=== PATIENT | male | born 1965 | race Caucasian/White ===

== ENCOUNTER 2017-06-27 16:00 | Inpatient (IN) | payer MEDICAID ==
[~2017-06-27] VITALS: Ht 165.1 cm; Wt 81.3 kg
[~2017-06-27 16:00] MED LIST: ETOMIDATE 20 MG/10 ML ONE; PROPOFOL 10 MG/ML, 100ML IV ONE; SUCCINYLCHOLINE 20 MG/ML, 10ML ONE
[2017-06-27] MEDS ORDERED: LORazepam 2 MG/ML, 1ML IVPush ONE (16:30)
[2017-06-27] MEDS ORDERED: SODIUM CHLORIDE FLUSH 10ML SYR IVF ONE (16:30)
[2017-06-27] MEDS ORDERED: VANCOMYCIN PER PHARMACY MC ONE (16:30)
[2017-06-27] MEDS ORDERED: SODIUM CHLORIDE 0.9% 1,000ML IVBOLUS ONE ×2 (16:30→19:00)
[2017-06-27] MEDS ORDERED: PLEASE ENTER HEIGHT AND WEIGHT MC SCH (16:30)
[2017-06-27] MEDS ORDERED: SUCCINYLCHOLINE 20 MG/ML, 10ML IVPush ONE (17:00)
[2017-06-27] MEDS ORDERED: VANCOMYCIN 1,400 MG in SODIUM CHLORIDE 0.9% 250 ML IV ONE (17:00)
[2017-06-27] MEDS ORDERED: ETOMIDATE 20 MG/10 ML IVPush ONE (17:00)
[2017-06-27] MEDS ORDERED: PIPERACILLIN/TAZO/PMX 3.375GM 50 ML IVPB ONE (17:00)
[2017-06-27] MEDS ORDERED: FENTANYL PF 100 MCG/2ML ONE (17:11)
[2017-06-27] MEDS ORDERED: FENTANYL PF 100 MCG/2ML IVPush ONE (17:30)
[2017-06-27] MEDS ORDERED: VECURONIUM 10 MG IVPush ONE (17:30)
[2017-06-27] MEDS ORDERED: PROPOFOL 10 MG/ML, 20ML IVPush ONE (17:30)
[2017-06-27] MEDS ORDERED: ACETAMINOPHEN 650 MG SUPP PR ONE (18:00)
[2017-06-27] MEDS: PROPOFOL 100 ML IV SCH ×2 (18:02→20:08)
[2017-06-27] MEDS ORDERED: ACETAMINOPHEN 650 MG SUPP ONE (18:06)
[2017-06-27] MEDS ORDERED: PIPERACILLIN/TAZO/PMX 3.375GM 50 ML ONE (18:06)
[2017-06-27 18:22] LABS: INTERNATIONAL NORMALIZED RATIO 1.83 (0.93-1.1); PROTHROMBIN TIME 18.6 Seconds (9.6-11.5)
[2017-06-27 18:26] LABS: MICROSCOPIC INDICATED
[2017-06-27 18:27] LABS: ALANINE AMINOTRANSFERASE 53 U/L (12-78); ANION GAP 11 mmol/L (5-15); CALCIUM 7.4 mg/dL (8.5-10.1); CHLORIDE 106 mmol/L (98-107)
[2017-06-27 18:34] LABS: MD YES; MEAN CORPUSCULAR HEMOGLOBIN 28.5 pg (27.5-34.5); MEAN CORPUSCULAR HGB CONC 33.9 g/dL (33.2-36.2); MEAN CORPUSCULAR VOLUME 83.9 fL (81-97); MEAN PLATELET VOLUME 8.3 fL (7.4-10.4); PLATELET COUNT 85 x10^3/uL (130-400); RED BLOOD COUNT 3.95 x10^6/uL (4.38-5.82); RED CELL DISTRIBUTION WIDTH 18.6 % (9.4-14.8)
[2017-06-27 18:36] LABS: CULTURE INDICATED? NO
[2017-06-27 18:37] LABS: BAND#(MANUAL) 0.68 x10^3/uL; BANDS%(MANUAL) 11 % (0-7); LYMPH#(MANUAL) 0.25 x10^3/uL (1-3.4); LYMPHS% (MANUAL) 4 % (22-44); METAMYELOCYTES# (MANUAL) 0.12 x10^3/uL (0-0); METAMYELOCYTES% (MANUAL) 2 % (0-1); MONOS#(MANUAL) 0.19 x10^3/uL (0.3-2.7); MONOS% (MANUAL) 3 % (2-9); SEG#(MANUAL) 4.96 x10^3/uL (1.8-6.8); SEGS% (MANUAL) 80 % (42-75)
[2017-06-27 18:38] LABS: ANISOCYTOSIS 2+; HYPOCHROMIA 1+; MICROCYTOSIS 1+; OVALOCYTES 1+; POLYCHROMASIA 1+
[2017-06-27 18:39] LABS: <PLATELET ESTIMATE> DECREASED; <PLT MORPHOLOGY> NORMAL PLT MORPH; PMNS WITH VACUOLES 1+; TEAR DROPS 1+
[2017-06-27 18:41] LABS: ALKALINE PHOSPHATASE 73 U/L (45-117); BILIRUBIN,TOTAL 2.4 mg/dL (0.2-1.0); CREATINE KINASE, TOTAL 1374 U/L (39-308); TOTAL PROTEIN 5.9 g/dL (6.4-8.2)
[2017-06-27 18:58] LABS: ACETONE, SERUM Negative (Negative)
[2017-06-27] MEDS ORDERED: SENNA/DOCUSATE TABLET NG PRN (19:00)
[2017-06-27] MEDS ORDERED: FAMOTIDINE 20 MG/2 ML IV SCH (19:00)
[2017-06-27] MEDS ORDERED: ENOXAPARIN 40 MG/0.4 ML SQ SCH (19:00)
[2017-06-27] MEDS ORDERED: PHARMACY MAY ADJ FOR RENAL FX MC SCH (19:00)
[2017-06-27] MEDS ORDERED: ONDANSETRON 2MG/ML, 2ML IVPush PRN (19:00)
[2017-06-27] MEDS ORDERED: LACTULOSE 20 GM/30 ML UDC NG PRN (19:00)
[2017-06-27] MEDS ORDERED: SENNOSIDES 8.8 MG/5 ML ORAL SOL NG PRN (19:00)
[2017-06-27] MEDS ORDERED: SODIUM CHLORIDE 0.9% 1,000 ML IV SCH (19:00)
[2017-06-27] MEDS ORDERED: LIDOCAINE-MPF 1%, 2ML ENDO PRN (19:00)
[2017-06-27] MEDS ORDERED: BISACODYL 10 MG SUPP PR PRN (19:00)
[2017-06-27] MEDS ORDERED: PIPERACILLIN/TAZO/PMX 3.375GM 50 ML IV SCH (19:00)
[2017-06-27] MEDS ORDERED: PROPOFOL 100 ML IV ONE (19:13)
[2017-06-27 19:50] LABS: AMPHETAMINE SCREEN, URINE Positive (Negative); BARBITURATE SCREEN, URINE Negative (Negative); BENZODIAZEPINE SCREEN, URINE Negative (Negative); CANNABINOID SCREEN, URINE Negative (Negative); COCAINE SCREEN, URINE Negative (Negative); METHADONE SCREEN, URINE Negative (Negative); OPIATE SCREEN, URINE Negative (Negative)
[2017-06-27] MEDS: AMPICILLIN/SULBACTAM 3 GM in SODIUM CHLORIDE 0.9% 100 ML IV SCH (20:03)
[2017-06-27] MEDS: SODIUM CHLORIDE 0.9% 1,000 ML IV SCH (20:12)
[2017-06-27] MEDS ORDERED: HEPARIN 5,000 UNITS/ML, 1ML ONE (20:25)
[2017-06-27] MEDS ORDERED: VANCOMYCIN PMX 1GM/200ML 200 ML IV ONE (20:30)
[2017-06-27] MEDS: HEPARIN 5,000 UNITS/ML, 1ML SQ SCH (20:39)
[2017-06-27] MEDS: RANITIDINE 50 MG in SODIUM CHLORIDE 0.9% 100 ML IV SCH (20:40)
[2017-06-27 22:04] VITALS: BP 98/54
[2017-06-28] MEDS: PROPOFOL 100 ML IV SCH (01:21)
[2017-06-28] MEDS: AMPICILLIN/SULBACTAM 3 GM in SODIUM CHLORIDE 0.9% 100 ML IV SCH ×2 (01:21→06:47)
[2017-06-28] MEDS: SODIUM CHLORIDE 0.9% 1,000 ML IV SCH (02:39)
[2017-06-28] MEDS: HEPARIN 5,000 UNITS/ML, 1ML SQ SCH ×3 (02:54→20:16)
[2017-06-28] MEDS: RANITIDINE 50 MG in SODIUM CHLORIDE 0.9% 100 ML IV SCH ×3 (04:03→20:15)
[2017-06-28 04:20] LABS: MEAN CORPUSCULAR HEMOGLOBIN 28.6 pg (27.5-34.5); MEAN CORPUSCULAR HGB CONC 34.4 g/dL (33.2-36.2); MEAN CORPUSCULAR VOLUME 83.1 fL (81-97); RED BLOOD COUNT 3.24 x10^6/uL (4.38-5.82); RED CELL DISTRIBUTION WIDTH 18.8 % (9.4-14.8)
[2017-06-28 04:29] VITALS: BP 96/53
[2017-06-28 04:31] LABS: ALBUMIN 1.5 g/dL (3.4-5.0); ANION GAP 9 mmol/L (5-15); CALCIUM 6.6 mg/dL (8.5-10.1); CHLORIDE 113 mmol/L (98-107)
[2017-06-28 04:34] LABS: ALANINE AMINOTRANSFERASE 39 U/L (12-78); ALKALINE PHOSPHATASE 54 U/L (45-117); BILIRUBIN,TOTAL 1.5 mg/dL (0.2-1.0); CHOL/HDL RATIO 4.7; CHOLESTEROL, TOTAL 56 mg/dL (140-239); CREATINE KINASE, TOTAL 732 U/L (39-308); CREATININE 0.71 mg/dL (0.7-1.3); HDL CHOL % 21 % (26-37); HDL CHOLESTEROL (DIRECT) 12 mg/dL (40-60); LDL CHOLESTEROL,CALCULATED 28 mg/dL (54-169); LDL/HDL RATIO 2.3 (0.5-3.0); TOTAL PROTEIN 4.7 g/dL (6.4-8.2); TRIGLYCERIDES 81 mg/dL (50-200); VLDL CHOLESTEROL 16 mg/dL (0-25)
[2017-06-28 04:36] LABS: ANION GAP 9 mmol/L (5-15); CALCIUM 6.6 mg/dL (8.5-10.1); CHLORIDE 112 mmol/L (98-107)
[2017-06-28 05:53] LABS: MEAN PLATELET VOLUME 8.2 fL (7.4-10.4); PLATELET COUNT 58 x10^3/uL (130-400)
[2017-06-28 05:54] LABS: MD YES
[2017-06-28 05:59] LABS: ANISOCYTOSIS 1+; BAND#(MANUAL) 0.27 x10^3/uL; BANDS%(MANUAL) 9 % (0-7); BASOS#(MANUAL) 0.03 x10^3/uL (0-0.1); BASOS% (MANUAL) 1 % (0-1); EOS#(MANUAL) 0.03 x10^3/uL (0.0-0.4); EOS% (MANUAL) 1 % (1-7); LYMPH#(MANUAL) 0.33 x10^3/uL (1-3.4); LYMPHS% (MANUAL) 11 % (22-44); METAMYELOCYTES# (MANUAL) 0.06 x10^3/uL (0-0); METAMYELOCYTES% (MANUAL) 2 % (0-1); MONOS#(MANUAL) 0.18 x10^3/uL (0.3-2.7); MONOS% (MANUAL) 6 % (2-9); POLYCHROMASIA 1+; SEGS% (MANUAL) 70 % (42-75)
[2017-06-28 06:00] LABS: OVALOCYTES 1+
[2017-06-28 06:02] LABS: TEAR DROPS 1+
[2017-06-28 06:03] LABS: <PLATELET ESTIMATE> DECREASED; <PLT MORPHOLOGY> NORMAL PLT MORPH; ECHINOCYTES 1+
[2017-06-28] MEDS ORDERED: SODIUM PHOSPHATE 20 MMOL in SODIUM CHLORIDE 0.9% 500 ML IV ONE (07:00)
[2017-06-28] MEDS ORDERED: VANCOMYCIN PER PHARMACY MC PRN (07:00)
[2017-06-28] MEDS: SODIUM CHLORIDE 0.45% 1,000 ML IV SCH (07:34)
[2017-06-28] MEDS: PROPOFOL 100 ML IV PRN (07:39)
[2017-06-28] MEDS: PIPERACILLIN/TAZO/PMX 3.375GM 50 ML IV SCH ×3 (07:42→20:15)
[2017-06-28] MEDS: LACTULOSE 20 GM/30 ML UDC PO SCH ×2 (07:49→20:15)
[2017-06-28] MEDS ORDERED: PHARMACOKINETIC CONSULTATION MC ONE (08:00)
[2017-06-28] MEDS ORDERED: PHARMACOKINETIC MONITORING MC PRN (08:00)
[2017-06-28 08:09] LABS: TROPONIN I 0.977 ng/mL (0.000-0.045)
[2017-06-28] MEDS: VANCOMYCIN 1,300 MG in SODIUM CHLORIDE 0.9% 250 ML IV SCH ×2 (08:56→21:03)
[2017-06-28] MEDS: MIDAZOLAM HCL 25 MG in SODIUM CHLORIDE 0.9% 245 ML IV PRN ×3 (10:02→22:13)
[2017-06-28 14:59] LABS: TROPONIN I 0.533 ng/mL (0.000-0.045)
[2017-06-28] MEDS: ATORVASTATIN 40 MG TABLET PO SCH (20:15)
[2017-06-28] MEDS: MVI ADULT 10 ML, THIAMINE 200 MG, FOLIC ACID 1 MG in SODIUM CHLORIDE 0.45% 1,000 ML IV SCH (21:03)
[2017-06-29] MEDS: PIPERACILLIN/TAZO/PMX 3.375GM 50 ML IV SCH ×2 (02:15→07:21)
[2017-06-29] MEDS: SODIUM CHLORIDE 0.45% 1,000 ML IV SCH (02:16)
[2017-06-29 04:00] VITALS: BP 97/54
[2017-06-29] MEDS: HEPARIN 5,000 UNITS/ML, 1ML SQ SCH ×3 (04:13→19:29)
[2017-06-29] MEDS: RANITIDINE 50 MG in SODIUM CHLORIDE 0.9% 100 ML IV SCH ×3 (04:13→19:29)
[2017-06-29 04:33] LABS: MEAN CORPUSCULAR HGB CONC 33.8 g/dL (33.2-36.2); MEAN CORPUSCULAR VOLUME 82.9 fL (81-97); MEAN PLATELET VOLUME 8.3 fL (7.4-10.4); PLATELET COUNT 58 x10^3/uL (130-400); RED CELL DISTRIBUTION WIDTH 18.9 % (9.4-14.8)
[2017-06-29 04:39] LABS: ANION GAP 8 mmol/L (5-15); CALCIUM 6.7 mg/dL (8.5-10.1); CHLORIDE 114 mmol/L (98-107); CREATININE 0.57 mg/dL (0.7-1.3)
[2017-06-29] MEDS: MIDAZOLAM HCL 25 MG in SODIUM CHLORIDE 0.9% 245 ML IV PRN (04:40)
[2017-06-29 04:55] LABS: MD YES
[2017-06-29 04:58] LABS: ANISOCYTOSIS 1+; BAND#(MANUAL) 0.06 x10^3/uL; BANDS%(MANUAL) 3 % (0-7); ECHINOCYTES 1+; EOS#(MANUAL) 0.04 x10^3/uL (0.0-0.4); EOS% (MANUAL) 2 % (1-7); LYMPH#(MANUAL) 0.66 x10^3/uL (1-3.4); LYMPHS% (MANUAL) 33 % (22-44); MONOS#(MANUAL) 0.16 x10^3/uL (0.3-2.7); MONOS% (MANUAL) 8 % (2-9); OVALOCYTES 1+; POLYCHROMASIA 1+; SEG#(MANUAL) 1.08 x10^3/uL (1.8-6.8); SEGS% (MANUAL) 54 % (42-75)
[2017-06-29 04:59] LABS: SCHISTOCYTES 1+; TARGET CELLS 1+
[2017-06-29 05:00] LABS: <PLATELET ESTIMATE> DECREASED; <PLT MORPHOLOGY> NORMAL PLT MORPH
[2017-06-29] MEDS: LACTULOSE 20 GM/30 ML UDC PO SCH ×2 (07:21→19:29)
[2017-06-29] MEDS: MIDAZOLAM HCL 50 MG in SODIUM CHLORIDE 0.9% 240 ML IV PRN ×2 (07:23→15:58)
[2017-06-29] MEDS: QUETIAPINE 25MG TABLET PO SCH ×3 (08:59→19:29)
[2017-06-29] MEDS: POTASSIUM CHLORIDE 10% 40 MEQ/30 ML UDC PO SCH ×2 (08:59→19:29)
[2017-06-29] MEDS ORDERED: SODIUM PHOSPHATE 20 MMOL in SODIUM CHLORIDE 0.9% 500 ML IV ONE (09:00)
[2017-06-29] MEDS ORDERED: CALCIUM CHLORIDE 13.6 MEQ in SODIUM CHLORIDE 0.9% 100 ML IV ONE (09:00)
[2017-06-29] MEDS: VANCOMYCIN 1,300 MG in SODIUM CHLORIDE 0.9% 250 ML IV SCH (09:01)
[2017-06-29] MEDS: ASPIRIN 325 MG TABLET PO SCH (12:06)
[2017-06-29] MEDS: AMPICILLIN/SULBACTAM 3 GM in SODIUM CHLORIDE 0.9% 100 ML IV SCH ×2 (13:27→18:26)
[2017-06-29] MEDS: ATORVASTATIN 40 MG TABLET PO SCH (19:29)
[2017-06-29] MEDS: MVI ADULT 10 ML, THIAMINE 200 MG, FOLIC ACID 1 MG in SODIUM CHLORIDE 0.45% 1,000 ML IV SCH (20:42)
[2017-06-30] MEDS: MIDAZOLAM HCL 50 MG in SODIUM CHLORIDE 0.9% 240 ML IV PRN ×3 (00:13→16:29)
[2017-06-30] MEDS: AMPICILLIN/SULBACTAM 3 GM in SODIUM CHLORIDE 0.9% 100 ML IV SCH ×4 (00:13→19:38)
[2017-06-30] MEDS: RANITIDINE 50 MG in SODIUM CHLORIDE 0.9% 100 ML IV SCH ×3 (03:47→20:20)
[2017-06-30] MEDS: HEPARIN 5,000 UNITS/ML, 1ML SQ SCH (03:47)
[2017-06-30 04:01] VITALS: BP 114/64
[2017-06-30 04:31] LABS: MEAN CORPUSCULAR HEMOGLOBIN 27.4 pg (27.5-34.5); MEAN CORPUSCULAR HGB CONC 33.2 g/dL (33.2-36.2); MEAN CORPUSCULAR VOLUME 82.4 fL (81-97); MEAN PLATELET VOLUME 8.2 fL (7.4-10.4); RED BLOOD COUNT 3.23 x10^6/uL (4.38-5.82); RED CELL DISTRIBUTION WIDTH 18.9 % (9.4-14.8)
[2017-06-30 04:36] LABS: PLATELET COUNT 46 x10^3/uL (130-400)
[2017-06-30 04:37] LABS: ANION GAP 7 mmol/L (5-15); CALCIUM 6.8 mg/dL (8.5-10.1); CHLORIDE 116 mmol/L (98-107); CREATININE 0.42 mg/dL (0.7-1.3); TRIGLYCERIDES 55 mg/dL (50-200)
[2017-06-30 05:38] LABS: MD YES
[2017-06-30] MEDS: ASPIRIN 325 MG TABLET PO SCH (05:38)
[2017-06-30 05:43] LABS: ANISOCYTOSIS 1+; BAND#(MANUAL) 0.02 x10^3/uL; BANDS%(MANUAL) 1 % (0-7); EOS#(MANUAL) 0.17 x10^3/uL (0.0-0.4); EOS% (MANUAL) 9 % (1-7); LYMPH#(MANUAL) 0.48 x10^3/uL (1-3.4); LYMPHS% (MANUAL) 25 % (22-44); MONOS#(MANUAL) 0.15 x10^3/uL (0.3-2.7); MONOS% (MANUAL) 8 % (2-9); OVALOCYTES 1+; SEG#(MANUAL) 1.08 x10^3/uL (1.8-6.8); SEGS% (MANUAL) 57 % (42-75)
[2017-06-30 05:44] LABS: POLYCHROMASIA 1+; TARGET CELLS 1+
[2017-06-30 05:46] LABS: <PLATELET ESTIMATE> DECREASED; <PLT MORPHOLOGY> NORMAL PLT MORPH
[2017-06-30] MEDS: QUETIAPINE 25MG TABLET PO SCH ×3 (09:01→20:21)
[2017-06-30] MEDS: LACTULOSE 20 GM/30 ML UDC PO SCH ×2 (09:01→20:20)
[2017-06-30] MEDS: SODIUM CHLORIDE 0.45% 1,000 ML IV SCH ×2 (09:01→20:21)
[2017-06-30] MEDS: MIDAZOLAM HCL 100 MG in SODIUM CHLORIDE 0.9% 80 ML IV PRN (19:38)
[2017-06-30] MEDS: ATORVASTATIN 40 MG TABLET PO SCH (20:20)
[2017-06-30] MEDS: MVI ADULT 10 ML, THIAMINE 200 MG, FOLIC ACID 1 MG in SODIUM CHLORIDE 0.45% 1,000 ML IV SCH (20:20)
[2017-07-01] MEDS: AMPICILLIN/SULBACTAM 3 GM in SODIUM CHLORIDE 0.9% 100 ML IV SCH ×4 (02:12→20:32)
[2017-07-01] MEDS: RANITIDINE 50 MG in SODIUM CHLORIDE 0.9% 100 ML IV SCH ×3 (03:34→20:08)
[2017-07-01 04:17] LABS: MEAN CORPUSCULAR HEMOGLOBIN 27.6 pg (27.5-34.5); MEAN CORPUSCULAR HGB CONC 33.3 g/dL (33.2-36.2); MEAN CORPUSCULAR VOLUME 82.9 fL (81-97); MEAN PLATELET VOLUME 9.1 fL (7.4-10.4); RED BLOOD COUNT 3.05 x10^6/uL (4.38-5.82); RED CELL DISTRIBUTION WIDTH 18.9 % (9.4-14.8)
[2017-07-01 04:20] LABS: PLATELET COUNT 47 x10^3/uL (130-400)
[2017-07-01 04:22] VITALS: BP 112/70
[2017-07-01 04:26] LABS: ANION GAP 5 mmol/L (5-15); CALCIUM 6.8 mg/dL (8.5-10.1); CHLORIDE 115 mmol/L (98-107); CREATININE 0.43 mg/dL (0.7-1.3)
[2017-07-01 04:30] LABS: MD YES
[2017-07-01 04:41] LABS: <PLATELET ESTIMATE> DECREASED; <PLT MORPHOLOGY> NORMAL PLT MORPH; ANISOCYTOSIS 1+; BAND#(MANUAL) 0.09 x10^3/uL; BANDS%(MANUAL) 4 % (0-7); EOS#(MANUAL) 0.16 x10^3/uL (0.0-0.4); EOS% (MANUAL) 7 % (1-7); LYMPH#(MANUAL) 0.51 x10^3/uL (1-3.4); LYMPHS% (MANUAL) 22 % (22-44); MONOS#(MANUAL) 0.23 x10^3/uL (0.3-2.7); MONOS% (MANUAL) 10 % (2-9); OVALOCYTES 1+; POLYCHROMASIA 1+; SEG#(MANUAL) 1.31 x10^3/uL (1.8-6.8); SEGS% (MANUAL) 57 % (42-75); TARGET CELLS 1+
[2017-07-01] MEDS: MIDAZOLAM HCL 100 MG in SODIUM CHLORIDE 0.9% 80 ML IV PRN (06:01)
[2017-07-01] MEDS ORDERED: FUROSEMIDE 20 MG/2 ML IV ONE (08:30)
[2017-07-01] MEDS: QUETIAPINE 25MG TABLET PO SCH ×3 (08:48→20:32)
[2017-07-01] MEDS: LACTULOSE 20 GM/30 ML UDC PO SCH ×2 (08:48→20:32)
[2017-07-01] MEDS ORDERED: POTASSIUM CHLORIDE 10% 40 MEQ/30 ML UDC PO ONE (09:00)
[2017-07-01] MEDS ORDERED: ERGOCALCIFEROL 50,000 UNIT CAPSULE PO SCH (09:30)
[2017-07-01] MEDS ORDERED: SODIUM PHOSPHATE 20 MMOL in SODIUM CHLORIDE 0.9% 500 ML IV ONE (09:30)
[2017-07-01] MEDS: PROPOFOL 100 ML IV PRN ×2 (13:42→22:53)
[2017-07-01] MEDS: MVI ADULT 10 ML, THIAMINE 200 MG, FOLIC ACID 1 MG in SODIUM CHLORIDE 0.45% 1,000 ML IV SCH (19:13)
[2017-07-01] MEDS: ATORVASTATIN 40 MG TABLET PO SCH (20:32)
[2017-07-02] MEDS: AMPICILLIN/SULBACTAM 3 GM in SODIUM CHLORIDE 0.9% 100 ML IV SCH ×4 (02:48→20:34)
[2017-07-02] MEDS: PROPOFOL 100 ML IV PRN (03:57)
[2017-07-02 04:00] VITALS: BP 99/55
[2017-07-02] MEDS ORDERED: RANITIDINE 50 MG in DEXTROSE 5% 100 ML IV SCH (04:00)
[2017-07-02 04:38] LABS: ANION GAP 5 mmol/L (5-15); CALCIUM 7.1 mg/dL (8.5-10.1); CHLORIDE 113 mmol/L (98-107); CREATININE 0.37 mg/dL (0.7-1.3)
[2017-07-02 04:44] LABS: MEAN CORPUSCULAR HEMOGLOBIN 27.3 pg (27.5-34.5); MEAN CORPUSCULAR HGB CONC 32.9 g/dL (33.2-36.2); MEAN PLATELET VOLUME 9.1 fL (7.4-10.4); PLATELET COUNT 70 x10^3/uL (130-400); RED BLOOD COUNT 3.12 x10^6/uL (4.38-5.82); RED CELL DISTRIBUTION WIDTH 19.1 % (9.4-14.8)
[2017-07-02 05:43] LABS: MD YES
[2017-07-02 05:46] LABS: ANISOCYTOSIS 1+; BAND#(MANUAL) 0.06 x10^3/uL; BANDS%(MANUAL) 2 % (0-7); EOS#(MANUAL) 0.12 x10^3/uL (0.0-0.4); EOS% (MANUAL) 4 % (1-7); LYMPH#(MANUAL) 0.81 x10^3/uL (1-3.4); LYMPHS% (MANUAL) 28 % (22-44); MONOS#(MANUAL) 0.17 x10^3/uL (0.3-2.7); MONOS% (MANUAL) 6 % (2-9); OVALOCYTES 1+; POLYCHROMASIA 1+; SEG#(MANUAL) 1.74 x10^3/uL (1.8-6.8); SEGS% (MANUAL) 60 % (42-75)
[2017-07-02 05:48] LABS: <PLATELET ESTIMATE> DECREASED; <PLT MORPHOLOGY> NORMAL PLT MORPH
[2017-07-02] MEDS: LACTULOSE 20 GM/30 ML UDC PO SCH ×2 (08:18→20:34)
[2017-07-02] MEDS: QUETIAPINE 25MG TABLET PO SCH ×3 (08:18→20:34)
[2017-07-02] MEDS ORDERED: FUROSEMIDE 20 MG/2 ML IV ONE (08:30)
[2017-07-02] MEDS ORDERED: POTASSIUM CHLORIDE 10% 40 MEQ/30 ML UDC NG ONE (08:30)
[2017-07-02] MEDS: RANITIDINE 50 MG in SODIUM CHLORIDE 0.9% 100 ML IV SCH ×2 (13:45→19:56)
[2017-07-02] MEDS: MVI ADULT 10 ML, THIAMINE 200 MG, FOLIC ACID 1 MG in SODIUM CHLORIDE 0.45% 1,000 ML IV SCH (19:56)
[2017-07-02] MEDS: ATORVASTATIN 40 MG TABLET PO SCH (20:34)
[2017-07-03] MEDS: AMPICILLIN/SULBACTAM 3 GM in SODIUM CHLORIDE 0.9% 100 ML IV SCH ×4 (02:29→18:26)
[2017-07-03] MEDS: RANITIDINE 50 MG in SODIUM CHLORIDE 0.9% 100 ML IV SCH ×2 (03:56→12:11)
[2017-07-03 04:25] VITALS: BP 114/62
[2017-07-03 04:30] LABS: O2 FLOW ROOM AIR L/min
[2017-07-03 04:38] LABS: MEAN CORPUSCULAR HEMOGLOBIN 27.3 pg (27.5-34.5); MEAN CORPUSCULAR HGB CONC 32.8 g/dL (33.2-36.2); MEAN CORPUSCULAR VOLUME 83.2 fL (81-97); PLATELET COUNT 83 x10^3/uL (130-400); RED CELL DISTRIBUTION WIDTH 18.5 % (9.4-14.8)
[2017-07-03 04:44] LABS: ANION GAP 5 mmol/L (5-15); CALCIUM 7.2 mg/dL (8.5-10.1); CHLORIDE 111 mmol/L (98-107)
[2017-07-03 04:46] LABS: CREATININE 0.47 mg/dL (0.7-1.3); TRIGLYCERIDES 25 mg/dL (50-200)
[2017-07-03 05:40] LABS: BASOPHILS # (AUTO) 0.01 x10^3/uL (0-0.1); BASOPHILS % (AUTO) 0 % (0-1); EOSINOPHILS # (AUTO) 0.12 x10^3/uL (0-0.4); EOSINOPHILS % (AUTO) 4 % (1-7); LYMPHOCYTES % (AUTO) 28 % (22-44); MD SCAN; MONOCYTES # (AUTO) 0.33 x10^3/uL (0.2-0.8); MONOCYTES % (AUTO) 11 % (2-9); NEUTROPHILS # (AUTO) 1.65 x10^3/uL (1.8-6.8); NEUTROPHILS % (AUTO) 57 % (42-75)
[2017-07-03] MEDS: FUROSEMIDE 20 MG/2 ML IV SCH (07:38)
[2017-07-03] MEDS: LACTULOSE 20 GM/30 ML UDC PO SCH ×2 (07:38→20:22)
[2017-07-03] MEDS ORDERED: POTASSIUM CHLORIDE 10% 40 MEQ/30 ML UDC ONE (07:39)
[2017-07-03] MEDS: POTASSIUM CHLORIDE 10% 40 MEQ/30 ML UDC PO SCH (09:57)
[2017-07-03] MEDS: FOLIC ACID 1 MG TABLET PO SCH (10:00)
[2017-07-03] MEDS: THIAMINE 100MG TABLET PO SCH (10:00)
[2017-07-03 20:04] VITALS: BP 121/73
[2017-07-03 20:05] VITALS: BP 121/73
[2017-07-03] MEDS: FAMOTIDINE 20 MG TABLET PO SCH (20:22)
[2017-07-03] MEDS: ATORVASTATIN 40 MG TABLET PO SCH (20:23)
[2017-07-04] MEDS: AMPICILLIN/SULBACTAM 3 GM in SODIUM CHLORIDE 0.9% 100 ML IV SCH ×4 (00:28→20:08)
[2017-07-04 00:36] VITALS: BP 136/86
[2017-07-04 00:37] VITALS: BP 136/86
[2017-07-04 05:30] LABS: INTERNATIONAL NORMALIZED RATIO 1.3 (0.93-1.1); PROTHROMBIN TIME 13.3 Seconds (9.6-11.5)
[2017-07-04 05:35] LABS: ALBUMIN 2.1 g/dL (3.4-5.0); ANION GAP 8 mmol/L (5-15); BASOPHILS # (AUTO) 0.06 x10^3/uL (0-0.1); BASOPHILS % (AUTO) 1 % (0-1); CALCIUM 7.4 mg/dL (8.5-10.1); CHLORIDE 111 mmol/L (98-107); EOSINOPHILS # (AUTO) 0.21 x10^3/uL (0-0.4); EOSINOPHILS % (AUTO) 4 % (1-7); LYMPHOCYTES # (AUTO) 1.27 x10^3/uL (1-3.4); LYMPHOCYTES % (AUTO) 25 % (22-44); MD NO; MEAN CORPUSCULAR HEMOGLOBIN 28.1 pg (27.5-34.5); MEAN CORPUSCULAR HGB CONC 33.6 g/dL (33.2-36.2); MEAN CORPUSCULAR VOLUME 83.6 fL (81-97); MEAN PLATELET VOLUME 8.1 fL (7.4-10.4); MONOCYTES # (AUTO) 0.54 x10^3/uL (0.2-0.8); MONOCYTES % (AUTO) 11 % (2-9); NEUTROPHILS # (AUTO) 2.97 x10^3/uL (1.8-6.8); NEUTROPHILS % (AUTO) 59 % (42-75); PLATELET COUNT 150 x10^3/uL (130-400); RED BLOOD COUNT 3.54 x10^6/uL (4.38-5.82); RED CELL DISTRIBUTION WIDTH 18.3 % (9.4-14.8)
[2017-07-04 05:39] LABS: ALANINE AMINOTRANSFERASE 58 U/L (12-78); ALKALINE PHOSPHATASE 166 U/L (45-117); BILIRUBIN,TOTAL 1.2 mg/dL (0.2-1.0); CREATININE 0.53 mg/dL (0.7-1.3); TOTAL PROTEIN 6.3 g/dL (6.4-8.2)
[2017-07-04 07:16] VITALS: BP 134/79
[2017-07-04] MEDS: POTASSIUM CHLORIDE 10% 40 MEQ/30 ML UDC PO SCH (08:51)
[2017-07-04] MEDS: LACTULOSE 20 GM/30 ML UDC PO SCH ×2 (08:51→20:08)
[2017-07-04] MEDS: THIAMINE 100MG TABLET PO SCH (08:52)
[2017-07-04] MEDS: FAMOTIDINE 20 MG TABLET PO SCH ×2 (08:52→20:08)
[2017-07-04] MEDS: FUROSEMIDE 20 MG/2 ML IV SCH (08:52)
[2017-07-04] MEDS: FOLIC ACID 1 MG TABLET PO SCH (08:53)
[2017-07-04 12:25] VITALS: BP 151/77
[2017-07-04 20:00] VITALS: BP 146/80
[2017-07-04] MEDS: ATORVASTATIN 40 MG TABLET PO SCH (20:08)
[2017-07-04] MEDS: IBUPROFEN 200 MG TABLET PO PRN (22:47)
[2017-07-05 02:00] VITALS: BP 147/80
[2017-07-05] MEDS: AMPICILLIN/SULBACTAM 3 GM in SODIUM CHLORIDE 0.9% 100 ML IV SCH ×4 (02:32→19:58)
[2017-07-05 05:22] LABS: BASOPHILS # (AUTO) 0.02 x10^3/uL (0-0.1); BASOPHILS % (AUTO) 1 % (0-1); EOSINOPHILS # (AUTO) 0.11 x10^3/uL (0-0.4); EOSINOPHILS % (AUTO) 4 % (1-7); LYMPHOCYTES # (AUTO) 0.97 x10^3/uL (1-3.4); LYMPHOCYTES % (AUTO) 30 % (22-44); MD NO; MEAN CORPUSCULAR HGB CONC 33.7 g/dL (33.2-36.2); MEAN CORPUSCULAR VOLUME 83.1 fL (81-97); MEAN PLATELET VOLUME 8.2 fL (7.4-10.4); MONOCYTES % (AUTO) 13 % (2-9); NEUTROPHILS # (AUTO) 1.68 x10^3/uL (1.8-6.8); NEUTROPHILS % (AUTO) 53 % (42-75); PLATELET COUNT 116 x10^3/uL (130-400); RED BLOOD COUNT 3.01 x10^6/uL (4.38-5.82); RED CELL DISTRIBUTION WIDTH 18.7 % (9.4-14.8)
[2017-07-05 05:23] LABS: ANION GAP 6 mmol/L (5-15); CHLORIDE 113 mmol/L (98-107)
[2017-07-05 05:24] LABS: CREATININE 0.51 mg/dL (0.7-1.3)
[2017-07-05 07:31] VITALS: BP 126/72
[2017-07-05] MEDS: FUROSEMIDE 20 MG/2 ML IV SCH (08:39)
[2017-07-05] MEDS: FAMOTIDINE 20 MG TABLET PO SCH ×2 (08:39→19:58)
[2017-07-05] MEDS: THIAMINE 100MG TABLET PO SCH (08:39)
[2017-07-05] MEDS: LACTULOSE 20 GM/30 ML UDC PO SCH ×2 (08:39→19:58)
[2017-07-05] MEDS: POTASSIUM CHLORIDE 10% 40 MEQ/30 ML UDC PO SCH (08:39)
[2017-07-05] MEDS: FOLIC ACID 1 MG TABLET PO SCH (08:39)
[2017-07-05 13:10] VITALS: BP 130/71
[2017-07-05] MEDS: IBUPROFEN 200 MG TABLET PO PRN ×2 (15:05→23:48)
[2017-07-05] MEDS: ATORVASTATIN 40 MG TABLET PO SCH (19:58)
[2017-07-05 20:00] VITALS: BP 144/82
[2017-07-06 02:00] VITALS: BP 119/76
[2017-07-06] MEDS: AMPICILLIN/SULBACTAM 3 GM in SODIUM CHLORIDE 0.9% 100 ML IV SCH ×3 (02:17→16:25)
[2017-07-06 05:56] LABS: BASOPHILS # (AUTO) 0.03 x10^3/uL (0-0.1); BASOPHILS % (AUTO) 1 % (0-1); EOSINOPHILS # (AUTO) 0.08 x10^3/uL (0-0.4); EOSINOPHILS % (AUTO) 3 % (1-7); LYMPHOCYTES # (AUTO) 0.95 x10^3/uL (1-3.4); LYMPHOCYTES % (AUTO) 29 % (22-44); MD NO; MEAN CORPUSCULAR HEMOGLOBIN 27.9 pg (27.5-34.5); MEAN CORPUSCULAR HGB CONC 33.1 g/dL (33.2-36.2); MEAN CORPUSCULAR VOLUME 84.3 fL (81-97); MONOCYTES # (AUTO) 0.42 x10^3/uL (0.2-0.8); MONOCYTES % (AUTO) 13 % (2-9); NEUTROPHILS # (AUTO) 1.76 x10^3/uL (1.8-6.8); NEUTROPHILS % (AUTO) 54 % (42-75); PLATELET COUNT 130 x10^3/uL (130-400); RED BLOOD COUNT 3.08 x10^6/uL (4.38-5.82)
[2017-07-06 06:08] LABS: ANION GAP 5 mmol/L (5-15); CALCIUM 7.5 mg/dL (8.5-10.1); CHLORIDE 109 mmol/L (98-107)
[2017-07-06 06:10] LABS: CREATININE 0.52 mg/dL (0.7-1.3)
[2017-07-06 06:45] VITALS: BP 125/83
[2017-07-06 07:09] VITALS: BP 129/73
[2017-07-06] MEDS ORDERED: REGADENOSON 0.4 MG/5 ML SYRINGE ONE (08:07)
[2017-07-06] MEDS: LACTULOSE 20 GM/30 ML UDC PO SCH (09:00)
[2017-07-06] MEDS ORDERED: FURO-93 PO (11:04)
[2017-07-06] MEDS ORDERED: FAMO20TA7 PO (11:04)
[2017-07-06] MEDS ORDERED: LACT20SO13 PO (11:04)
[2017-07-06] MEDS ORDERED: IBUP-1484 PO (11:04)
[2017-07-06] MEDS ORDERED: POTA20LI PO (11:04)
[2017-07-06] MEDS ORDERED: ATOR40TA78 PO (11:04)
[2017-07-06] MEDS ORDERED: FOLI-17 PO (11:04)
[2017-07-06] MEDS ORDERED: AMPI3VIA IV (11:04)
[2017-07-06] MEDS: POTASSIUM CHLORIDE 10% 40 MEQ/30 ML UDC PO SCH (11:26)
[2017-07-06] MEDS: FUROSEMIDE 20 MG/2 ML IV SCH (11:27)
[2017-07-06] MEDS: THIAMINE 100MG TABLET PO SCH (11:27)
[2017-07-06] MEDS: FOLIC ACID 1 MG TABLET PO SCH (11:27)
[2017-07-06] MEDS: FAMOTIDINE 20 MG TABLET PO SCH (11:27)
[2017-07-06] MEDS: IBUPROFEN 200 MG TABLET PO PRN ×2 (11:27→17:14)
[2017-07-06 12:23] VITALS: BP 121/64
== END 2017-07-06 17:25 | DRG 870 ==
LOC: ED 18:06 → EDIP 18:26 → SUATTDRO 18:44 → CCU 19:27 → 4WST 07-03 15:25
PROVIDERS: ADMIT Hospitalist; ATTEND Family Medicine
PROC: 5A1955Z Respiratory Ventilation, Greater than 96 Consecutive Hours (ICD-10-PCS; 2017-06-27)
PROC: 0T9B70Z Drainage of Bladder with Drainage Device, Via Natural or Artificial Opening (ICD-10-PCS; 2017-06-27)
PROC: 0BH17EZ Insertion of Endotracheal Airway into Trachea, Via Natural or Artificial Opening (ICD-10-PCS; 2017-06-27)
PROC: 02HV33Z Insertion of Infusion Device into Superior Vena Cava, Percutaneous Approach (ICD-10-PCS; principal; 2017-07-06)
PROC: B548ZZA Ultrasonography of Superior Vena Cava, Guidance (ICD-10-PCS; 2017-07-06)
DX: A41.01 Sepsis due to Methicillin susceptible Staphylococcus aureus (principal); I63.9 Cerebral infarction, unspecified; J96.01 Acute respiratory failure with hypoxia; E43 Unspecified severe protein-calorie malnutrition; J15.211 Pneumonia due to Methicillin susceptible Staphylococcus aureus; D61.818 Other pancytopenia; D68.69 Other thrombophilia; Q21.1 Atrial septal defect; Z99.11 Dependence on respirator [ventilator] status; G92 Toxic encephalopathy; D68.4 Acquired coagulation factor deficiency; L03.115 Cellulitis of right lower limb; L03.116 Cellulitis of left lower limb; M62.82 Rhabdomyolysis; E55.9 Vitamin D deficiency, unspecified; F15.10 Other stimulant abuse, uncomplicated; G40.909 Epilepsy, unspecified, not intractable, without status epilepticus; I51.7 Cardiomegaly; I87.8 Other specified disorders of veins; J32.9 Chronic sinusitis, unspecified; K43.9 Ventral hernia without obstruction or gangrene; K70.10 Alcoholic hepatitis without ascites; K72.90 Hepatic failure, unspecified without coma; K70.30 Alcoholic cirrhosis of liver without ascites; R65.20 Severe sepsis without septic shock; Z79.82 Long term (current) use of aspirin; F10.10 Alcohol abuse, uncomplicated; R31.9 Hematuria, unspecified; Z78.1 Physical restraint status; Z68.29 Body mass index [BMI] 29.0-29.9, adult; Z51.5 Encounter for palliative care
CPT/HCPCS: 31500; 36415; 36569; 36600; 70450; 71045; 74018; 76937; 77001; 78452; 80047; 80048; 80053; 80061; 80307; 81001; 82010; 82140; 82306; 82330; 82550; 82803; 83605; 83735; 83970; 84100; 84478; 84484; 85025; 85610; 87040; 87070; 87077; 87081; 87147; 87181; 87186; 87205; 93005; 93017; 93306; 93880; 93922; 94002; 94003; 94150; 96361; 96365; 96375; J0295; J1644; J2250; J2543; J2704; J2780; J2785; J3010; J3370; J3411; A9502; C1751; C9898; J0330; J1940; J7030; J7040; J7050

== ENCOUNTER 2017-08-16 20:58 | Inpatient (IN) | payer MEDICAID ==
[~2017-08-16] VITALS: Ht 172.7 cm; Wt 72.0 kg
[~2017-08-16 20:58] MED LIST changes: +AMPI3VIA IV; +ATOR40TA78 PO; -ETOMIDATE 20 MG/10 ML ONE; +FAMO20TA7 PO; +FOLI-17 PO; +FURO-93 PO; +IBUP-1484 PO; +LACT20SO13 PO; +POTA20LI PO; -PROPOFOL 10 MG/ML, 100ML IV ONE; -SUCCINYLCHOLINE 20 MG/ML, 10ML ONE
[2017-08-16] MEDS ORDERED: VANCOMYCIN PER PHARMACY MC PRN ×2 (22:30→23:30)
[2017-08-16] MEDS ORDERED: PHARMACOKINETIC CONSULTATION MC ONE (22:30)
[2017-08-16] MEDS ORDERED: AMPICILLIN/SULBACTAM 1,500 MG in SODIUM CHLORIDE 0.9% 50 ML IV ONE (22:30)
[2017-08-16] MEDS ORDERED: VANCOMYCIN 1,600 MG in SODIUM CHLORIDE 0.9% 250 ML IV ONE (22:30)
[2017-08-16] MEDS ORDERED: SODIUM CHLORIDE FLUSH 10ML SYR IVF ONE (22:30)
[2017-08-16 22:39] LABS: MEAN CORPUSCULAR HEMOGLOBIN 27.5 pg (27.5-34.5); MEAN CORPUSCULAR HGB CONC 33.8 g/dL (33.2-36.2); MEAN CORPUSCULAR VOLUME 81.2 fL (81-97); RED BLOOD COUNT 3.08 x10^6/uL (4.38-5.82); RED CELL DISTRIBUTION WIDTH 16.7 % (9.4-14.8)
[2017-08-16 22:44] LABS: ALBUMIN 2.5 g/dL (3.4-5.0); ANION GAP 7 mmol/L (5-15); CALCIUM 7.6 mg/dL (8.5-10.1); CHLORIDE 109 mmol/L (98-107); CREATININE 0.73 mg/dL (0.7-1.3)
[2017-08-16] MEDS: FAMOTIDINE 20 MG TABLET PO SCH (23:00)
[2017-08-16] MEDS: ATORVASTATIN 40 MG TABLET PO SCH (23:00)
[2017-08-16] MEDS: AMPICILLIN/SULBACTAM 3 GM in SODIUM CHLORIDE 0.9% 100 ML IV SCH (23:06)
[2017-08-16 23:07] LABS: MD SCAN; MEAN PLATELET VOLUME 8.3 fL (7.4-10.4); PLATELET COUNT 62 x10^3/uL (130-400)
[2017-08-16 23:10] LABS: BASOPHILS # (AUTO) 0.01 x10^3/uL (0-0.1); BASOPHILS % (AUTO) 1 % (0-1); EOSINOPHILS # (AUTO) 0.16 x10^3/uL (0-0.4); EOSINOPHILS % (AUTO) 7 % (1-7); LYMPHOCYTES # (AUTO) 0.42 x10^3/uL (1-3.4); LYMPHOCYTES % (AUTO) 19 % (22-44); MONOCYTES # (AUTO) 0.25 x10^3/uL (0.2-0.8); MONOCYTES % (AUTO) 11 % (2-9); NEUTROPHILS # (AUTO) 1.38 x10^3/uL (1.8-6.8); NEUTROPHILS % (AUTO) 62 % (42-75)
[2017-08-16] MEDS: NICOTINE 7 MG/24 HR PATCH.TD24 TD SCH (23:30)
[2017-08-16] MEDS ORDERED: ONDANSETRON 2MG/ML, 2ML IVPush PRN (23:30)
[2017-08-17 00:25] VITALS: BP 98/53
[2017-08-17] MEDS ORDERED: PHARMACOKINETIC MONITORING MC PRN (00:30)
[2017-08-17] MEDS: LACTULOSE 20 GM/30 ML UDC PO SCH ×3 (00:55→23:53)
[2017-08-17] MEDS: SODIUM CHLORIDE FLUSH 10ML SYR IVF SCH ×3 (00:55→23:54)
[2017-08-17] MEDS: HEPARIN 5,000 UNITS/ML, 1ML SQ SCH ×2 (00:55→07:52)
[2017-08-17 02:23] VITALS: BP 98/53
[2017-08-17 02:25] LABS: ALANINE AMINOTRANSFERASE 37 U/L (12-78); ALBUMIN 2.2 g/dL (3.4-5.0); ANION GAP 7 mmol/L (5-15); CALCIUM 7.5 mg/dL (8.5-10.1); CHLORIDE 111 mmol/L (98-107); CREATININE 0.59 mg/dL (0.7-1.3)
[2017-08-17 02:27] LABS: ALKALINE PHOSPHATASE 111 U/L (45-117); BILIRUBIN,TOTAL 1.4 mg/dL (0.2-1.0); TOTAL PROTEIN 5.5 g/dL (6.4-8.2)
[2017-08-17 02:35] LABS: MEAN CORPUSCULAR HEMOGLOBIN 27.5 pg (27.5-34.5); MEAN CORPUSCULAR HGB CONC 33.9 g/dL (33.2-36.2); MEAN CORPUSCULAR VOLUME 81.3 fL (81-97); RED BLOOD COUNT 2.99 x10^6/uL (4.38-5.82); RED CELL DISTRIBUTION WIDTH 16.8 % (9.4-14.8)
[2017-08-17 02:54] LABS: BASOPHILS # (AUTO) 0.01 x10^3/uL (0-0.1); BASOPHILS % (AUTO) 1 % (0-1); EOSINOPHILS # (AUTO) 0.14 x10^3/uL (0-0.4); EOSINOPHILS % (AUTO) 6 % (1-7); LYMPHOCYTES # (AUTO) 0.56 x10^3/uL (1-3.4); LYMPHOCYTES % (AUTO) 27 % (22-44); MD SCAN; MEAN PLATELET VOLUME 7.9 fL (7.4-10.4); MONOCYTES # (AUTO) 0.28 x10^3/uL (0.2-0.8); MONOCYTES % (AUTO) 13 % (2-9); NEUTROPHILS # (AUTO) 1.12 x10^3/uL (1.8-6.8); NEUTROPHILS % (AUTO) 53 % (42-75); PLATELET COUNT 60 x10^3/uL (130-400)
[2017-08-17 04:32] VITALS: BP 125/62
[2017-08-17] MEDS: AMPICILLIN/SULBACTAM 3 GM in SODIUM CHLORIDE 0.9% 100 ML IV SCH ×4 (05:41→23:54)
[2017-08-17] MEDS: FUROSEMIDE 20 MG TABLET PO SCH (07:50)
[2017-08-17] MEDS: POTASSIUM CHLORIDE 20 MEQ TAB.ER.PRT PO SCH (07:51)
[2017-08-17] MEDS: FAMOTIDINE 20 MG TABLET PO SCH (07:52)
[2017-08-17] MEDS: FOLIC ACID 1 MG TABLET PO SCH (07:52)
[2017-08-17 09:15] VITALS: BP 100/56
[2017-08-17 13:14] LABS: HCT (SEDRATE) 27.4 % (39.2-51.8)
[2017-08-17 13:28] VITALS: BP 112/57
[2017-08-17] MEDS: PANTOPRAZOLE 20MG TABLET PO SCH ×2 (13:35→23:53)
[2017-08-17] MEDS: VANCOMYCIN 1,500 MG in SODIUM CHLORIDE 0.9% 250 ML IV SCH (13:35)
[2017-08-17] MEDS: morphine SULFATE 10 MG/ML, 1ML IVPush PRN (13:35)
[2017-08-17 19:30] VITALS: BP 121/70
[2017-08-17] MEDS: NICOTINE 7 MG/24 HR PATCH.TD24 TD SCH (23:30)
[2017-08-17] MEDS: ATORVASTATIN 40 MG TABLET PO SCH (23:53)
[2017-08-18] MEDS: VANCOMYCIN 1,500 MG in SODIUM CHLORIDE 0.9% 250 ML IV SCH ×2 (01:27→12:52)
[2017-08-18 01:40] VITALS: BP 116/58
[2017-08-18 05:18] LABS: ANION GAP 4 mmol/L (5-15); CALCIUM 7.3 mg/dL (8.5-10.1); CHLORIDE 113 mmol/L (98-107); CREATININE 0.56 mg/dL (0.7-1.3)
[2017-08-18 05:32] LABS: MEAN CORPUSCULAR HEMOGLOBIN 27.2 pg (27.5-34.5); MEAN CORPUSCULAR HGB CONC 33.7 g/dL (33.2-36.2); MEAN CORPUSCULAR VOLUME 80.7 fL (81-97); MEAN PLATELET VOLUME 8.4 fL (7.4-10.4); PLATELET COUNT 60 x10^3/uL (130-400); RED BLOOD COUNT 3.11 x10^6/uL (4.38-5.82); RED CELL DISTRIBUTION WIDTH 16.5 % (9.4-14.8)
[2017-08-18 05:46] LABS: MD YES
[2017-08-18 05:53] LABS: ANISOCYTOSIS 1+; OVALOCYTES 1+
[2017-08-18 05:54] LABS: <PLATELET ESTIMATE> DECREASED; <PLT MORPHOLOGY> NORMAL PLT MORPH
[2017-08-18 05:55] LABS: SEG#(MANUAL) 0.93 x10^3/uL (1.8-6.8); SEGS% (MANUAL) 58 % (42-75)
[2017-08-18 05:56] LABS: EOS#(MANUAL) 0.13 x10^3/uL (0.0-0.4); EOS% (MANUAL) 8 % (1-7); LYMPH#(MANUAL) 0.38 x10^3/uL (1-3.4); LYMPHS% (MANUAL) 24 % (22-44); MONOS#(MANUAL) 0.16 x10^3/uL (0.3-2.7); MONOS% (MANUAL) 10 % (2-9)
[2017-08-18] MEDS: AMPICILLIN/SULBACTAM 3 GM in SODIUM CHLORIDE 0.9% 100 ML IV SCH ×3 (06:18→17:46)
[2017-08-18 07:39] VITALS: BP 123/66
[2017-08-18] MEDS: LACTULOSE 20 GM/30 ML UDC PO SCH ×2 (09:04→22:00)
[2017-08-18] MEDS: FOLIC ACID 1 MG TABLET PO SCH (09:04)
[2017-08-18] MEDS: POTASSIUM CHLORIDE 20 MEQ TAB.ER.PRT PO SCH (09:04)
[2017-08-18] MEDS: SODIUM CHLORIDE FLUSH 10ML SYR IVF SCH (09:04)
[2017-08-18] MEDS: FUROSEMIDE 20 MG TABLET PO SCH (09:04)
[2017-08-18] MEDS: PANTOPRAZOLE 20MG TABLET PO SCH (12:53)
[2017-08-18 14:00] VITALS: BP 126/73
[2017-08-18 21:00] VITALS: BP 106/58
[2017-08-18] MEDS: VANCOMYCIN 1,600 MG in SODIUM CHLORIDE 0.9% 250 ML IV SCH (22:00)
[2017-08-18] MEDS: ATORVASTATIN 40 MG TABLET PO SCH (22:01)
[2017-08-18] MEDS: NICOTINE 7 MG/24 HR PATCH.TD24 TD SCH (23:30)
[2017-08-19] MEDS: SODIUM CHLORIDE FLUSH 10ML SYR IVF SCH ×3 (00:24→22:04)
[2017-08-19] MEDS: AMPICILLIN/SULBACTAM 3 GM in SODIUM CHLORIDE 0.9% 100 ML IV SCH ×4 (00:24→20:03)
[2017-08-19 02:06] VITALS: BP 111/65
[2017-08-19 02:10] VITALS: BP 111/65
[2017-08-19 04:59] LABS: MEAN CORPUSCULAR HGB CONC 33.3 g/dL (33.2-36.2); MEAN CORPUSCULAR VOLUME 80.9 fL (81-97); MEAN PLATELET VOLUME 8.5 fL (7.4-10.4); PLATELET COUNT 78 x10^3/uL (130-400); RED BLOOD COUNT 3.45 x10^6/uL (4.38-5.82)
[2017-08-19 05:06] LABS: ANION GAP 6 mmol/L (5-15); CALCIUM 7.6 mg/dL (8.5-10.1); CHLORIDE 112 mmol/L (98-107)
[2017-08-19 05:08] LABS: CREATININE 0.59 mg/dL (0.7-1.3)
[2017-08-19 05:49] LABS: BASOPHILS # (AUTO) 0.01 x10^3/uL (0-0.1); BASOPHILS % (AUTO) 1 % (0-1); EOSINOPHILS # (AUTO) 0.08 x10^3/uL (0-0.4); EOSINOPHILS % (AUTO) 3 % (1-7); LYMPHOCYTES # (AUTO) 0.44 x10^3/uL (1-3.4); LYMPHOCYTES % (AUTO) 17 % (22-44); MD SCAN; MONOCYTES # (AUTO) 0.24 x10^3/uL (0.2-0.8); MONOCYTES % (AUTO) 9 % (2-9); NEUTROPHILS # (AUTO) 1.88 x10^3/uL (1.8-6.8); NEUTROPHILS % (AUTO) 71 % (42-75)
[2017-08-19] MEDS: PANTOPRAZOLE 20MG TABLET PO SCH ×3 (06:45→17:57)
[2017-08-19 07:22] VITALS: BP 163/81
[2017-08-19] MEDS: FUROSEMIDE 20 MG TABLET PO SCH (09:09)
[2017-08-19] MEDS: LACTULOSE 20 GM/30 ML UDC PO SCH ×2 (09:09→22:04)
[2017-08-19] MEDS: FOLIC ACID 1 MG TABLET PO SCH (09:09)
[2017-08-19] MEDS: POTASSIUM CHLORIDE 20 MEQ TAB.ER.PRT PO SCH (09:11)
[2017-08-19] MEDS: VANCOMYCIN 1,600 MG in SODIUM CHLORIDE 0.9% 250 ML IV SCH ×2 (09:57→22:04)
[2017-08-19] MEDS: HEPARIN 5,000 UNITS/ML, 1ML SQ SCH ×2 (13:47→22:05)
[2017-08-19 15:20] VITALS: BP 135/64
[2017-08-19 19:25] VITALS: BP 125/68
[2017-08-19] MEDS: ATORVASTATIN 40 MG TABLET PO SCH (22:04)
[2017-08-19] MEDS: morphine SULFATE 10 MG/ML, 1ML IVPush PRN (22:04)
[2017-08-19] MEDS: NICOTINE 7 MG/24 HR PATCH.TD24 TD SCH (22:05)
[2017-08-20 02:58] VITALS: BP 143/88
[2017-08-20] MEDS: morphine SULFATE 10 MG/ML, 1ML IVPush PRN ×4 (03:06→21:05)
[2017-08-20] MEDS: AMPICILLIN/SULBACTAM 3 GM in SODIUM CHLORIDE 0.9% 100 ML IV SCH ×2 (03:07→08:12)
[2017-08-20] MEDS: HEPARIN 5,000 UNITS/ML, 1ML SQ SCH ×3 (05:06→20:46)
[2017-08-20 05:30] LABS: MEAN CORPUSCULAR HEMOGLOBIN 26.9 pg (27.5-34.5); MEAN CORPUSCULAR HGB CONC 33.4 g/dL (33.2-36.2); MEAN CORPUSCULAR VOLUME 80.5 fL (81-97); RED CELL DISTRIBUTION WIDTH 16.6 % (9.4-14.8)
[2017-08-20 05:56] LABS: MEAN PLATELET VOLUME 8.3 fL (7.4-10.4); PLATELET COUNT 61 x10^3/uL (130-400)
[2017-08-20 05:58] LABS: BASOPHILS # (AUTO) 0.01 x10^3/uL (0-0.1); BASOPHILS % (AUTO) 1 % (0-1); EOSINOPHILS # (AUTO) 0.15 x10^3/uL (0-0.4); EOSINOPHILS % (AUTO) 8 % (1-7); LYMPHOCYTES # (AUTO) 0.61 x10^3/uL (1-3.4); LYMPHOCYTES % (AUTO) 31 % (22-44); MD SCAN; MONOCYTES # (AUTO) 0.21 x10^3/uL (0.2-0.8); MONOCYTES % (AUTO) 11 % (2-9); NEUTROPHILS # (AUTO) 0.99 x10^3/uL (1.8-6.8); NEUTROPHILS % (AUTO) 50 % (42-75)
[2017-08-20] MEDS: SODIUM CHLORIDE FLUSH 10ML SYR IVF SCH ×2 (09:00→20:47)
[2017-08-20 09:04] VITALS: BP 116/69
[2017-08-20] MEDS: VANCOMYCIN 1,600 MG in SODIUM CHLORIDE 0.9% 250 ML IV SCH (09:48)
[2017-08-20] MEDS: LACTULOSE 20 GM/30 ML UDC PO SCH ×2 (09:48→20:46)
[2017-08-20] MEDS: POTASSIUM CHLORIDE 20 MEQ TAB.ER.PRT PO SCH (09:49)
[2017-08-20] MEDS: FUROSEMIDE 20 MG TABLET PO SCH (09:49)
[2017-08-20] MEDS: FOLIC ACID 1 MG TABLET PO SCH (09:49)
[2017-08-20 14:07] VITALS: BP 130/79
[2017-08-20] MEDS: CEFTAROLINE 600 MG in SODIUM CHLORIDE 0.9% 100 ML IV SCH (14:54)
[2017-08-20] MEDS: PANTOPRAZOLE 20MG TABLET PO SCH (18:28)
[2017-08-20 19:36] VITALS: BP 128/78
[2017-08-20] MEDS: NICOTINE 7 MG/24 HR PATCH.TD24 TD SCH (20:47)
[2017-08-20] MEDS: ATORVASTATIN 40 MG TABLET PO SCH (20:47)
[2017-08-21] MEDS: CEFTAROLINE 600 MG in SODIUM CHLORIDE 0.9% 100 ML IV SCH ×2 (01:00→12:23)
[2017-08-21 02:48] VITALS: BP 112/65
[2017-08-21 04:59] LABS: MEAN CORPUSCULAR HEMOGLOBIN 26.9 pg (27.5-34.5); MEAN CORPUSCULAR HGB CONC 33.4 g/dL (33.2-36.2); MEAN CORPUSCULAR VOLUME 80.4 fL (81-97); MEAN PLATELET VOLUME 8.6 fL (7.4-10.4); PLATELET COUNT 67 x10^3/uL (130-400); RED BLOOD COUNT 3.29 x10^6/uL (4.38-5.82); RED CELL DISTRIBUTION WIDTH 16.3 % (9.4-14.8)
[2017-08-21 05:26] LABS: BASOPHILS # (AUTO) 0.03 x10^3/uL (0-0.1); BASOPHILS % (AUTO) 1 % (0-1); EOSINOPHILS # (AUTO) 0.14 x10^3/uL (0-0.4); EOSINOPHILS % (AUTO) 7 % (1-7); LYMPHOCYTES # (AUTO) 0.62 x10^3/uL (1-3.4); LYMPHOCYTES % (AUTO) 28 % (22-44); MD SCAN; MONOCYTES # (AUTO) 0.25 x10^3/uL (0.2-0.8); MONOCYTES % (AUTO) 12 % (2-9); NEUTROPHILS # (AUTO) 1.15 x10^3/uL (1.8-6.8); NEUTROPHILS % (AUTO) 52 % (42-75)
[2017-08-21] MEDS: PANTOPRAZOLE 20MG TABLET PO SCH ×2 (06:17→17:28)
[2017-08-21] MEDS: HEPARIN 5,000 UNITS/ML, 1ML SQ SCH (06:17)
[2017-08-21 07:40] VITALS: BP 124/73
[2017-08-21] MEDS: LACTULOSE 20 GM/30 ML UDC PO SCH ×2 (08:28→19:56)
[2017-08-21] MEDS: POTASSIUM CHLORIDE 20 MEQ TAB.ER.PRT PO SCH (08:29)
[2017-08-21] MEDS: FUROSEMIDE 20 MG TABLET PO SCH (08:29)
[2017-08-21] MEDS: FOLIC ACID 1 MG TABLET PO SCH (08:29)
[2017-08-21] MEDS: SODIUM CHLORIDE FLUSH 10ML SYR IVF SCH ×2 (08:31→19:56)
[2017-08-21 13:04] LABS: FOLATE LEVEL > 20.0 ng/mL (3.1-17.5)
[2017-08-21 15:05] VITALS: BP 124/70
[2017-08-21 19:39] VITALS: BP 126/73
[2017-08-21] MEDS: ATORVASTATIN 40 MG TABLET PO SCH (19:56)
[2017-08-21] MEDS: NICOTINE 7 MG/24 HR PATCH.TD24 TD SCH (19:56)
[2017-08-22] MEDS: CEFTAROLINE 600 MG in SODIUM CHLORIDE 0.9% 100 ML IV SCH ×2 (00:50→12:39)
[2017-08-22 02:21] VITALS: BP 97/61
[2017-08-22 05:23] LABS: MEAN CORPUSCULAR HEMOGLOBIN 26.7 pg (27.5-34.5); MEAN CORPUSCULAR HGB CONC 33.5 g/dL (33.2-36.2); MEAN CORPUSCULAR VOLUME 79.8 fL (81-97); MEAN PLATELET VOLUME 8.8 fL (7.4-10.4); PLATELET COUNT 69 x10^3/uL (130-400); RED BLOOD COUNT 3.22 x10^6/uL (4.38-5.82); RED CELL DISTRIBUTION WIDTH 16.4 % (9.4-14.8)
[2017-08-22 05:54] LABS: BASOPHILS # (AUTO) 0.02 x10^3/uL (0-0.1); BASOPHILS % (AUTO) 1 % (0-1); EOSINOPHILS # (AUTO) 0.12 x10^3/uL (0-0.4); EOSINOPHILS % (AUTO) 5 % (1-7); LYMPHOCYTES % (AUTO) 27 % (22-44); MD SCAN; MONOCYTES # (AUTO) 0.26 x10^3/uL (0.2-0.8); MONOCYTES % (AUTO) 12 % (2-9); NEUTROPHILS # (AUTO) 1.23 x10^3/uL (1.8-6.8); NEUTROPHILS % (AUTO) 55 % (42-75)
[2017-08-22] MEDS: PANTOPRAZOLE 20MG TABLET PO SCH ×2 (06:13→17:13)
[2017-08-22 07:54] VITALS: BP 118/70
[2017-08-22] MEDS: FOLIC ACID 1 MG TABLET PO SCH (08:28)
[2017-08-22] MEDS: SODIUM CHLORIDE FLUSH 10ML SYR IVF SCH ×2 (08:28→20:34)
[2017-08-22] MEDS: POTASSIUM CHLORIDE 20 MEQ TAB.ER.PRT PO SCH (08:28)
[2017-08-22] MEDS: LACTULOSE 20 GM/30 ML UDC PO SCH ×2 (08:28→20:34)
[2017-08-22] MEDS: FUROSEMIDE 20 MG TABLET PO SCH (08:29)
[2017-08-22] MEDS: ENOXAPARIN 40 MG/0.4 ML SQ SCH (14:43)
[2017-08-22 14:44] LABS: ANION GAP 4 mmol/L (5-15); CHLORIDE 112 mmol/L (98-107); CREATININE 0.65 mg/dL (0.7-1.3)
[2017-08-22 15:06] VITALS: BP 109/59
[2017-08-22] MEDS: ATORVASTATIN 40 MG TABLET PO SCH (20:34)
[2017-08-22] MEDS: NICOTINE 7 MG/24 HR PATCH.TD24 TD SCH (20:50)
[2017-08-23 01:06] VITALS: BP 124/69
[2017-08-23] MEDS: CEFTAROLINE 600 MG in SODIUM CHLORIDE 0.9% 100 ML IV SCH ×2 (01:34→13:03)
[2017-08-23] MEDS: morphine SULFATE 10 MG/ML, 1ML IVPush PRN (03:48)
[2017-08-23] MEDS: PANTOPRAZOLE 20MG TABLET PO SCH ×2 (06:00→17:48)
[2017-08-23 06:48] VITALS: BP 129/72
[2017-08-23] MEDS: SODIUM CHLORIDE FLUSH 10ML SYR IVF SCH ×2 (09:00→21:00)
[2017-08-23] MEDS: FOLIC ACID 1 MG TABLET PO SCH (09:19)
[2017-08-23] MEDS: FUROSEMIDE 20 MG TABLET PO SCH (09:19)
[2017-08-23] MEDS: LACTULOSE 20 GM/30 ML UDC PO SCH (09:19)
[2017-08-23] MEDS: NICOTINE 7 MG/24 HR PATCH.TD24 TD SCH (09:19)
[2017-08-23 13:26] VITALS: BP 102/53
[2017-08-23] MEDS ORDERED: MORPHINE SULFATE 4 MG/ML, 1ML IVPush PRN (13:30)
[2017-08-23] MEDS: ENOXAPARIN 40 MG/0.4 ML SQ SCH (14:39)
[2017-08-23 20:08] VITALS: BP 122/72
[2017-08-24] MEDS: CEFTAROLINE 600 MG in SODIUM CHLORIDE 0.9% 100 ML IV SCH ×2 (01:04→13:09)
[2017-08-24] MEDS: LACTULOSE 20 GM/30 ML UDC PO SCH ×3 (01:05→19:41)
[2017-08-24] MEDS: ATORVASTATIN 40 MG TABLET PO SCH ×2 (01:05→19:40)
[2017-08-24 01:25] VITALS: BP 115/56
[2017-08-24] MEDS: PANTOPRAZOLE 20MG TABLET PO SCH ×2 (06:32→17:56)
[2017-08-24 07:03] VITALS: BP 124/67
[2017-08-24] MEDS: SODIUM CHLORIDE FLUSH 10ML SYR IVF SCH ×2 (09:47→19:41)
[2017-08-24] MEDS: FUROSEMIDE 20 MG TABLET PO SCH (09:47)
[2017-08-24] MEDS: FOLIC ACID 1 MG TABLET PO SCH (09:47)
[2017-08-24 14:21] VITALS: BP 112/73
[2017-08-24] MEDS: ENOXAPARIN 40 MG/0.4 ML SQ SCH (14:32)
[2017-08-24 19:37] VITALS: BP 95/60
[2017-08-24] MEDS: NICOTINE 7 MG/24 HR PATCH.TD24 TD SCH (19:48)
[2017-08-25] MEDS: CEFTAROLINE 600 MG in SODIUM CHLORIDE 0.9% 100 ML IV SCH ×2 (01:04→12:43)
[2017-08-25 02:36] VITALS: BP 115/69
[2017-08-25] MEDS: PANTOPRAZOLE 20MG TABLET PO SCH ×2 (05:39→17:38)
[2017-08-25 07:33] VITALS: BP 117/74
[2017-08-25] MEDS: LACTULOSE 20 GM/30 ML UDC PO SCH ×2 (08:58→20:24)
[2017-08-25] MEDS: FOLIC ACID 1 MG TABLET PO SCH (08:58)
[2017-08-25] MEDS: FUROSEMIDE 20 MG TABLET PO SCH (08:58)
[2017-08-25] MEDS: SODIUM CHLORIDE FLUSH 10ML SYR IVF SCH ×2 (08:58→20:24)
[2017-08-25 13:27] VITALS: BP 111/65
[2017-08-25] MEDS: ENOXAPARIN 40 MG/0.4 ML SQ SCH (14:36)
[2017-08-25] MEDS: CEFTRIAXONE PMX 1GM/50ML 50 ML IV SCH (17:38)
[2017-08-25 20:01] VITALS: BP 100/62
[2017-08-25] MEDS: ATORVASTATIN 40 MG TABLET PO SCH (20:24)
[2017-08-25] MEDS: LINEZOLID 600 MG TABLET PO SCH (20:24)
[2017-08-25] MEDS: NICOTINE 7 MG/24 HR PATCH.TD24 TD SCH (20:25)
[2017-08-26 03:30] VITALS: BP 105/64
[2017-08-26 04:50] LABS: MEAN CORPUSCULAR HEMOGLOBIN 25.7 pg (27.5-34.5); MEAN CORPUSCULAR HGB CONC 32.3 g/dL (33.2-36.2); MEAN CORPUSCULAR VOLUME 79.7 fL (81-97); MEAN PLATELET VOLUME 8.2 fL (7.4-10.4); PLATELET COUNT 71 x10^3/uL (130-400); RED BLOOD COUNT 3.32 x10^6/uL (4.38-5.82); RED CELL DISTRIBUTION WIDTH 15.8 % (9.4-14.8)
[2017-08-26] MEDS: PANTOPRAZOLE 20MG TABLET PO SCH ×2 (05:13→17:00)
[2017-08-26 05:49] LABS: BASOPHILS # (AUTO) 0.02 x10^3/uL (0-0.1); BASOPHILS % (AUTO) 1 % (0-1); EOSINOPHILS # (AUTO) 0.09 x10^3/uL (0-0.4); EOSINOPHILS % (AUTO) 5 % (1-7); LYMPHOCYTES # (AUTO) 0.56 x10^3/uL (1-3.4); LYMPHOCYTES % (AUTO) 32 % (22-44); MD MORPH REVIEW ONLY; MONOCYTES # (AUTO) 0.19 x10^3/uL (0.2-0.8); MONOCYTES % (AUTO) 11 % (2-9); NEUTROPHILS # (AUTO) 0.91 x10^3/uL (1.8-6.8); NEUTROPHILS % (AUTO) 52 % (42-75)
[2017-08-26 06:37] LABS: <PLATELET ESTIMATE> DECREASED; <PLT MORPHOLOGY> NORMAL PLT MORPH; <RBC MORPHOLOGY> NORMAL; OVALOCYTES 1+
[2017-08-26 06:49] VITALS: BP 111/66
[2017-08-26] MEDS: FOLIC ACID 1 MG TABLET PO SCH (09:06)
[2017-08-26] MEDS: LINEZOLID 600 MG TABLET PO SCH ×2 (09:06→20:16)
[2017-08-26] MEDS: FUROSEMIDE 20 MG TABLET PO SCH (09:07)
[2017-08-26] MEDS: LACTULOSE 20 GM/30 ML UDC PO SCH ×2 (09:07→20:15)
[2017-08-26] MEDS: SODIUM CHLORIDE FLUSH 10ML SYR IVF SCH ×2 (09:07→20:16)
[2017-08-26 14:06] VITALS: BP 119/71
[2017-08-26] MEDS: ENOXAPARIN 40 MG/0.4 ML SQ SCH (14:33)
[2017-08-26] MEDS: CEFTRIAXONE PMX 1GM/50ML 50 ML IV SCH (17:00)
[2017-08-26] MEDS: OXYcodone/APAP 5/325MG TABLET PO PRN (17:53)
[2017-08-26] MEDS: NICOTINE 7 MG/24 HR PATCH.TD24 TD SCH (20:16)
[2017-08-26] MEDS: ATORVASTATIN 40 MG TABLET PO SCH (20:16)
[2017-08-26 20:24] VITALS: BP 147/73
[2017-08-27] MEDS: OXYcodone/APAP 5/325MG TABLET PO PRN ×3 (00:13→16:15)
[2017-08-27 01:21] VITALS: BP 126/66
[2017-08-27 05:00] LABS: HCT (SEDRATE) 25.9 % (39.2-51.8); MEAN CORPUSCULAR HEMOGLOBIN 25.8 pg (27.5-34.5); MEAN CORPUSCULAR HGB CONC 32.8 g/dL (33.2-36.2); MEAN CORPUSCULAR VOLUME 78.7 fL (81-97); MEAN PLATELET VOLUME 9.1 fL (7.4-10.4); PLATELET COUNT 71 x10^3/uL (130-400); RED BLOOD COUNT 3.28 x10^6/uL (4.38-5.82)
[2017-08-27 05:13] LABS: ALBUMIN 2.7 g/dL (3.4-5.0); ANION GAP 6 mmol/L (5-15); C-REACTIVE PROTEIN, QUANT 0.14 mg/dL (0.02-0.49); CALCIUM 7.7 mg/dL (8.5-10.1); CHLORIDE 107 mmol/L (98-107); CREATININE 0.57 mg/dL (0.7-1.3)
[2017-08-27 05:42] LABS: SEDIMENTATION RATE 11 mm/hr (0-10)
[2017-08-27 05:54] LABS: BASOPHILS # (AUTO) 0.01 x10^3/uL (0-0.1); BASOPHILS % (AUTO) 0 % (0-1); EOSINOPHILS % (AUTO) 5 % (1-7); LYMPHOCYTES # (AUTO) 0.59 x10^3/uL (1-3.4); LYMPHOCYTES % (AUTO) 30 % (22-44); MD SCAN; MONOCYTES # (AUTO) 0.25 x10^3/uL (0.2-0.8); MONOCYTES % (AUTO) 13 % (2-9); NEUTROPHILS # (AUTO) 1.05 x10^3/uL (1.8-6.8); NEUTROPHILS % (AUTO) 53 % (42-75)
[2017-08-27] MEDS: PANTOPRAZOLE 20MG TABLET PO SCH ×2 (06:21→17:24)
[2017-08-27 07:51] VITALS: BP 107/62
[2017-08-27] MEDS: LACTULOSE 20 GM/30 ML UDC PO SCH ×2 (08:39→20:05)
[2017-08-27] MEDS: LINEZOLID 600 MG TABLET PO SCH ×2 (08:39→20:04)
[2017-08-27] MEDS: FUROSEMIDE 20 MG TABLET PO SCH (08:39)
[2017-08-27] MEDS: SODIUM CHLORIDE FLUSH 10ML SYR IVF SCH ×2 (08:39→20:03)
[2017-08-27] MEDS: FOLIC ACID 1 MG TABLET PO SCH (08:39)
[2017-08-27 14:30] VITALS: BP 102/58
[2017-08-27] MEDS: ENOXAPARIN 40 MG/0.4 ML SQ SCH (16:15)
[2017-08-27] MEDS: CEFTRIAXONE PMX 1GM/50ML 50 ML IV SCH (16:15)
[2017-08-27] MEDS: ATORVASTATIN 40 MG TABLET PO SCH (20:05)
[2017-08-27] MEDS: NICOTINE 7 MG/24 HR PATCH.TD24 TD SCH (20:06)
[2017-08-27 20:46] VITALS: BP 133/68
[2017-08-28 03:17] VITALS: BP 120/73
[2017-08-28] MEDS: OXYcodone/APAP 5/325MG TABLET PO PRN ×3 (05:00→16:57)
[2017-08-28] MEDS: PANTOPRAZOLE 20MG TABLET PO SCH ×2 (05:00→16:57)
[2017-08-28 05:27] LABS: MEAN CORPUSCULAR HEMOGLOBIN 27.2 pg (27.5-34.5); MEAN CORPUSCULAR HGB CONC 34.5 g/dL (33.2-36.2); MEAN CORPUSCULAR VOLUME 78.9 fL (81-97); MEAN PLATELET VOLUME 8.8 fL (7.4-10.4); PLATELET COUNT 67 x10^3/uL (130-400); RED BLOOD COUNT 3.12 x10^6/uL (4.38-5.82); RED CELL DISTRIBUTION WIDTH 15.8 % (9.4-14.8)
[2017-08-28 05:55] LABS: CHLORIDE 110 mmol/L (98-107)
[2017-08-28 05:59] LABS: ALBUMIN 2.4 g/dL (3.4-5.0)
[2017-08-28 06:00] LABS: ANION GAP 8 mmol/L (5-15); CALCIUM 7.8 mg/dL (8.5-10.1)
[2017-08-28 06:06] LABS: BASOPHILS # (AUTO) 0.01 x10^3/uL (0-0.1); BASOPHILS % (AUTO) 1 % (0-1); EOSINOPHILS # (AUTO) 0.09 x10^3/uL (0-0.4); EOSINOPHILS % (AUTO) 5 % (1-7); LYMPHOCYTES # (AUTO) 0.49 x10^3/uL (1-3.4); LYMPHOCYTES % (AUTO) 30 % (22-44); MD SCAN; MONOCYTES # (AUTO) 0.17 x10^3/uL (0.2-0.8); MONOCYTES % (AUTO) 11 % (2-9); NEUTROPHILS # (AUTO) 0.88 x10^3/uL (1.8-6.8); NEUTROPHILS % (AUTO) 54 % (42-75)
[2017-08-28 08:11] VITALS: BP 136/64
[2017-08-28] MEDS: NICOTINE 7 MG/24 HR PATCH.TD24 TD SCH (09:39)
[2017-08-28] MEDS: SODIUM CHLORIDE FLUSH 10ML SYR IVF SCH ×2 (09:43→22:02)
[2017-08-28] MEDS: FOLIC ACID 1 MG TABLET PO SCH (09:43)
[2017-08-28] MEDS: LINEZOLID 600 MG TABLET PO SCH (09:44)
[2017-08-28] MEDS: FUROSEMIDE 20 MG TABLET PO SCH (09:44)
[2017-08-28] MEDS: LACTULOSE 20 GM/30 ML UDC PO SCH ×2 (09:45→22:00)
[2017-08-28] MEDS: DOXYCYCLINE 100MG CAP PO SCH ×2 (11:00→22:00)
[2017-08-28] MEDS: CEFDINIR 300 MG CAPSULE PO SCH ×2 (11:00→22:01)
[2017-08-28 14:42] VITALS: BP 112/64
[2017-08-28] MEDS: ENOXAPARIN 40 MG/0.4 ML SQ SCH (16:57)
[2017-08-28 19:40] VITALS: BP 104/59
[2017-08-28] MEDS: ATORVASTATIN 40 MG TABLET PO SCH (21:00)
[2017-08-29 02:43] VITALS: BP 132/73
[2017-08-29 05:29] LABS: CALCIUM 7.6 mg/dL (8.5-10.1); CHLORIDE 109 mmol/L (98-107)
[2017-08-29 05:35] LABS: ALANINE AMINOTRANSFERASE 41 U/L (12-78); ALBUMIN 2.6 g/dL (3.4-5.0); ALKALINE PHOSPHATASE 117 U/L (45-117); ANION GAP 4 mmol/L (5-15); BILIRUBIN,TOTAL 0.9 mg/dL (0.2-1.0); C-REACTIVE PROTEIN, QUANT 0.14 mg/dL (0.02-0.49); CREATININE 0.54 mg/dL (0.7-1.3); TOTAL PROTEIN 6.3 g/dL (6.4-8.2)
[2017-08-29 05:43] LABS: HCT (SEDRATE) 27.1 % (39.2-51.8); MEAN CORPUSCULAR HEMOGLOBIN 26.3 pg (27.5-34.5); MEAN CORPUSCULAR HGB CONC 33.3 g/dL (33.2-36.2); MEAN CORPUSCULAR VOLUME 79.1 fL (81-97); MEAN PLATELET VOLUME 9.3 fL (7.4-10.4); PLATELET COUNT 72 x10^3/uL (130-400); RED BLOOD COUNT 3.43 x10^6/uL (4.38-5.82); RED CELL DISTRIBUTION WIDTH 16.1 % (9.4-14.8)
[2017-08-29 06:13] LABS: MD YES
[2017-08-29 06:16] LABS: EOS#(MANUAL) 0.14 x10^3/uL (0.0-0.4); EOS% (MANUAL) 8 % (1-7); LYMPH#(MANUAL) 0.41 x10^3/uL (1-3.4); LYMPHS% (MANUAL) 24 % (22-44); MONOS#(MANUAL) 0.17 x10^3/uL (0.3-2.7); MONOS% (MANUAL) 10 % (2-9); SEG#(MANUAL) 0.99 x10^3/uL (1.8-6.8); SEGS% (MANUAL) 58 % (42-75)
[2017-08-29 06:17] LABS: <PLATELET ESTIMATE> DECREASED; ANISOCYTOSIS 1+; OVALOCYTES 1+
[2017-08-29 06:18] LABS: <PLT MORPHOLOGY> NORMAL PLT MORPH
[2017-08-29] MEDS: PANTOPRAZOLE 20MG TABLET PO SCH ×2 (06:24→16:58)
[2017-08-29 06:37] VITALS: BP 103/62
[2017-08-29 06:55] LABS: SEDIMENTATION RATE 11 mm/hr (0-10)
[2017-08-29] MEDS: SODIUM CHLORIDE FLUSH 10ML SYR IVF SCH ×2 (08:27→21:52)
[2017-08-29] MEDS: LACTULOSE 20 GM/30 ML UDC PO SCH ×2 (08:27→21:52)
[2017-08-29] MEDS: OXYcodone/APAP 5/325MG TABLET PO PRN ×3 (08:28→23:59)
[2017-08-29] MEDS: FOLIC ACID 1 MG TABLET PO SCH (08:28)
[2017-08-29] MEDS: CEFDINIR 300 MG CAPSULE PO SCH ×2 (08:28→21:52)
[2017-08-29] MEDS: DOXYCYCLINE 100MG CAP PO SCH ×2 (08:28→21:52)
[2017-08-29] MEDS: FUROSEMIDE 20 MG TABLET PO SCH (08:28)
[2017-08-29 12:51] VITALS: BP 116/72
[2017-08-29] MEDS: ENOXAPARIN 40 MG/0.4 ML SQ SCH (16:58)
[2017-08-29 19:58] VITALS: BP 119/64
[2017-08-29] MEDS: NICOTINE 7 MG/24 HR PATCH.TD24 TD SCH (21:00)
[2017-08-29] MEDS: ATORVASTATIN 40 MG TABLET PO SCH (21:00)
[2017-08-30 00:29] VITALS: BP 126/72
[2017-08-30 05:05] LABS: MEAN CORPUSCULAR HEMOGLOBIN 26.1 pg (27.5-34.5); MEAN CORPUSCULAR HGB CONC 33.1 g/dL (33.2-36.2); MEAN CORPUSCULAR VOLUME 78.8 fL (81-97); MEAN PLATELET VOLUME 8.9 fL (7.4-10.4); PLATELET COUNT 72 x10^3/uL (130-400); RED BLOOD COUNT 3.37 x10^6/uL (4.38-5.82); RED CELL DISTRIBUTION WIDTH 16.1 % (9.4-14.8)
[2017-08-30 05:16] LABS: CHLORIDE 110 mmol/L (98-107)
[2017-08-30 05:34] LABS: ALBUMIN 2.7 g/dL (3.4-5.0); ANION GAP 8 mmol/L (5-15); CALCIUM 8.3 mg/dL (8.5-10.1); CREATININE 0.61 mg/dL (0.7-1.3)
[2017-08-30 06:01] LABS: MD YES
[2017-08-30 06:04] LABS: BAND#(MANUAL) 0.04 x10^3/uL; BANDS%(MANUAL) 2 % (0-7); BASOS#(MANUAL) 0.04 x10^3/uL (0-0.1); BASOS% (MANUAL) 2 % (0-1); EOS#(MANUAL) 0.11 x10^3/uL (0.0-0.4); EOS% (MANUAL) 6 % (1-7); LYMPH#(MANUAL) 0.46 x10^3/uL (1-3.4); LYMPHS% (MANUAL) 24 % (22-44); MONOS#(MANUAL) 0.15 x10^3/uL (0.3-2.7); MONOS% (MANUAL) 8 % (2-9); SEGS% (MANUAL) 58 % (42-75)
[2017-08-30 06:05] LABS: <PLATELET ESTIMATE> DECREASED; <PLT MORPHOLOGY> NORMAL PLT MORPH; ANISOCYTOSIS 1+; OVALOCYTES 1+
[2017-08-30] MEDS: PANTOPRAZOLE 20MG TABLET PO SCH ×2 (06:08→18:30)
[2017-08-30] MEDS: OXYcodone/APAP 5/325MG TABLET PO PRN ×3 (06:08→19:35)
[2017-08-30 09:02] VITALS: BP 116/68
[2017-08-30] MEDS: LACTULOSE 20 GM/30 ML UDC PO SCH ×2 (10:23→21:24)
[2017-08-30] MEDS: FOLIC ACID 1 MG TABLET PO SCH (10:23)
[2017-08-30] MEDS: CEFDINIR 300 MG CAPSULE PO SCH ×2 (10:23→21:23)
[2017-08-30] MEDS: FUROSEMIDE 20 MG TABLET PO SCH (10:23)
[2017-08-30] MEDS: DOXYCYCLINE 100MG CAP PO SCH ×2 (10:23→21:23)
[2017-08-30] MEDS: SODIUM CHLORIDE FLUSH 10ML SYR IVF SCH ×2 (10:24→21:24)
[2017-08-30 13:37] VITALS: BP 129/69
[2017-08-30] MEDS: ENOXAPARIN 40 MG/0.4 ML SQ SCH (16:53)
[2017-08-30 19:23] VITALS: BP 108/62
[2017-08-30] MEDS: NICOTINE 7 MG/24 HR PATCH.TD24 TD SCH (21:00)
[2017-08-30] MEDS: ATORVASTATIN 40 MG TABLET PO SCH (21:24)
[2017-08-31 00:16] VITALS: BP 104/53
[2017-08-31] MEDS: PANTOPRAZOLE 20MG TABLET PO SCH (05:43)
[2017-08-31] MEDS: OXYcodone/APAP 5/325MG TABLET PO PRN ×2 (05:50→12:02)
[2017-08-31 06:05] LABS: MEAN CORPUSCULAR HGB CONC 33.1 g/dL (33.2-36.2); MEAN CORPUSCULAR VOLUME 78.4 fL (81-97); RED BLOOD COUNT 3.43 x10^6/uL (4.38-5.82); RED CELL DISTRIBUTION WIDTH 15.9 % (9.4-14.8)
[2017-08-31 06:06] LABS: CHLORIDE 109 mmol/L (98-107)
[2017-08-31 06:10] LABS: ALBUMIN 2.8 g/dL (3.4-5.0); ANION GAP 6 mmol/L (5-15); CALCIUM 7.9 mg/dL (8.5-10.1); CREATININE 0.55 mg/dL (0.7-1.3)
[2017-08-31 06:29] LABS: MEAN PLATELET VOLUME 8.5 fL (7.4-10.4); PLATELET COUNT 60 x10^3/uL (130-400)
[2017-08-31 06:34] LABS: MD YES
[2017-08-31 06:37] LABS: BAND#(MANUAL) 0.02 x10^3/uL; BANDS%(MANUAL) 1 % (0-7); BASOS#(MANUAL) 0.02 x10^3/uL (0-0.1); BASOS% (MANUAL) 1 % (0-1); EOS#(MANUAL) 0.11 x10^3/uL (0.0-0.4); EOS% (MANUAL) 6 % (1-7); LYMPH#(MANUAL) 0.61 x10^3/uL (1-3.4); LYMPHS% (MANUAL) 32 % (22-44); MONOS#(MANUAL) 0.23 x10^3/uL (0.3-2.7); MONOS% (MANUAL) 12 % (2-9); SEG#(MANUAL) 0.91 x10^3/uL (1.8-6.8); SEGS% (MANUAL) 48 % (42-75)
[2017-08-31 06:38] LABS: ANISOCYTOSIS 1+
[2017-08-31 06:39] LABS: <PLATELET ESTIMATE> DECREASED; <PLT MORPHOLOGY> NORMAL PLT MORPH
[2017-08-31] MEDS: FOLIC ACID 1 MG TABLET PO SCH (09:54)
[2017-08-31] MEDS: FUROSEMIDE 20 MG TABLET PO SCH (09:54)
[2017-08-31] MEDS: LACTULOSE 20 GM/30 ML UDC PO SCH (09:54)
[2017-08-31] MEDS: CEFDINIR 300 MG CAPSULE PO SCH (09:54)
[2017-08-31] MEDS: DOXYCYCLINE 100MG CAP PO SCH (09:55)
[2017-08-31] MEDS: SODIUM CHLORIDE FLUSH 10ML SYR IVF SCH (09:55)
[2017-08-31 10:00] VITALS: BP 125/67
[2017-08-31] MEDS ORDERED: CEFD300C37 PO (11:03)
[2017-08-31] MEDS ORDERED: DOXY100C2 PO (11:03)
[2017-08-31] MEDS ORDERED: NICO-485 TD (11:03)
== END 2017-08-31 12:45 | disposition home or self-care (01) | DRG 602 ==
LOC: ED 21:49 → EDIP 22:41 → 4NOR 23:42
PROVIDERS: ADMIT Hospitalist; ATTEND Hospitalist
DX: L03.115 Cellulitis of right lower limb (principal); E43 Unspecified severe protein-calorie malnutrition; D61.818 Other pancytopenia; I50.32 Chronic diastolic (congestive) heart failure; B19.10 Unspecified viral hepatitis B without hepatic coma; K70.30 Alcoholic cirrhosis of liver without ascites; L03.116 Cellulitis of left lower limb; B19.20 Unspecified viral hepatitis C without hepatic coma; F10.10 Alcohol abuse, uncomplicated; F17.210 Nicotine dependence, cigarettes, uncomplicated; I83.90 Asymptomatic varicose veins of unspecified lower extremity; I87.2 Venous insufficiency (chronic) (peripheral); I87.8 Other specified disorders of veins; Z59.0 Homelessness; Z91.19 Patient's noncompliance with other medical treatment and regimen; Z68.24 Body mass index [BMI] 24.0-24.9, adult; B95.62 Methicillin resistant Staphylococcus aureus infection as the cause of diseases classified elsewhere
CPT/HCPCS: 36415; 76700; 80048; 80053; 80202; 82040; 82140; 82607; 82746; 83605; 84443; 85025; 85651; 86140; 86704; 86705; 86706; 86708; 86803; 87040; 87070; 87077; 87147; 87186; 87205; 87340; 87521; 87522; 87806; 96365; 96367; 99285; J0295; J0696; J0712; J1644; J1650; J3370; G0475; J2270; J7050

== ENCOUNTER → 2017-09-05 | Outpatient (CLI) | payer MEDICAID ==
[~2017-09-05] MED LIST changes: +CEFD300C37 PO; +DOXY100C2 PO; +NICO-485 TD
== END | disposition home or self-care (01) ==
LOC: WOUND 14:00
PROVIDERS: ATTEND Internal Medicine
DX: I87.331 Chronic venous hypertension (idiopathic) with ulcer and inflammation of right lower extremity (principal); L97.222 Non-pressure chronic ulcer of left calf with fat layer exposed; L97.212 Non-pressure chronic ulcer of right calf with fat layer exposed; K70.9 Alcoholic liver disease, unspecified; E43 Unspecified severe protein-calorie malnutrition; D64.89 Other specified anemias; I50.32 Chronic diastolic (congestive) heart failure; I85.00 Esophageal varices without bleeding; I87.2 Venous insufficiency (chronic) (peripheral); E78.5 Hyperlipidemia, unspecified; F10.10 Alcohol abuse, uncomplicated; K70.30 Alcoholic cirrhosis of liver without ascites; F17.210 Nicotine dependence, cigarettes, uncomplicated
CPT/HCPCS: 97597; 97598; G0463; WOU0463

== ENCOUNTER → 2017-09-19 | Outpatient (CLI) | payer MEDICAID | END | disposition home or self-care (01) | LOC: WOUND 09:19 | PROVIDERS: ATTEND Internal Medicine | DX: I87.331 Chronic venous hypertension (idiopathic) with ulcer and inflammation of right lower extremity (principal); L97.222 Non-pressure chronic ulcer of left calf with fat layer exposed; L97.212 Non-pressure chronic ulcer of right calf with fat layer exposed; E43 Unspecified severe protein-calorie malnutrition; E78.5 Hyperlipidemia, unspecified; D64.89 Other specified anemias; I50.32 Chronic diastolic (congestive) heart failure; I85.00 Esophageal varices without bleeding; K70.9 Alcoholic liver disease, unspecified; K70.30 Alcoholic cirrhosis of liver without ascites; F10.10 Alcohol abuse, uncomplicated; F17.210 Nicotine dependence, cigarettes, uncomplicated; Z86.19 Personal history of other infectious and parasitic diseases | CPT/HCPCS: 97597; 97598 ==

== ENCOUNTER 2017-09-25 16:12 | Emergency (ER) | payer MEDICAID ==
[~2017-09-25] VITALS: Ht 172.7 cm; Wt 71.9 kg
[2017-09-25 16:16] VITALS: BP 132/72
== END 2017-09-25 18:09 | disposition home or self-care (01) ==
LOC: ED 17:02
DX: Z48.01 Encounter for change or removal of surgical wound dressing (principal); F17.200 Nicotine dependence, unspecified, uncomplicated
CPT/HCPCS: 99283

== ENCOUNTER → 2017-09-26 | Outpatient (CLI) | payer MEDICAID | END | disposition home or self-care (01) | LOC: WOUND 13:13 | PROVIDERS: ATTEND Internal Medicine | DX: I87.333 Chronic venous hypertension (idiopathic) with ulcer and inflammation of bilateral lower extremity (principal); L97.222 Non-pressure chronic ulcer of left calf with fat layer exposed; L97.212 Non-pressure chronic ulcer of right calf with fat layer exposed; E43 Unspecified severe protein-calorie malnutrition; D64.89 Other specified anemias; I85.00 Esophageal varices without bleeding; E78.5 Hyperlipidemia, unspecified; I50.32 Chronic diastolic (congestive) heart failure; F10.10 Alcohol abuse, uncomplicated; F17.210 Nicotine dependence, cigarettes, uncomplicated; K70.30 Alcoholic cirrhosis of liver without ascites | CPT/HCPCS: 97597; 97598 ==

== ENCOUNTER 2017-09-30 19:18 | Inpatient (IN) | payer MEDICAID ==
[~2017-09-30] VITALS: Ht 177.8 cm; Wt 74.1 kg
[2017-09-30 20:04] LABS: ALANINE AMINOTRANSFERASE 33 U/L (12-78); ALBUMIN 2.3 g/dL (3.4-5.0); ANION GAP 6 mmol/L (5-15); CALCIUM 7.2 mg/dL (8.5-10.1); CHLORIDE 108 mmol/L (98-107); CREATININE 0.79 mg/dL (0.7-1.3)
[2017-09-30 20:06] LABS: ALKALINE PHOSPHATASE 77 U/L (45-117); BILIRUBIN,TOTAL 2.1 mg/dL (0.2-1.0); TOTAL PROTEIN 5.7 g/dL (6.4-8.2)
[2017-09-30 20:16] LABS: MEAN CORPUSCULAR HEMOGLOBIN 25.4 pg (27.5-34.5); MEAN CORPUSCULAR HGB CONC 33.6 g/dL (33.2-36.2); MEAN CORPUSCULAR VOLUME 75.7 fL (81-97); MEAN PLATELET VOLUME 9.1 fL (7.4-10.4); PLATELET COUNT 55 x10^3/uL (130-400); RED BLOOD COUNT 3.54 x10^6/uL (4.38-5.82); RED CELL DISTRIBUTION WIDTH 20.5 % (9.4-14.8)
[2017-09-30 20:17] LABS: MD YES
[2017-09-30 20:18] LABS: BAND#(MANUAL) 0.48 x10^3/uL; BANDS%(MANUAL) 24 % (0-7); LYMPH#(MANUAL) 0.28 x10^3/uL (1-3.4); LYMPHS% (MANUAL) 14 % (22-44); MONOS#(MANUAL) 0.12 x10^3/uL (0.3-2.7); MONOS% (MANUAL) 6 % (2-9); SEG#(MANUAL) 1.12 x10^3/uL (1.8-6.8); SEGS% (MANUAL) 56 % (42-75)
[2017-09-30 20:19] LABS: <PLATELET ESTIMATE> DECREASED; <PLT MORPHOLOGY> NORMAL PLT MORPH; ANISOCYTOSIS 1+; OVALOCYTES 1+
[2017-09-30 20:33] LABS: AMPHETAMINE SCREEN, URINE Positive (Negative); BARBITURATE SCREEN, URINE Negative (Negative); BENZODIAZEPINE SCREEN, URINE Negative (Negative); CANNABINOID SCREEN, URINE Positive (Negative); COCAINE SCREEN, URINE Negative (Negative); METHADONE SCREEN, URINE Negative (Negative); OPIATE SCREEN, URINE Negative (Negative)
[2017-09-30] MEDS ORDERED: VANCOMYCIN 1,500 MG in SODIUM CHLORIDE 0.9% 250 ML IV ONE (21:30)
[2017-09-30] MEDS ORDERED: VANCOMYCIN PER PHARMACY IV ONE (21:30)
[2017-09-30] MEDS ORDERED: PIPERACILLIN/TAZO/PMX 3.375GM 50 ML IVPB ONE (21:30)
[2017-09-30] MEDS ORDERED: SODIUM CHLORIDE 0.9% 1,000ML IVBOLUS ONE (22:00)
[2017-09-30] MEDS ORDERED: PIPERACILLIN/TAZO/PMX 3.375GM 50 ML ONE (22:10)
[2017-09-30] MEDS ORDERED: SODIUM CHLORIDE 0.9% 1,000 ML IV ONE (22:42)
[2017-09-30] MEDS ORDERED: ONDANSETRON 2MG/ML, 2ML IVPush PRN ×2 (23:00→23:30)
[2017-09-30] MEDS ORDERED: BISACODYL 10 MG SUPP PR PRN (23:30)
[2017-09-30] MEDS ORDERED: VANCOMYCIN PER PHARMACY MC PRN (23:30)
[2017-09-30] MEDS ORDERED: HEPARIN 5,000 UNITS/ML, 1ML SQ SCH (23:30)
[2017-09-30] MEDS ORDERED: POLYETHYLENE GLYCOL 17 GM PACKET PO PRN (23:30)
[2017-09-30 23:41] VITALS: BP 127/77
[2017-09-30 23:48] LABS: CULTURE INDICATED? YES; MICROSCOPIC INDICATED
[2017-10-01] MEDS: NS + 20MEQ KCL 1,000 ML IV SCH ×3 (00:03→18:31)
[2017-10-01 01:47] LABS: ALANINE AMINOTRANSFERASE 29 U/L (12-78); ALBUMIN 2.1 g/dL (3.4-5.0); ANION GAP 8 mmol/L (5-15); CALCIUM 6.5 mg/dL (8.5-10.1); CHLORIDE 109 mmol/L (98-107); CREATININE 0.62 mg/dL (0.7-1.3)
[2017-10-01 01:49] LABS: ALKALINE PHOSPHATASE 68 U/L (45-117); BILIRUBIN,TOTAL 1.9 mg/dL (0.2-1.0); TOTAL PROTEIN 5.1 g/dL (6.4-8.2)
[2017-10-01 02:03] LABS: MEAN CORPUSCULAR HEMOGLOBIN 25.3 pg (27.5-34.5); MEAN CORPUSCULAR HGB CONC 33.3 g/dL (33.2-36.2); MEAN PLATELET VOLUME 9.3 fL (7.4-10.4); PLATELET COUNT 53 x10^3/uL (130-400); RED BLOOD COUNT 3.39 x10^6/uL (4.38-5.82)
[2017-10-01 02:33] LABS: MD YES
[2017-10-01 02:36] LABS: BAND#(MANUAL) 0.13 x10^3/uL; BANDS%(MANUAL) 8 % (0-7); LYMPH#(MANUAL) 0.19 x10^3/uL (1-3.4); LYMPHS% (MANUAL) 12 % (22-44); SEG#(MANUAL) 1.28 x10^3/uL (1.8-6.8); SEGS% (MANUAL) 80 % (42-75)
[2017-10-01 02:37] LABS: ANISOCYTOSIS 1+; OVALOCYTES 1+
[2017-10-01 02:38] LABS: <PLATELET ESTIMATE> DECREASED; <PLT MORPHOLOGY> NORMAL PLT MORPH
[2017-10-01] MEDS: PIPERACILLIN/TAZO/PMX 3.375GM 50 ML IV SCH ×4 (03:46→21:51)
[2017-10-01 04:06] VITALS: BP 113/63
[2017-10-01] MEDS ORDERED: PHARMACOKINETIC CONSULTATION MC ONE (05:30)
[2017-10-01] MEDS ORDERED: PHARMACOKINETIC MONITORING MC PRN (05:30)
[2017-10-01 07:39] VITALS: BP 103/62
[2017-10-01] MEDS: SENNA/DOCUSATE TABLET PO SCH (08:17)
[2017-10-01] MEDS: VANCOMYCIN 1,400 MG in SODIUM CHLORIDE 0.9% 250 ML IV SCH ×2 (10:51→22:41)
[2017-10-01 12:30] VITALS: BP 106/68
[2017-10-01 20:00] VITALS: BP 115/67
[2017-10-02 00:25] VITALS: BP 118/72
[2017-10-02] MEDS: PIPERACILLIN/TAZO/PMX 3.375GM 50 ML IV SCH ×4 (03:58→22:06)
[2017-10-02] MEDS: NS + 20MEQ KCL 1,000 ML IV SCH ×2 (04:42→16:08)
[2017-10-02 05:20] LABS: ALANINE AMINOTRANSFERASE 29 U/L (12-78); ALBUMIN 1.9 g/dL (3.4-5.0); ANION GAP 7 mmol/L (5-15); CHLORIDE 109 mmol/L (98-107); MEAN CORPUSCULAR HEMOGLOBIN 25.1 pg (27.5-34.5); MEAN CORPUSCULAR HGB CONC 33.1 g/dL (33.2-36.2); MEAN PLATELET VOLUME 9.6 fL (7.4-10.4); PLATELET COUNT 59 x10^3/uL (130-400); RED BLOOD COUNT 3.45 x10^6/uL (4.38-5.82); RED CELL DISTRIBUTION WIDTH 20.5 % (9.4-14.8)
[2017-10-02 05:23] LABS: ALKALINE PHOSPHATASE 98 U/L (45-117); BILIRUBIN,TOTAL 1.1 mg/dL (0.2-1.0)
[2017-10-02 05:57] LABS: MD YES
[2017-10-02 06:02] LABS: ANISOCYTOSIS 1+; ECHINOCYTES 1+; EOS#(MANUAL) 0.16 x10^3/uL (0.0-0.4); EOS% (MANUAL) 9 % (1-7); LYMPH#(MANUAL) 0.54 x10^3/uL (1-3.4); LYMPHS% (MANUAL) 30 % (22-44); MONOS#(MANUAL) 0.22 x10^3/uL (0.3-2.7); MONOS% (MANUAL) 12 % (2-9); OVALOCYTES 1+; SEG#(MANUAL) 0.88 x10^3/uL (1.8-6.8); SEGS% (MANUAL) 49 % (42-75)
[2017-10-02 06:03] LABS: <PLATELET ESTIMATE> DECREASED; <PLT MORPHOLOGY> NORMAL PLT MORPH
[2017-10-02 06:57] VITALS: BP 96/63
[2017-10-02] MEDS: SENNA/DOCUSATE TABLET PO SCH (09:23)
[2017-10-02] MEDS: VANCOMYCIN 1,400 MG in SODIUM CHLORIDE 0.9% 250 ML IV SCH ×2 (10:11→22:49)
[2017-10-02 14:47] VITALS: BP 118/65
[2017-10-03 00:58] VITALS: BP_SYST 120; BP_DIAS 69; BP_DIAS 9
[2017-10-03] MEDS: NS + 20MEQ KCL 1,000 ML IV SCH (02:59)
[2017-10-03] MEDS: PIPERACILLIN/TAZO/PMX 3.375GM 50 ML IV SCH ×4 (04:11→22:09)
[2017-10-03 05:22] LABS: ANION GAP 6 mmol/L (5-15); CALCIUM 7.7 mg/dL (8.5-10.1); CHLORIDE 111 mmol/L (98-107)
[2017-10-03 05:23] LABS: CREATININE 0.53 mg/dL (0.7-1.3)
[2017-10-03 05:45] LABS: MD YES; MEAN CORPUSCULAR HEMOGLOBIN 25.3 pg (27.5-34.5); MEAN CORPUSCULAR HGB CONC 33.7 g/dL (33.2-36.2); MEAN PLATELET VOLUME 9.5 fL (7.4-10.4); PLATELET COUNT 68 x10^3/uL (130-400); RED CELL DISTRIBUTION WIDTH 20.3 % (9.4-14.8)
[2017-10-03 05:50] LABS: EOS#(MANUAL) 0.24 x10^3/uL (0.0-0.4); EOS% (MANUAL) 10 % (1-7); LYMPH#(MANUAL) 0.77 x10^3/uL (1-3.4); LYMPHS% (MANUAL) 32 % (22-44); MONOS#(MANUAL) 0.29 x10^3/uL (0.3-2.7); MONOS% (MANUAL) 12 % (2-9); SEGS% (MANUAL) 46 % (42-75)
[2017-10-03 05:51] LABS: ANISOCYTOSIS 1+; OVALOCYTES 1+
[2017-10-03 05:52] LABS: <PLATELET ESTIMATE> DECREASED; <PLT MORPHOLOGY> NORMAL PLT MORPH
[2017-10-03 06:43] VITALS: BP 113/73
[2017-10-03] MEDS: SENNA/DOCUSATE TABLET PO SCH (09:00)
[2017-10-03] MEDS: VANCOMYCIN 1,400 MG in SODIUM CHLORIDE 0.9% 250 ML IV SCH ×2 (11:00→22:52)
[2017-10-03 12:13] VITALS: BP 129/72
[2017-10-03 18:35] VITALS: BP 108/53
[2017-10-04 01:01] VITALS: BP 125/67
[2017-10-04] MEDS: PIPERACILLIN/TAZO/PMX 3.375GM 50 ML IV SCH ×2 (04:06→10:14)
[2017-10-04 05:07] LABS: MEAN CORPUSCULAR HEMOGLOBIN 24.8 pg (27.5-34.5); MEAN CORPUSCULAR HGB CONC 33.1 g/dL (33.2-36.2); MEAN PLATELET VOLUME 8.9 fL (7.4-10.4); PLATELET COUNT 76 x10^3/uL (130-400); RED BLOOD COUNT 3.64 x10^6/uL (4.38-5.82); RED CELL DISTRIBUTION WIDTH 20.4 % (9.4-14.8)
[2017-10-04 05:15] LABS: CHLORIDE 110 mmol/L (98-107)
[2017-10-04 05:20] LABS: ANION GAP 7 mmol/L (5-15); CALCIUM 7.6 mg/dL (8.5-10.1); CREATININE 0.59 mg/dL (0.7-1.3)
[2017-10-04 05:45] LABS: BASOPHILS # (AUTO) 0.02 x10^3/uL (0-0.1); BASOPHILS % (AUTO) 1 % (0-1); EOSINOPHILS # (AUTO) 0.19 x10^3/uL (0-0.4); EOSINOPHILS % (AUTO) 6 % (1-7); LYMPHOCYTES # (AUTO) 0.89 x10^3/uL (1-3.4); LYMPHOCYTES % (AUTO) 30 % (22-44); MD SCAN; MONOCYTES # (AUTO) 0.32 x10^3/uL (0.2-0.8); MONOCYTES % (AUTO) 11 % (2-9); NEUTROPHILS # (AUTO) 1.53 x10^3/uL (1.8-6.8); NEUTROPHILS % (AUTO) 52 % (42-75)
[2017-10-04 07:18] VITALS: BP 108/66
[2017-10-04] MEDS: SENNA/DOCUSATE TABLET PO SCH (09:00)
[2017-10-04] MEDS ORDERED: CLIN300C8 PO (10:59)
[2017-10-04] MEDS ORDERED: LINEZOLID 600 MG TABLET PO SCH (11:00)
[2017-10-04] MEDS ORDERED: CLINDAMYCIN 300 MG CAPSULE PO SCH (11:00)
[2017-10-04] MEDS ORDERED: ACID1TAB3 PO (11:01)
[2017-10-04 12:07] VITALS: BP 91/51
== END 2017-10-04 16:21 | disposition home or self-care (01) | DRG 871 ==
LOC: ED 19:26 → EDIP 22:42 → 3NE 23:16
PROVIDERS: ADMIT Internal Medicine; ATTEND Internal Medicine
DX: A41.9 Sepsis, unspecified organism (principal); E43 Unspecified severe protein-calorie malnutrition; D61.818 Other pancytopenia; E87.1 Hypo-osmolality and hyponatremia; I50.32 Chronic diastolic (congestive) heart failure; I85.00 Esophageal varices without bleeding; L03.115 Cellulitis of right lower limb; L03.116 Cellulitis of left lower limb; E87.6 Hypokalemia; F10.10 Alcohol abuse, uncomplicated; F17.210 Nicotine dependence, cigarettes, uncomplicated; I73.9 Peripheral vascular disease, unspecified; I87.2 Venous insufficiency (chronic) (peripheral); I87.8 Other specified disorders of veins; K70.30 Alcoholic cirrhosis of liver without ascites; F15.129 Other stimulant abuse with intoxication, unspecified; Z68.23 Body mass index [BMI] 23.0-23.9, adult
CPT/HCPCS: 36415; 71045; 80048; 80053; 80202; 80307; 81001; 82140; 82728; 83540; 83550; 83605; 84145; 85025; 87040; 87070; 87077; 87086; 87147; 87186; 87205; 96365; 96375; 99291; J2543; J3370; J3480; J7030; J7050

== ENCOUNTER → 2017-10-13 | Outpatient (CLI) | payer MEDICAID ==
[~2017-10-13] MED LIST changes: +ACID1TAB3 PO; +CLIN300C8 PO
== END | disposition home or self-care (01) ==
LOC: CVU 13:40
PROVIDERS: ATTEND Internal Medicine
DX: I87.2 Venous insufficiency (chronic) (peripheral) (principal); L03.116 Cellulitis of left lower limb; I50.32 Chronic diastolic (congestive) heart failure; M79.661 Pain in right lower leg; M79.662 Pain in left lower leg
CPT/HCPCS: 93922; 93925; 93970

== ENCOUNTER 2017-10-14 06:03 | Emergency (ER) | payer MEDICAID ==
[~2017-10-14] VITALS: Ht 172.7 cm; Wt 72.1 kg
[2017-10-14 06:05] VITALS: BP 137/67
== END 2017-10-14 09:42 | disposition home or self-care (01) ==
LOC: ED 06:21
DX: S00.01XA Abrasion of scalp, initial encounter (principal); X58.XXXA Exposure to other specified factors, initial encounter; Y93.89 Activity, other specified; Y92.009 Unspecified place in unspecified non-institutional (private) residence as the place of occurrence of the external cause; Y99.8 Other external cause status
CPT/HCPCS: 99281

== ENCOUNTER 2017-10-21 20:37 | Emergency (ER) | payer MEDICAID ==
[~2017-10-21] VITALS: Ht 172.7 cm; Wt 70.9 kg
[2017-10-21 20:43] VITALS: BP 118/52
[2017-10-21] MEDS ORDERED: BACITRACIN ZINC OINT 500U/GM, 0.9 GM ONE ×2 (22:02→22:15)
== END 2017-10-21 22:44 | disposition home or self-care (01) ==
LOC: ED 22:17
DX: I83.018 Varicose veins of right lower extremity with ulcer other part of lower leg (principal); L97.811 Non-pressure chronic ulcer of other part of right lower leg limited to breakdown of skin
CPT/HCPCS: 99281

== ENCOUNTER → 2017-10-24 | Outpatient (CLI) | payer MEDICAID | END | disposition home or self-care (01) | LOC: WOUND 13:35 | PROVIDERS: ATTEND Internal Medicine | DX: I87.333 Chronic venous hypertension (idiopathic) with ulcer and inflammation of bilateral lower extremity (principal); L97.222 Non-pressure chronic ulcer of left calf with fat layer exposed; L97.212 Non-pressure chronic ulcer of right calf with fat layer exposed; E43 Unspecified severe protein-calorie malnutrition; D64.89 Other specified anemias; I85.00 Esophageal varices without bleeding; E78.5 Hyperlipidemia, unspecified; I50.32 Chronic diastolic (congestive) heart failure; I73.9 Peripheral vascular disease, unspecified; F10.10 Alcohol abuse, uncomplicated; F17.210 Nicotine dependence, cigarettes, uncomplicated; K70.30 Alcoholic cirrhosis of liver without ascites; K70.9 Alcoholic liver disease, unspecified; F15.129 Other stimulant abuse with intoxication, unspecified | CPT/HCPCS: 97597; 97598 ==

== ENCOUNTER 2017-11-04 11:06 | Emergency (ER) | payer MEDICAID ==
[~2017-11-04] VITALS: Ht 172.7 cm; Wt 71.0 kg
[2017-11-04 11:12] VITALS: BP 151/84
[2017-11-04 11:59] LABS: MEAN CORPUSCULAR HEMOGLOBIN 26.9 pg (27.5-34.5); MEAN CORPUSCULAR HGB CONC 33.6 g/dL (33.2-36.2); MEAN CORPUSCULAR VOLUME 80.1 fL (81-97); MEAN PLATELET VOLUME 7.8 fL (7.4-10.4); PLATELET COUNT 117 x10^3/uL (130-400); RED BLOOD COUNT 3.66 x10^6/uL (4.38-5.82); RED CELL DISTRIBUTION WIDTH 23.8 % (9.4-14.8)
[2017-11-04 12:10] LABS: ALANINE AMINOTRANSFERASE 32 U/L (12-78); ALBUMIN 2.3 g/dL (3.4-5.0); ANION GAP 5 mmol/L (5-15); CALCIUM 7.6 mg/dL (8.5-10.1); CHLORIDE 108 mmol/L (98-107); CREATININE 0.62 mg/dL (0.7-1.3)
[2017-11-04 12:12] LABS: ALKALINE PHOSPHATASE 114 U/L (45-117); BILIRUBIN,TOTAL 1.4 mg/dL (0.2-1.0); TOTAL PROTEIN 6.5 g/dL (6.4-8.2)
[2017-11-04 12:22] LABS: MD MORPH REVIEW ONLY
[2017-11-04 12:23] LABS: BASOPHILS # (AUTO) 0.01 x10^3/uL (0-0.1); BASOPHILS % (AUTO) 0 % (0-1); EOSINOPHILS # (AUTO) 0.22 x10^3/uL (0-0.4); EOSINOPHILS % (AUTO) 4 % (1-7); LYMPHOCYTES # (AUTO) 0.91 x10^3/uL (1-3.4); LYMPHOCYTES % (AUTO) 16 % (22-44); MONOCYTES # (AUTO) 0.55 x10^3/uL (0.2-0.8); MONOCYTES % (AUTO) 10 % (2-9); NEUTROPHILS # (AUTO) 3.88 x10^3/uL (1.8-6.8); NEUTROPHILS % (AUTO) 70 % (42-75)
[2017-11-04 12:24] LABS: ANISOCYTOSIS 1+; MICROCYTOSIS 2+; OVALOCYTES 1+; SCHISTOCYTES 1+
[2017-11-04 12:25] LABS: <PLATELET ESTIMATE> DECREASED; <PLT MORPHOLOGY> NORMAL PLT MORPH; POLYCHROMASIA 1+
== END 2017-11-04 14:28 | disposition home or self-care (01) ==
LOC: ED 12:03
DX: I83.022 Varicose veins of left lower extremity with ulcer of calf (principal); I87.2 Venous insufficiency (chronic) (peripheral); I73.9 Peripheral vascular disease, unspecified
CPT/HCPCS: 36415; 80053; 85025; 99284

== ENCOUNTER → 2017-11-04 | Outpatient (CLI) | payer MEDICAID | END | disposition home or self-care (01) | LOC: WOUND 15:10 | PROVIDERS: ATTEND Family Medicine | DX: I87.333 Chronic venous hypertension (idiopathic) with ulcer and inflammation of bilateral lower extremity (principal); L97.222 Non-pressure chronic ulcer of left calf with fat layer exposed; L97.212 Non-pressure chronic ulcer of right calf with fat layer exposed; E43 Unspecified severe protein-calorie malnutrition; D64.89 Other specified anemias; I85.00 Esophageal varices without bleeding; E78.5 Hyperlipidemia, unspecified; I50.32 Chronic diastolic (congestive) heart failure; I73.9 Peripheral vascular disease, unspecified; F10.10 Alcohol abuse, uncomplicated; K70.30 Alcoholic cirrhosis of liver without ascites; F15.129 Other stimulant abuse with intoxication, unspecified; F17.210 Nicotine dependence, cigarettes, uncomplicated | CPT/HCPCS: 29581 ==

== ENCOUNTER → 2017-11-07 | Outpatient (CLI) | payer MEDICAID | END | disposition home or self-care (01) | LOC: WOUND 13:40 | PROVIDERS: ATTEND Internal Medicine | DX: I87.333 Chronic venous hypertension (idiopathic) with ulcer and inflammation of bilateral lower extremity (principal); L97.222 Non-pressure chronic ulcer of left calf with fat layer exposed; L97.212 Non-pressure chronic ulcer of right calf with fat layer exposed; E43 Unspecified severe protein-calorie malnutrition; D64.89 Other specified anemias; I85.00 Esophageal varices without bleeding; E78.5 Hyperlipidemia, unspecified; I50.32 Chronic diastolic (congestive) heart failure; I73.9 Peripheral vascular disease, unspecified; F10.10 Alcohol abuse, uncomplicated; K70.30 Alcoholic cirrhosis of liver without ascites; F15.129 Other stimulant abuse with intoxication, unspecified; F17.210 Nicotine dependence, cigarettes, uncomplicated | CPT/HCPCS: 99215 ==

== ENCOUNTER 2017-11-11 05:12 | Emergency (ER) | payer MEDICAID ==
[~2017-11-11] VITALS: Ht 172.7 cm; Wt 72.9 kg
[2017-11-11 05:14] VITALS: BP 142/87
[2017-11-11] MEDS ORDERED: LIDOCAINE-MPF 1%, 5ML ONE (05:52)
[2017-11-11] MEDS ORDERED: LIDOCAINE-MPF 1%, 5ML INFIL ONE (06:00)
== END 2017-11-11 06:32 | disposition home or self-care (01) ==
LOC: ED 05:24
DX: L02.511 Cutaneous abscess of right hand (principal); K12.0 Recurrent oral aphthae; L03.011 Cellulitis of right finger; F17.210 Nicotine dependence, cigarettes, uncomplicated
CPT/HCPCS: 26011; 99284

== ENCOUNTER 2017-12-04 15:42 | Emergency (ER) | payer MEDICAID ==
[~2017-12-04] VITALS: Ht 172.7 cm; Wt 71.5 kg
[2017-12-04 16:03] VITALS: BP 134/85
== END 2017-12-04 16:55 | disposition home or self-care (01) ==
LOC: ED 16:45
DX: L97.929 Non-pressure chronic ulcer of unspecified part of left lower leg with unspecified severity (principal); L97.919 Non-pressure chronic ulcer of unspecified part of right lower leg with unspecified severity; I73.9 Peripheral vascular disease, unspecified; I77.9 Disorder of arteries and arterioles, unspecified
CPT/HCPCS: 99282; 99283

== ENCOUNTER 2017-12-05 23:22 | Emergency (ER) | payer MEDICAID ==
[~2017-12-05] VITALS: Ht 172.7 cm; Wt 69.0 kg
[2017-12-05 23:49] VITALS: BP 133/72
[2017-12-06] MEDS ORDERED: IBUPROFEN 200 MG TABLET PO ONE
[2017-12-06] MEDS ORDERED: IBUPROFEN 200 MG TABLET ONE (00:01)
== END 2017-12-06 00:46 | disposition home or self-care (01) ==
LOC: ED 12-06 00:15
DX: L98.9 Disorder of the skin and subcutaneous tissue, unspecified (principal); I73.9 Peripheral vascular disease, unspecified; I77.9 Disorder of arteries and arterioles, unspecified; K74.60 Unspecified cirrhosis of liver; Z59.0 Homelessness
CPT/HCPCS: 99283

== ENCOUNTER 2017-12-27 15:40 | Inpatient (IN) | payer MEDICAID ==
[~2017-12-27] VITALS: Ht 167.6 cm; Wt 68.1 kg
[2017-12-27] MEDS ORDERED: PIPERACILLIN/TAZO/PMX 3.375GM 50 ML IV ONE (16:30)
[2017-12-27] MEDS ORDERED: ACETAMINOPHEN 500 MG TABLET PO ONE (16:30)
[2017-12-27] MEDS ORDERED: SODIUM CHLORIDE 0.9% 1,000ML IVBOLUS ONE (16:30)
[2017-12-27] MEDS ORDERED: VANCOMYCIN PER PHARMACY MC ONE (16:30)
[2017-12-27] MEDS ORDERED: ACETAMINOPHEN 500 MG TABLET ONE (16:41)
[2017-12-27] MEDS ORDERED: PIPERACILLIN/TAZO/PMX 3.375GM 50 ML ONE (16:41)
[2017-12-27 16:48] LABS: INTERNATIONAL NORMALIZED RATIO 1.29 (0.93-1.1); PROTHROMBIN TIME 13.2 Seconds (9.6-11.5)
[2017-12-27 16:50] LABS: ALANINE AMINOTRANSFERASE 46 U/L (12-78); ALBUMIN 2.5 g/dL (3.4-5.0); ANION GAP 7 mmol/L (5-15); CALCIUM 7.1 mg/dL (8.5-10.1); CHLORIDE 109 mmol/L (98-107); CREATININE 0.68 mg/dL (0.7-1.3)
[2017-12-27 16:52] LABS: ALKALINE PHOSPHATASE 141 U/L (45-117); BILIRUBIN,TOTAL 2.3 mg/dL (0.2-1.0); TOTAL PROTEIN 6.7 g/dL (6.4-8.2)
[2017-12-27 17:00] LABS: BASOPHILS % (AUTO) 0 % (0-1); EOSINOPHILS # (AUTO) 0.05 x10^3/uL (0-0.4); EOSINOPHILS % (AUTO) 1 % (1-7); LYMPHOCYTES # (AUTO) 0.26 x10^3/uL (1-3.4); LYMPHOCYTES % (AUTO) 6 % (22-44); MD MORPH REVIEW ONLY; MEAN CORPUSCULAR HEMOGLOBIN 26.8 pg (27.5-34.5); MEAN CORPUSCULAR HGB CONC 33.7 g/dL (33.2-36.2); MEAN CORPUSCULAR VOLUME 79.3 fL (81-97); MEAN PLATELET VOLUME 7.7 fL (7.4-10.4); MONOCYTES # (AUTO) 0.35 x10^3/uL (0.2-0.8); MONOCYTES % (AUTO) 8 % (2-9); NEUTROPHILS # (AUTO) 3.73 x10^3/uL (1.8-6.8); NEUTROPHILS % (AUTO) 85 % (42-75); PLATELET COUNT 65 x10^3/uL (130-400); RED BLOOD COUNT 3.41 x10^6/uL (4.38-5.82); RED CELL DISTRIBUTION WIDTH 19.4 % (9.4-14.8)
[2017-12-27] MEDS ORDERED: VANCOMYCIN 1,200 MG in SODIUM CHLORIDE 0.9% 250 ML IV ONE (17:00)
[2017-12-27 17:01] LABS: ANISOCYTOSIS 1+; MICROCYTOSIS 1+; OVALOCYTES 1+
[2017-12-27 17:02] LABS: POLYCHROMASIA 1+; TEAR DROPS 1+
[2017-12-27 17:03] LABS: <PLATELET ESTIMATE> DECREASED; <PLT MORPHOLOGY> NORMAL PLT MORPH
[2017-12-27 17:04] LABS: ECHINOCYTES 1+
[2017-12-27] MEDS ORDERED: IBUPROFEN 600 MG TABLET PO PRN (19:00)
[2017-12-27] MEDS ORDERED: VANCOMYCIN PER PHARMACY MC PRN (19:00)
[2017-12-27] MEDS ORDERED: ACETAMINOPHEN 325 MG TABLET PO PRN (19:00)
[2017-12-27] MEDS ORDERED: ONDANSETRON ODT 4 MG PO PRN (19:00)
[2017-12-27] MEDS ORDERED: hydrALAzine 20 MG/ML, 1ML IVPush PRN (19:00)
[2017-12-27] MEDS ORDERED: DOCUSATE 100 MG CAPSULE PO PRN (19:00)
[2017-12-27 19:30] VITALS: BP 119/66
[2017-12-27] MEDS: SODIUM CHLORIDE 0.9% 1,000 ML IV SCH (19:52)
[2017-12-27] MEDS: HEPARIN 5,000 UNITS/ML, 1ML SQ SCH (19:52)
[2017-12-27] MEDS ORDERED: PHARMACOKINETIC CONSULTATION MC ONE (20:00)
[2017-12-27] MEDS ORDERED: PHARMACOKINETIC MONITORING MC PRN (20:00)
[2017-12-27] MEDS: PIPERACILLIN/TAZO/PMX 3.375GM 50 ML IV SCH (23:08)
[2017-12-28 00:33] VITALS: BP 123/66
[2017-12-28] MEDS: HEPARIN 5,000 UNITS/ML, 1ML SQ SCH ×3 (02:55→20:38)
[2017-12-28] MEDS: PIPERACILLIN/TAZO/PMX 3.375GM 50 ML IV SCH ×4 (04:26→22:20)
[2017-12-28 05:17] LABS: MEAN CORPUSCULAR HEMOGLOBIN 26.6 pg (27.5-34.5); MEAN CORPUSCULAR HGB CONC 33.8 g/dL (33.2-36.2); MEAN CORPUSCULAR VOLUME 78.7 fL (81-97); RED BLOOD COUNT 3.39 x10^6/uL (4.38-5.82); RED CELL DISTRIBUTION WIDTH 19.2 % (9.4-14.8)
[2017-12-28 05:25] LABS: CHLORIDE 110 mmol/L (98-107)
[2017-12-28 05:29] LABS: ANION GAP 7 mmol/L (5-15); CREATININE 0.55 mg/dL (0.7-1.3)
[2017-12-28 05:45] LABS: MEAN PLATELET VOLUME 7.7 fL (7.4-10.4); PLATELET COUNT 61 x10^3/uL (130-400)
[2017-12-28 05:46] LABS: BASOPHILS # (AUTO) 0.02 x10^3/uL (0-0.1); BASOPHILS % (AUTO) 1 % (0-1); EOSINOPHILS # (AUTO) 0.02 x10^3/uL (0-0.4); EOSINOPHILS % (AUTO) 1 % (1-7); LYMPHOCYTES # (AUTO) 0.28 x10^3/uL (1-3.4); LYMPHOCYTES % (AUTO) 8 % (22-44); MD SCAN; MONOCYTES # (AUTO) 0.34 x10^3/uL (0.2-0.8); MONOCYTES % (AUTO) 10 % (2-9); NEUTROPHILS # (AUTO) 2.78 x10^3/uL (1.8-6.8); NEUTROPHILS % (AUTO) 81 % (42-75)
[2017-12-28] MEDS ORDERED: POTASSIUM CHLORIDE 40 MEQ in SODIUM CHLORIDE 0.9% 500 ML IV ONE (07:00)
[2017-12-28] MEDS ORDERED: PROCHLORPERAZINE 5 MG/ML, 2ML IM PRN (07:30)
[2017-12-28 07:40] VITALS: BP 107/61
[2017-12-28 07:41] LABS: ALBUMIN 2.1 g/dL (3.4-5.0); BILIRUBIN, DIRECT 0.5 mg/dL (0.1-0.2)
[2017-12-28 07:43] LABS: BILIRUBIN,INDIRECT 2.5 mg/dL (0.0-2.0); TOTAL PROTEIN 5.8 g/dL (6.4-8.2)
[2017-12-28] MEDS: SODIUM CHLORIDE 0.9% 1,000 ML IV SCH ×2 (07:43→14:32)
[2017-12-28] MEDS: LACTULOSE 10 GM/15 ML UDC PO SCH ×2 (11:28→20:38)
[2017-12-28] MEDS: VANCOMYCIN 1,500 MG in SODIUM CHLORIDE 0.9% 250 ML IV SCH ×2 (11:54→23:29)
[2017-12-28 12:02] VITALS: BP 105/62
[2017-12-28 13:06] VITALS: BP 110/64
[2017-12-28] MEDS ORDERED: POTASSIUM CHLORIDE 20 MEQ in SODIUM CHLORIDE 0.9% 250 ML IV ONE (13:30)
[2017-12-28] MEDS ORDERED: VANCOMYCIN 1,200 MG in SODIUM CHLORIDE 0.9% 250 ML IV SCH (14:00)
[2017-12-28 15:53] LABS: CULTURE INDICATED? YES; MICROSCOPIC INDICATED
[2017-12-28 16:02] LABS: AMPHETAMINE SCREEN, URINE Positive (Negative); BARBITURATE SCREEN, URINE Negative (Negative); BENZODIAZEPINE SCREEN, URINE Negative (Negative); CANNABINOID SCREEN, URINE Negative (Negative); COCAINE SCREEN, URINE Negative (Negative); METHADONE SCREEN, URINE Negative (Negative); OPIATE SCREEN, URINE Negative (Negative)
[2017-12-28 20:44] VITALS: BP 125/73
[2017-12-29 00:38] VITALS: BP 112/62
[2017-12-29] MEDS: HEPARIN 5,000 UNITS/ML, 1ML SQ SCH ×3 (04:07→22:39)
[2017-12-29] MEDS: PIPERACILLIN/TAZO/PMX 3.375GM 50 ML IV SCH ×4 (04:07→22:39)
[2017-12-29 05:41] LABS: MEAN CORPUSCULAR HEMOGLOBIN 26.6 pg (27.5-34.5); MEAN CORPUSCULAR HGB CONC 33.6 g/dL (33.2-36.2); MEAN CORPUSCULAR VOLUME 79.1 fL (81-97); PLATELET COUNT 60 x10^3/uL (130-400); RED BLOOD COUNT 3.23 x10^6/uL (4.38-5.82); RED CELL DISTRIBUTION WIDTH 19.5 % (9.4-14.8)
[2017-12-29 05:47] LABS: ALBUMIN 1.9 g/dL (3.4-5.0); ANION GAP 7 mmol/L (5-15); CALCIUM 6.8 mg/dL (8.5-10.1); CHLORIDE 110 mmol/L (98-107)
[2017-12-29 05:52] LABS: ALANINE AMINOTRANSFERASE 36 U/L (12-78); ALKALINE PHOSPHATASE 104 U/L (45-117); BILIRUBIN,TOTAL 1.5 mg/dL (0.2-1.0); CREATININE 0.75 mg/dL (0.7-1.3); TOTAL PROTEIN 5.8 g/dL (6.4-8.2)
[2017-12-29 06:10] LABS: BASOPHILS # (AUTO) 0.03 x10^3/uL (0-0.1); BASOPHILS % (AUTO) 1 % (0-1); EOSINOPHILS # (AUTO) 0.15 x10^3/uL (0-0.4); EOSINOPHILS % (AUTO) 6 % (1-7); LYMPHOCYTES % (AUTO) 25 % (22-44); MD SCAN; MONOCYTES # (AUTO) 0.41 x10^3/uL (0.2-0.8); MONOCYTES % (AUTO) 17 % (2-9); NEUTROPHILS # (AUTO) 1.23 x10^3/uL (1.8-6.8); NEUTROPHILS % (AUTO) 51 % (42-75)
[2017-12-29 06:56] VITALS: BP 118/68
[2017-12-29] MEDS: LACTULOSE 10 GM/15 ML UDC PO SCH ×3 (09:58→21:30)
[2017-12-29 12:04] LABS: HCT (SEDRATE) 25.6 % (39.2-51.8)
[2017-12-29 13:32] VITALS: BP 121/64
[2017-12-29] MEDS ORDERED: GADOBUTROL 7.5 MMOL/7.5 ML PFS ONE (13:37)
[2017-12-29] MEDS: VANCOMYCIN 1,500 MG in SODIUM CHLORIDE 0.9% 250 ML IV SCH (15:06)
[2017-12-29 19:42] VITALS: BP 153/92
[2017-12-30 00:19] VITALS: BP 146/79
[2017-12-30 00:45] VITALS: BP 143/82
[2017-12-30] MEDS: SODIUM CHLORIDE 0.9% 1,000 ML IV SCH ×2 (01:00→13:46)
[2017-12-30] MEDS ORDERED: VANCOMYCIN 1,500 MG in SODIUM CHLORIDE 0.9% 250 ML IV SCH (03:00)
[2017-12-30 03:05] LABS: MEAN CORPUSCULAR HEMOGLOBIN 26.2 pg (27.5-34.5); MEAN CORPUSCULAR HGB CONC 33.5 g/dL (33.2-36.2); MEAN CORPUSCULAR VOLUME 78.1 fL (81-97); MEAN PLATELET VOLUME 7.7 fL (7.4-10.4); PLATELET COUNT 63 x10^3/uL (130-400); RED BLOOD COUNT 3.35 x10^6/uL (4.38-5.82); RED CELL DISTRIBUTION WIDTH 20.2 % (9.4-14.8)
[2017-12-30 03:11] LABS: ALANINE AMINOTRANSFERASE 38 U/L (12-78); ANION GAP 5 mmol/L (5-15); CALCIUM 7.2 mg/dL (8.5-10.1); CHLORIDE 110 mmol/L (98-107); CREATININE 0.52 mg/dL (0.7-1.3)
[2017-12-30 03:14] LABS: ALKALINE PHOSPHATASE 137 U/L (45-117); BILIRUBIN,TOTAL 1.3 mg/dL (0.2-1.0)
[2017-12-30 03:35] LABS: BASOPHILS # (AUTO) 0.03 x10^3/uL (0-0.1); BASOPHILS % (AUTO) 1 % (0-1); EOSINOPHILS # (AUTO) 0.19 x10^3/uL (0-0.4); EOSINOPHILS % (AUTO) 8 % (1-7); LYMPHOCYTES # (AUTO) 0.66 x10^3/uL (1-3.4); LYMPHOCYTES % (AUTO) 28 % (22-44); MD SCAN; MONOCYTES # (AUTO) 0.35 x10^3/uL (0.2-0.8); MONOCYTES % (AUTO) 14 % (2-9); NEUTROPHILS # (AUTO) 1.19 x10^3/uL (1.8-6.8); NEUTROPHILS % (AUTO) 49 % (42-75)
[2017-12-30] MEDS: PIPERACILLIN/TAZO/PMX 3.375GM 50 ML IV SCH ×4 (05:15→23:25)
[2017-12-30] MEDS: HEPARIN 5,000 UNITS/ML, 1ML SQ SCH ×3 (06:30→20:16)
[2017-12-30 08:37] LABS: AMPHETAMINE SCREEN, URINE Negative (Negative); BARBITURATE SCREEN, URINE Negative (Negative); BENZODIAZEPINE SCREEN, URINE Negative (Negative); CANNABINOID SCREEN, URINE Negative (Negative); COCAINE SCREEN, URINE Negative (Negative); METHADONE SCREEN, URINE Negative (Negative); OPIATE SCREEN, URINE Negative (Negative)
[2017-12-30 08:53] VITALS: BP 118/71
[2017-12-30] MEDS: LACTULOSE 10 GM/15 ML UDC PO SCH ×3 (09:32→20:16)
[2017-12-30 12:54] VITALS: BP 137/76
[2017-12-30] MEDS: VANCOMYCIN 1,800 MG in SODIUM CHLORIDE 0.9% 250 ML IV SCH ×2 (15:00→21:35)
[2017-12-30 20:15] VITALS: BP 162/76
[2017-12-31] MEDS: SODIUM CHLORIDE 0.9% 1,000 ML IV SCH (00:32)
[2017-12-31 01:25] VITALS: BP 118/69
[2017-12-31] MEDS: PIPERACILLIN/TAZO/PMX 3.375GM 50 ML IV SCH ×4 (04:36→23:47)
[2017-12-31 04:43] LABS: MEAN CORPUSCULAR HEMOGLOBIN 26.4 pg (27.5-34.5); MEAN CORPUSCULAR HGB CONC 33.4 g/dL (33.2-36.2); MEAN PLATELET VOLUME 7.5 fL (7.4-10.4); PLATELET COUNT 69 x10^3/uL (130-400); RED BLOOD COUNT 3.37 x10^6/uL (4.38-5.82); RED CELL DISTRIBUTION WIDTH 20.5 % (9.4-14.8)
[2017-12-31 04:48] LABS: ANION GAP 6 mmol/L (5-15); CALCIUM 7.5 mg/dL (8.5-10.1); CHLORIDE 112 mmol/L (98-107)
[2017-12-31 04:50] LABS: CREATININE 0.53 mg/dL (0.7-1.3)
[2017-12-31] MEDS: HEPARIN 5,000 UNITS/ML, 1ML SQ SCH ×3 (05:00→21:06)
[2017-12-31 05:46] LABS: BASOPHILS # (AUTO) 0.03 x10^3/uL (0-0.1); BASOPHILS % (AUTO) 1 % (0-1); EOSINOPHILS # (AUTO) 0.21 x10^3/uL (0-0.4); EOSINOPHILS % (AUTO) 8 % (1-7); LYMPHOCYTES # (AUTO) 0.79 x10^3/uL (1-3.4); LYMPHOCYTES % (AUTO) 31 % (22-44); MD SCAN; MONOCYTES # (AUTO) 0.32 x10^3/uL (0.2-0.8); MONOCYTES % (AUTO) 13 % (2-9); NEUTROPHILS # (AUTO) 1.17 x10^3/uL (1.8-6.8); NEUTROPHILS % (AUTO) 47 % (42-75)
[2017-12-31 08:17] VITALS: BP 154/90
[2017-12-31] MEDS: VANCOMYCIN 1,800 MG in SODIUM CHLORIDE 0.9% 250 ML IV SCH ×2 (08:31→22:14)
[2017-12-31] MEDS: TAMSULOSIN 0.4 MG CAP.ER.24H PO SCH (08:31)
[2017-12-31] MEDS: LACTULOSE 10 GM/15 ML UDC PO SCH ×3 (08:31→21:06)
[2017-12-31 19:36] VITALS: BP 113/68
[2018-01-01 02:00] VITALS: BP 132/75
[2018-01-01] MEDS: HEPARIN 5,000 UNITS/ML, 1ML SQ SCH ×3 (05:15→21:19)
[2018-01-01] MEDS: PIPERACILLIN/TAZO/PMX 3.375GM 50 ML IV SCH ×4 (05:15→23:51)
[2018-01-01 06:05] LABS: MEAN CORPUSCULAR HEMOGLOBIN 26.5 pg (27.5-34.5); MEAN CORPUSCULAR HGB CONC 34.1 g/dL (33.2-36.2); MEAN CORPUSCULAR VOLUME 77.8 fL (81-97); MEAN PLATELET VOLUME 7.8 fL (7.4-10.4); PLATELET COUNT 76 x10^3/uL (130-400); RED BLOOD COUNT 3.24 x10^6/uL (4.38-5.82); RED CELL DISTRIBUTION WIDTH 20.6 % (9.4-14.8)
[2018-01-01 06:11] LABS: ANION GAP 7 mmol/L (5-15); CALCIUM 7.6 mg/dL (8.5-10.1); CHLORIDE 113 mmol/L (98-107); CREATININE 0.56 mg/dL (0.7-1.3)
[2018-01-01 06:37] LABS: BASOPHILS # (AUTO) 0.03 x10^3/uL (0-0.1); BASOPHILS % (AUTO) 1 % (0-1); EOSINOPHILS % (AUTO) 8 % (1-7); LYMPHOCYTES # (AUTO) 0.65 x10^3/uL (1-3.4); LYMPHOCYTES % (AUTO) 25 % (22-44); MD SCAN; MONOCYTES # (AUTO) 0.27 x10^3/uL (0.2-0.8); MONOCYTES % (AUTO) 11 % (2-9); NEUTROPHILS # (AUTO) 1.43 x10^3/uL (1.8-6.8); NEUTROPHILS % (AUTO) 56 % (42-75)
[2018-01-01] MEDS: TAMSULOSIN 0.4 MG CAP.ER.24H PO SCH (08:27)
[2018-01-01] MEDS: LACTULOSE 10 GM/15 ML UDC PO SCH ×4 (08:27→21:19)
[2018-01-01 09:05] VITALS: BP 128/71
[2018-01-01] MEDS: VANCOMYCIN 1,800 MG in SODIUM CHLORIDE 0.9% 250 ML IV SCH ×2 (10:17→21:58)
[2018-01-01] MEDS ORDERED: LACTULOSE 10 GM/15 ML UDC PO SCH (11:00)
[2018-01-01] MEDS ORDERED: OMNIPAQUE 350 MG/ML, 100ML BOTTLE ONE (14:10)
[2018-01-01 15:56] VITALS: BP 152/88
[2018-01-01 18:40] LABS: OSMOLALITY,URINE 435 mOsm/kg (500-850)
[2018-01-01 19:28] VITALS: BP 114/66
[2018-01-02 02:00] VITALS: BP 104/61
[2018-01-02] MEDS: LACTULOSE 10 GM/15 ML UDC PO SCH ×4 (05:18→21:06)
[2018-01-02] MEDS: HEPARIN 5,000 UNITS/ML, 1ML SQ SCH ×3 (05:18→21:06)
[2018-01-02] MEDS: PIPERACILLIN/TAZO/PMX 3.375GM 50 ML IV SCH ×3 (05:18→20:00)
[2018-01-02 06:10] LABS: ALBUMIN 2.1 g/dL (3.4-5.0); ANION GAP 6 mmol/L (5-15); CALCIUM 7.2 mg/dL (8.5-10.1); CHLORIDE 110 mmol/L (98-107)
[2018-01-02 06:13] LABS: ALANINE AMINOTRANSFERASE 42 U/L (12-78); ALKALINE PHOSPHATASE 187 U/L (45-117); CREATININE 0.46 mg/dL (0.7-1.3); TOTAL PROTEIN 6.2 g/dL (6.4-8.2)
[2018-01-02 06:14] LABS: MEAN CORPUSCULAR HEMOGLOBIN 26.5 pg (27.5-34.5); MEAN CORPUSCULAR HGB CONC 33.5 g/dL (33.2-36.2); MEAN CORPUSCULAR VOLUME 79.1 fL (81-97); MEAN PLATELET VOLUME 8.1 fL (7.4-10.4); PLATELET COUNT 79 x10^3/uL (130-400); RED BLOOD COUNT 3.26 x10^6/uL (4.38-5.82); RED CELL DISTRIBUTION WIDTH 20.6 % (9.4-14.8)
[2018-01-02 06:47] LABS: BASOPHILS # (AUTO) 0.04 x10^3/uL (0-0.1); BASOPHILS % (AUTO) 1 % (0-1); EOSINOPHILS # (AUTO) 0.21 x10^3/uL (0-0.4); EOSINOPHILS % (AUTO) 8 % (1-7); LYMPHOCYTES # (AUTO) 0.67 x10^3/uL (1-3.4); LYMPHOCYTES % (AUTO) 23 % (22-44); MD MORPH REVIEW ONLY; MONOCYTES # (AUTO) 0.28 x10^3/uL (0.2-0.8); MONOCYTES % (AUTO) 10 % (2-9); NEUTROPHILS # (AUTO) 1.67 x10^3/uL (1.8-6.8); NEUTROPHILS % (AUTO) 58 % (42-75)
[2018-01-02 06:48] LABS: ANISOCYTOSIS 1+; MICROCYTOSIS 1+; POLYCHROMASIA 1+
[2018-01-02 06:49] LABS: OVALOCYTES 1+
[2018-01-02 06:50] LABS: <PLATELET ESTIMATE> DECREASED; <PLT MORPHOLOGY> NORMAL PLT MORPH
[2018-01-02 07:04] VITALS: BP 122/68
[2018-01-02] MEDS: TAMSULOSIN 0.4 MG CAP.ER.24H PO SCH (10:22)
[2018-01-02] MEDS: VANCOMYCIN 1,800 MG in SODIUM CHLORIDE 0.9% 250 ML IV SCH ×3 (10:22→23:53)
[2018-01-02 12:33] VITALS: BP 144/79
[2018-01-02 20:38] VITALS: BP 129/70
[2018-01-02] MEDS: RIFAXIMIN 550 MG TABLET PO SCH (21:06)
[2018-01-03] MEDS: PIPERACILLIN/TAZO/PMX 3.375GM 50 ML IV SCH ×2 (01:26→07:57)
[2018-01-03 01:39] VITALS: BP 124/64
[2018-01-03] MEDS: HEPARIN 5,000 UNITS/ML, 1ML SQ SCH (04:59)
[2018-01-03] MEDS: LACTULOSE 10 GM/15 ML UDC PO SCH (04:59)
[2018-01-03 06:14] LABS: MEAN CORPUSCULAR HEMOGLOBIN 26.4 pg (27.5-34.5); MEAN CORPUSCULAR HGB CONC 33.5 g/dL (33.2-36.2); RED BLOOD COUNT 3.22 x10^6/uL (4.38-5.82); RED CELL DISTRIBUTION WIDTH 20.6 % (9.4-14.8)
[2018-01-03 06:20] LABS: ALBUMIN 2.1 g/dL (3.4-5.0); ANION GAP 7 mmol/L (5-15); CALCIUM 7.7 mg/dL (8.5-10.1); CHLORIDE 111 mmol/L (98-107)
[2018-01-03 06:25] LABS: ALANINE AMINOTRANSFERASE 39 U/L (12-78); ALKALINE PHOSPHATASE 166 U/L (45-117); BILIRUBIN,TOTAL 1.1 mg/dL (0.2-1.0); CREATININE 0.53 mg/dL (0.7-1.3)
[2018-01-03 06:26] VITALS: BP 137/71
[2018-01-03 06:43] LABS: BASOPHILS # (AUTO) 0.01 x10^3/uL (0-0.1); BASOPHILS % (AUTO) 0 % (0-1); EOSINOPHILS # (AUTO) 0.16 x10^3/uL (0-0.4); EOSINOPHILS % (AUTO) 6 % (1-7); LYMPHOCYTES # (AUTO) 0.63 x10^3/uL (1-3.4); LYMPHOCYTES % (AUTO) 26 % (22-44); MD SCAN; MONOCYTES # (AUTO) 0.28 x10^3/uL (0.2-0.8); MONOCYTES % (AUTO) 11 % (2-9); NEUTROPHILS % (AUTO) 57 % (42-75); PLATELET COUNT 80 x10^3/uL (130-400)
[2018-01-03] MEDS: RIFAXIMIN 550 MG TABLET PO SCH (07:57)
[2018-01-03] MEDS: TAMSULOSIN 0.4 MG CAP.ER.24H PO SCH (07:57)
== END 2018-01-03 11:01 | disposition left against medical advice (07) | DRG 871 ==
LOC: ED 16:29 → EDIP 17:33 → 3NE 18:14 → EDIP 18:20 → 4EST 19:23
PROVIDERS: ADMIT Internal Medicine; ATTEND Family Medicine
DX: A41.9 Sepsis, unspecified organism (principal); E43 Unspecified severe protein-calorie malnutrition; G93.41 Metabolic encephalopathy; B18.1 Chronic viral hepatitis B without delta-agent; D61.818 Other pancytopenia; I50.32 Chronic diastolic (congestive) heart failure; K76.6 Portal hypertension; L03.115 Cellulitis of right lower limb; L03.116 Cellulitis of left lower limb; L97.919 Non-pressure chronic ulcer of unspecified part of right lower leg with unspecified severity; L97.929 Non-pressure chronic ulcer of unspecified part of left lower leg with unspecified severity; M86.8X6 Other osteomyelitis, lower leg; B18.2 Chronic viral hepatitis C; Z53.21 Procedure and treatment not carried out due to patient leaving prior to being seen by health care provider; D72.1 Eosinophilia; F17.210 Nicotine dependence, cigarettes, uncomplicated; F43.9 Reaction to severe stress, unspecified; I11.0 Hypertensive heart disease with heart failure; I73.9 Peripheral vascular disease, unspecified; I87.2 Venous insufficiency (chronic) (peripheral); K59.00 Constipation, unspecified; K70.30 Alcoholic cirrhosis of liver without ascites; K72.90 Hepatic failure, unspecified without coma; M60.9 Myositis, unspecified; R65.20 Severe sepsis without septic shock; R76.11 Nonspecific reaction to tuberculin skin test without active tuberculosis; Z68.24 Body mass index [BMI] 24.0-24.9, adult; Z59.0 Homelessness
CPT/HCPCS: 36415; 70450; 71045; 74018; 74170; 76700; 80048; 80053; 80076; 80202; 80307; 81001; 82024; 82040; 82088; 82140; 82533; 82550; 83605; 83935; 84145; 84443; 85025; 85610; 85651; 85730; 86140; 86480; 87040; 87070; 87077; 87086; 87186; 87205; 87517; 93005; 93306; 93970; 96361; 96365; 99285; A9585; G0378; J1644; J2543; J3370; J3480; Q9967; J7030; J7040; J7050

== ENCOUNTER 2018-01-10 18:10 | Emergency (ER) | payer MEDICAID ==
[~2018-01-10] VITALS: Ht 167.6 cm; Wt 79.0 kg
[2018-01-10 18:51] LABS: MEAN CORPUSCULAR HEMOGLOBIN 26.6 pg (27.5-34.5); MEAN CORPUSCULAR VOLUME 80.6 fL (81-97); MEAN PLATELET VOLUME 7.7 fL (7.4-10.4); PLATELET COUNT 110 x10^3/uL (130-400); RED CELL DISTRIBUTION WIDTH 20.3 % (9.4-14.8)
[2018-01-10 18:59] LABS: ALANINE AMINOTRANSFERASE 52 U/L (12-78); ALBUMIN 2.6 g/dL (3.4-5.0); ANION GAP 5 mmol/L (5-15); CALCIUM 7.4 mg/dL (8.5-10.1); CHLORIDE 109 mmol/L (98-107); CREATININE 0.66 mg/dL (0.7-1.3)
[2018-01-10 19:02] LABS: ALKALINE PHOSPHATASE 178 U/L (45-117); BILIRUBIN,TOTAL 1.5 mg/dL (0.2-1.0); TOTAL PROTEIN 7.4 g/dL (6.4-8.2)
[2018-01-10 19:03] VITALS: BP 129/66
[2018-01-10 19:20] LABS: BASOPHILS # (AUTO) 0.03 x10^3/uL (0-0.1); BASOPHILS % (AUTO) 2 % (0-1); EOSINOPHILS # (AUTO) 0.13 x10^3/uL (0-0.4); EOSINOPHILS % (AUTO) 5 % (1-7); LYMPHOCYTES # (AUTO) 0.39 x10^3/uL (1-3.4); LYMPHOCYTES % (AUTO) 17 % (22-44); MD SCAN; MONOCYTES % (AUTO) 9 % (2-9); NEUTROPHILS # (AUTO) 1.57 x10^3/uL (1.8-6.8); NEUTROPHILS % (AUTO) 68 % (42-75)
== END 2018-01-10 20:48 | disposition home or self-care (01) ==
LOC: ED 20:42
DX: L03.116 Cellulitis of left lower limb (principal); L03.115 Cellulitis of right lower limb; D61.818 Other pancytopenia; F17.200 Nicotine dependence, unspecified, uncomplicated
CPT/HCPCS: 36415; 80053; 85025; 99285

== ENCOUNTER 2018-01-14 15:37 | Emergency (ER) | payer MEDICAID ==
[~2018-01-14] VITALS: Ht 172.7 cm; Wt 73.0 kg
[2018-01-14 17:05] LABS: MEAN CORPUSCULAR HEMOGLOBIN 25.7 pg (27.5-34.5); MEAN CORPUSCULAR HGB CONC 32.8 g/dL (33.2-36.2); MEAN CORPUSCULAR VOLUME 78.5 fL (81-97); MEAN PLATELET VOLUME 7.8 fL (7.4-10.4); PLATELET COUNT 110 x10^3/uL (130-400); RED BLOOD COUNT 3.87 x10^6/uL (4.38-5.82); RED CELL DISTRIBUTION WIDTH 19.3 % (9.4-14.8)
[2018-01-14 17:13] LABS: ALBUMIN 2.7 g/dL (3.4-5.0); ANION GAP 5 mmol/L (5-15); CALCIUM 7.6 mg/dL (8.5-10.1); CHLORIDE 104 mmol/L (98-107); CREATININE 0.67 mg/dL (0.7-1.3)
[2018-01-14 17:27] LABS: BASOPHILS # (AUTO) 0.06 x10^3/uL (0-0.1); BASOPHILS % (AUTO) 2 % (0-1); EOSINOPHILS # (AUTO) 0.19 x10^3/uL (0-0.4); EOSINOPHILS % (AUTO) 6 % (1-7); LYMPHOCYTES # (AUTO) 0.65 x10^3/uL (1-3.4); LYMPHOCYTES % (AUTO) 21 % (22-44); MD SCAN; MONOCYTES # (AUTO) 0.32 x10^3/uL (0.2-0.8); MONOCYTES % (AUTO) 10 % (2-9); NEUTROPHILS # (AUTO) 1.92 x10^3/uL (1.8-6.8); NEUTROPHILS % (AUTO) 61 % (42-75)
[2018-01-14] MEDS ORDERED: BACITRACIN ZINC OINT 500U/GM, 0.9 GM ONE (17:33)
[2018-01-14 17:48] VITALS: BP 139/75
== END 2018-01-14 18:53 | disposition home or self-care (01) ==
LOC: ED 16:46
DX: L03.115 Cellulitis of right lower limb (principal); L03.116 Cellulitis of left lower limb; D61.818 Other pancytopenia
CPT/HCPCS: 36415; 80048; 82040; 82140; 85025; 99284

== ENCOUNTER 2018-01-20 16:06 | Emergency (ER) | payer MEDICAID ==
[~2018-01-20] VITALS: Ht 172.7 cm; Wt 77.3 kg
[2018-01-20 16:11] VITALS: BP 142/77
[2018-01-20 16:54] LABS: ALBUMIN 2.2 g/dL (3.4-5.0); ANION GAP 9 mmol/L (5-15); CALCIUM 7.5 mg/dL (8.5-10.1); CHLORIDE 110 mmol/L (98-107)
[2018-01-20 17:02] LABS: MEAN CORPUSCULAR HEMOGLOBIN 25.4 pg (27.5-34.5); MEAN CORPUSCULAR HGB CONC 31.8 g/dL (33.2-36.2); MEAN CORPUSCULAR VOLUME 79.8 fL (81-97); MEAN PLATELET VOLUME 7.6 fL (7.4-10.4); PLATELET COUNT 118 x10^3/uL (130-400); RED BLOOD COUNT 3.43 x10^6/uL (4.38-5.82); RED CELL DISTRIBUTION WIDTH 19.1 % (9.4-14.8)
[2018-01-20 17:32] LABS: BASOPHILS # (AUTO) 0.04 x10^3/uL (0-0.1); BASOPHILS % (AUTO) 1 % (0-1); EOSINOPHILS # (AUTO) 0.23 x10^3/uL (0-0.4); EOSINOPHILS % (AUTO) 7 % (1-7); LYMPHOCYTES # (AUTO) 0.53 x10^3/uL (1-3.4); LYMPHOCYTES % (AUTO) 16 % (22-44); MD SCAN; MONOCYTES # (AUTO) 0.37 x10^3/uL (0.2-0.8); MONOCYTES % (AUTO) 11 % (2-9); NEUTROPHILS # (AUTO) 2.07 x10^3/uL (1.8-6.8); NEUTROPHILS % (AUTO) 64 % (42-75)
[2018-01-20] MEDS ORDERED: BACITRACIN ZINC OINT 500U/GM, 0.9 GM ONE (18:19)
== END 2018-01-20 19:23 | disposition home or self-care (01) ==
LOC: ED 18:29
DX: I83.223 Varicose veins of left lower extremity with both ulcer of ankle and inflammation (principal); I83.222 Varicose veins of left lower extremity with both ulcer of calf and inflammation; F17.200 Nicotine dependence, unspecified, uncomplicated
CPT/HCPCS: 36415; 80048; 82040; 85025; 99284

== ENCOUNTER 2018-01-23 10:44 | Emergency (ER) | payer MEDICAID ==
[~2018-01-23] VITALS: Ht 172.7 cm; Wt 73.7 kg
[2018-01-23 11:05] VITALS: BP 130/73
== END 2018-01-23 14:29 | disposition home or self-care (01) ==
LOC: ED 14:23
DX: I83.212 Varicose veins of right lower extremity with both ulcer of calf and inflammation (principal); I83.222 Varicose veins of left lower extremity with both ulcer of calf and inflammation; F17.200 Nicotine dependence, unspecified, uncomplicated
CPT/HCPCS: 99284

== ENCOUNTER 2018-01-31 04:59 | Emergency (ER) | payer MEDICAID ==
[~2018-01-31] VITALS: Ht 172.7 cm; Wt 80.1 kg
[2018-01-31 05:03] VITALS: BP 152/52
[2018-01-31 06:02] LABS: MEAN CORPUSCULAR HEMOGLOBIN 25.9 pg (27.5-34.5); MEAN CORPUSCULAR HGB CONC 32.9 g/dL (33.2-36.2); MEAN CORPUSCULAR VOLUME 78.6 fL (81-97); RED BLOOD COUNT 3.46 x10^6/uL (4.38-5.82); RED CELL DISTRIBUTION WIDTH 18.6 % (9.4-14.8)
[2018-01-31 06:12] LABS: ALANINE AMINOTRANSFERASE 39 U/L (12-78); ALBUMIN 2.4 g/dL (3.4-5.0); ANION GAP 8 mmol/L (5-15); CALCIUM 7.7 mg/dL (8.5-10.1); CHLORIDE 111 mmol/L (98-107); CREATININE 0.51 mg/dL (0.7-1.3)
[2018-01-31 06:14] LABS: ALKALINE PHOSPHATASE 114 U/L (45-117); BILIRUBIN,TOTAL 2.2 mg/dL (0.2-1.0); TOTAL PROTEIN 6.5 g/dL (6.4-8.2)
[2018-01-31 06:16] LABS: MD YES; MEAN PLATELET VOLUME 7.8 fL (7.4-10.4); PLATELET COUNT 97 x10^3/uL (130-400)
[2018-01-31 06:19] LABS: BASOS#(MANUAL) 0.03 x10^3/uL (0-0.1); BASOS% (MANUAL) 1 % (0-1); EOS#(MANUAL) 0.13 x10^3/uL (0.0-0.4); EOS% (MANUAL) 4 % (1-7); LYMPH#(MANUAL) 0.42 x10^3/uL (1-3.4); LYMPHS% (MANUAL) 13 % (22-44); MONOS#(MANUAL) 0.19 x10^3/uL (0.3-2.7); MONOS% (MANUAL) 6 % (2-9); SEG#(MANUAL) 2.43 x10^3/uL (1.8-6.8); SEGS% (MANUAL) 76 % (42-75)
[2018-01-31 06:20] LABS: ANISOCYTOSIS 1+; OVALOCYTES 1+
[2018-01-31 06:21] LABS: <PLATELET ESTIMATE> DECREASED; <PLT MORPHOLOGY> NORMAL PLT MORPH; HYPOCHROMIA 1+; MICROCYTOSIS 1+; POLYCHROMASIA 1+
== END 2018-01-31 06:56 | disposition home or self-care (01) ==
LOC: ED 05:39
DX: I83.228 Varicose veins of left lower extremity with both ulcer of other part of lower extremity and inflammation (principal); L03.115 Cellulitis of right lower limb; F17.200 Nicotine dependence, unspecified, uncomplicated; Z72.9 Problem related to lifestyle, unspecified
CPT/HCPCS: 36415; 80053; 82140; 85025; 85651; 99284

== ENCOUNTER 2018-02-04 01:24 | Inpatient (IN) | payer MEDICAID ==
[~2018-02-04] VITALS: Ht 172.7 cm; Wt 70.6 kg
[2018-02-04] MEDS ORDERED: ONDANSETRON 2MG/ML, 2ML ONE (02:52)
[2018-02-04] MEDS ORDERED: MORPHINE SULFATE 4 MG/ML, 1ML ONE (02:53)
[2018-02-04] MEDS ORDERED: ONDANSETRON 2MG/ML, 2ML IVPush ONE (03:00)
[2018-02-04] MEDS ORDERED: SODIUM CHLORIDE FLUSH 10ML SYR IVF ONE (03:00)
[2018-02-04] MEDS ORDERED: MORPHINE SULFATE 4 MG/ML, 1ML IVPush PRN ×2 (03:00→06:30)
[2018-02-04 03:50] LABS: ALBUMIN 1.9 g/dL (3.4-5.0); ANION GAP 7 mmol/L (5-15); CALCIUM 6.9 mg/dL (8.5-10.1); CHLORIDE 109 mmol/L (98-107)
[2018-02-04 03:53] LABS: ALANINE AMINOTRANSFERASE 49 U/L (12-78); ALKALINE PHOSPHATASE 103 U/L (45-117); BILIRUBIN,TOTAL 1.3 mg/dL (0.2-1.0); CREATININE 0.78 mg/dL (0.7-1.3); TOTAL PROTEIN 5.8 g/dL (6.4-8.2)
[2018-02-04 03:57] LABS: MEAN CORPUSCULAR HGB CONC 33.1 g/dL (33.2-36.2); MEAN CORPUSCULAR VOLUME 78.5 fL (81-97); MEAN PLATELET VOLUME 8.9 fL (7.4-10.4); PLATELET COUNT 91 x10^3/uL (130-400); RED BLOOD COUNT 3.31 x10^6/uL (4.38-5.82); RED CELL DISTRIBUTION WIDTH 18.8 % (9.4-14.8)
[2018-02-04 04:23] LABS: MD YES
[2018-02-04 04:27] LABS: ANISOCYTOSIS 1+; BAND#(MANUAL) 0.23 x10^3/uL; BANDS%(MANUAL) 6 % (0-7); BASOS#(MANUAL) 0.04 x10^3/uL (0-0.1); BASOS% (MANUAL) 1 % (0-1); EOS#(MANUAL) 0.04 x10^3/uL (0.0-0.4); EOS% (MANUAL) 1 % (1-7); LYMPH#(MANUAL) 0.31 x10^3/uL (1-3.4); LYMPHS% (MANUAL) 8 % (22-44); METAMYELOCYTES# (MANUAL) 0.04 x10^3/uL (0-0); METAMYELOCYTES% (MANUAL) 1 % (0-1); MONOS#(MANUAL) 0.16 x10^3/uL (0.3-2.7); MONOS% (MANUAL) 4 % (2-9); SEG#(MANUAL) 3.08 x10^3/uL (1.8-6.8); SEGS% (MANUAL) 79 % (42-75)
[2018-02-04 04:28] LABS: <PLATELET ESTIMATE> DECREASED; <PLT MORPHOLOGY> NORMAL PLT MORPH; HYPOCHROMIA 1+; MICROCYTOSIS 1+; OVALOCYTES 1+; POLYCHROMASIA 1+
[2018-02-04] MEDS ORDERED: PIPERACILLIN/TAZO/PMX 3.375GM 50 ML ONE (04:44)
[2018-02-04] MEDS ORDERED: PIPERACILLIN/TAZO/PMX 3.375GM 50 ML IVPB ONE (05:00)
[2018-02-04] MEDS ORDERED: VANCOMYCIN 1,500 MG in SODIUM CHLORIDE 0.9% 250 ML IV ONE (05:00)
[2018-02-04] MEDS ORDERED: VANCOMYCIN PER PHARMACY IV ONE (05:00)
[2018-02-04] MEDS ORDERED: SODIUM CHLORIDE 0.9% 1,000ML IVBOLUS ONE ×2 (05:00→06:30)
[2018-02-04] MEDS ORDERED: SODIUM CHLORIDE 0.9% 1,000 ML IV ONE (06:06)
[2018-02-04 06:10] LABS: CULTURE INDICATED? YES; MICROSCOPIC INDICATED
[2018-02-04] MEDS ORDERED: ONDANSETRON 2MG/ML, 2ML IVPush PRN ×2 (06:30→08:00)
[2018-02-04 07:40] VITALS: BP 129/74
[2018-02-04] MEDS ORDERED: D5%-0.45% NACL 1,000 ML IV SCH (07:41)
[2018-02-04] MEDS ORDERED: POLYETHYLENE GLYCOL 17 GM PACKET PO PRN (08:00)
[2018-02-04] MEDS ORDERED: PANTOPRAZOLE 40 MG IV IVPush SCH (08:00)
[2018-02-04] MEDS ORDERED: LABETALOL 5MG/ML, 20ML IVPush PRN (08:00)
[2018-02-04] MEDS ORDERED: ONDANSETRON ODT 4 MG PO PRN (08:00)
[2018-02-04] MEDS ORDERED: VANCOMYCIN PER PHARMACY MC PRN (08:00)
[2018-02-04 08:29] LABS: FREE T4 (FREE THYROXINE) 0.94 ng/dL (0.76-1.46); THYROID STIMULATING HORMONE 1.66 mIU/L (0.358-3.740)
[2018-02-04] MEDS: AMPICILLIN/SULBACTAM 3 GM in SODIUM CHLORIDE 0.9% 100 ML IV SCH ×3 (09:00→20:20)
[2018-02-04 09:11] VITALS: BP 129/77
[2018-02-04] MEDS: SENNA/DOCUSATE TABLET PO SCH (09:57)
[2018-02-04 14:45] VITALS: BP 124/84
[2018-02-04 20:20] VITALS: BP 118/64
[2018-02-04] MEDS: VANCOMYCIN 1,500 MG in SODIUM CHLORIDE 0.9% 250 ML IV SCH (23:48)
[2018-02-05 02:11] VITALS: BP 108/61
[2018-02-05] MEDS: AMPICILLIN/SULBACTAM 3 GM in SODIUM CHLORIDE 0.9% 100 ML IV SCH ×4 (02:11→19:55)
[2018-02-05 04:59] LABS: ALANINE AMINOTRANSFERASE 50 U/L (12-78); ALBUMIN 1.8 g/dL (3.4-5.0); ANION GAP 8 mmol/L (5-15); CALCIUM 6.6 mg/dL (8.5-10.1); CHLORIDE 106 mmol/L (98-107); CREATININE 0.48 mg/dL (0.7-1.3)
[2018-02-05 05:08] LABS: MEAN CORPUSCULAR HGB CONC 33.5 g/dL (33.2-36.2); MEAN CORPUSCULAR VOLUME 77.6 fL (81-97); MEAN PLATELET VOLUME 8.3 fL (7.4-10.4); PLATELET COUNT 78 x10^3/uL (130-400); RED BLOOD COUNT 3.23 x10^6/uL (4.38-5.82)
[2018-02-05 05:10] LABS: ALKALINE PHOSPHATASE 100 U/L (45-117); TOTAL PROTEIN 5.2 g/dL (6.4-8.2)
[2018-02-05 05:55] LABS: MD YES
[2018-02-05 05:58] LABS: BAND#(MANUAL) 0.12 x10^3/uL; BANDS%(MANUAL) 4 % (0-7); EOS#(MANUAL) 0.12 x10^3/uL (0.0-0.4); EOS% (MANUAL) 4 % (1-7); LYMPH#(MANUAL) 0.63 x10^3/uL (1-3.4); LYMPHS% (MANUAL) 21 % (22-44); MONOS#(MANUAL) 0.18 x10^3/uL (0.3-2.7); MONOS% (MANUAL) 6 % (2-9); NRBC % (MANUAL) 1 % (0-1); SEG#(MANUAL) 1.95 x10^3/uL (1.8-6.8); SEGS% (MANUAL) 65 % (42-75)
[2018-02-05 05:59] LABS: ANISOCYTOSIS 1+; HYPOCHROMIA 1+; MICROCYTOSIS 1+; POLYCHROMASIA 1+
[2018-02-05 06:00] LABS: <PLATELET ESTIMATE> DECREASED; <PLT MORPHOLOGY> NORMAL PLT MORPH; OVALOCYTES 1+
[2018-02-05 07:53] VITALS: BP 133/77
[2018-02-05] MEDS ORDERED: MAGNESIUM SULFATE PMX 2GM/50ML 50 ML IV ONE (08:00)
[2018-02-05] MEDS: IRON SUCROSE COMPLEX 100MG/5ML IV SCH (08:35)
[2018-02-05] MEDS: NEUTRA PHOS K 250 MG TABLET PO SCH ×2 (08:35→19:55)
[2018-02-05] MEDS: PANTOPROZOLE 40MG TABLET PO SCH (08:35)
[2018-02-05] MEDS: SENNA/DOCUSATE TABLET PO SCH (08:35)
[2018-02-05 13:37] VITALS: BP 119/69
[2018-02-05] MEDS: ACETAMINOPHEN 325 MG TABLET PO PRN (13:57)
[2018-02-05] MEDS: VANCOMYCIN 1,500 MG in SODIUM CHLORIDE 0.9% 250 ML IV SCH (17:32)
[2018-02-05 18:57] VITALS: BP 105/60
[2018-02-06 01:53] VITALS: BP 123/74
[2018-02-06] MEDS: AMPICILLIN/SULBACTAM 3 GM in SODIUM CHLORIDE 0.9% 100 ML IV SCH ×2 (02:16→07:29)
[2018-02-06 04:54] LABS: MEAN CORPUSCULAR HEMOGLOBIN 25.8 pg (27.5-34.5); RED BLOOD COUNT 3.28 x10^6/uL (4.38-5.82); RED CELL DISTRIBUTION WIDTH 18.8 % (9.4-14.8)
[2018-02-06 05:02] LABS: ALBUMIN 1.8 g/dL (3.4-5.0); ANION GAP 6 mmol/L (5-15); CALCIUM 7.4 mg/dL (8.5-10.1); CHLORIDE 109 mmol/L (98-107); CREATININE 0.43 mg/dL (0.7-1.3)
[2018-02-06 07:17] LABS: MEAN PLATELET VOLUME 8.1 fL (7.4-10.4); PLATELET COUNT 83 x10^3/uL (130-400)
[2018-02-06] MEDS: PANTOPROZOLE 40MG TABLET PO SCH (07:30)
[2018-02-06] MEDS: IRON SUCROSE COMPLEX 100MG/5ML IV SCH (07:30)
[2018-02-06] MEDS: ACETAMINOPHEN 325 MG TABLET PO PRN ×2 (07:30→12:27)
[2018-02-06] MEDS: SENNA/DOCUSATE TABLET PO SCH (07:30)
[2018-02-06] MEDS: NEUTRA PHOS K 250 MG TABLET PO SCH ×2 (07:32→20:24)
[2018-02-06 07:41] VITALS: BP 126/81
[2018-02-06 08:39] LABS: MD YES
[2018-02-06 08:40] LABS: BAND#(MANUAL) 0.26 x10^3/uL; BANDS%(MANUAL) 9 % (0-7); BASOS#(MANUAL) 0.03 x10^3/uL (0-0.1); BASOS% (MANUAL) 1 % (0-1); EOS% (MANUAL) 7 % (1-7); LYMPH#(MANUAL) 0.61 x10^3/uL (1-3.4); LYMPHS% (MANUAL) 21 % (22-44); METAMYELOCYTES# (MANUAL) 0.03 x10^3/uL (0-0); METAMYELOCYTES% (MANUAL) 1 % (0-1); MONOS#(MANUAL) 0.32 x10^3/uL (0.3-2.7); MONOS% (MANUAL) 11 % (2-9); SEG#(MANUAL) 1.45 x10^3/uL (1.8-6.8); SEGS% (MANUAL) 50 % (42-75)
[2018-02-06 08:41] LABS: ANISOCYTOSIS 1+; HYPOCHROMIA 1+; MICROCYTOSIS 1+; OVALOCYTES 1+
[2018-02-06 08:42] LABS: <PLATELET ESTIMATE> DECREASED; <PLT MORPHOLOGY> NORMAL PLT MORPH
[2018-02-06] MEDS ORDERED: MORPHINE SULFATE 4 MG/ML, 1ML IVPush ONE (10:30)
[2018-02-06] MEDS ORDERED: LORazepam 2 MG/ML, 1ML IVPush ONE (10:30)
[2018-02-06] MEDS ORDERED: GADOBUTROL 7.5 MMOL/7.5 ML PFS ONE (11:59)
[2018-02-06] MEDS: PIPERACILLIN/TAZO/PMX 4.5GM 100 ML IV SCH ×2 (12:27→19:21)
[2018-02-06 12:42] VITALS: BP 133/77
[2018-02-06] MEDS: VANCOMYCIN 1,500 MG in SODIUM CHLORIDE 0.9% 250 ML IV SCH (13:34)
[2018-02-06] MEDS ORDERED: LIDOCAINE-MPF 1%, 5ML ONE (14:29)
[2018-02-06 20:57] VITALS: BP 138/62
[2018-02-07] MEDS: PIPERACILLIN/TAZO/PMX 4.5GM 100 ML IV SCH ×4 (00:06→18:00)
[2018-02-07 00:41] VITALS: BP 126/69
[2018-02-07] MEDS: ACETAMINOPHEN 325 MG TABLET PO PRN ×4 (01:24→20:34)
[2018-02-07] MEDS: VANCOMYCIN 1,500 MG in SODIUM CHLORIDE 0.9% 250 ML IV SCH ×2 (02:01→15:02)
[2018-02-07 04:39] LABS: MEAN CORPUSCULAR HEMOGLOBIN 25.8 pg (27.5-34.5); MEAN CORPUSCULAR HGB CONC 33.3 g/dL (33.2-36.2); MEAN CORPUSCULAR VOLUME 77.6 fL (81-97); MEAN PLATELET VOLUME 8.3 fL (7.4-10.4); PLATELET COUNT 95 x10^3/uL (130-400); RED BLOOD COUNT 3.29 x10^6/uL (4.38-5.82); RED CELL DISTRIBUTION WIDTH 19.3 % (9.4-14.8)
[2018-02-07 04:52] LABS: ALBUMIN 1.8 g/dL (3.4-5.0); ANION GAP 6 mmol/L (5-15); CALCIUM 7.4 mg/dL (8.5-10.1); CHLORIDE 110 mmol/L (98-107); CREATININE 0.52 mg/dL (0.7-1.3)
[2018-02-07 04:57] LABS: MD YES
[2018-02-07 05:04] LABS: <PLATELET ESTIMATE> DECREASED; <PLT MORPHOLOGY> NORMAL PLT MORPH; ANISOCYTOSIS 1+; BAND#(MANUAL) 0.12 x10^3/uL; BANDS%(MANUAL) 4 % (0-7); BASOS#(MANUAL) 0.03 x10^3/uL (0-0.1); BASOS% (MANUAL) 1 % (0-1); EOS#(MANUAL) 0.24 x10^3/uL (0.0-0.4); EOS% (MANUAL) 8 % (1-7); HYPOCHROMIA 1+; LYMPH#(MANUAL) 0.93 x10^3/uL (1-3.4); LYMPHS% (MANUAL) 31 % (22-44); MICROCYTOSIS 1+; MONOS% (MANUAL) 10 % (2-9); OVALOCYTES 1+; POLYCHROMASIA 1+; SEG#(MANUAL) 1.38 x10^3/uL (1.8-6.8); SEGS% (MANUAL) 46 % (42-75)
[2018-02-07 07:12] VITALS: BP 151/64
[2018-02-07] MEDS: IRON SUCROSE COMPLEX 100MG/5ML IV SCH (08:21)
[2018-02-07] MEDS: SENNA/DOCUSATE TABLET PO SCH (08:22)
[2018-02-07] MEDS: NEUTRA PHOS K 250 MG TABLET PO SCH ×2 (08:22→20:34)
[2018-02-07] MEDS: PANTOPROZOLE 40MG TABLET PO SCH (08:22)
[2018-02-07] MEDS ORDERED: ENOXAPARIN 40 MG/0.4 ML ONE (08:34)
[2018-02-07] MEDS: ENOXAPARIN 40 MG/0.4 ML SQ SCH (08:36)
[2018-02-07 13:49] VITALS: BP 123/74
[2018-02-07 19:27] VITALS: BP 143/79
[2018-02-08] MEDS: ACETAMINOPHEN 325 MG TABLET PO PRN ×2 (00:14→20:42)
[2018-02-08] MEDS: PIPERACILLIN/TAZO/PMX 4.5GM 100 ML IV SCH ×5 (00:15→23:58)
[2018-02-08 00:41] VITALS: BP 137/79
[2018-02-08] MEDS: VANCOMYCIN 1,500 MG in SODIUM CHLORIDE 0.9% 250 ML IV SCH ×2 (01:01→14:27)
[2018-02-08 04:33] LABS: ANION GAP 7 mmol/L (5-15); CALCIUM 8.1 mg/dL (8.5-10.1); CHLORIDE 110 mmol/L (98-107); CREATININE 0.64 mg/dL (0.7-1.3)
[2018-02-08 04:35] LABS: MEAN CORPUSCULAR HEMOGLOBIN 26.1 pg (27.5-34.5); MEAN CORPUSCULAR HGB CONC 33.2 g/dL (33.2-36.2); MEAN CORPUSCULAR VOLUME 78.8 fL (81-97); MEAN PLATELET VOLUME 8.3 fL (7.4-10.4); PLATELET COUNT 106 x10^3/uL (130-400); RED BLOOD COUNT 3.25 x10^6/uL (4.38-5.82); RED CELL DISTRIBUTION WIDTH 19.8 % (9.4-14.8)
[2018-02-08 05:34] LABS: MD YES
[2018-02-08 05:44] LABS: ANISOCYTOSIS 1+; BAND#(MANUAL) 0.06 x10^3/uL; BANDS%(MANUAL) 2 % (0-7); BASOS#(MANUAL) 0.03 x10^3/uL (0-0.1); BASOS% (MANUAL) 1 % (0-1); EOS#(MANUAL) 0.19 x10^3/uL (0.0-0.4); EOS% (MANUAL) 6 % (1-7); HYPOCHROMIA 1+; LYMPH#(MANUAL) 0.74 x10^3/uL (1-3.4); LYMPHS% (MANUAL) 23 % (22-44); METAMYELOCYTES# (MANUAL) 0.03 x10^3/uL (0-0); METAMYELOCYTES% (MANUAL) 1 % (0-1); MICROCYTOSIS 1+; MONOS#(MANUAL) 0.35 x10^3/uL (0.3-2.7); MONOS% (MANUAL) 11 % (2-9); NRBC % (MANUAL) 1 % (0-1); POLYCHROMASIA 1+; SEG#(MANUAL) 1.79 x10^3/uL (1.8-6.8); SEGS% (MANUAL) 56 % (42-75)
[2018-02-08 05:45] LABS: <PLATELET ESTIMATE> DECREASED; <PLT MORPHOLOGY> NORMAL PLT MORPH; OVALOCYTES 1+
[2018-02-08 06:25] VITALS: BP 127/74
[2018-02-08] MEDS: NEUTRA PHOS K 250 MG TABLET PO SCH ×2 (08:13→20:42)
[2018-02-08] MEDS: IRON SUCROSE COMPLEX 100MG/5ML IV SCH (08:13)
[2018-02-08] MEDS: PANTOPROZOLE 40MG TABLET PO SCH (08:13)
[2018-02-08] MEDS: SENNA/DOCUSATE TABLET PO SCH (08:13)
[2018-02-08] MEDS: ENOXAPARIN 40 MG/0.4 ML SQ SCH (08:14)
[2018-02-08 12:43] VITALS: BP 126/71
[2018-02-08 18:54] VITALS: BP 145/80
[2018-02-08 23:59] VITALS: BP 130/72
[2018-02-09] MEDS: VANCOMYCIN 1,500 MG in SODIUM CHLORIDE 0.9% 250 ML IV SCH (01:14)
[2018-02-09] MEDS: ACETAMINOPHEN 325 MG TABLET PO PRN ×2 (01:37→10:53)
[2018-02-09 03:05] VITALS: BP 142/75
[2018-02-09 04:51] LABS: BASOPHILS # (AUTO) 0.03 x10^3/uL (0-0.1); BASOPHILS % (AUTO) 1 % (0-1); EOSINOPHILS # (AUTO) 0.14 x10^3/uL (0-0.4); EOSINOPHILS % (AUTO) 4 % (1-7); LYMPHOCYTES # (AUTO) 0.94 x10^3/uL (1-3.4); LYMPHOCYTES % (AUTO) 26 % (22-44); MD NO; MEAN CORPUSCULAR VOLUME 78.7 fL (81-97); MEAN PLATELET VOLUME 8.1 fL (7.4-10.4); MONOCYTES # (AUTO) 0.42 x10^3/uL (0.2-0.8); MONOCYTES % (AUTO) 12 % (2-9); NEUTROPHILS # (AUTO) 2.07 x10^3/uL (1.8-6.8); NEUTROPHILS % (AUTO) 57 % (42-75); PLATELET COUNT 121 x10^3/uL (130-400); RED BLOOD COUNT 3.34 x10^6/uL (4.38-5.82); RED CELL DISTRIBUTION WIDTH 20.6 % (9.4-14.8)
[2018-02-09 04:58] LABS: ALANINE AMINOTRANSFERASE 38 U/L (12-78); ALBUMIN 1.8 g/dL (3.4-5.0); ANION GAP 5 mmol/L (5-15); CHLORIDE 112 mmol/L (98-107); CREATININE 0.62 mg/dL (0.7-1.3)
[2018-02-09 05:00] LABS: ALKALINE PHOSPHATASE 134 U/L (45-117); BILIRUBIN,TOTAL 0.8 mg/dL (0.2-1.0); TOTAL PROTEIN 5.9 g/dL (6.4-8.2)
[2018-02-09] MEDS: PIPERACILLIN/TAZO/PMX 4.5GM 100 ML IV SCH ×3 (06:17→17:47)
[2018-02-09] MEDS: PANTOPROZOLE 40MG TABLET PO SCH (07:42)
[2018-02-09 07:55] VITALS: BP 136/79
[2018-02-09] MEDS: SENNA/DOCUSATE TABLET PO SCH (09:16)
[2018-02-09] MEDS: IRON SUCROSE COMPLEX 100MG/5ML IV SCH (09:16)
[2018-02-09] MEDS: ENOXAPARIN 40 MG/0.4 ML SQ SCH (09:17)
[2018-02-09] MEDS: NEUTRA PHOS K 250 MG TABLET PO SCH ×2 (09:17→22:00)
[2018-02-09] MEDS: DOXYCYCLINE 100MG TABLET PO SCH (13:09)
[2018-02-09 13:58] VITALS: BP 114/62
[2018-02-09 18:58] VITALS: BP 148/77
[2018-02-09 23:59] VITALS: BP 137/69
[2018-02-10] MEDS: ACETAMINOPHEN 325 MG TABLET PO PRN ×4 (00:17→23:24)
[2018-02-10] MEDS: PIPERACILLIN/TAZO/PMX 4.5GM 100 ML IV SCH ×4 (00:17→18:27)
[2018-02-10] MEDS: DOXYCYCLINE 100MG TABLET PO SCH ×3 (00:18→21:45)
[2018-02-10 05:01] LABS: ALBUMIN 1.8 g/dL (3.4-5.0); ANION GAP 7 mmol/L (5-15); CALCIUM 7.5 mg/dL (8.5-10.1); CHLORIDE 114 mmol/L (98-107)
[2018-02-10 05:02] LABS: CREATININE 0.53 mg/dL (0.7-1.3)
[2018-02-10 05:05] LABS: MEAN CORPUSCULAR HEMOGLOBIN 25.8 pg (27.5-34.5); MEAN CORPUSCULAR HGB CONC 32.6 g/dL (33.2-36.2); MEAN CORPUSCULAR VOLUME 79.3 fL (81-97); MEAN PLATELET VOLUME 8.1 fL (7.4-10.4); PLATELET COUNT 121 x10^3/uL (130-400); RED BLOOD COUNT 3.39 x10^6/uL (4.38-5.82); RED CELL DISTRIBUTION WIDTH 20.9 % (9.4-14.8)
[2018-02-10 05:55] LABS: BASOPHILS # (AUTO) 0.03 x10^3/uL (0-0.1); BASOPHILS % (AUTO) 1 % (0-1); EOSINOPHILS # (AUTO) 0.12 x10^3/uL (0-0.4); EOSINOPHILS % (AUTO) 3 % (1-7); LYMPHOCYTES # (AUTO) 0.93 x10^3/uL (1-3.4); LYMPHOCYTES % (AUTO) 24 % (22-44); MD SCAN; MONOCYTES # (AUTO) 0.33 x10^3/uL (0.2-0.8); MONOCYTES % (AUTO) 9 % (2-9); NEUTROPHILS # (AUTO) 2.41 x10^3/uL (1.8-6.8); NEUTROPHILS % (AUTO) 63 % (42-75)
[2018-02-10 07:22] VITALS: BP 130/74
[2018-02-10] MEDS: PANTOPROZOLE 40MG TABLET PO SCH (07:50)
[2018-02-10] MEDS: IRON SUCROSE COMPLEX 100MG/5ML IV SCH (07:50)
[2018-02-10] MEDS: SENNA/DOCUSATE TABLET PO SCH (07:50)
[2018-02-10] MEDS: NEUTRA PHOS K 250 MG TABLET PO SCH ×2 (07:50→21:45)
[2018-02-10] MEDS: ENOXAPARIN 40 MG/0.4 ML SQ SCH (10:18)
[2018-02-10 14:10] VITALS: BP 134/73
[2018-02-10] MEDS: FUROSEMIDE 20 MG TABLET PO SCH (15:10)
[2018-02-10] MEDS: SPIRONOLACTONE 25 MG TABLET PO SCH (15:10)
[2018-02-10 18:58] VITALS: BP 130/63
[2018-02-11] MEDS: PIPERACILLIN/TAZO/PMX 4.5GM 100 ML IV SCH ×5 (00:34→23:49)
[2018-02-11 00:57] VITALS: BP 143/77
[2018-02-11] MEDS: ACETAMINOPHEN 325 MG TABLET PO PRN ×4 (03:26→19:27)
[2018-02-11 05:24] LABS: ALBUMIN 1.9 g/dL (3.4-5.0); ANION GAP 6 mmol/L (5-15); CALCIUM 7.6 mg/dL (8.5-10.1); CHLORIDE 111 mmol/L (98-107); CREATININE 0.69 mg/dL (0.7-1.3)
[2018-02-11 05:29] LABS: MEAN CORPUSCULAR HGB CONC 33.7 g/dL (33.2-36.2); MEAN CORPUSCULAR VOLUME 80.1 fL (81-97); MEAN PLATELET VOLUME 8.3 fL (7.4-10.4); PLATELET COUNT 132 x10^3/uL (130-400); RED BLOOD COUNT 3.34 x10^6/uL (4.38-5.82); RED CELL DISTRIBUTION WIDTH 21.9 % (9.4-14.8)
[2018-02-11 06:19] LABS: BASOPHILS # (AUTO) 0.03 x10^3/uL (0-0.1); BASOPHILS % (AUTO) 1 % (0-1); EOSINOPHILS # (AUTO) 0.07 x10^3/uL (0-0.4); EOSINOPHILS % (AUTO) 2 % (1-7); LYMPHOCYTES # (AUTO) 0.84 x10^3/uL (1-3.4); LYMPHOCYTES % (AUTO) 23 % (22-44); MD SCAN; MONOCYTES # (AUTO) 0.36 x10^3/uL (0.2-0.8); MONOCYTES % (AUTO) 10 % (2-9); NEUTROPHILS # (AUTO) 2.34 x10^3/uL (1.8-6.8); NEUTROPHILS % (AUTO) 64 % (42-75)
[2018-02-11 08:24] VITALS: BP 127/71
[2018-02-11] MEDS: PANTOPROZOLE 40MG TABLET PO SCH (08:37)
[2018-02-11] MEDS: IRON SUCROSE COMPLEX 100MG/5ML IV SCH (10:09)
[2018-02-11] MEDS: NEUTRA PHOS K 250 MG TABLET PO SCH ×2 (10:10→21:11)
[2018-02-11] MEDS: FUROSEMIDE 20 MG TABLET PO SCH (10:10)
[2018-02-11] MEDS: SPIRONOLACTONE 25 MG TABLET PO SCH (10:10)
[2018-02-11] MEDS: DOXYCYCLINE 100MG TABLET PO SCH ×2 (10:10→21:11)
[2018-02-11] MEDS: SENNA/DOCUSATE TABLET PO SCH (10:11)
[2018-02-11] MEDS: ENOXAPARIN 40 MG/0.4 ML SQ SCH (10:55)
[2018-02-11 13:07] VITALS: BP 129/65
[2018-02-11 19:33] VITALS: BP 119/67
[2018-02-11 19:46] VITALS: BP 117/68
[2018-02-12] MEDS: ACETAMINOPHEN 325 MG TABLET PO PRN ×4 (00:11→23:40)
[2018-02-12 01:10] VITALS: BP 120/70
[2018-02-12] MEDS: PIPERACILLIN/TAZO/PMX 4.5GM 100 ML IV SCH ×3 (05:34→20:31)
[2018-02-12] MEDS: PANTOPROZOLE 40MG TABLET PO SCH (08:12)
[2018-02-12 08:29] VITALS: BP 137/70
[2018-02-12] MEDS: IRON SUCROSE COMPLEX 100MG/5ML IV SCH (09:57)
[2018-02-12] MEDS: DOXYCYCLINE 100MG TABLET PO SCH ×2 (09:58→20:31)
[2018-02-12] MEDS: SPIRONOLACTONE 25 MG TABLET PO SCH (09:59)
[2018-02-12] MEDS: SENNA/DOCUSATE TABLET PO SCH (09:59)
[2018-02-12] MEDS: FUROSEMIDE 20 MG TABLET PO SCH (10:00)
[2018-02-12] MEDS: ENOXAPARIN 40 MG/0.4 ML SQ SCH (10:00)
[2018-02-12] MEDS: NEUTRA PHOS K 250 MG TABLET PO SCH ×2 (10:10→20:31)
[2018-02-12 14:21] VITALS: BP 120/72
[2018-02-12 20:26] VITALS: BP 118/64
[2018-02-12 20:33] VITALS: BP 146/74
[2018-02-13 01:13] VITALS: BP 127/73
[2018-02-13] MEDS: PIPERACILLIN/TAZO/PMX 4.5GM 100 ML IV SCH ×4 (02:09→20:20)
[2018-02-13] MEDS: ACETAMINOPHEN 325 MG TABLET PO PRN ×3 (03:28→15:01)
[2018-02-13 04:37] LABS: MEAN CORPUSCULAR HEMOGLOBIN 27.1 pg (27.5-34.5); MEAN CORPUSCULAR HGB CONC 33.6 g/dL (33.2-36.2); MEAN CORPUSCULAR VOLUME 80.7 fL (81-97); MEAN PLATELET VOLUME 7.6 fL (7.4-10.4); PLATELET COUNT 132 x10^3/uL (130-400); RED BLOOD COUNT 3.58 x10^6/uL (4.38-5.82); RED CELL DISTRIBUTION WIDTH 24.3 % (9.4-14.8)
[2018-02-13 04:47] LABS: ALBUMIN 2.1 g/dL (3.4-5.0); ANION GAP 7 mmol/L (5-15); CALCIUM 7.8 mg/dL (8.5-10.1); CHLORIDE 111 mmol/L (98-107); CREATININE 0.62 mg/dL (0.7-1.3)
[2018-02-13] MEDS ORDERED: PHARMACY MAY ADJ FOR RENAL FX MC PRN (05:00)
[2018-02-13 05:48] LABS: ANISOCYTOSIS 2+; BASOPHILS # (AUTO) 0.03 x10^3/uL (0-0.1); BASOPHILS % (AUTO) 1 % (0-1); EOSINOPHILS # (AUTO) 0.08 x10^3/uL (0-0.4); EOSINOPHILS % (AUTO) 3 % (1-7); LYMPHOCYTES # (AUTO) 0.92 x10^3/uL (1-3.4); LYMPHOCYTES % (AUTO) 28 % (22-44); MD MORPH REVIEW ONLY; MICROCYTOSIS 1+; MONOCYTES # (AUTO) 0.31 x10^3/uL (0.2-0.8); MONOCYTES % (AUTO) 9 % (2-9); NEUTROPHILS # (AUTO) 1.99 x10^3/uL (1.8-6.8); NEUTROPHILS % (AUTO) 60 % (42-75)
[2018-02-13 05:49] LABS: <PLATELET ESTIMATE> ADEQUATE; <PLT MORPHOLOGY> NORMAL PLT MORPH; OVALOCYTES 1+; POLYCHROMASIA 1+
[2018-02-13] MEDS: PANTOPROZOLE 40MG TABLET PO SCH (07:10)
[2018-02-13 07:30] VITALS: BP 127/75
[2018-02-13] MEDS: IRON SUCROSE COMPLEX 100MG/5ML IV SCH (08:50)
[2018-02-13] MEDS: SPIRONOLACTONE 25 MG TABLET PO SCH ×2 (08:58→20:21)
[2018-02-13] MEDS: ENOXAPARIN 40 MG/0.4 ML SQ SCH (08:58)
[2018-02-13] MEDS: FUROSEMIDE 20 MG TABLET PO SCH (08:58)
[2018-02-13] MEDS: DOXYCYCLINE 100MG TABLET PO SCH (08:58)
[2018-02-13] MEDS: SENNA/DOCUSATE TABLET PO SCH (09:00)
[2018-02-13] MEDS: LINEZOLID 600 MG TABLET PO SCH ×2 (13:32→22:18)
[2018-02-13] MEDS: NEUTRA PHOS K 250 MG TABLET PO SCH ×2 (13:33→20:31)
[2018-02-13 14:27] VITALS: BP 138/66
[2018-02-13 19:48] VITALS: BP 114/59
[2018-02-14 00:47] VITALS: BP 132/77
[2018-02-14] MEDS: PIPERACILLIN/TAZO/PMX 4.5GM 100 ML IV SCH ×4 (02:14→20:38)
[2018-02-14] MEDS: ACETAMINOPHEN 325 MG TABLET PO PRN (06:22)
[2018-02-14 07:25] VITALS: BP 131/73
[2018-02-14] MEDS: SENNA/DOCUSATE TABLET PO SCH (09:00)
[2018-02-14] MEDS: SPIRONOLACTONE 25 MG TABLET PO SCH ×2 (09:03→20:34)
[2018-02-14] MEDS: IRON SUCROSE COMPLEX 100MG/5ML IV SCH (09:04)
[2018-02-14] MEDS: FUROSEMIDE 20 MG TABLET PO SCH (09:04)
[2018-02-14] MEDS: LINEZOLID 600 MG TABLET PO SCH ×2 (09:04→20:34)
[2018-02-14] MEDS: ENOXAPARIN 40 MG/0.4 ML SQ SCH (09:04)
[2018-02-14] MEDS: NEUTRA PHOS K 250 MG TABLET PO SCH ×2 (09:04→20:34)
[2018-02-14] MEDS: PANTOPROZOLE 40MG TABLET PO SCH (09:05)
[2018-02-14 14:10] VITALS: BP 117/63
[2018-02-14 20:00] VITALS: BP 120/67
[2018-02-15] MEDS: ACETAMINOPHEN 325 MG TABLET PO PRN ×2 (01:08→11:39)
[2018-02-15 01:17] VITALS: BP 120/67
[2018-02-15] MEDS: PIPERACILLIN/TAZO/PMX 4.5GM 100 ML IV SCH ×4 (03:04→20:47)
[2018-02-15 07:00] VITALS: BP 113/67
[2018-02-15] MEDS: PANTOPROZOLE 40MG TABLET PO SCH (07:37)
[2018-02-15] MEDS: FUROSEMIDE 20 MG TABLET PO SCH (09:04)
[2018-02-15] MEDS: LINEZOLID 600 MG TABLET PO SCH ×2 (09:04→20:48)
[2018-02-15] MEDS: SENNA/DOCUSATE TABLET PO SCH (09:04)
[2018-02-15] MEDS: SPIRONOLACTONE 25 MG TABLET PO SCH ×2 (09:04→20:47)
[2018-02-15] MEDS: ENOXAPARIN 40 MG/0.4 ML SQ SCH (09:05)
[2018-02-15] MEDS: NEUTRA PHOS K 250 MG TABLET PO SCH ×2 (09:34→20:48)
[2018-02-15 13:35] VITALS: BP 99/54
[2018-02-15 18:39] VITALS: BP 126/74
[2018-02-16 00:27] VITALS: BP 128/72
[2018-02-16] MEDS: PIPERACILLIN/TAZO/PMX 4.5GM 100 ML IV SCH ×4 (02:40→20:40)
[2018-02-16 04:34] LABS: MEAN CORPUSCULAR HEMOGLOBIN 27.7 pg (27.5-34.5); MEAN CORPUSCULAR HGB CONC 33.3 g/dL (33.2-36.2); MEAN CORPUSCULAR VOLUME 83.2 fL (81-97); MEAN PLATELET VOLUME 7.8 fL (7.4-10.4); PLATELET COUNT 116 x10^3/uL (130-400); RED BLOOD COUNT 3.49 x10^6/uL (4.38-5.82); RED CELL DISTRIBUTION WIDTH 25.3 % (9.4-14.8)
[2018-02-16 04:46] LABS: ANION GAP 5 mmol/L (5-15); CALCIUM 8.1 mg/dL (8.5-10.1); CHLORIDE 110 mmol/L (98-107)
[2018-02-16 04:49] LABS: CREATININE 0.66 mg/dL (0.7-1.3)
[2018-02-16 05:13] LABS: BASOPHILS # (AUTO) 0.04 x10^3/uL (0-0.1); BASOPHILS % (AUTO) 1 % (0-1); EOSINOPHILS # (AUTO) 0.06 x10^3/uL (0-0.4); EOSINOPHILS % (AUTO) 2 % (1-7); LYMPHOCYTES % (AUTO) 24 % (22-44); MD MORPH REVIEW ONLY; MONOCYTES # (AUTO) 0.26 x10^3/uL (0.2-0.8); MONOCYTES % (AUTO) 9 % (2-9); NEUTROPHILS # (AUTO) 1.81 x10^3/uL (1.8-6.8); NEUTROPHILS % (AUTO) 63 % (42-75)
[2018-02-16 05:16] LABS: <PLATELET ESTIMATE> DECREASED; <PLT MORPHOLOGY> NORMAL PLT MORPH; ANISOCYTOSIS 1+
[2018-02-16 07:43] VITALS: BP 121/71
[2018-02-16] MEDS: NEUTRA PHOS K 250 MG TABLET PO SCH ×2 (09:13→20:40)
[2018-02-16] MEDS: SENNA/DOCUSATE TABLET PO SCH (09:13)
[2018-02-16] MEDS: ENOXAPARIN 40 MG/0.4 ML SQ SCH (09:13)
[2018-02-16] MEDS: LINEZOLID 600 MG TABLET PO SCH ×2 (09:13→20:40)
[2018-02-16] MEDS: SPIRONOLACTONE 25 MG TABLET PO SCH ×2 (09:14→20:40)
[2018-02-16] MEDS: PANTOPROZOLE 40MG TABLET PO SCH (09:14)
[2018-02-16] MEDS: FUROSEMIDE 20 MG TABLET PO SCH (09:14)
[2018-02-16 13:33] VITALS: BP 119/69
[2018-02-16] MEDS: ACETAMINOPHEN 325 MG TABLET PO PRN (17:46)
[2018-02-16 20:41] VITALS: BP 120/71
[2018-02-17 03:08] VITALS: BP 119/69
[2018-02-17] MEDS: PIPERACILLIN/TAZO/PMX 4.5GM 100 ML IV SCH ×4 (03:08→20:56)
[2018-02-17] MEDS: ACETAMINOPHEN 325 MG TABLET PO PRN ×3 (05:58→20:56)
[2018-02-17 06:45] VITALS: BP 116/68
[2018-02-17] MEDS: NEUTRA PHOS K 250 MG TABLET PO SCH ×2 (09:14→20:56)
[2018-02-17] MEDS: PANTOPROZOLE 40MG TABLET PO SCH (09:14)
[2018-02-17] MEDS: LINEZOLID 600 MG TABLET PO SCH ×2 (09:14→20:56)
[2018-02-17] MEDS: SENNA/DOCUSATE TABLET PO SCH (09:14)
[2018-02-17] MEDS: SPIRONOLACTONE 25 MG TABLET PO SCH ×2 (09:14→20:56)
[2018-02-17] MEDS: FUROSEMIDE 20 MG TABLET PO SCH (09:14)
[2018-02-17] MEDS: ENOXAPARIN 40 MG/0.4 ML SQ SCH (09:15)
[2018-02-17 15:42] VITALS: BP 90/57
[2018-02-17 20:26] VITALS: BP 133/65
[2018-02-18 02:00] VITALS: BP 126/65
[2018-02-18] MEDS: PIPERACILLIN/TAZO/PMX 4.5GM 100 ML IV SCH ×4 (03:14→20:17)
[2018-02-18 08:02] VITALS: BP 154/76
[2018-02-18] MEDS: PANTOPROZOLE 40MG TABLET PO SCH (08:14)
[2018-02-18] MEDS: FUROSEMIDE 20 MG TABLET PO SCH (08:14)
[2018-02-18] MEDS: NEUTRA PHOS K 250 MG TABLET PO SCH ×2 (08:14→20:17)
[2018-02-18] MEDS: SPIRONOLACTONE 25 MG TABLET PO SCH ×2 (08:14→20:16)
[2018-02-18] MEDS: ENOXAPARIN 40 MG/0.4 ML SQ SCH (08:14)
[2018-02-18] MEDS: LINEZOLID 600 MG TABLET PO SCH ×2 (08:15→20:17)
[2018-02-18] MEDS: SENNA/DOCUSATE TABLET PO SCH (08:15)
[2018-02-18] MEDS: ACETAMINOPHEN 325 MG TABLET PO PRN ×2 (11:45→15:27)
[2018-02-18 15:30] VITALS: BP 137/72
[2018-02-18 19:28] VITALS: BP 127/73
[2018-02-18] MEDS: IBUPROFEN 200 MG TABLET PO PRN (20:16)
[2018-02-19 01:09] VITALS: BP 127/73
[2018-02-19] MEDS: PIPERACILLIN/TAZO/PMX 4.5GM 100 ML IV SCH ×4 (02:39→20:46)
[2018-02-19 07:53] VITALS: BP 120/81
[2018-02-19] MEDS: ENOXAPARIN 40 MG/0.4 ML SQ SCH (08:24)
[2018-02-19] MEDS: NEUTRA PHOS K 250 MG TABLET PO SCH ×2 (08:24→20:45)
[2018-02-19] MEDS: FUROSEMIDE 20 MG TABLET PO SCH (08:24)
[2018-02-19] MEDS: LINEZOLID 600 MG TABLET PO SCH ×2 (08:24→20:45)
[2018-02-19] MEDS: SPIRONOLACTONE 25 MG TABLET PO SCH ×2 (08:24→20:45)
[2018-02-19] MEDS: SENNA/DOCUSATE TABLET PO SCH (08:24)
[2018-02-19] MEDS: PANTOPROZOLE 40MG TABLET PO SCH (08:24)
[2018-02-19] MEDS: IBUPROFEN 200 MG TABLET PO PRN ×2 (09:22→20:45)
[2018-02-19] MEDS: ACETAMINOPHEN 325 MG TABLET PO PRN (12:43)
[2018-02-19 13:50] VITALS: BP 118/71
[2018-02-19 19:44] VITALS: BP 116/72
[2018-02-20 00:53] VITALS: BP 106/61
[2018-02-20] MEDS: PIPERACILLIN/TAZO/PMX 4.5GM 100 ML IV SCH ×4 (03:13→22:01)
[2018-02-20 06:43] VITALS: BP 118/72
[2018-02-20 07:05] VITALS: BP 118/71
[2018-02-20] MEDS: PANTOPROZOLE 40MG TABLET PO SCH (07:24)
[2018-02-20] MEDS: IBUPROFEN 200 MG TABLET PO PRN ×2 (07:25→15:27)
[2018-02-20] MEDS: SENNA/DOCUSATE TABLET PO SCH (09:00)
[2018-02-20] MEDS: LINEZOLID 600 MG TABLET PO SCH ×2 (09:10→22:01)
[2018-02-20] MEDS: FUROSEMIDE 20 MG TABLET PO SCH (09:10)
[2018-02-20] MEDS: NEUTRA PHOS K 250 MG TABLET PO SCH ×2 (09:10→22:01)
[2018-02-20] MEDS: SPIRONOLACTONE 25 MG TABLET PO SCH ×2 (09:10→22:01)
[2018-02-20] MEDS: ENOXAPARIN 40 MG/0.4 ML SQ SCH (09:10)
[2018-02-20] MEDS: ACETAMINOPHEN 325 MG TABLET PO PRN (10:50)
[2018-02-20] MEDS ORDERED: SILVER NITRATE STICK TP ONE (12:00)
[2018-02-20 13:41] VITALS: BP 112/65
[2018-02-20 19:20] VITALS: BP 109/62
[2018-02-21 01:24] VITALS: BP 114/66
[2018-02-21] MEDS: PIPERACILLIN/TAZO/PMX 4.5GM 100 ML IV SCH ×4 (02:54→21:44)
[2018-02-21] MEDS: IBUPROFEN 200 MG TABLET PO PRN (02:54)
[2018-02-21 07:26] VITALS: BP 144/75
[2018-02-21] MEDS: SENNA/DOCUSATE TABLET PO SCH (09:00)
[2018-02-21] MEDS: SPIRONOLACTONE 25 MG TABLET PO SCH ×2 (09:12→21:44)
[2018-02-21] MEDS: NEUTRA PHOS K 250 MG TABLET PO SCH ×2 (09:12→21:44)
[2018-02-21] MEDS: ENOXAPARIN 40 MG/0.4 ML SQ SCH (09:12)
[2018-02-21] MEDS: FUROSEMIDE 20 MG TABLET PO SCH (09:12)
[2018-02-21] MEDS: LINEZOLID 600 MG TABLET PO SCH (09:12)
[2018-02-21] MEDS: PANTOPROZOLE 40MG TABLET PO SCH (09:13)
[2018-02-21] MEDS: ACETAMINOPHEN 325 MG TABLET PO PRN (12:45)
[2018-02-21] MEDS ORDERED: FURO20TA3 PO (13:10)
[2018-02-21] MEDS ORDERED: SPIR25TA PO (13:10)
[2018-02-21] MEDS ORDERED: PANT40TA5 PO (13:10)
[2018-02-21 14:45] VITALS: BP 100/59
[2018-02-21 19:20] VITALS: BP 108/64
[2018-02-22 01:19] VITALS: BP 102/58
[2018-02-22] MEDS: PIPERACILLIN/TAZO/PMX 4.5GM 100 ML IV SCH ×4 (03:18→21:49)
[2018-02-22 05:22] LABS: CREATININE 0.64 mg/dL (0.7-1.3)
[2018-02-22 07:51] VITALS: BP 128/78
[2018-02-22] MEDS: NEUTRA PHOS K 250 MG TABLET PO SCH ×2 (10:01→22:24)
[2018-02-22] MEDS: SENNA/DOCUSATE TABLET PO SCH (10:01)
[2018-02-22] MEDS: PANTOPROZOLE 40MG TABLET PO SCH (10:02)
[2018-02-22] MEDS: ENOXAPARIN 40 MG/0.4 ML SQ SCH (10:02)
[2018-02-22] MEDS: FUROSEMIDE 20 MG TABLET PO SCH (10:02)
[2018-02-22] MEDS: SPIRONOLACTONE 25 MG TABLET PO SCH ×2 (10:02→21:50)
[2018-02-22] MEDS: ACETAMINOPHEN 325 MG TABLET PO PRN ×2 (15:05→21:50)
[2018-02-22 15:52] VITALS: BP 118/70
[2018-02-22 19:02] VITALS: BP 119/65
[2018-02-22] MEDS: IBUPROFEN 200 MG TABLET PO PRN (21:50)
== END 2018-02-22 22:55 | disposition home or self-care (01) | DRG 602 ==
LOC: ED 01:48 → 3NW 06:06
PROVIDERS: ADMIT Hospitalist; ATTEND Hospitalist
PROC: 0W9G3ZZ Drainage of Peritoneal Cavity, Percutaneous Approach (ICD-10-PCS; principal; 2018-02-06)
DX: L03.115 Cellulitis of right lower limb (principal); E43 Unspecified severe protein-calorie malnutrition; B18.1 Chronic viral hepatitis B without delta-agent; E87.2 Acidosis; K76.6 Portal hypertension; L97.919 Non-pressure chronic ulcer of unspecified part of right lower leg with unspecified severity; L97.929 Non-pressure chronic ulcer of unspecified part of left lower leg with unspecified severity; E27.1 Primary adrenocortical insufficiency; L03.116 Cellulitis of left lower limb; B18.2 Chronic viral hepatitis C; B96.5 Pseudomonas (aeruginosa) (mallei) (pseudomallei) as the cause of diseases classified elsewhere; F15.90 Other stimulant use, unspecified, uncomplicated; F17.210 Nicotine dependence, cigarettes, uncomplicated; G89.29 Other chronic pain; I73.9 Peripheral vascular disease, unspecified; I11.9 Hypertensive heart disease without heart failure; K72.90 Hepatic failure, unspecified without coma; K70.30 Alcoholic cirrhosis of liver without ascites; Z59.0 Homelessness; Z86.14 Personal history of Methicillin resistant Staphylococcus aureus infection; Z91.19 Patient's noncompliance with other medical treatment and regimen; Z68.23 Body mass index [BMI] 23.0-23.9, adult; I87.2 Venous insufficiency (chronic) (peripheral); D72.1 Eosinophilia; D64.9 Anemia, unspecified
CPT/HCPCS: 36415; 49083; 71045; 80048; 80053; 80202; 81001; 82024; 82040; 82088; 82533; 82565; 82728; 83540; 83550; 83605; 83735; 84100; 84145; 84244; 84439; 84443; 84520; 85025; 87040; 87070; 87077; 87086; 87186; 87205; 93306; 93970; 96365; 96375; A9585; G0378; J0295; J1650; J1756; J2405; J2543; J3370; Q0162; C9113; J2060; J3475; J7030; J7050

== ENCOUNTER → 2018-02-27 | Outpatient (CLI) | payer MEDICAID ==
[~2018-02-27] MED LIST changes: +FURO20TA3 PO; +PANT40TA5 PO; +SPIR25TA PO
== END | disposition home or self-care (01) ==
LOC: WOUND 13:27
PROVIDERS: ATTEND Internal Medicine
DX: I87.313 Chronic venous hypertension (idiopathic) with ulcer of bilateral lower extremity (principal); L97.222 Non-pressure chronic ulcer of left calf with fat layer exposed; L97.212 Non-pressure chronic ulcer of right calf with fat layer exposed; I11.0 Hypertensive heart disease with heart failure; I50.32 Chronic diastolic (congestive) heart failure; E78.5 Hyperlipidemia, unspecified; E43 Unspecified severe protein-calorie malnutrition; I85.00 Esophageal varices without bleeding; K70.30 Alcoholic cirrhosis of liver without ascites; G89.29 Other chronic pain; F15.10 Other stimulant abuse, uncomplicated; F17.210 Nicotine dependence, cigarettes, uncomplicated; I73.9 Peripheral vascular disease, unspecified; Z72.9 Problem related to lifestyle, unspecified; Z86.19 Personal history of other infectious and parasitic diseases; Z90.49 Acquired absence of other specified parts of digestive tract
CPT/HCPCS: 29581; 97597; 97598; 99215

== ENCOUNTER 2018-03-04 09:46 | Emergency (ER) | payer MEDICAID ==
[~2018-03-04] VITALS: Ht 172.7 cm; Wt 73.0 kg
[2018-03-04 10:16] VITALS: BP 132/67
[2018-03-04] MEDS ORDERED: BACITRACIN ZINC OINT 500U/GM, 0.9 GM ONE (10:46)
[2018-03-04 11:31] LABS: ANION GAP 9 mmol/L (5-15); CALCIUM 7.4 mg/dL (8.5-10.1); CHLORIDE 105 mmol/L (98-107)
[2018-03-04 11:34] LABS: CREATININE 0.63 mg/dL (0.7-1.3)
[2018-03-04 11:37] LABS: MEAN CORPUSCULAR HEMOGLOBIN 28.9 pg (27.5-34.5); MEAN CORPUSCULAR HGB CONC 34.3 g/dL (33.2-36.2); MEAN PLATELET VOLUME 7.7 fL (7.4-10.4); PLATELET COUNT 90 x10^3/uL (130-400); RED BLOOD COUNT 3.61 x10^6/uL (4.38-5.82); RED CELL DISTRIBUTION WIDTH 26.1 % (9.4-14.8)
[2018-03-04 11:38] LABS: BASOPHILS # (AUTO) 0.02 x10^3/uL (0-0.1); BASOPHILS % (AUTO) 1 % (0-1); EOSINOPHILS % (AUTO) 4 % (1-7); LYMPHOCYTES # (AUTO) 0.28 x10^3/uL (1-3.4); LYMPHOCYTES % (AUTO) 12 % (22-44); MD MORPH REVIEW ONLY; MONOCYTES # (AUTO) 0.31 x10^3/uL (0.2-0.8); MONOCYTES % (AUTO) 13 % (2-9); NEUTROPHILS # (AUTO) 1.67 x10^3/uL (1.8-6.8); NEUTROPHILS % (AUTO) 70 % (42-75)
[2018-03-04 11:39] LABS: ANISOCYTOSIS 1+; OVALOCYTES 1+; POLYCHROMASIA 1+
[2018-03-04 11:40] LABS: <PLATELET ESTIMATE> DECREASED; <PLT MORPHOLOGY> NORMAL PLT MORPH
[2018-03-04] MEDS ORDERED: POTASSIUM CHLORIDE 20 MEQ TAB.ER.PRT PO ONE (12:00)
[2018-03-04] MEDS ORDERED: POTASSIUM CHLORIDE 20 MEQ TAB.ER.PRT ONE (12:04)
== END 2018-03-04 12:14 | disposition home or self-care (01) ==
LOC: ED 11:18
DX: R19.7 Diarrhea, unspecified (principal); F17.200 Nicotine dependence, unspecified, uncomplicated; Z59.0 Homelessness; Z87.19 Personal history of other diseases of the digestive system
CPT/HCPCS: 36415; 80048; 85025; 99283

== ENCOUNTER → 2018-03-06 | Outpatient (CLI) | payer MEDICAID | END | disposition home or self-care (01) | LOC: WOUND 13:00 | PROVIDERS: ATTEND Internal Medicine | DX: L97.222 Non-pressure chronic ulcer of left calf with fat layer exposed (principal); I87.313 Chronic venous hypertension (idiopathic) with ulcer of bilateral lower extremity; L97.212 Non-pressure chronic ulcer of right calf with fat layer exposed; I11.0 Hypertensive heart disease with heart failure; I50.32 Chronic diastolic (congestive) heart failure; E78.5 Hyperlipidemia, unspecified; E43 Unspecified severe protein-calorie malnutrition; I85.00 Esophageal varices without bleeding; G89.29 Other chronic pain; I73.9 Peripheral vascular disease, unspecified; K70.9 Alcoholic liver disease, unspecified; F17.210 Nicotine dependence, cigarettes, uncomplicated; Z90.49 Acquired absence of other specified parts of digestive tract; Z86.19 Personal history of other infectious and parasitic diseases | CPT/HCPCS: 97597; 97598 ==

== ENCOUNTER 2018-03-10 17:24 | Inpatient (IN) | payer MEDICAID ==
[~2018-03-10] VITALS: Ht 172.7 cm; Wt 74.2 kg
[2018-03-10 18:41] LABS: HCT (SEDRATE) 29.1 % (39.2-51.8)
[2018-03-10 18:43] LABS: MEAN CORPUSCULAR HEMOGLOBIN 28.4 pg (27.5-34.5); MEAN CORPUSCULAR HGB CONC 33.7 g/dL (33.2-36.2); MEAN CORPUSCULAR VOLUME 84.3 fL (81-97); MEAN PLATELET VOLUME 7.9 fL (7.4-10.4); PLATELET COUNT 110 x10^3/uL (130-400); RED BLOOD COUNT 3.56 x10^6/uL (4.38-5.82); RED CELL DISTRIBUTION WIDTH 25.2 % (9.4-14.8)
[2018-03-10 18:52] LABS: ALANINE AMINOTRANSFERASE 39 U/L (12-78); ALBUMIN 2.6 g/dL (3.4-5.0); ANION GAP 9 mmol/L (5-15); CALCIUM 7.3 mg/dL (8.5-10.1); CHLORIDE 110 mmol/L (98-107)
[2018-03-10 19:00] LABS: ALKALINE PHOSPHATASE 168 U/L (45-117); BILIRUBIN,TOTAL 1.6 mg/dL (0.2-1.0); CREATININE 0.59 mg/dL (0.7-1.3); TOTAL PROTEIN 6.6 g/dL (6.4-8.2)
[2018-03-10 19:02] LABS: BASOPHILS # (AUTO) 0.01 x10^3/uL (0-0.1); BASOPHILS % (AUTO) 0 % (0-1); EOSINOPHILS # (AUTO) 0.15 x10^3/uL (0-0.4); EOSINOPHILS % (AUTO) 5 % (1-7); LYMPHOCYTES # (AUTO) 0.52 x10^3/uL (1-3.4); LYMPHOCYTES % (AUTO) 16 % (22-44); MD MORPH REVIEW ONLY; MONOCYTES # (AUTO) 0.42 x10^3/uL (0.2-0.8); MONOCYTES % (AUTO) 13 % (2-9); NEUTROPHILS # (AUTO) 2.16 x10^3/uL (1.8-6.8); NEUTROPHILS % (AUTO) 66 % (42-75)
[2018-03-10 19:14] LABS: ANISOCYTOSIS 2+; MICROCYTOSIS 1+; POLYCHROMASIA 1+
[2018-03-10 19:15] LABS: OVALOCYTES 1+
[2018-03-10 19:16] LABS: <PLATELET ESTIMATE> DECREASED; <PLT MORPHOLOGY> NORMAL PLT MORPH
[2018-03-10] MEDS ORDERED: PIPERACILLIN/TAZO/PMX 4.5GM 100 ML IV ONE (20:00)
[2018-03-10] MEDS ORDERED: VANCOMYCIN PER PHARMACY MC PRN ×2 (20:00→21:30)
[2018-03-10] MEDS ORDERED: PHARMACOKINETIC CONSULTATION MC ONE ×2 (20:30→22:30)
[2018-03-10 21:00] VITALS: BP 113/63
[2018-03-10] MEDS ORDERED: VANCOMYCIN 1,400 MG in SODIUM CHLORIDE 0.9% 250 ML IV ONE (21:00)
[2018-03-10] MEDS ORDERED: GABAPENTIN 300 MG CAPSULE PO PRN (21:30)
[2018-03-10] MEDS ORDERED: TEMAZEPAM 15 MG CAPSULE PO PRN (21:30)
[2018-03-10] MEDS ORDERED: LIDODERM 5% PATCH TD PRN (21:30)
[2018-03-10] MEDS ORDERED: hydrALAzine 20 MG/ML, 1ML IVPush PRN (21:30)
[2018-03-10] MEDS ORDERED: DOCUSATE 100 MG CAPSULE PO PRN (21:30)
[2018-03-10] MEDS ORDERED: ONDANSETRON ODT 4 MG PO PRN (21:30)
[2018-03-10] MEDS ORDERED: KETOROLAC 30 MG/1 ML IV PRN (21:30)
[2018-03-10] MEDS ORDERED: PHARMACOKINETIC MONITORING MC PRN (22:30)
[2018-03-10] MEDS: VANCOMYCIN 1,400 MG in SODIUM CHLORIDE 0.9% 250 ML IV SCH (22:39)
[2018-03-10] MEDS: ENOXAPARIN 40 MG/0.4 ML SQ SCH (22:40)
[2018-03-11] MEDS: PIPERACILLIN/TAZO/PMX 4.5GM 100 ML IV SCH ×4 (02:39→21:14)
[2018-03-11 03:55] VITALS: BP 112/55
[2018-03-11 05:16] LABS: CREATININE 0.62 mg/dL (0.7-1.3)
[2018-03-11 07:36] VITALS: BP 96/52
[2018-03-11 13:13] VITALS: BP 127/70
[2018-03-11] MEDS: VANCOMYCIN 1,400 MG in SODIUM CHLORIDE 0.9% 250 ML IV SCH (16:30)
[2018-03-11 20:01] VITALS: BP 109/53
[2018-03-11] MEDS: ENOXAPARIN 40 MG/0.4 ML SQ SCH (21:14)
[2018-03-12 01:49] VITALS: BP 100/62
[2018-03-12] MEDS: PIPERACILLIN/TAZO/PMX 4.5GM 100 ML IV SCH ×4 (03:13→20:56)
[2018-03-12 06:08] LABS: ALBUMIN 2.2 g/dL (3.4-5.0); ANION GAP 4 mmol/L (5-15); CALCIUM 7.7 mg/dL (8.5-10.1); CHLORIDE 111 mmol/L (98-107)
[2018-03-12 06:13] LABS: ALANINE AMINOTRANSFERASE 36 U/L (12-78); ALKALINE PHOSPHATASE 136 U/L (45-117); BILIRUBIN,TOTAL 1.3 mg/dL (0.2-1.0); CREATININE 0.63 mg/dL (0.7-1.3); TOTAL PROTEIN 5.7 g/dL (6.4-8.2)
[2018-03-12 07:11] LABS: BASOPHILS # (AUTO) 0.02 x10^3/uL (0-0.1); BASOPHILS % (AUTO) 1 % (0-1); EOSINOPHILS # (AUTO) 0.12 x10^3/uL (0-0.4); EOSINOPHILS % (AUTO) 6 % (1-7); LYMPHOCYTES # (AUTO) 0.42 x10^3/uL (1-3.4); LYMPHOCYTES % (AUTO) 23 % (22-44); MD SCAN; MEAN CORPUSCULAR HEMOGLOBIN 28.5 pg (27.5-34.5); MEAN CORPUSCULAR VOLUME 83.8 fL (81-97); MEAN PLATELET VOLUME 8.3 fL (7.4-10.4); MONOCYTES # (AUTO) 0.36 x10^3/uL (0.2-0.8); MONOCYTES % (AUTO) 19 % (2-9); NEUTROPHILS # (AUTO) 0.95 x10^3/uL (1.8-6.8); NEUTROPHILS % (AUTO) 51 % (42-75); PLATELET COUNT 87 x10^3/uL (130-400); RED BLOOD COUNT 3.33 x10^6/uL (4.38-5.82); RED CELL DISTRIBUTION WIDTH 25.3 % (9.4-14.8)
[2018-03-12 07:29] VITALS: BP 103/60
[2018-03-12] MEDS: SODIUM CHLORIDE 0.9% 1,000 ML IV SCH (08:30)
[2018-03-12] MEDS ORDERED: ACETAMINOPHEN 325 MG TABLET PO PRN (08:30)
[2018-03-12] MEDS: GUAIFENESIN 200 MG TABLET PO SCH ×2 (08:47→20:56)
[2018-03-12 13:15] VITALS: BP 129/70
[2018-03-12] MEDS: VANCOMYCIN 1,400 MG in SODIUM CHLORIDE 0.9% 250 ML IV SCH (13:25)
[2018-03-12 20:00] VITALS: BP 109/62
[2018-03-12] MEDS: ENOXAPARIN 40 MG/0.4 ML SQ SCH (20:56)
[2018-03-13 01:54] VITALS: BP 108/58
[2018-03-13] MEDS: PIPERACILLIN/TAZO/PMX 4.5GM 100 ML IV SCH ×3 (03:15→15:00)
[2018-03-13] MEDS: SODIUM CHLORIDE 0.9% 1,000 ML IV SCH (05:20)
[2018-03-13 05:38] LABS: MEAN CORPUSCULAR HGB CONC 33.3 g/dL (33.2-36.2); MEAN CORPUSCULAR VOLUME 84.3 fL (81-97); MEAN PLATELET VOLUME 7.9 fL (7.4-10.4); PLATELET COUNT 84 x10^3/uL (130-400); RED BLOOD COUNT 3.36 x10^6/uL (4.38-5.82); RED CELL DISTRIBUTION WIDTH 25.2 % (9.4-14.8)
[2018-03-13 06:08] LABS: BASOPHILS # (AUTO) 0.02 x10^3/uL (0-0.1); BASOPHILS % (AUTO) 1 % (0-1); EOSINOPHILS # (AUTO) 0.16 x10^3/uL (0-0.4); EOSINOPHILS % (AUTO) 8 % (1-7); LYMPHOCYTES # (AUTO) 0.53 x10^3/uL (1-3.4); LYMPHOCYTES % (AUTO) 26 % (22-44); MD SCAN; MONOCYTES # (AUTO) 0.29 x10^3/uL (0.2-0.8); MONOCYTES % (AUTO) 14 % (2-9); NEUTROPHILS # (AUTO) 1.01 x10^3/uL (1.8-6.8); NEUTROPHILS % (AUTO) 50 % (42-75)
[2018-03-13 06:20] LABS: VANCOMYCIN,TROUGH 4.2 mcg/mL (5.0-10.0)
[2018-03-13 06:53] VITALS: BP 106/51
[2018-03-13] MEDS ORDERED: VANCOMYCIN 1,400 MG in SODIUM CHLORIDE 0.9% 250 ML IV SCH ×2 (07:00→20:00)
[2018-03-13] MEDS: GUAIFENESIN 200 MG TABLET PO SCH (09:00)
[2018-03-13 12:31] VITALS: BP 133/66
== END 2018-03-13 18:00 | disposition home or self-care (01) | DRG 871 ==
LOC: ED 17:43 → 3NE 20:24
PROVIDERS: ADMIT Family Medicine; ATTEND Family Medicine
DX: A41.9 Sepsis, unspecified organism (principal); E43 Unspecified severe protein-calorie malnutrition; B18.1 Chronic viral hepatitis B without delta-agent; D61.818 Other pancytopenia; K76.6 Portal hypertension; L03.115 Cellulitis of right lower limb; L03.116 Cellulitis of left lower limb; L97.919 Non-pressure chronic ulcer of unspecified part of right lower leg with unspecified severity; L97.929 Non-pressure chronic ulcer of unspecified part of left lower leg with unspecified severity; B18.2 Chronic viral hepatitis C; F15.10 Other stimulant abuse, uncomplicated; F17.210 Nicotine dependence, cigarettes, uncomplicated; I11.0 Hypertensive heart disease with heart failure; R65.20 Severe sepsis without septic shock; K74.60 Unspecified cirrhosis of liver; I73.9 Peripheral vascular disease, unspecified; R26.2 Difficulty in walking, not elsewhere classified; Z59.0 Homelessness; Z91.19 Patient's noncompliance with other medical treatment and regimen; Z68.24 Body mass index [BMI] 24.0-24.9, adult
CPT/HCPCS: 36415; 80053; 80202; 80307; 82565; 83540; 83550; 83605; 83735; 83880; 84520; 85025; 85651; 86140; 87040; 93970; 96374; G0378; J1650; J2543; J3370; J7030; J7050

== ENCOUNTER → 2018-03-15 | Outpatient (CLI) | payer MEDICAID | END | disposition home or self-care (01) | LOC: WOUND 09:22 | PROVIDERS: ATTEND Internal Medicine | DX: I87.313 Chronic venous hypertension (idiopathic) with ulcer of bilateral lower extremity (principal); L97.222 Non-pressure chronic ulcer of left calf with fat layer exposed; L97.212 Non-pressure chronic ulcer of right calf with fat layer exposed; I11.0 Hypertensive heart disease with heart failure; I50.32 Chronic diastolic (congestive) heart failure; E43 Unspecified severe protein-calorie malnutrition; I85.00 Esophageal varices without bleeding; G89.29 Other chronic pain; E78.5 Hyperlipidemia, unspecified; I73.9 Peripheral vascular disease, unspecified; K70.9 Alcoholic liver disease, unspecified; K74.60 Unspecified cirrhosis of liver; F17.210 Nicotine dependence, cigarettes, uncomplicated; Z86.19 Personal history of other infectious and parasitic diseases; Z90.49 Acquired absence of other specified parts of digestive tract | CPT/HCPCS: 97597; 97598 ==

== ENCOUNTER → 2018-03-17 | Outpatient (CLI) | payer MEDICAID | END | disposition home or self-care (01) | LOC: WOUND 14:30 | PROVIDERS: ATTEND Family Medicine | DX: I87.313 Chronic venous hypertension (idiopathic) with ulcer of bilateral lower extremity (principal); L97.222 Non-pressure chronic ulcer of left calf with fat layer exposed; L97.212 Non-pressure chronic ulcer of right calf with fat layer exposed; I11.0 Hypertensive heart disease with heart failure; I50.32 Chronic diastolic (congestive) heart failure; E43 Unspecified severe protein-calorie malnutrition; I85.00 Esophageal varices without bleeding; G89.29 Other chronic pain; E78.5 Hyperlipidemia, unspecified; I73.9 Peripheral vascular disease, unspecified; K70.30 Alcoholic cirrhosis of liver without ascites; F15.10 Other stimulant abuse, uncomplicated; F17.210 Nicotine dependence, cigarettes, uncomplicated; Z90.49 Acquired absence of other specified parts of digestive tract | CPT/HCPCS: 99214 ==

== ENCOUNTER 2018-03-22 19:24 | Emergency (ER) | payer MEDICAID ==
[~2018-03-22] VITALS: Ht 172.7 cm; Wt 77.4 kg
[2018-03-22 19:29] VITALS: BP 148/82
== END 2018-03-22 20:16 | disposition home or self-care (01) ==
LOC: ED 19:39
DX: S61.011A Laceration without foreign body of right thumb without damage to nail, initial encounter (principal); S61.210A Laceration without foreign body of right index finger without damage to nail, initial encounter; S61.214A Laceration without foreign body of right ring finger without damage to nail, initial encounter; S61.217A Laceration without foreign body of left little finger without damage to nail, initial encounter; S61.213A Laceration without foreign body of left middle finger without damage to nail, initial encounter; S61.215A Laceration without foreign body of left ring finger without damage to nail, initial encounter; W26.8XXA Contact with other sharp object(s), not elsewhere classified, initial encounter; Y93.89 Activity, other specified; Y92.410 Unspecified street and highway as the place of occurrence of the external cause; Y99.8 Other external cause status
CPT/HCPCS: 99281

== ENCOUNTER → 2018-03-24 | Outpatient (CLI) | payer MEDICAID | END | disposition home or self-care (01) | LOC: WOUND 12:58 | PROVIDERS: ATTEND Family Medicine | DX: I87.313 Chronic venous hypertension (idiopathic) with ulcer of bilateral lower extremity (principal); L97.222 Non-pressure chronic ulcer of left calf with fat layer exposed; L97.212 Non-pressure chronic ulcer of right calf with fat layer exposed; I11.0 Hypertensive heart disease with heart failure; I50.32 Chronic diastolic (congestive) heart failure; G89.29 Other chronic pain; E43 Unspecified severe protein-calorie malnutrition; E78.5 Hyperlipidemia, unspecified; K70.9 Alcoholic liver disease, unspecified; I85.00 Esophageal varices without bleeding; F17.210 Nicotine dependence, cigarettes, uncomplicated; Z90.49 Acquired absence of other specified parts of digestive tract | CPT/HCPCS: 99215 ==

== ENCOUNTER → 2018-03-27 | Outpatient (CLI) | payer MEDICAID | END | disposition home or self-care (01) | LOC: WOUND 14:15 | PROVIDERS: ATTEND Internal Medicine | DX: I87.313 Chronic venous hypertension (idiopathic) with ulcer of bilateral lower extremity (principal); L97.222 Non-pressure chronic ulcer of left calf with fat layer exposed; L97.212 Non-pressure chronic ulcer of right calf with fat layer exposed; I11.0 Hypertensive heart disease with heart failure; I50.32 Chronic diastolic (congestive) heart failure; E43 Unspecified severe protein-calorie malnutrition; I85.00 Esophageal varices without bleeding; G89.29 Other chronic pain; E78.5 Hyperlipidemia, unspecified; I73.9 Peripheral vascular disease, unspecified; F15.10 Other stimulant abuse, uncomplicated; K70.30 Alcoholic cirrhosis of liver without ascites; F17.210 Nicotine dependence, cigarettes, uncomplicated; Z90.49 Acquired absence of other specified parts of digestive tract | CPT/HCPCS: 99215 ==

== ENCOUNTER → 2018-03-29 | Outpatient (CLI) | payer MEDICAID | END | disposition home or self-care (01) | LOC: WOUND 13:10 | PROVIDERS: ATTEND Internal Medicine | DX: I87.313 Chronic venous hypertension (idiopathic) with ulcer of bilateral lower extremity (principal); L97.222 Non-pressure chronic ulcer of left calf with fat layer exposed; L97.212 Non-pressure chronic ulcer of right calf with fat layer exposed; I11.0 Hypertensive heart disease with heart failure; I50.32 Chronic diastolic (congestive) heart failure; E43 Unspecified severe protein-calorie malnutrition; I85.00 Esophageal varices without bleeding; G89.29 Other chronic pain; E78.5 Hyperlipidemia, unspecified; I73.9 Peripheral vascular disease, unspecified; K70.9 Alcoholic liver disease, unspecified; K74.60 Unspecified cirrhosis of liver; F15.10 Other stimulant abuse, uncomplicated; F17.210 Nicotine dependence, cigarettes, uncomplicated; Z86.19 Personal history of other infectious and parasitic diseases; Z90.49 Acquired absence of other specified parts of digestive tract | CPT/HCPCS: 97597; 97598 ==

== ENCOUNTER 2018-04-05 07:49 | Outpatient (CLI) | payer MEDICAID | END 2018-04-05 23:59 | disposition home or self-care (01) | LOC: WOUND 07:49 | PROVIDERS: ATTEND Internal Medicine | DX: I87.313 Chronic venous hypertension (idiopathic) with ulcer of bilateral lower extremity (principal); L97.212 Non-pressure chronic ulcer of right calf with fat layer exposed; L97.222 Non-pressure chronic ulcer of left calf with fat layer exposed; I11.0 Hypertensive heart disease with heart failure; I50.32 Chronic diastolic (congestive) heart failure; E43 Unspecified severe protein-calorie malnutrition; I85.00 Esophageal varices without bleeding; E78.5 Hyperlipidemia, unspecified; G89.29 Other chronic pain; I73.9 Peripheral vascular disease, unspecified; F15.10 Other stimulant abuse, uncomplicated; K70.30 Alcoholic cirrhosis of liver without ascites; F17.210 Nicotine dependence, cigarettes, uncomplicated; Z90.49 Acquired absence of other specified parts of digestive tract | CPT/HCPCS: 97597; 97598 ==

== ENCOUNTER → 2018-04-12 | Outpatient (CLI) | payer MEDICAID | END | disposition home or self-care (01) | LOC: WOUND 14:02 | PROVIDERS: ATTEND Internal Medicine | DX: I87.313 Chronic venous hypertension (idiopathic) with ulcer of bilateral lower extremity (principal); L97.212 Non-pressure chronic ulcer of right calf with fat layer exposed; L97.222 Non-pressure chronic ulcer of left calf with fat layer exposed; I11.0 Hypertensive heart disease with heart failure; I50.32 Chronic diastolic (congestive) heart failure; K70.9 Alcoholic liver disease, unspecified; E43 Unspecified severe protein-calorie malnutrition; I85.00 Esophageal varices without bleeding; E78.5 Hyperlipidemia, unspecified; F17.210 Nicotine dependence, cigarettes, uncomplicated; G89.29 Other chronic pain; I73.9 Peripheral vascular disease, unspecified; Z72.9 Problem related to lifestyle, unspecified; Z90.49 Acquired absence of other specified parts of digestive tract | CPT/HCPCS: 97597; 97598 ==

== ENCOUNTER 2018-04-17 10:43 | Inpatient (IN) | payer MEDICAID ==
[~2018-04-17] VITALS: Ht 172.7 cm; Wt 72.4 kg
[2018-04-17 12:19] VITALS: BP 119/69
[2018-04-17 12:23] VITALS: BP 119/69
[2018-04-17] MEDS ORDERED: POLYETHYLENE GLYCOL 17 GM PACKET PO PRN (13:00)
[2018-04-17] MEDS ORDERED: hydrALAzine 20 MG/ML, 1ML IVPush PRN (13:00)
[2018-04-17] MEDS ORDERED: VANCOMYCIN PER PHARMACY MC PRN (13:00)
[2018-04-17] MEDS ORDERED: DOCUSATE 100 MG CAPSULE PO PRN (13:00)
[2018-04-17] MEDS ORDERED: ONDANSETRON ODT 4 MG PO PRN (13:00)
[2018-04-17] MEDS ORDERED: BISACODYL 10 MG SUPP PR PRN (13:00)
[2018-04-17] MEDS ORDERED: ONDANSETRON 2MG/ML, 2ML IVPush PRN (13:00)
[2018-04-17] MEDS ORDERED: PLEASE ENTER HEIGHT AND WEIGHT MC SCH (13:30)
[2018-04-17 13:38] LABS: BASOPHILS # (AUTO) 0.03 x10^3/uL (0-0.1); BASOPHILS % (AUTO) 1 % (0-1); EOSINOPHILS % (AUTO) 3 % (1-7); LYMPHOCYTES # (AUTO) 0.48 x10^3/uL (1-3.4); LYMPHOCYTES % (AUTO) 14 % (22-44); MD NO; MEAN CORPUSCULAR HEMOGLOBIN 28.7 pg (27.5-34.5); MEAN CORPUSCULAR HGB CONC 33.7 g/dL (33.2-36.2); MEAN CORPUSCULAR VOLUME 84.9 fL (81-97); MEAN PLATELET VOLUME 7.5 fL (7.4-10.4); MONOCYTES # (AUTO) 0.34 x10^3/uL (0.2-0.8); MONOCYTES % (AUTO) 10 % (2-9); NEUTROPHILS # (AUTO) 2.49 x10^3/uL (1.8-6.8); NEUTROPHILS % (AUTO) 73 % (42-75); PLATELET COUNT 123 x10^3/uL (130-400); RED BLOOD COUNT 3.76 x10^6/uL (4.38-5.82); RED CELL DISTRIBUTION WIDTH 16.5 % (9.4-14.8)
[2018-04-17 13:40] LABS: ALANINE AMINOTRANSFERASE 32 U/L (12-78); ALBUMIN 2.5 g/dL (3.4-5.0); ANION GAP 6 mmol/L (5-15); CALCIUM 7.8 mg/dL (8.5-10.1); CHLORIDE 110 mmol/L (98-107); CREATININE 0.49 mg/dL (0.7-1.3)
[2018-04-17 13:43] LABS: ALKALINE PHOSPHATASE 99 U/L (45-117); BILIRUBIN,TOTAL 1.9 mg/dL (0.2-1.0); TOTAL PROTEIN 6.6 g/dL (6.4-8.2)
[2018-04-17] MEDS: AMPICILLIN/SULBACTAM 3 GM in SODIUM CHLORIDE 0.9% 100 ML IV SCH ×2 (14:27→19:27)
[2018-04-17] MEDS ORDERED: PHARMACOKINETIC CONSULTATION MC ONE (14:30)
[2018-04-17] MEDS ORDERED: PHARMACOKINETIC MONITORING MC PRN (14:30)
[2018-04-17] MEDS: VANCOMYCIN PMX 1GM/200ML 200 ML IV SCH (15:16)
[2018-04-17 17:12] LABS: MICROSCOPIC NOT IND
[2018-04-17 17:17] LABS: CULTURE INDICATED? NO
[2018-04-17 18:25] LABS: AMPHETAMINE SCREEN, URINE Positive (Negative); BARBITURATE SCREEN, URINE Negative (Negative); BENZODIAZEPINE SCREEN, URINE Negative (Negative); CANNABINOID SCREEN, URINE Negative (Negative); COCAINE SCREEN, URINE Negative (Negative); METHADONE SCREEN, URINE Negative (Negative); OPIATE SCREEN, URINE Negative (Negative)
[2018-04-17 19:36] VITALS: BP 107/50
[2018-04-18 02:04] VITALS: BP 110/60
[2018-04-18] MEDS: AMPICILLIN/SULBACTAM 3 GM in SODIUM CHLORIDE 0.9% 100 ML IV SCH ×4 (02:25→20:30)
[2018-04-18] MEDS: VANCOMYCIN PMX 1GM/200ML 200 ML IV SCH (03:25)
[2018-04-18 06:41] VITALS: BP 120/82
[2018-04-18] MEDS: ENOXAPARIN 40 MG/0.4 ML SQ SCH (08:26)
[2018-04-18] MEDS: LACTULOSE 20 GM/30 ML UDC PO SCH ×3 (10:45→20:30)
[2018-04-18] MEDS: ACETAMINOPHEN 325 MG TABLET PO PRN (10:56)
[2018-04-18] MEDS ORDERED: SILVER NITRATE STICK TP PRN (11:00)
[2018-04-18] MEDS: VANCOMYCIN 1,500 MG in SODIUM CHLORIDE 0.9% 250 ML IV SCH ×2 (11:34→23:42)
[2018-04-18 14:15] VITALS: BP 123/79
[2018-04-18 19:49] VITALS: BP 138/78
[2018-04-19] MEDS: ACETAMINOPHEN 325 MG TABLET PO PRN ×2 (01:26→12:43)
[2018-04-19 02:12] VITALS: BP 126/72
[2018-04-19] MEDS: AMPICILLIN/SULBACTAM 3 GM in SODIUM CHLORIDE 0.9% 100 ML IV SCH ×2 (02:40→08:08)
[2018-04-19 05:55] LABS: MEAN CORPUSCULAR HEMOGLOBIN 28.9 pg (27.5-34.5); MEAN CORPUSCULAR HGB CONC 34.4 g/dL (33.2-36.2); MEAN PLATELET VOLUME 7.7 fL (7.4-10.4); PLATELET COUNT 118 x10^3/uL (130-400); RED BLOOD COUNT 3.91 x10^6/uL (4.38-5.82); RED CELL DISTRIBUTION WIDTH 16.3 % (9.4-14.8)
[2018-04-19 06:10] LABS: CHLORIDE 112 mmol/L (98-107)
[2018-04-19 06:20] LABS: ALANINE AMINOTRANSFERASE 35 U/L (12-78); ALBUMIN 2.3 g/dL (3.4-5.0); ALKALINE PHOSPHATASE 103 U/L (45-117); ANION GAP 4 mmol/L (5-15); BILIRUBIN,TOTAL 0.8 mg/dL (0.2-1.0); CALCIUM 8.1 mg/dL (8.5-10.1); CREATININE 0.45 mg/dL (0.7-1.3); TOTAL PROTEIN 6.2 g/dL (6.4-8.2)
[2018-04-19 06:30] VITALS: BP 116/62
[2018-04-19 06:35] LABS: BASOPHILS # (AUTO) 0.02 x10^3/uL (0-0.1); BASOPHILS % (AUTO) 1 % (0-1); EOSINOPHILS # (AUTO) 0.17 x10^3/uL (0-0.4); EOSINOPHILS % (AUTO) 6 % (1-7); LYMPHOCYTES # (AUTO) 0.68 x10^3/uL (1-3.4); LYMPHOCYTES % (AUTO) 24 % (22-44); MD SCAN; MONOCYTES # (AUTO) 0.28 x10^3/uL (0.2-0.8); MONOCYTES % (AUTO) 10 % (2-9); NEUTROPHILS # (AUTO) 1.67 x10^3/uL (1.8-6.8); NEUTROPHILS % (AUTO) 59 % (42-75)
[2018-04-19] MEDS: ENOXAPARIN 40 MG/0.4 ML SQ SCH (08:08)
[2018-04-19] MEDS: LACTULOSE 20 GM/30 ML UDC PO SCH ×3 (08:08→23:14)
[2018-04-19] MEDS: VANCOMYCIN 1,500 MG in SODIUM CHLORIDE 0.9% 250 ML IV SCH ×2 (11:40→22:54)
[2018-04-19 13:46] VITALS: BP 118/69
[2018-04-19] MEDS: CEFEPIME 2 GM in DEXTROSE 5% 100 ML IV SCH (16:33)
[2018-04-19 21:07] VITALS: BP 136/75
[2018-04-20 03:53] VITALS: BP 120/76
[2018-04-20] MEDS: CEFEPIME 2 GM in DEXTROSE 5% 100 ML IV SCH ×2 (04:47→16:41)
[2018-04-20 06:07] LABS: MEAN CORPUSCULAR HGB CONC 34.6 g/dL (33.2-36.2); MEAN PLATELET VOLUME 7.6 fL (7.4-10.4); PLATELET COUNT 105 x10^3/uL (130-400); RED BLOOD COUNT 3.69 x10^6/uL (4.38-5.82); RED CELL DISTRIBUTION WIDTH 16.3 % (9.4-14.8)
[2018-04-20 06:13] LABS: ALBUMIN 2.2 g/dL (3.4-5.0); ANION GAP 5 mmol/L (5-15); CALCIUM 7.8 mg/dL (8.5-10.1); CHLORIDE 110 mmol/L (98-107)
[2018-04-20 06:16] LABS: ALANINE AMINOTRANSFERASE 32 U/L (12-78); ALKALINE PHOSPHATASE 117 U/L (45-117); BILIRUBIN,TOTAL 0.7 mg/dL (0.2-1.0); CREATININE 0.46 mg/dL (0.7-1.3); TOTAL PROTEIN 6.1 g/dL (6.4-8.2)
[2018-04-20 06:40] LABS: ANISOCYTOSIS 1+; BASOPHILS # (AUTO) 0.03 x10^3/uL (0-0.1); BASOPHILS % (AUTO) 1 % (0-1); EOSINOPHILS # (AUTO) 0.17 x10^3/uL (0-0.4); EOSINOPHILS % (AUTO) 6 % (1-7); LYMPHOCYTES # (AUTO) 0.68 x10^3/uL (1-3.4); LYMPHOCYTES % (AUTO) 26 % (22-44); MD MORPH REVIEW ONLY; MONOCYTES # (AUTO) 0.23 x10^3/uL (0.2-0.8); MONOCYTES % (AUTO) 9 % (2-9); NEUTROPHILS # (AUTO) 1.55 x10^3/uL (1.8-6.8); NEUTROPHILS % (AUTO) 58 % (42-75); OVALOCYTES 1+
[2018-04-20 06:41] LABS: <PLATELET ESTIMATE> DECREASED; <PLT MORPHOLOGY> NORMAL PLT MORPH; TEAR DROPS 1+
[2018-04-20 07:13] VITALS: BP 110/50
[2018-04-20] MEDS: ENOXAPARIN 40 MG/0.4 ML SQ SCH (07:58)
[2018-04-20] MEDS: LACTULOSE 20 GM/30 ML UDC PO SCH ×3 (07:58→23:22)
[2018-04-20] MEDS: VANCOMYCIN 1,500 MG in SODIUM CHLORIDE 0.9% 250 ML IV SCH ×2 (11:28→23:22)
[2018-04-20 14:36] VITALS: BP 118/68
[2018-04-20 19:04] VITALS: BP 113/73
[2018-04-20] MEDS: ACETAMINOPHEN 325 MG TABLET PO PRN (21:20)
[2018-04-21 00:44] VITALS: BP 102/52
[2018-04-21] MEDS: ACETAMINOPHEN 325 MG TABLET PO PRN ×2 (02:56→14:14)
[2018-04-21] MEDS: CEFEPIME 2 GM in DEXTROSE 5% 100 ML IV SCH ×2 (04:18→16:00)
[2018-04-21] MEDS: LACTULOSE 20 GM/30 ML UDC PO SCH ×2 (07:31→16:00)
[2018-04-21] MEDS: ENOXAPARIN 40 MG/0.4 ML SQ SCH (07:32)
[2018-04-21 08:22] VITALS: BP 107/56
[2018-04-21] MEDS: VANCOMYCIN 1,500 MG in SODIUM CHLORIDE 0.9% 250 ML IV SCH (11:38)
[2018-04-21 14:35] VITALS: BP 113/68
--- NOTE | 2018-04-21 14:45 | NUR ---
Green Activity Sheet issued with the following Activities: 1. up in chair for meals 3x's a day 2. Up and ambulating with nursing or P.T. staff 2-3 times a day. 3. Seated B LE strengthening exercises as per green sheet 2-3x's a day. Addendum: 04/21/18 at 1510 by CRISTINE ZHONG PTA Amended: Links added.
[2018-04-21 20:17] VITALS: BP 122/64
[2018-04-22] MEDS: LACTULOSE 20 GM/30 ML UDC PO SCH ×4 (00:07→20:07)
[2018-04-22] MEDS: LINEZOLID 600 MG TABLET PO SCH ×3 (00:07→20:07)
[2018-04-22 01:05] VITALS: BP 114/52
[2018-04-22] MEDS: CEFEPIME 2 GM in DEXTROSE 5% 100 ML IV SCH ×2 (04:53→16:29)
[2018-04-22] MEDS: ACETAMINOPHEN 325 MG TABLET PO PRN ×3 (07:53→19:21)
[2018-04-22] MEDS: ENOXAPARIN 40 MG/0.4 ML SQ SCH (07:53)
[2018-04-22 08:27] VITALS: BP 116/59
[2018-04-22 14:03] VITALS: BP 100/53
[2018-04-22 20:14] VITALS: BP 110/65
[2018-04-23 01:00] VITALS: BP 116/59
[2018-04-23] MEDS: CEFEPIME 2 GM in DEXTROSE 5% 100 ML IV SCH ×2 (04:03→16:40)
[2018-04-23 07:10] VITALS: BP 117/67
[2018-04-23] MEDS: LACTULOSE 20 GM/30 ML UDC PO SCH ×3 (08:29→20:42)
[2018-04-23] MEDS: LINEZOLID 600 MG TABLET PO SCH ×2 (08:29→20:42)
[2018-04-23] MEDS: ENOXAPARIN 40 MG/0.4 ML SQ SCH (08:30)
[2018-04-23 13:26] VITALS: BP 114/68
[2018-04-23 20:21] VITALS: BP 116/66
[2018-04-24 02:36] VITALS: BP 107/71
[2018-04-24] MEDS: CEFEPIME 2 GM in DEXTROSE 5% 100 ML IV SCH ×2 (04:35→16:33)
[2018-04-24 06:45] VITALS: BP 107/64
[2018-04-24] MEDS: LINEZOLID 600 MG TABLET PO SCH ×2 (07:42→20:03)
[2018-04-24] MEDS: LACTULOSE 20 GM/30 ML UDC PO SCH ×4 (07:42→16:37)
[2018-04-24] MEDS: ENOXAPARIN 40 MG/0.4 ML SQ SCH (07:42)
[2018-04-24 14:06] VITALS: BP 107/59
[2018-04-24 19:43] VITALS: BP 117/51
[2018-04-25 01:58] VITALS: BP 110/60
[2018-04-25] MEDS: CEFEPIME 2 GM in DEXTROSE 5% 100 ML IV SCH ×2 (04:34→15:31)
[2018-04-25 06:59] VITALS: BP 102/49
[2018-04-25] MEDS: LINEZOLID 600 MG TABLET PO SCH ×2 (07:56→20:00)
[2018-04-25] MEDS: LACTULOSE 20 GM/30 ML UDC PO SCH ×3 (07:56→20:00)
[2018-04-25] MEDS: ENOXAPARIN 40 MG/0.4 ML SQ SCH (07:56)
--- NOTE | 2018-04-25 08:14 | NUR ---
Reviewed PT note written by Eli Sparks 04/24/18 and addended discharge recommendation per narrative from SNF to "home" with outpatient follow up for wound care. Addendum: 04/25/18 at 0818 by Luis Calvert PT Amended: Links added.
[2018-04-25 12:14] VITALS: BP 119/65
[2018-04-25] MEDS: ACETAMINOPHEN 325 MG TABLET PO PRN (15:31)
[2018-04-25 19:50] VITALS: BP 117/66
[2018-04-26 01:53] VITALS: BP 119/65
[2018-04-26] MEDS: CEFEPIME 2 GM in DEXTROSE 5% 100 ML IV SCH ×2 (04:28→16:00)
[2018-04-26 07:56] VITALS: BP 107/81
[2018-04-26] MEDS: ENOXAPARIN 40 MG/0.4 ML SQ SCH (08:17)
[2018-04-26] MEDS: LINEZOLID 600 MG TABLET PO SCH ×2 (08:17→21:35)
[2018-04-26] MEDS: LACTULOSE 20 GM/30 ML UDC PO SCH ×3 (08:17→21:00)
[2018-04-26 13:31] VITALS: BP 123/60
[2018-04-26 20:13] VITALS: BP 108/63
[2018-04-27 02:00] VITALS: BP 121/67
[2018-04-27] MEDS: CEFEPIME 2 GM in DEXTROSE 5% 100 ML IV SCH ×2 (04:39→16:25)
[2018-04-27 05:30] LABS: CREATININE 0.46 mg/dL (0.7-1.3)
[2018-04-27] MEDS: LACTULOSE 20 GM/30 ML UDC PO SCH ×3 (08:13→21:00)
[2018-04-27] MEDS: ENOXAPARIN 40 MG/0.4 ML SQ SCH (08:13)
[2018-04-27] MEDS: LINEZOLID 600 MG TABLET PO SCH ×2 (08:13→21:20)
[2018-04-27 08:37] VITALS: BP 118/64
[2018-04-27 15:30] VITALS: BP 111/57
[2018-04-27 19:39] VITALS: BP 117/74
[2018-04-28 02:25] VITALS: BP 120/76
[2018-04-28] MEDS: CEFEPIME 2 GM in DEXTROSE 5% 100 ML IV SCH ×3 (04:44→23:54)
[2018-04-28 07:58] VITALS: BP 126/79
[2018-04-28] MEDS: LACTULOSE 20 GM/30 ML UDC PO SCH ×3 (08:13→21:00)
[2018-04-28] MEDS: ENOXAPARIN 40 MG/0.4 ML SQ SCH (08:13)
[2018-04-28] MEDS: LINEZOLID 600 MG TABLET PO SCH ×2 (08:13→21:18)
[2018-04-28] MEDS: ACETAMINOPHEN 325 MG TABLET PO PRN (11:22)
[2018-04-28 13:50] VITALS: BP 103/66
[2018-04-28 20:41] VITALS: BP 112/80
[2018-04-29 02:16] VITALS: BP 118/72
[2018-04-29 07:17] VITALS: BP 115/69
[2018-04-29] MEDS: LACTULOSE 20 GM/30 ML UDC PO SCH ×3 (08:54→20:51)
[2018-04-29] MEDS: ENOXAPARIN 40 MG/0.4 ML SQ SCH (08:54)
[2018-04-29] MEDS: LINEZOLID 600 MG TABLET PO SCH ×2 (08:55→20:51)
[2018-04-29] MEDS: CEFEPIME 2 GM in DEXTROSE 5% 100 ML IV SCH (12:07)
[2018-04-29 14:58] VITALS: BP 114/64
[2018-04-29 15:30] LABS: ALBUMIN 2.6 g/dL (3.4-5.0); ANION GAP 7 mmol/L (5-15); CALCIUM 8.6 mg/dL (8.5-10.1); CHLORIDE 108 mmol/L (98-107)
[2018-04-29 15:34] LABS: ALANINE AMINOTRANSFERASE 44 U/L (12-78); ALKALINE PHOSPHATASE 105 U/L (45-117); BILIRUBIN,TOTAL 1.2 mg/dL (0.2-1.0); CREATININE 0.46 mg/dL (0.7-1.3); TOTAL PROTEIN 6.3 g/dL (6.4-8.2)
[2018-04-29 19:40] VITALS: BP 118/75
[2018-04-30] MEDS: CEFEPIME 2 GM in DEXTROSE 5% 100 ML IV SCH ×2 (00:12→11:51)
[2018-04-30 00:40] VITALS: BP 115/72
[2018-04-30 06:41] VITALS: BP 116/53
[2018-04-30 07:02] LABS: ALANINE AMINOTRANSFERASE 44 U/L (12-78); ALBUMIN 2.6 g/dL (3.4-5.0); ANION GAP 5 mmol/L (5-15); CALCIUM 8.3 mg/dL (8.5-10.1); CHLORIDE 109 mmol/L (98-107); CREATININE 0.51 mg/dL (0.7-1.3)
[2018-04-30 07:05] LABS: ALKALINE PHOSPHATASE 98 U/L (45-117); BILIRUBIN,TOTAL 1.2 mg/dL (0.2-1.0); TOTAL PROTEIN 6.2 g/dL (6.4-8.2)
[2018-04-30] MEDS: LINEZOLID 600 MG TABLET PO SCH ×2 (08:39→17:01)
[2018-04-30] MEDS: ENOXAPARIN 40 MG/0.4 ML SQ SCH (08:39)
[2018-04-30] MEDS: LACTULOSE 20 GM/30 ML UDC PO SCH ×2 (08:39→15:35)
[2018-04-30 15:15] VITALS: BP 98/55
[2018-04-30] MEDS ORDERED: LACT20SO13 PO (16:32)
[2018-04-30] MEDS ORDERED: LINEZOLID 600 MG TABLET ONE (16:54)
[2018-04-30 17:01] VITALS: BP 109/62
== END 2018-04-30 17:25 | disposition home or self-care (01) | DRG 602 ==
LOC: 4NOR 10:43 → UNDODISIN 04-30 11:30
PROVIDERS: ADMIT Hospitalist; ATTEND Hospitalist
DX: L03.115 Cellulitis of right lower limb (principal); G92 Toxic encephalopathy; E43 Unspecified severe protein-calorie malnutrition; B18.1 Chronic viral hepatitis B without delta-agent; I50.32 Chronic diastolic (congestive) heart failure; L03.116 Cellulitis of left lower limb; B18.2 Chronic viral hepatitis C; K70.30 Alcoholic cirrhosis of liver without ascites; I11.0 Hypertensive heart disease with heart failure; B95.62 Methicillin resistant Staphylococcus aureus infection as the cause of diseases classified elsewhere; K43.9 Ventral hernia without obstruction or gangrene; E80.6 Other disorders of bilirubin metabolism; D69.6 Thrombocytopenia, unspecified; D64.9 Anemia, unspecified; B95.2 Enterococcus as the cause of diseases classified elsewhere; B96.5 Pseudomonas (aeruginosa) (mallei) (pseudomallei) as the cause of diseases classified elsewhere; F15.10 Other stimulant abuse, uncomplicated; Z91.128 Patient's intentional underdosing of medication regimen for other reason; Z59.0 Homelessness; Z71.51 Drug abuse counseling and surveillance of drug abuser; Z79.899 Other long term (current) drug therapy; Z68.24 Body mass index [BMI] 24.0-24.9, adult
CPT/HCPCS: 36415; 80053; 80202; 80307; 81003; 82140; 82565; 83735; 84100; 85025; 87040; 87070; 87077; 87147; 87186; 87205; G0378; J0295; J1650; J3370; 29580-50; 29581-50; J7050

== ENCOUNTER → 2018-04-17 | Outpatient (CLI) | payer MEDICAID | END | disposition home or self-care (01) | LOC: WOUND 09:13 | PROVIDERS: ATTEND Internal Medicine | DX: I87.312 Chronic venous hypertension (idiopathic) with ulcer of left lower extremity (principal); L97.222 Non-pressure chronic ulcer of left calf with fat layer exposed; I87.331 Chronic venous hypertension (idiopathic) with ulcer and inflammation of right lower extremity; L97.212 Non-pressure chronic ulcer of right calf with fat layer exposed; I11.0 Hypertensive heart disease with heart failure; I50.32 Chronic diastolic (congestive) heart failure; K70.9 Alcoholic liver disease, unspecified; E43 Unspecified severe protein-calorie malnutrition; I85.00 Esophageal varices without bleeding; E78.5 Hyperlipidemia, unspecified; G89.29 Other chronic pain; F17.210 Nicotine dependence, cigarettes, uncomplicated; Z90.49 Acquired absence of other specified parts of digestive tract | CPT/HCPCS: 99215 ==

== ENCOUNTER 2018-05-08 14:33 | Emergency (ER) | payer MEDICAID ==
[~2018-05-08] VITALS: Ht 172.7 cm; Wt 82.5 kg
[2018-05-08 14:56] VITALS: BP 113/55
[2018-05-08 15:39] LABS: ALANINE AMINOTRANSFERASE 73 U/L (12-78); ALBUMIN 2.9 g/dL (3.4-5.0); ANION GAP 4 mmol/L (5-15); CALCIUM 7.8 mg/dL (8.5-10.1); CHLORIDE 111 mmol/L (98-107); CREATININE 0.68 mg/dL (0.7-1.3)
[2018-05-08 15:42] LABS: ALKALINE PHOSPHATASE 140 U/L (45-117); BILIRUBIN,TOTAL 1.7 mg/dL (0.2-1.0); TOTAL PROTEIN 6.6 g/dL (6.4-8.2)
[2018-05-08 16:05] LABS: BASOPHILS # (AUTO) 0.01 x10^3/uL (0-0.1); BASOPHILS % (AUTO) 0 % (0-1); EOSINOPHILS # (AUTO) 0.23 x10^3/uL (0-0.4); EOSINOPHILS % (AUTO) 9 % (1-7); LYMPHOCYTES # (AUTO) 0.51 x10^3/uL (1-3.4); LYMPHOCYTES % (AUTO) 20 % (22-44); MD SCAN; MEAN CORPUSCULAR HEMOGLOBIN 28.3 pg (27.5-34.5); MEAN CORPUSCULAR VOLUME 85.6 fL (81-97); MEAN PLATELET VOLUME 8.3 fL (7.4-10.4); MONOCYTES # (AUTO) 0.24 x10^3/uL (0.2-0.8); MONOCYTES % (AUTO) 9 % (2-9); NEUTROPHILS # (AUTO) 1.58 x10^3/uL (1.8-6.8); NEUTROPHILS % (AUTO) 62 % (42-75); PLATELET COUNT 73 x10^3/uL (130-400); RED BLOOD COUNT 3.49 x10^6/uL (4.38-5.82); RED CELL DISTRIBUTION WIDTH 20.5 % (9.4-14.8)
--- NOTE | 2018-05-08 17:42 | NUR ---
TO ROOM FROM LOBBY.
--- NOTE | 2018-05-08 17:42 | NUR ---
FIRST CONTACT WITH PT. Pt ambulates with perseonal wheelchair in front of pt with steady gait and balance. Pt states, "I can't walk too far or my legs cramp up." Pt states he has ulcers on his legs. Pt has black plastic bag of personal belongings in personal wheelchair. NADN. No defecits observed. Provided pt hospital gown to change into. Providing warm blankets for comfort measures.
--- NOTE | 2018-05-08 17:46 | NUR ---
Pt ambulates by self with ED RN sba with steady gait and balance to restroom.
--- NOTE | 2018-05-08 18:31 | NUR ---
Pt resting on gurney. auto brake technician at bedside placing new dressings on pt's legs. Pt states, "my legs have been like this for three years."
--- NOTE | 2018-05-08 19:08 | NUR ---
Provided bedside report to ALVERTO Zambrano. All questions answered. ALVERTO Zambrano to assume care of pt.
--- NOTE | 2018-05-08 20:20 | NUR ---
PT REFUSING TO LEAVE ROOM, SECURITY AT BEDSIDE FOR ASSITANCE DISCHARGING PT. TAXI VOUCHER PROVIDED.
== END 2018-05-08 20:25 | disposition home or self-care (01) ==
LOC: ED 18:46
DX: I73.89 Other specified peripheral vascular diseases (principal); R21 Rash and other nonspecific skin eruption
CPT/HCPCS: 36415; 80053; 85025; 99283

== ENCOUNTER 2018-05-15 14:52 | Outpatient (CLI) | payer MEDICAID | END 2018-05-15 23:59 | disposition home or self-care (01) | LOC: WOUND 14:52 | PROVIDERS: ATTEND Internal Medicine | DX: I87.312 Chronic venous hypertension (idiopathic) with ulcer of left lower extremity (principal); L97.222 Non-pressure chronic ulcer of left calf with fat layer exposed; I87.331 Chronic venous hypertension (idiopathic) with ulcer and inflammation of right lower extremity; L97.212 Non-pressure chronic ulcer of right calf with fat layer exposed; L03.115 Cellulitis of right lower limb; I11.0 Hypertensive heart disease with heart failure; I50.32 Chronic diastolic (congestive) heart failure; K70.9 Alcoholic liver disease, unspecified; E43 Unspecified severe protein-calorie malnutrition; I85.00 Esophageal varices without bleeding; G89.29 Other chronic pain; I96 Gangrene, not elsewhere classified; F17.210 Nicotine dependence, cigarettes, uncomplicated; E78.5 Hyperlipidemia, unspecified; Z86.19 Personal history of other infectious and parasitic diseases; Z90.49 Acquired absence of other specified parts of digestive tract | CPT/HCPCS: 97597; 97598 ==

== ENCOUNTER 2018-05-22 15:30 | Outpatient (CLI) | payer MEDICAID | END 2018-05-22 23:59 | disposition home or self-care (01) | LOC: WOUND 15:30 | PROVIDERS: ATTEND Internal Medicine | DX: I87.312 Chronic venous hypertension (idiopathic) with ulcer of left lower extremity (principal); L97.222 Non-pressure chronic ulcer of left calf with fat layer exposed; I87.331 Chronic venous hypertension (idiopathic) with ulcer and inflammation of right lower extremity; L97.212 Non-pressure chronic ulcer of right calf with fat layer exposed; L03.115 Cellulitis of right lower limb; I11.0 Hypertensive heart disease with heart failure; I50.32 Chronic diastolic (congestive) heart failure; K70.9 Alcoholic liver disease, unspecified; E43 Unspecified severe protein-calorie malnutrition; I85.00 Esophageal varices without bleeding; G89.29 Other chronic pain; I96 Gangrene, not elsewhere classified; F17.210 Nicotine dependence, cigarettes, uncomplicated; E78.5 Hyperlipidemia, unspecified; Z86.19 Personal history of other infectious and parasitic diseases; Z90.49 Acquired absence of other specified parts of digestive tract | CPT/HCPCS: 97597; 97598 ==

== ENCOUNTER 2018-05-27 03:02 | Emergency (ER) | payer MEDICAID ==
[~2018-05-27] VITALS: Ht 172.7 cm; Wt 74.8 kg
[2018-05-27 03:20] VITALS: BP 132/77
--- NOTE | 2018-05-27 03:54 | NUR ---
PT STATES IN HERE FOR CHRONIC DIARRHEAx "MANY WEEKS." STATES PROPER PO INTAKE. DENIES ANY FURTHER GI/ SYMPTOMS. PROMPTED TO PROVIDE FECAL SAMPLE. STATES "I CANT POOP RIGHT NOW." PA AWARE. STATES BILAT FOOT PAIN WELL AND SEES WOUND CARE FOR LEGS.
[2018-05-27 04:13] LABS: BASOPHILS # (AUTO) 0.01 x10^3/uL (0-0.1); BASOPHILS % (AUTO) 0 % (0-1); EOSINOPHILS # (AUTO) 0.08 x10^3/uL (0-0.4); EOSINOPHILS % (AUTO) 2 % (1-7); LYMPHOCYTES # (AUTO) 0.81 x10^3/uL (1-3.4); LYMPHOCYTES % (AUTO) 16 % (22-44); MD NO; MEAN CORPUSCULAR HEMOGLOBIN 27.6 pg (27.5-34.5); MEAN CORPUSCULAR HGB CONC 32.7 g/dL (33.2-36.2); MEAN CORPUSCULAR VOLUME 84.5 fL (81-97); MEAN PLATELET VOLUME 8.3 fL (7.4-10.4); MONOCYTES # (AUTO) 0.52 x10^3/uL (0.2-0.8); MONOCYTES % (AUTO) 10 % (2-9); NEUTROPHILS # (AUTO) 3.61 x10^3/uL (1.8-6.8); NEUTROPHILS % (AUTO) 72 % (42-75); PLATELET COUNT 107 x10^3/uL (130-400); RED BLOOD COUNT 3.89 x10^6/uL (4.38-5.82); RED CELL DISTRIBUTION WIDTH 19.7 % (9.4-14.8)
[2018-05-27 04:20] LABS: ANION GAP 7 mmol/L (5-15); CALCIUM 7.6 mg/dL (8.5-10.1); CHLORIDE 107 mmol/L (98-107)
[2018-05-27 04:22] LABS: BILIRUBIN,TOTAL 1.6 mg/dL (0.2-1.0); CREATININE 0.58 mg/dL (0.7-1.3)
[2018-05-27 04:23] LABS: ALANINE AMINOTRANSFERASE 47 U/L (12-78); ALKALINE PHOSPHATASE 179 U/L (45-117)
== END 2018-05-27 05:33 | disposition home or self-care (01) ==
LOC: ED 04:57
DX: I83.212 Varicose veins of right lower extremity with both ulcer of calf and inflammation (principal); I83.213 Varicose veins of right lower extremity with both ulcer of ankle and inflammation; I83.223 Varicose veins of left lower extremity with both ulcer of ankle and inflammation; I83.222 Varicose veins of left lower extremity with both ulcer of calf and inflammation; R19.7 Diarrhea, unspecified
CPT/HCPCS: 36415; 80053; 85025; 99283

== ENCOUNTER → 2018-05-29 | Outpatient (CLI) | payer MEDICAID | END | disposition home or self-care (01) | LOC: WOUND 14:09 | PROVIDERS: ATTEND Internal Medicine | DX: I87.312 Chronic venous hypertension (idiopathic) with ulcer of left lower extremity (principal); L97.222 Non-pressure chronic ulcer of left calf with fat layer exposed; I87.331 Chronic venous hypertension (idiopathic) with ulcer and inflammation of right lower extremity; L97.212 Non-pressure chronic ulcer of right calf with fat layer exposed; I11.0 Hypertensive heart disease with heart failure; I50.32 Chronic diastolic (congestive) heart failure; G89.29 Other chronic pain; E78.5 Hyperlipidemia, unspecified; I96 Gangrene, not elsewhere classified; I85.00 Esophageal varices without bleeding; K70.9 Alcoholic liver disease, unspecified; E43 Unspecified severe protein-calorie malnutrition; F17.210 Nicotine dependence, cigarettes, uncomplicated | CPT/HCPCS: 99214 ==

== ENCOUNTER → 2018-06-05 | Outpatient (CLI) | payer MEDICAID | END | disposition home or self-care (01) | LOC: WOUND 14:20 | PROVIDERS: ATTEND Internal Medicine | DX: I87.313 Chronic venous hypertension (idiopathic) with ulcer of bilateral lower extremity (principal); L97.222 Non-pressure chronic ulcer of left calf with fat layer exposed; L97.212 Non-pressure chronic ulcer of right calf with fat layer exposed; K70.9 Alcoholic liver disease, unspecified; I50.32 Chronic diastolic (congestive) heart failure; I85.00 Esophageal varices without bleeding; E43 Unspecified severe protein-calorie malnutrition; G89.29 Other chronic pain; E78.5 Hyperlipidemia, unspecified; I96 Gangrene, not elsewhere classified; F17.210 Nicotine dependence, cigarettes, uncomplicated; Z79.899 Other long term (current) drug therapy; Z90.49 Acquired absence of other specified parts of digestive tract | CPT/HCPCS: 97597; 97598 ==

== ENCOUNTER → 2018-06-12 | Outpatient (CLI) | payer MEDICAID | END | disposition home or self-care (01) | LOC: WOUND 14:45 | PROVIDERS: ATTEND Internal Medicine | DX: I87.312 Chronic venous hypertension (idiopathic) with ulcer of left lower extremity (principal); L97.222 Non-pressure chronic ulcer of left calf with fat layer exposed; I87.331 Chronic venous hypertension (idiopathic) with ulcer and inflammation of right lower extremity; L97.212 Non-pressure chronic ulcer of right calf with fat layer exposed; K70.9 Alcoholic liver disease, unspecified; E43 Unspecified severe protein-calorie malnutrition; I11.0 Hypertensive heart disease with heart failure; I50.32 Chronic diastolic (congestive) heart failure; I85.00 Esophageal varices without bleeding; G89.29 Other chronic pain; F17.210 Nicotine dependence, cigarettes, uncomplicated; F15.10 Other stimulant abuse, uncomplicated; I73.89 Other specified peripheral vascular diseases; Z79.899 Other long term (current) drug therapy; Z86.19 Personal history of other infectious and parasitic diseases; Z90.49 Acquired absence of other specified parts of digestive tract | CPT/HCPCS: 97597; 97598 ==

== ENCOUNTER 2018-06-18 07:23 | Emergency (ER) | payer MEDICAID ==
[~2018-06-18] VITALS: Ht 172.7 cm; Wt 73.1 kg
[2018-06-18 07:25] VITALS: BP 121/76
--- NOTE | 2018-06-18 08:24 | NUR ---
Pt's BLE wounds dressed with bulky kerlix by EMT's. Pt states he has a wound care appt tomorrow that he paul keep. Patient given discharge instructions and they have confirmed that they understand the instructions. Patient ambulatory with steady gait.
== END 2018-06-18 08:26 | disposition home or self-care (01) ==
LOC: ED 07:54
DX: I87.2 Venous insufficiency (chronic) (peripheral) (principal); I73.9 Peripheral vascular disease, unspecified
CPT/HCPCS: 99282

== ENCOUNTER → 2018-06-19 | Outpatient (CLI) | payer MEDICAID | END | disposition home or self-care (01) | LOC: WOUND 14:51 | PROVIDERS: ATTEND Internal Medicine | DX: I87.313 Chronic venous hypertension (idiopathic) with ulcer of bilateral lower extremity (principal); L97.222 Non-pressure chronic ulcer of left calf with fat layer exposed; L97.212 Non-pressure chronic ulcer of right calf with fat layer exposed; K70.9 Alcoholic liver disease, unspecified; I85.00 Esophageal varices without bleeding; I11.0 Hypertensive heart disease with heart failure; I50.32 Chronic diastolic (congestive) heart failure; G89.29 Other chronic pain; E78.5 Hyperlipidemia, unspecified; I87.2 Venous insufficiency (chronic) (peripheral); I73.89 Other specified peripheral vascular diseases; F17.210 Nicotine dependence, cigarettes, uncomplicated; Z79.899 Other long term (current) drug therapy; Z90.49 Acquired absence of other specified parts of digestive tract | CPT/HCPCS: 97597; 97598 ==

== ENCOUNTER → 2018-06-26 | Outpatient (CLI) | payer MEDICAID | END | disposition home or self-care (01) | LOC: WOUND 11:26 | PROVIDERS: ATTEND Internal Medicine | DX: I87.312 Chronic venous hypertension (idiopathic) with ulcer of left lower extremity (principal); L97.222 Non-pressure chronic ulcer of left calf with fat layer exposed; I87.331 Chronic venous hypertension (idiopathic) with ulcer and inflammation of right lower extremity; L97.212 Non-pressure chronic ulcer of right calf with fat layer exposed; I11.0 Hypertensive heart disease with heart failure; I50.32 Chronic diastolic (congestive) heart failure; K70.9 Alcoholic liver disease, unspecified; E78.5 Hyperlipidemia, unspecified; I85.00 Esophageal varices without bleeding; I89.0 Lymphedema, not elsewhere classified; E43 Unspecified severe protein-calorie malnutrition; G89.29 Other chronic pain; I96 Gangrene, not elsewhere classified; F17.210 Nicotine dependence, cigarettes, uncomplicated; Z79.899 Other long term (current) drug therapy; Z90.49 Acquired absence of other specified parts of digestive tract | CPT/HCPCS: 97597; 97598 ==

== ENCOUNTER → 2018-07-05 | Outpatient (CLI) | payer MEDICAID | END | disposition home or self-care (01) | LOC: WOUND 15:33 | PROVIDERS: ATTEND Internal Medicine | DX: I87.312 Chronic venous hypertension (idiopathic) with ulcer of left lower extremity (principal); L97.222 Non-pressure chronic ulcer of left calf with fat layer exposed; I87.331 Chronic venous hypertension (idiopathic) with ulcer and inflammation of right lower extremity; L97.212 Non-pressure chronic ulcer of right calf with fat layer exposed; I11.0 Hypertensive heart disease with heart failure; I50.32 Chronic diastolic (congestive) heart failure; K70.9 Alcoholic liver disease, unspecified; E43 Unspecified severe protein-calorie malnutrition; I85.00 Esophageal varices without bleeding; I89.0 Lymphedema, not elsewhere classified; E78.5 Hyperlipidemia, unspecified; G89.29 Other chronic pain; I73.89 Other specified peripheral vascular diseases; F17.210 Nicotine dependence, cigarettes, uncomplicated; Z79.899 Other long term (current) drug therapy; Z90.49 Acquired absence of other specified parts of digestive tract | CPT/HCPCS: 97597; 97598 ==

== ENCOUNTER → 2018-07-10 | Outpatient (CLI) | payer MEDICAID | END | disposition home or self-care (01) | LOC: WOUND 13:46 | PROVIDERS: ATTEND Internal Medicine | DX: I87.312 Chronic venous hypertension (idiopathic) with ulcer of left lower extremity (principal); L97.222 Non-pressure chronic ulcer of left calf with fat layer exposed; I87.331 Chronic venous hypertension (idiopathic) with ulcer and inflammation of right lower extremity; L97.212 Non-pressure chronic ulcer of right calf with fat layer exposed; K70.9 Alcoholic liver disease, unspecified; E43 Unspecified severe protein-calorie malnutrition; I11.0 Hypertensive heart disease with heart failure; I50.32 Chronic diastolic (congestive) heart failure; I85.00 Esophageal varices without bleeding; G89.29 Other chronic pain; E78.5 Hyperlipidemia, unspecified; I89.0 Lymphedema, not elsewhere classified; I73.89 Other specified peripheral vascular diseases; I87.2 Venous insufficiency (chronic) (peripheral); F17.210 Nicotine dependence, cigarettes, uncomplicated; Z79.899 Other long term (current) drug therapy; Z90.49 Acquired absence of other specified parts of digestive tract | CPT/HCPCS: 97597; 97598 ==

== ENCOUNTER → 2018-07-19 | Outpatient (CLI) | payer MEDICAID | END | disposition home or self-care (01) | LOC: WOUND 10:54 | PROVIDERS: ATTEND Internal Medicine | DX: I87.312 Chronic venous hypertension (idiopathic) with ulcer of left lower extremity (principal); L97.222 Non-pressure chronic ulcer of left calf with fat layer exposed; I87.331 Chronic venous hypertension (idiopathic) with ulcer and inflammation of right lower extremity; L97.212 Non-pressure chronic ulcer of right calf with fat layer exposed; K70.9 Alcoholic liver disease, unspecified; E43 Unspecified severe protein-calorie malnutrition; I11.0 Hypertensive heart disease with heart failure; I50.32 Chronic diastolic (congestive) heart failure; I85.00 Esophageal varices without bleeding; G89.29 Other chronic pain; E78.5 Hyperlipidemia, unspecified; I89.0 Lymphedema, not elsewhere classified; I73.89 Other specified peripheral vascular diseases; F17.210 Nicotine dependence, cigarettes, uncomplicated; Z79.899 Other long term (current) drug therapy; Z90.49 Acquired absence of other specified parts of digestive tract | CPT/HCPCS: 97597; 97598 ==

== ENCOUNTER → 2018-07-24 | Outpatient (CLI) | payer MEDICAID | END | disposition home or self-care (01) | LOC: WOUND 13:25 | PROVIDERS: ATTEND Internal Medicine | DX: I87.312 Chronic venous hypertension (idiopathic) with ulcer of left lower extremity (principal); L97.222 Non-pressure chronic ulcer of left calf with fat layer exposed; I87.331 Chronic venous hypertension (idiopathic) with ulcer and inflammation of right lower extremity; L97.212 Non-pressure chronic ulcer of right calf with fat layer exposed; L03.115 Cellulitis of right lower limb; K70.9 Alcoholic liver disease, unspecified; E43 Unspecified severe protein-calorie malnutrition; I85.00 Esophageal varices without bleeding; I11.0 Hypertensive heart disease with heart failure; I50.32 Chronic diastolic (congestive) heart failure; G89.29 Other chronic pain; E78.5 Hyperlipidemia, unspecified; I89.0 Lymphedema, not elsewhere classified; I73.89 Other specified peripheral vascular diseases; F17.210 Nicotine dependence, cigarettes, uncomplicated; Z79.899 Other long term (current) drug therapy; Z90.49 Acquired absence of other specified parts of digestive tract | CPT/HCPCS: 97597; 97598 ==

== ENCOUNTER → 2018-07-31 | Outpatient (CLI) | payer MEDICAID | END | disposition home or self-care (01) | LOC: WOUND 13:39 | PROVIDERS: ATTEND Internal Medicine | DX: I87.312 Chronic venous hypertension (idiopathic) with ulcer of left lower extremity (principal); L97.222 Non-pressure chronic ulcer of left calf with fat layer exposed; I87.331 Chronic venous hypertension (idiopathic) with ulcer and inflammation of right lower extremity; L97.212 Non-pressure chronic ulcer of right calf with fat layer exposed; L03.115 Cellulitis of right lower limb; I11.0 Hypertensive heart disease with heart failure; I50.32 Chronic diastolic (congestive) heart failure; G89.29 Other chronic pain; E78.5 Hyperlipidemia, unspecified; I96 Gangrene, not elsewhere classified; K70.9 Alcoholic liver disease, unspecified; I89.0 Lymphedema, not elsewhere classified; E43 Unspecified severe protein-calorie malnutrition; F17.210 Nicotine dependence, cigarettes, uncomplicated; Z79.899 Other long term (current) drug therapy; Z90.49 Acquired absence of other specified parts of digestive tract | CPT/HCPCS: 97597; 97598 ==

== ENCOUNTER 2018-08-09 21:32 | Emergency (ER) | payer MEDICAID ==
[~2018-08-09] VITALS: Ht 172.7 cm; Wt 74.1 kg
[2018-08-09 21:38] VITALS: BP 115/54
--- NOTE | 2018-08-09 22:18 | NUR ---
PT ASLEEP IN [facility] AT THIS TIME. ERP WAS AT BEDSIDE WITH WOUND CARE ORDERED. PT VERBALIZES UNDERSTANDING OF POC. CALL LIGHT IS WITHIN REACH. NO NEW ORDERS AT THIS TIME.
[2018-08-09 22:32] LABS: BASOPHILS # (AUTO) 0.05 x10^3/uL (0-0.1); BASOPHILS % (AUTO) 2 % (0-1); EOSINOPHILS # (AUTO) 0.14 x10^3/uL (0-0.4); EOSINOPHILS % (AUTO) 4 % (1-7); LYMPHOCYTES # (AUTO) 0.53 x10^3/uL (1-3.4); LYMPHOCYTES % (AUTO) 17 % (22-44); MD NO; MEAN CORPUSCULAR HEMOGLOBIN 28.5 pg (27.5-34.5); MEAN CORPUSCULAR HGB CONC 34.5 g/dL (33.2-36.2); MEAN CORPUSCULAR VOLUME 82.3 fL (81-97); MEAN PLATELET VOLUME 7.5 fL (7.4-10.4); MONOCYTES # (AUTO) 0.38 x10^3/uL (0.2-0.8); MONOCYTES % (AUTO) 12 % (2-9); NEUTROPHILS # (AUTO) 2.08 x10^3/uL (1.8-6.8); NEUTROPHILS % (AUTO) 66 % (42-75); PLATELET COUNT 106 x10^3/uL (130-400); RED BLOOD COUNT 3.59 x10^6/uL (4.38-5.82); RED CELL DISTRIBUTION WIDTH 17.2 % (9.4-14.8)
[2018-08-09 22:44] LABS: ALBUMIN 2.4 g/dL (3.4-5.0); ANION GAP 6 mmol/L (5-15); CALCIUM 7.8 mg/dL (8.5-10.1); CHLORIDE 110 mmol/L (98-107)
--- NOTE | 2018-08-10 00:01 | NUR ---
PT WOUNDS REDRESSED. PT VERBALIZES UNDERSTANDING OF F/U WITH WOUND CARE.
== END 2018-08-10 00:23 | disposition home or self-care (01) ==
LOC: ED 22:13
DX: G89.29 Other chronic pain (principal); M79.661 Pain in right lower leg; M79.662 Pain in left lower leg
CPT/HCPCS: 36415; 80048; 82040; 85025; 93970; 99284

== ENCOUNTER → 2018-08-14 | Outpatient (CLI) | payer MEDICAID | END | disposition home or self-care (01) | LOC: WOUND 08-07 14:39 | PROVIDERS: ATTEND Internal Medicine | DX: I87.312 Chronic venous hypertension (idiopathic) with ulcer of left lower extremity (principal); L97.222 Non-pressure chronic ulcer of left calf with fat layer exposed; I87.331 Chronic venous hypertension (idiopathic) with ulcer and inflammation of right lower extremity; L97.212 Non-pressure chronic ulcer of right calf with fat layer exposed; I11.0 Hypertensive heart disease with heart failure; I50.32 Chronic diastolic (congestive) heart failure; K70.9 Alcoholic liver disease, unspecified; E43 Unspecified severe protein-calorie malnutrition; I85.00 Esophageal varices without bleeding; G89.29 Other chronic pain; E78.5 Hyperlipidemia, unspecified; I96 Gangrene, not elsewhere classified; I89.0 Lymphedema, not elsewhere classified; F17.210 Nicotine dependence, cigarettes, uncomplicated; Z79.899 Other long term (current) drug therapy; Z90.49 Acquired absence of other specified parts of digestive tract | CPT/HCPCS: 97597; 97598 ==

== ENCOUNTER → 2018-08-23 | Outpatient (CLI) | payer MEDICAID | END | disposition home or self-care (01) | LOC: WOUND 13:39 | PROVIDERS: ATTEND Internal Medicine | DX: I87.312 Chronic venous hypertension (idiopathic) with ulcer of left lower extremity (principal); L97.222 Non-pressure chronic ulcer of left calf with fat layer exposed; I87.331 Chronic venous hypertension (idiopathic) with ulcer and inflammation of right lower extremity; L97.212 Non-pressure chronic ulcer of right calf with fat layer exposed; I11.0 Hypertensive heart disease with heart failure; I50.32 Chronic diastolic (congestive) heart failure; G89.29 Other chronic pain; E78.5 Hyperlipidemia, unspecified; K70.9 Alcoholic liver disease, unspecified; I85.00 Esophageal varices without bleeding; I96 Gangrene, not elsewhere classified; I89.0 Lymphedema, not elsewhere classified; E43 Unspecified severe protein-calorie malnutrition; F17.210 Nicotine dependence, cigarettes, uncomplicated; Z79.899 Other long term (current) drug therapy; Z90.49 Acquired absence of other specified parts of digestive tract | CPT/HCPCS: 97597; 97598 ==

== ENCOUNTER → 2018-08-30 | Outpatient (CLI) | payer MEDICAID | END | disposition home or self-care (01) | LOC: WOUND 14:47 | PROVIDERS: ATTEND Internal Medicine Cardiovascular Disease | DX: I87.312 Chronic venous hypertension (idiopathic) with ulcer of left lower extremity (principal); L97.222 Non-pressure chronic ulcer of left calf with fat layer exposed; I87.331 Chronic venous hypertension (idiopathic) with ulcer and inflammation of right lower extremity; L97.212 Non-pressure chronic ulcer of right calf with fat layer exposed; I87.2 Venous insufficiency (chronic) (peripheral); I11.0 Hypertensive heart disease with heart failure; I50.32 Chronic diastolic (congestive) heart failure; G89.29 Other chronic pain; E78.5 Hyperlipidemia, unspecified; I96 Gangrene, not elsewhere classified; K70.9 Alcoholic liver disease, unspecified; I89.0 Lymphedema, not elsewhere classified; E43 Unspecified severe protein-calorie malnutrition; I85.00 Esophageal varices without bleeding; F17.210 Nicotine dependence, cigarettes, uncomplicated; Z90.49 Acquired absence of other specified parts of digestive tract; Z79.899 Other long term (current) drug therapy | CPT/HCPCS: 29581 ==

== ENCOUNTER → 2018-09-06 | Outpatient (CLI) | payer MEDICAID | END | disposition home or self-care (01) | LOC: WOUND 10:15 | PROVIDERS: ATTEND Internal Medicine Cardiovascular Disease | DX: I87.312 Chronic venous hypertension (idiopathic) with ulcer of left lower extremity (principal); L97.222 Non-pressure chronic ulcer of left calf with fat layer exposed; I87.331 Chronic venous hypertension (idiopathic) with ulcer and inflammation of right lower extremity; L97.212 Non-pressure chronic ulcer of right calf with fat layer exposed; L03.115 Cellulitis of right lower limb; I11.0 Hypertensive heart disease with heart failure; I50.32 Chronic diastolic (congestive) heart failure; G89.29 Other chronic pain; E78.5 Hyperlipidemia, unspecified; K70.9 Alcoholic liver disease, unspecified; E43 Unspecified severe protein-calorie malnutrition; I85.00 Esophageal varices without bleeding; I96 Gangrene, not elsewhere classified; I89.0 Lymphedema, not elsewhere classified; F17.210 Nicotine dependence, cigarettes, uncomplicated; Z90.49 Acquired absence of other specified parts of digestive tract; Z79.899 Other long term (current) drug therapy | CPT/HCPCS: 29581 ==

== ENCOUNTER → 2018-09-13 | Outpatient (CLI) | payer MEDICAID | END | disposition home or self-care (01) | LOC: WOUND 11:00 | PROVIDERS: ATTEND Internal Medicine | DX: I87.312 Chronic venous hypertension (idiopathic) with ulcer of left lower extremity (principal); L97.222 Non-pressure chronic ulcer of left calf with fat layer exposed; I87.331 Chronic venous hypertension (idiopathic) with ulcer and inflammation of right lower extremity; L97.212 Non-pressure chronic ulcer of right calf with fat layer exposed; I11.0 Hypertensive heart disease with heart failure; I50.32 Chronic diastolic (congestive) heart failure; L03.115 Cellulitis of right lower limb; G89.29 Other chronic pain; E78.5 Hyperlipidemia, unspecified; K70.9 Alcoholic liver disease, unspecified; I85.00 Esophageal varices without bleeding; I96 Gangrene, not elsewhere classified; I89.0 Lymphedema, not elsewhere classified; E43 Unspecified severe protein-calorie malnutrition; F17.210 Nicotine dependence, cigarettes, uncomplicated; Z79.899 Other long term (current) drug therapy; Z90.49 Acquired absence of other specified parts of digestive tract | CPT/HCPCS: 97597; 97598 ==

== ENCOUNTER → 2018-09-20 | Outpatient (CLI) | payer MEDICAID | END | disposition home or self-care (01) | LOC: WOUND 13:29 | PROVIDERS: ATTEND Internal Medicine | DX: I87.312 Chronic venous hypertension (idiopathic) with ulcer of left lower extremity (principal); L97.222 Non-pressure chronic ulcer of left calf with fat layer exposed; I87.331 Chronic venous hypertension (idiopathic) with ulcer and inflammation of right lower extremity; L97.212 Non-pressure chronic ulcer of right calf with fat layer exposed; I11.0 Hypertensive heart disease with heart failure; I50.32 Chronic diastolic (congestive) heart failure; L03.115 Cellulitis of right lower limb; G89.29 Other chronic pain; E78.5 Hyperlipidemia, unspecified; K70.9 Alcoholic liver disease, unspecified; I85.00 Esophageal varices without bleeding; I96 Gangrene, not elsewhere classified; I89.0 Lymphedema, not elsewhere classified; E43 Unspecified severe protein-calorie malnutrition; F17.210 Nicotine dependence, cigarettes, uncomplicated; Z79.899 Other long term (current) drug therapy; Z90.49 Acquired absence of other specified parts of digestive tract | CPT/HCPCS: 97597; 97598 ==

== ENCOUNTER → 2018-09-27 | Outpatient (CLI) | payer MEDICAID | END | disposition home or self-care (01) | LOC: WOUND 14:00 | PROVIDERS: ATTEND Internal Medicine | DX: I87.312 Chronic venous hypertension (idiopathic) with ulcer of left lower extremity (principal); L97.222 Non-pressure chronic ulcer of left calf with fat layer exposed; I87.331 Chronic venous hypertension (idiopathic) with ulcer and inflammation of right lower extremity; L97.212 Non-pressure chronic ulcer of right calf with fat layer exposed; I11.0 Hypertensive heart disease with heart failure; I50.32 Chronic diastolic (congestive) heart failure; L03.115 Cellulitis of right lower limb; G89.29 Other chronic pain; E78.5 Hyperlipidemia, unspecified; K70.9 Alcoholic liver disease, unspecified; I85.00 Esophageal varices without bleeding; I96 Gangrene, not elsewhere classified; I89.0 Lymphedema, not elsewhere classified; E43 Unspecified severe protein-calorie malnutrition; F17.210 Nicotine dependence, cigarettes, uncomplicated; Z79.899 Other long term (current) drug therapy; Z90.49 Acquired absence of other specified parts of digestive tract | CPT/HCPCS: 97597; 97598 ==

== ENCOUNTER 2018-10-04 10:13 | Outpatient (CLI) | payer MEDICAID | END 2018-10-04 23:59 | disposition home or self-care (01) | LOC: WOUND 10:13 | PROVIDERS: ATTEND Internal Medicine | DX: I87.312 Chronic venous hypertension (idiopathic) with ulcer of left lower extremity (principal); L97.222 Non-pressure chronic ulcer of left calf with fat layer exposed; I87.331 Chronic venous hypertension (idiopathic) with ulcer and inflammation of right lower extremity; L97.212 Non-pressure chronic ulcer of right calf with fat layer exposed; I11.0 Hypertensive heart disease with heart failure; I50.32 Chronic diastolic (congestive) heart failure; L03.115 Cellulitis of right lower limb; G89.29 Other chronic pain; E78.5 Hyperlipidemia, unspecified; K70.9 Alcoholic liver disease, unspecified; I85.00 Esophageal varices without bleeding; I96 Gangrene, not elsewhere classified; E43 Unspecified severe protein-calorie malnutrition; F17.210 Nicotine dependence, cigarettes, uncomplicated; Z79.899 Other long term (current) drug therapy; Z90.49 Acquired absence of other specified parts of digestive tract | CPT/HCPCS: 97597; 97598 ==

== ENCOUNTER 2018-10-08 21:27 | Emergency (ER) | payer MEDICAID ==
[~2018-10-08] VITALS: Ht 175.3 cm; Wt 80.0 kg
[2018-10-08 21:36] VITALS: BP 109/70
[2018-10-08 22:51] LABS: BASOPHILS # (AUTO) 0.05 x10^3/uL (0-0.1); BASOPHILS % (AUTO) 1 % (0-1); EOSINOPHILS # (AUTO) 0.11 x10^3/uL (0-0.4); EOSINOPHILS % (AUTO) 3 % (1-7); LYMPHOCYTES # (AUTO) 0.55 x10^3/uL (1-3.4); LYMPHOCYTES % (AUTO) 12 % (22-44); MD NO; MEAN CORPUSCULAR HEMOGLOBIN 28.2 pg (27.5-34.5); MEAN CORPUSCULAR HGB CONC 32.8 g/dL (33.2-36.2); MEAN CORPUSCULAR VOLUME 86.1 fL (81-97); MEAN PLATELET VOLUME 8.1 fL (7.4-10.4); MONOCYTES # (AUTO) 0.37 x10^3/uL (0.2-0.8); MONOCYTES % (AUTO) 8 % (2-9); NEUTROPHILS # (AUTO) 3.54 x10^3/uL (1.8-6.8); NEUTROPHILS % (AUTO) 77 % (42-75); PLATELET COUNT 104 x10^3/uL (130-400); RED BLOOD COUNT 4.14 x10^6/uL (4.38-5.82); RED CELL DISTRIBUTION WIDTH 18.4 % (9.4-14.8)
[2018-10-08 22:56] LABS: ANION GAP 7 mmol/L (5-15); CALCIUM 7.7 mg/dL (8.5-10.1); CHLORIDE 105 mmol/L (98-107); CREATININE 0.72 mg/dL (0.7-1.3)
[2018-10-08] MEDS ORDERED: NEOSPORIN OINT. PKT 1 PACKET ONE (23:24)
[2018-10-08] MEDS ORDERED: CLINDAMYCIN 150 MG/ML, 6ML IM ONE (23:30)
[2018-10-08] MEDS ORDERED: POTASSIUM CHLORIDE 20 MEQ TAB.ER.PRT PO ONE (23:30)
== END 2018-10-09 00:12 | disposition home or self-care (01) ==
LOC: ED 21:50
DX: I83.009 Varicose veins of unspecified lower extremity with ulcer of unspecified site (principal); E87.6 Hypokalemia; F17.200 Nicotine dependence, unspecified, uncomplicated; Z72.9 Problem related to lifestyle, unspecified
CPT/HCPCS: 36415; 80048; 83605; 84145; 85025; 87040; 99283

== ENCOUNTER → 2018-10-09 | Outpatient (CLI) | payer MEDICAID | END | disposition home or self-care (01) | LOC: WOUND 09:59 | PROVIDERS: ATTEND Internal Medicine | DX: I87.312 Chronic venous hypertension (idiopathic) with ulcer of left lower extremity (principal); I87.331 Chronic venous hypertension (idiopathic) with ulcer and inflammation of right lower extremity; L97.212 Non-pressure chronic ulcer of right calf with fat layer exposed; I11.0 Hypertensive heart disease with heart failure; I50.32 Chronic diastolic (congestive) heart failure; L03.115 Cellulitis of right lower limb; G89.29 Other chronic pain; E78.5 Hyperlipidemia, unspecified; K70.9 Alcoholic liver disease, unspecified; I85.00 Esophageal varices without bleeding; I96 Gangrene, not elsewhere classified; E43 Unspecified severe protein-calorie malnutrition; F17.210 Nicotine dependence, cigarettes, uncomplicated; Z79.899 Other long term (current) drug therapy; Z90.49 Acquired absence of other specified parts of digestive tract | CPT/HCPCS: 97597; 97598 ==

== ENCOUNTER 2018-10-13 09:25 | Outpatient (CLI) | payer MEDICAID | END 2018-10-13 23:59 | disposition home or self-care (01) | LOC: WOUND 09:25 | PROVIDERS: ATTEND Family Medicine | DX: I87.312 Chronic venous hypertension (idiopathic) with ulcer of left lower extremity (principal); L97.222 Non-pressure chronic ulcer of left calf with fat layer exposed; I87.331 Chronic venous hypertension (idiopathic) with ulcer and inflammation of right lower extremity; L97.212 Non-pressure chronic ulcer of right calf with fat layer exposed; I11.0 Hypertensive heart disease with heart failure; I50.32 Chronic diastolic (congestive) heart failure; L03.115 Cellulitis of right lower limb; G89.29 Other chronic pain; E78.5 Hyperlipidemia, unspecified; K70.9 Alcoholic liver disease, unspecified; I85.00 Esophageal varices without bleeding; I96 Gangrene, not elsewhere classified; E43 Unspecified severe protein-calorie malnutrition; F17.210 Nicotine dependence, cigarettes, uncomplicated; Z79.899 Other long term (current) drug therapy; Z90.49 Acquired absence of other specified parts of digestive tract | CPT/HCPCS: 29581 ==

== ENCOUNTER 2018-10-16 13:11 | Outpatient (CLI) | payer MEDICAID ==
[~2018-10-16 13:11] MED LIST changes: -IBUP-1484 PO; +IBUP-1902 PO; -POTA20LI PO; +POTA20LI2 PO
[2018-11-29] MEDS ORDERED: AMOX1TAB64 PO (20:33)
[2018-11-29] MEDS ORDERED: SULF-169 PO (20:33)
[2018-11-29] MEDS ORDERED: FURO40TA6 PO (20:33)
[2018-12-10] MEDS ORDERED: PANT40TA5 PO (20:21)
[2018-12-10] MEDS ORDERED: LACT20SO13 PO (20:21)
[2018-12-10] MEDS ORDERED: RIFA550T4 PO (20:21)
== END 2018-10-16 23:59 | disposition home or self-care (01) ==
LOC: WOUND 13:11
PROVIDERS: ATTEND Internal Medicine
DX: I87.312 Chronic venous hypertension (idiopathic) with ulcer of left lower extremity (principal); L97.222 Non-pressure chronic ulcer of left calf with fat layer exposed; I87.331 Chronic venous hypertension (idiopathic) with ulcer and inflammation of right lower extremity; L97.212 Non-pressure chronic ulcer of right calf with fat layer exposed; I11.0 Hypertensive heart disease with heart failure; I50.32 Chronic diastolic (congestive) heart failure; L03.115 Cellulitis of right lower limb; G89.29 Other chronic pain; E78.5 Hyperlipidemia, unspecified; K70.9 Alcoholic liver disease, unspecified; I85.00 Esophageal varices without bleeding; I96 Gangrene, not elsewhere classified; E43 Unspecified severe protein-calorie malnutrition; F17.210 Nicotine dependence, cigarettes, uncomplicated; Z79.899 Other long term (current) drug therapy; Z90.49 Acquired absence of other specified parts of digestive tract
CPT/HCPCS: 29581; 97597; 97598

== ENCOUNTER 2018-10-19 11:33 | Outpatient (CLI) | payer MEDICAID ==
[2018-11-29] MEDS ORDERED: FURO40TA6 PO (20:33)
[2018-11-29] MEDS ORDERED: SULF-169 PO (20:33)
[2018-11-29] MEDS ORDERED: AMOX1TAB64 PO (20:33)
[2018-12-10] MEDS ORDERED: RIFA550T4 PO (20:21)
[2018-12-10] MEDS ORDERED: PANT40TA5 PO (20:21)
[2018-12-10] MEDS ORDERED: LACT20SO13 PO (20:21)
== END 2018-10-19 23:59 | disposition home or self-care (01) ==
LOC: WOUND 11:33
PROVIDERS: ATTEND Internal Medicine Cardiovascular Disease
DX: I87.312 Chronic venous hypertension (idiopathic) with ulcer of left lower extremity (principal); L97.222 Non-pressure chronic ulcer of left calf with fat layer exposed; I87.331 Chronic venous hypertension (idiopathic) with ulcer and inflammation of right lower extremity; L97.212 Non-pressure chronic ulcer of right calf with fat layer exposed; I11.0 Hypertensive heart disease with heart failure; I50.32 Chronic diastolic (congestive) heart failure; L03.115 Cellulitis of right lower limb; G89.29 Other chronic pain; E78.5 Hyperlipidemia, unspecified; K70.9 Alcoholic liver disease, unspecified; I85.00 Esophageal varices without bleeding; I96 Gangrene, not elsewhere classified; E43 Unspecified severe protein-calorie malnutrition; F17.210 Nicotine dependence, cigarettes, uncomplicated; Z79.899 Other long term (current) drug therapy; Z90.49 Acquired absence of other specified parts of digestive tract
CPT/HCPCS: 29581

== ENCOUNTER 2018-10-23 13:20 | Outpatient (CLI) | payer MEDICAID ==
[2018-11-29] MEDS ORDERED: FURO40TA6 PO (20:33)
[2018-11-29] MEDS ORDERED: SULF-169 PO (20:33)
[2018-11-29] MEDS ORDERED: AMOX1TAB64 PO (20:33)
[2018-12-10] MEDS ORDERED: LACT20SO13 PO (20:21)
[2018-12-10] MEDS ORDERED: RIFA550T4 PO (20:21)
[2018-12-10] MEDS ORDERED: PANT40TA5 PO (20:21)
== END 2018-10-23 23:59 | disposition home or self-care (01) ==
LOC: WOUND 13:20
PROVIDERS: ATTEND Internal Medicine
DX: I87.312 Chronic venous hypertension (idiopathic) with ulcer of left lower extremity (principal); L97.222 Non-pressure chronic ulcer of left calf with fat layer exposed; I87.331 Chronic venous hypertension (idiopathic) with ulcer and inflammation of right lower extremity; L97.212 Non-pressure chronic ulcer of right calf with fat layer exposed; I11.0 Hypertensive heart disease with heart failure; I50.32 Chronic diastolic (congestive) heart failure; L03.115 Cellulitis of right lower limb; G89.29 Other chronic pain; E78.5 Hyperlipidemia, unspecified; K70.9 Alcoholic liver disease, unspecified; I85.00 Esophageal varices without bleeding; I96 Gangrene, not elsewhere classified; E43 Unspecified severe protein-calorie malnutrition; F17.210 Nicotine dependence, cigarettes, uncomplicated; Z79.899 Other long term (current) drug therapy; Z90.49 Acquired absence of other specified parts of digestive tract
CPT/HCPCS: 97597; 97598

== ENCOUNTER 2018-10-26 11:04 | Outpatient (CLI) | payer MEDICAID | END 2018-10-26 23:59 | disposition home or self-care (01) | LOC: WOUND 11:04 | PROVIDERS: ATTEND Internal Medicine Cardiovascular Disease | DX: I87.312 Chronic venous hypertension (idiopathic) with ulcer of left lower extremity (principal); L97.222 Non-pressure chronic ulcer of left calf with fat layer exposed; I87.331 Chronic venous hypertension (idiopathic) with ulcer and inflammation of right lower extremity; L97.212 Non-pressure chronic ulcer of right calf with fat layer exposed; I11.0 Hypertensive heart disease with heart failure; I50.32 Chronic diastolic (congestive) heart failure; L03.115 Cellulitis of right lower limb; G89.29 Other chronic pain; E78.5 Hyperlipidemia, unspecified; K70.9 Alcoholic liver disease, unspecified; I85.00 Esophageal varices without bleeding; I96 Gangrene, not elsewhere classified; E43 Unspecified severe protein-calorie malnutrition; F17.210 Nicotine dependence, cigarettes, uncomplicated; Z79.899 Other long term (current) drug therapy; Z90.49 Acquired absence of other specified parts of digestive tract | CPT/HCPCS: 29581 ==

== ENCOUNTER 2018-10-30 22:16 | Emergency (ER) | payer MEDICAID ==
[~2018-10-30] VITALS: Ht 172.7 cm; Wt 70.5 kg
--- NOTE | 2018-10-31 00:05 | NUR ---
pt called to room , not in lobby
--- NOTE | 2018-10-31 00:40 | NUR ---
PT. TO ROOM FROM LOBBY AT THIS TIME.
[2018-10-31] MEDS ORDERED: HYDROcodone/APAP 5/325 TABLET PO ONE (01:00)
[2018-10-31] MEDS ORDERED: NEOSPORIN OINT. PKT 1 PACKET ONE (01:09)
--- NOTE | 2018-10-31 01:10 | NUR ---
TECH AT BEDSIDE FOR WOUND CARE.
[2018-10-31] MEDS ORDERED: HYDROcodone/APAP 5/325 TABLET ONE (01:18)
[2018-10-31 02:58] VITALS: BP 136/78
[2018-11-29] MEDS ORDERED: SULF-169 PO (20:33)
[2018-11-29] MEDS ORDERED: AMOX1TAB64 PO (20:33)
[2018-11-29] MEDS ORDERED: FURO40TA6 PO (20:33)
[2018-12-10] MEDS ORDERED: RIFA550T4 PO (20:21)
[2018-12-10] MEDS ORDERED: LACT20SO13 PO (20:21)
[2018-12-10] MEDS ORDERED: PANT40TA5 PO (20:21)
== END 2018-10-31 03:00 | disposition home or self-care (01) ==
LOC: ED 23:59
DX: I83.218 Varicose veins of right lower extremity with both ulcer of other part of lower extremity and inflammation (principal); I83.222 Varicose veins of left lower extremity with both ulcer of calf and inflammation; L97.819 Non-pressure chronic ulcer of other part of right lower leg with unspecified severity; L97.229 Non-pressure chronic ulcer of left calf with unspecified severity; F17.200 Nicotine dependence, unspecified, uncomplicated; Z72.9 Problem related to lifestyle, unspecified; Z63.8 Other specified problems related to primary support group; Z91.14 Patient's other noncompliance with medication regimen; Z75.9 Unspecified problem related to medical facilities and other health care
CPT/HCPCS: 99283

== ENCOUNTER 2018-11-05 09:36 | Emergency (ER) | payer MEDICAID ==
[~2018-11-05] VITALS: Ht 172.7 cm; Wt 72.2 kg
[2018-11-05 09:38] VITALS: BP 116/67
== END 2018-11-05 10:58 | disposition home or self-care (01) ==
LOC: ED 10:23
DX: I83.018 Varicose veins of right lower extremity with ulcer other part of lower leg (principal); I83.028 Varicose veins of left lower extremity with ulcer other part of lower leg; L97.811 Non-pressure chronic ulcer of other part of right lower leg limited to breakdown of skin; L97.821 Non-pressure chronic ulcer of other part of left lower leg limited to breakdown of skin
CPT/HCPCS: 99283

== ENCOUNTER 2018-11-09 23:08 | Emergency (ER) | payer MEDICAID ==
[~2018-11-09] VITALS: Ht 170.2 cm; Wt 70.7 kg
[2018-11-09 23:20] VITALS: BP 146/65
== END 2018-11-10 00:45 | disposition home or self-care (01) ==
LOC: ED 23:26
DX: I83.213 Varicose veins of right lower extremity with both ulcer of ankle and inflammation (principal); I83.223 Varicose veins of left lower extremity with both ulcer of ankle and inflammation; I83.212 Varicose veins of right lower extremity with both ulcer of calf and inflammation; I83.222 Varicose veins of left lower extremity with both ulcer of calf and inflammation; Z72.9 Problem related to lifestyle, unspecified
CPT/HCPCS: 99283

== ENCOUNTER 2018-11-10 11:23 | Outpatient (CLI) | payer MEDICAID | END 2018-11-10 23:59 | disposition home or self-care (01) | LOC: WOUND 11:23 | PROVIDERS: ATTEND Family Medicine | DX: I87.312 Chronic venous hypertension (idiopathic) with ulcer of left lower extremity (principal); L97.222 Non-pressure chronic ulcer of left calf with fat layer exposed; I87.331 Chronic venous hypertension (idiopathic) with ulcer and inflammation of right lower extremity; L97.212 Non-pressure chronic ulcer of right calf with fat layer exposed; L03.115 Cellulitis of right lower limb; I11.0 Hypertensive heart disease with heart failure; I50.32 Chronic diastolic (congestive) heart failure; G89.29 Other chronic pain; E78.5 Hyperlipidemia, unspecified; K70.9 Alcoholic liver disease, unspecified; I85.00 Esophageal varices without bleeding; I96 Gangrene, not elsewhere classified; E43 Unspecified severe protein-calorie malnutrition; F17.210 Nicotine dependence, cigarettes, uncomplicated; Z79.899 Other long term (current) drug therapy; Z90.49 Acquired absence of other specified parts of digestive tract | CPT/HCPCS: 29581 ==

== ENCOUNTER 2018-11-13 13:45 | Outpatient (CLI) | payer MEDICAID | END 2018-11-13 23:59 | disposition home or self-care (01) | LOC: WOUND 13:45 | PROVIDERS: ATTEND Internal Medicine | DX: I87.312 Chronic venous hypertension (idiopathic) with ulcer of left lower extremity (principal); L97.222 Non-pressure chronic ulcer of left calf with fat layer exposed; I87.331 Chronic venous hypertension (idiopathic) with ulcer and inflammation of right lower extremity; L97.212 Non-pressure chronic ulcer of right calf with fat layer exposed; L03.115 Cellulitis of right lower limb; I11.0 Hypertensive heart disease with heart failure; I50.32 Chronic diastolic (congestive) heart failure; G89.29 Other chronic pain; E78.5 Hyperlipidemia, unspecified; K70.9 Alcoholic liver disease, unspecified; I85.00 Esophageal varices without bleeding; I96 Gangrene, not elsewhere classified; E43 Unspecified severe protein-calorie malnutrition; F17.210 Nicotine dependence, cigarettes, uncomplicated; Z79.899 Other long term (current) drug therapy; Z90.49 Acquired absence of other specified parts of digestive tract | CPT/HCPCS: 97597; 97598 ==

== ENCOUNTER 2018-11-13 14:49 | Emergency (ER) | payer MEDICAID ==
[~2018-11-13] VITALS: Ht 172.7 cm; Wt 70.4 kg
[2018-11-13 15:53] VITALS: BP 127/67
== END 2018-11-13 16:31 | disposition home or self-care (01) ==
LOC: ED 16:25
DX: I83.019 Varicose veins of right lower extremity with ulcer of unspecified site (principal); L97.919 Non-pressure chronic ulcer of unspecified part of right lower leg with unspecified severity; I87.2 Venous insufficiency (chronic) (peripheral); Z72.9 Problem related to lifestyle, unspecified
CPT/HCPCS: 99282

== ENCOUNTER 2019-01-15 10:33 | Outpatient (CLI) | payer MEDICAID ==
[~2019-01-15 10:33] MED LIST changes: +AMOX1TAB64 PO; +FURO40TA6 PO; +RIFA550T4 PO; +SULF-169 PO
== END 2019-01-15 23:59 | disposition home or self-care (01) ==
LOC: WOUND 10:33
PROVIDERS: ATTEND Internal Medicine
DX: I87.312 Chronic venous hypertension (idiopathic) with ulcer of left lower extremity (principal); L97.222 Non-pressure chronic ulcer of left calf with fat layer exposed; I87.331 Chronic venous hypertension (idiopathic) with ulcer and inflammation of right lower extremity; L97.212 Non-pressure chronic ulcer of right calf with fat layer exposed; L97.512 Non-pressure chronic ulcer of other part of right foot with fat layer exposed; I11.0 Hypertensive heart disease with heart failure; I50.32 Chronic diastolic (congestive) heart failure; L03.115 Cellulitis of right lower limb; G89.29 Other chronic pain; E78.5 Hyperlipidemia, unspecified; K70.9 Alcoholic liver disease, unspecified; I85.00 Esophageal varices without bleeding; I96 Gangrene, not elsewhere classified; E43 Unspecified severe protein-calorie malnutrition; F17.210 Nicotine dependence, cigarettes, uncomplicated; Z79.899 Other long term (current) drug therapy; Z90.49 Acquired absence of other specified parts of digestive tract
CPT/HCPCS: 97597; 97598

== ENCOUNTER 2019-01-18 16:03 | Emergency (ER) | payer MEDICAID ==
[~2019-01-18] VITALS: Ht 172.7 cm; Wt 72.7 kg
--- NOTE | 2019-01-18 17:17 | NUR ---
TRANSVERSE ABDOMINAL MUSCLE SURGEON: PT TO ROOM FROM LOBBY VIA W/C
[2019-01-18 17:41] VITALS: BP 127/70
--- NOTE | 2019-01-18 17:42 | NUR ---
PT WITH REPORTS OF CHRONIC PAIN IN BLE D/T CHRONIC PVD ULCERS. PT GOES TO WOUND CLINIC ONCE A WK TO GET DRESSINGS CHANGED, PT STATES HE HAD THEM CHANGED THIS TUESDAY. PT ANXIOUS AND AGITATED WHILE EXPLAINING REASON FOR VISIT. PT STATES "IM SORRY I DONT MEAN TO ACT THIS WAY BUT HOW WOULD YOU FEEL IF YOU WOKE UP AND COULDNT EVEN WALK" PT EXPLAINS THAT WOUND HAVE BEEN PRESENT FOR 4YRS
--- NOTE | 2019-01-18 18:06 | NUR ---
DR JACKSON IN TO SEE PT
[2019-01-18 18:32] LABS: HCT (SEDRATE) 28.8 % (39.2-51.8)
--- NOTE | 2019-01-18 18:40 | NUR ---
ORDERS RECIEVED FOR LABS, PT DEMANDING WARM BLANKET PRIOR TO LAB DRAW, WARM BLANKET PROVIDED
[2019-01-18 18:42] LABS: ANION GAP 7 mmol/L (5-15); CALCIUM 7.4 mg/dL (8.5-10.1); CHLORIDE 110 mmol/L (98-107); CREATININE 0.56 mg/dL (0.7-1.3)
[2019-01-18 18:53] LABS: MEAN CORPUSCULAR HGB CONC 33.3 g/dL (33.2-36.2); MEAN CORPUSCULAR VOLUME 87.2 fL (81-97); MEAN PLATELET VOLUME 7.3 fL (7.4-10.4); PLATELET COUNT 91 x10^3/uL (130-400); RED CELL DISTRIBUTION WIDTH 16.7 % (9.4-14.8)
[2019-01-18 19:11] LABS: MD YES
[2019-01-18 19:13] LABS: BANDS%(MANUAL) 7 % (0-7); BASOS#(MANUAL) 0.03 x10^3/uL (0-0.1); BASOS% (MANUAL) 1 % (0-1); EOS#(MANUAL) 0.08 x10^3/uL (0.0-0.4); EOS% (MANUAL) 3 % (1-7); LYMPH#(MANUAL) 0.62 x10^3/uL (1-3.4); LYMPHS% (MANUAL) 22 % (22-44); MONOS#(MANUAL) 0.17 x10^3/uL (0.3-2.7); MONOS% (MANUAL) 6 % (2-9); SEG#(MANUAL) 1.71 x10^3/uL (1.8-6.8); SEGS% (MANUAL) 61 % (42-75)
[2019-01-18 19:14] LABS: <PLATELET ESTIMATE> DECREASED; <PLT MORPHOLOGY> NORMAL PLT MORPH; <RBC MORPHOLOGY> NORMAL
--- NOTE | 2019-01-18 19:32 | NUR ---
PT REFUSING DISCHARGE AT THIS TIME, AWARE THAT MD HAS EVALUATED AND THIS IS THE PLAN, PT REFUSING TO LEAVE, SECURITY CALLED FOR ASSIST
== END 2019-01-18 19:50 | disposition home or self-care (01) ==
LOC: ED 18:24
DX: G89.29 Other chronic pain (principal); M79.661 Pain in right lower leg; M79.662 Pain in left lower leg
CPT/HCPCS: 36415; 80048; 85025; 85651; 86140; 99283

== ENCOUNTER 2019-05-07 21:18 | Inpatient (IN) | payer MEDICAID ==
[~2019-05-07] VITALS: Ht 172.7 cm; Wt 62.6 kg
--- NOTE | 2019-05-07 22:01 | NUR ---
pt to room
[2019-05-07 23:15] LABS: MEAN CORPUSCULAR HEMOGLOBIN 29.7 pg (27.5-34.5); MEAN CORPUSCULAR HGB CONC 33.2 g/dL (33.2-36.2); MEAN CORPUSCULAR VOLUME 89.3 fL (81-97); MEAN PLATELET VOLUME 7.2 fL (7.4-10.4); PLATELET COUNT 123 x10^3/uL (130-400); RED BLOOD COUNT 3.56 x10^6/uL (4.38-5.82); RED CELL DISTRIBUTION WIDTH 20.7 % (9.4-14.8)
[2019-05-07 23:20] LABS: ALANINE AMINOTRANSFERASE 28 U/L (12-78); ALBUMIN 2.3 g/dL (3.4-5.0); ANION GAP 5 mmol/L (5-15); CALCIUM 7.7 mg/dL (8.5-10.1); CHLORIDE 111 mmol/L (98-107); CREATININE 0.48 mg/dL (0.7-1.3)
[2019-05-07 23:23] LABS: ALKALINE PHOSPHATASE 97 U/L (45-117); TOTAL PROTEIN 6.1 g/dL (6.4-8.2)
[2019-05-07 23:25] LABS: BASOPHILS # (AUTO) 0.04 x10^3/uL (0-0.1); BASOPHILS % (AUTO) 1 % (0-1); EOSINOPHILS # (AUTO) 0.15 x10^3/uL (0-0.4); EOSINOPHILS % (AUTO) 3 % (1-7); LYMPHOCYTES # (AUTO) 0.75 x10^3/uL (1-3.4); LYMPHOCYTES % (AUTO) 16 % (22-44); MONOCYTES # (AUTO) 0.45 x10^3/uL (0.2-0.8); MONOCYTES % (AUTO) 10 % (2-9); NEUTROPHILS # (AUTO) 3.29 x10^3/uL (1.8-6.8); NEUTROPHILS % (AUTO) 70 % (42-75)
[2019-05-07 23:26] LABS: MD SCAN
--- NOTE | 2019-05-08 00:02 | NUR ---
PT RESTING COMFORTABLY. MONITOR IN PLACE. NO NEEDS AT THIS TIME.
[2019-05-08] MEDS ORDERED: LACTULOSE 20 GM/30 ML UDC PO ONE (00:30)
--- NOTE | 2019-05-08 00:41 | NUR ---
REPORT TO CLEOPATRA PT TO ROOM WITH TECH
[2019-05-08 01:01] VITALS: BP 139/91
[2019-05-08] MEDS ORDERED: PROMETHAZINE 25 MG/ML, 1ML IM PRN (02:00)
[2019-05-08] MEDS ORDERED: ONDANSETRON ODT 4 MG PO PRN (02:00)
[2019-05-08] MEDS ORDERED: hydrALAzine 20 MG/ML, 1ML IVPush PRN (02:00)
[2019-05-08] MEDS ORDERED: ONDANSETRON 2MG/ML, 2ML IVPush PRN (02:00)
[2019-05-08 02:08] LABS: INTERNATIONAL NORMALIZED RATIO 1.29 (0.93-1.1); PROTHROMBIN TIME 13.7 Seconds (9.6-11.5)
[2019-05-08 02:28] LABS: FREE T4 (FREE THYROXINE) 1.25 ng/dL (0.76-1.46)
[2019-05-08 05:57] LABS: MICROSCOPIC NOT IND
[2019-05-08 06:03] LABS: CULTURE INDICATED? NO
[2019-05-08] MEDS: RIFAXIMIN 550 MG TABLET PO SCH ×2 (08:33→21:50)
[2019-05-08] MEDS: ENOXAPARIN 40 MG/0.4 ML SQ SCH (08:33)
[2019-05-08] MEDS: LACTULOSE 20 GM/30 ML UDC PO SCH ×3 (08:33→21:49)
[2019-05-08 09:52] LABS: MEAN CORPUSCULAR HEMOGLOBIN 30.8 pg (27.5-34.5); MEAN CORPUSCULAR HGB CONC 34.4 g/dL (33.2-36.2); MEAN CORPUSCULAR VOLUME 89.6 fL (81-97); RED BLOOD COUNT 3.48 x10^6/uL (4.38-5.82)
[2019-05-08 09:53] LABS: PLATELET COUNT 106 x10^3/uL (130-400)
[2019-05-08 10:13] LABS: BASOPHILS # (AUTO) 0.02 x10^3/uL (0-0.1); BASOPHILS % (AUTO) 0 % (0-1); EOSINOPHILS # (AUTO) 0.15 x10^3/uL (0-0.4); EOSINOPHILS % (AUTO) 3 % (1-7); LYMPHOCYTES # (AUTO) 0.59 x10^3/uL (1-3.4); LYMPHOCYTES % (AUTO) 13 % (22-44); MD SCAN; MONOCYTES # (AUTO) 0.37 x10^3/uL (0.2-0.8); MONOCYTES % (AUTO) 8 % (2-9); NEUTROPHILS # (AUTO) 3.31 x10^3/uL (1.8-6.8); NEUTROPHILS % (AUTO) 75 % (42-75)
[2019-05-08 13:24] VITALS: BP 123/71
[2019-05-08] MEDS: CARVEDILOL 3.125 MG TABLET PO SCH (17:12)
[2019-05-08 21:51] VITALS: BP 123/61
[2019-05-09] MEDS: CARVEDILOL 3.125 MG TABLET PO SCH ×2 (06:00→16:53)
[2019-05-09 06:29] LABS: MEAN CORPUSCULAR HEMOGLOBIN 30.3 pg (27.5-34.5); MEAN CORPUSCULAR HGB CONC 34.1 g/dL (33.2-36.2); MEAN PLATELET VOLUME 7.4 fL (7.4-10.4); PLATELET COUNT 97 x10^3/uL (130-400); RED BLOOD COUNT 3.28 x10^6/uL (4.38-5.82); RED CELL DISTRIBUTION WIDTH 20.5 % (9.4-14.8)
[2019-05-09 06:32] LABS: ALANINE AMINOTRANSFERASE 24 U/L (12-78); ALBUMIN 1.9 g/dL (3.4-5.0); ANION GAP 3 mmol/L (5-15); CALCIUM 7.7 mg/dL (8.5-10.1); CHLORIDE 112 mmol/L (98-107); IRON LEVEL 24 mcg/dL (65-175)
[2019-05-09 06:36] LABS: % IRON SATURATION 12 % (20-55); ALKALINE PHOSPHATASE 76 U/L (45-117); BILIRUBIN,TOTAL 1.4 mg/dL (0.2-1.0); CHOL/HDL RATIO 2.8; CHOLESTEROL, TOTAL 84 mg/dL (140-239); HDL CHOL % 36 % (26-37); HDL CHOLESTEROL (DIRECT) 30 mg/dL (40-60); LDL CHOLESTEROL,CALCULATED 48 mg/dL (54-169); LDL/HDL RATIO 1.6 (0.5-3.0); TOTAL IRON BINDING CAPACITY 207 mcg/dL (250-450); TOTAL PROTEIN 5.5 g/dL (6.4-8.2); TRIGLYCERIDES 32 mg/dL (50-200); VLDL CHOLESTEROL 6 mg/dL (0-25)
[2019-05-09 06:52] LABS: BASOPHILS # (AUTO) 0.01 x10^3/uL (0-0.1); BASOPHILS % (AUTO) 0 % (0-1); EOSINOPHILS # (AUTO) 0.18 x10^3/uL (0-0.4); EOSINOPHILS % (AUTO) 6 % (1-7); LYMPHOCYTES # (AUTO) 0.68 x10^3/uL (1-3.4); LYMPHOCYTES % (AUTO) 21 % (22-44); MD SCAN; MONOCYTES # (AUTO) 0.28 x10^3/uL (0.2-0.8); MONOCYTES % (AUTO) 9 % (2-9); NEUTROPHILS # (AUTO) 2.09 x10^3/uL (1.8-6.8); NEUTROPHILS % (AUTO) 65 % (42-75)
[2019-05-09] MEDS: ENOXAPARIN 40 MG/0.4 ML SQ SCH (07:00)
[2019-05-09 07:50] VITALS: BP 116/66
[2019-05-09] MEDS: LACTULOSE 20 GM/30 ML UDC PO SCH ×2 (08:25→16:53)
[2019-05-09] MEDS: FERROUS SULFATE 325 MG TABLET PO SCH (08:25)
[2019-05-09] MEDS: CALCIUM/VITAMIN D3 250-125 TABLET PO SCH ×2 (08:25→20:14)
[2019-05-09] MEDS: RIFAXIMIN 550 MG TABLET PO SCH ×2 (08:25→20:14)
[2019-05-09 16:51] VITALS: BP 119/68
[2019-05-09 20:07] VITALS: BP 116/65
[2019-05-10 01:13] VITALS: BP 116/68
[2019-05-10] MEDS: LACTULOSE 20 GM/30 ML UDC PO SCH ×4 (01:14→20:10)
[2019-05-10 05:10] VITALS: BP 106/62
[2019-05-10] MEDS: CARVEDILOL 3.125 MG TABLET PO SCH ×2 (05:12→16:24)
[2019-05-10] MEDS: ENOXAPARIN 40 MG/0.4 ML SQ SCH (07:00)
[2019-05-10 08:15] VITALS: BP 117/68
[2019-05-10] MEDS: RIFAXIMIN 550 MG TABLET PO SCH ×2 (09:33→20:10)
[2019-05-10] MEDS: CALCIUM/VITAMIN D3 250-125 TABLET PO SCH ×2 (09:33→20:10)
[2019-05-10 12:25] VITALS: BP 118/73
[2019-05-10 19:17] VITALS: BP 108/63
[2019-05-11 01:06] VITALS: BP 105/63
[2019-05-11] MEDS: LIDODERM REMOVE PATCH NOTE XX SCH (05:00)
[2019-05-11] MEDS: CARVEDILOL 3.125 MG TABLET PO SCH ×2 (05:28→18:20)
[2019-05-11 07:17] VITALS: BP 111/68
[2019-05-11] MEDS: LACTULOSE 20 GM/30 ML UDC PO SCH ×3 (07:54→20:10)
[2019-05-11] MEDS: CALCIUM/VITAMIN D3 250-125 TABLET PO SCH ×2 (07:54→20:10)
[2019-05-11] MEDS: ENOXAPARIN 40 MG/0.4 ML SQ SCH (07:54)
[2019-05-11] MEDS: FERROUS SULFATE 325 MG TABLET PO SCH (07:54)
[2019-05-11] MEDS: RIFAXIMIN 550 MG TABLET PO SCH ×3 (07:54→20:14)
[2019-05-11 14:15] VITALS: BP 128/75
[2019-05-11] MEDS: LIDODERM 5% PATCH TD SCH (16:57)
[2019-05-11 18:57] VITALS: BP 138/79
[2019-05-12 00:27] VITALS: BP 99/63
[2019-05-12] MEDS: LIDODERM REMOVE PATCH NOTE XX SCH (04:35)
[2019-05-12] MEDS: CARVEDILOL 3.125 MG TABLET PO SCH ×2 (06:00→17:55)
[2019-05-12 06:25] LABS: MEAN CORPUSCULAR HEMOGLOBIN 30.5 pg (27.5-34.5); MEAN CORPUSCULAR HGB CONC 34.5 g/dL (33.2-36.2); MEAN CORPUSCULAR VOLUME 88.3 fL (81-97); MEAN PLATELET VOLUME 7.6 fL (7.4-10.4); PLATELET COUNT 108 x10^3/uL (130-400); RED BLOOD COUNT 3.51 x10^6/uL (4.38-5.82); RED CELL DISTRIBUTION WIDTH 19.7 % (9.4-14.8)
[2019-05-12 06:36] LABS: CHLORIDE 108 mmol/L (98-107)
[2019-05-12 07:12] LABS: BASOPHILS # (AUTO) 0.02 x10^3/uL (0-0.1); BASOPHILS % (AUTO) 1 % (0-1); EOSINOPHILS # (AUTO) 0.18 x10^3/uL (0-0.4); EOSINOPHILS % (AUTO) 7 % (1-7); LYMPHOCYTES # (AUTO) 0.72 x10^3/uL (1-3.4); LYMPHOCYTES % (AUTO) 28 % (22-44); MD MORPH REVIEW ONLY; MONOCYTES # (AUTO) 0.27 x10^3/uL (0.2-0.8); MONOCYTES % (AUTO) 10 % (2-9); NEUTROPHILS # (AUTO) 1.41 x10^3/uL (1.8-6.8); NEUTROPHILS % (AUTO) 54 % (42-75)
[2019-05-12 07:13] LABS: ANISOCYTOSIS 1+; ECHINOCYTES 1+; OVALOCYTES 1+
[2019-05-12 07:14] LABS: <PLATELET ESTIMATE> DECREASED; <PLT MORPHOLOGY> NORMAL PLT MORPH; TEAR DROPS 1+
[2019-05-12 07:27] LABS: ALANINE AMINOTRANSFERASE 22 U/L (12-78); ALKALINE PHOSPHATASE 95 U/L (45-117); ANION GAP 5 mmol/L (5-15); BILIRUBIN,TOTAL 0.8 mg/dL (0.2-1.0); CALCIUM 7.8 mg/dL (8.5-10.1); CREATININE 0.39 mg/dL (0.7-1.3); TOTAL PROTEIN 5.6 g/dL (6.4-8.2)
[2019-05-12 07:36] VITALS: BP 114/69
[2019-05-12] MEDS: ENOXAPARIN 40 MG/0.4 ML SQ SCH (07:40)
[2019-05-12] MEDS: LACTULOSE 20 GM/30 ML UDC PO SCH ×3 (07:40→21:02)
[2019-05-12] MEDS: CALCIUM/VITAMIN D3 250-125 TABLET PO SCH ×2 (07:42→21:02)
[2019-05-12] MEDS: RIFAXIMIN 550 MG TABLET PO SCH ×2 (07:43→21:02)
[2019-05-12 13:13] VITALS: BP 113/66
[2019-05-12] MEDS: LIDODERM 5% PATCH TD SCH (17:00)
[2019-05-12 18:58] VITALS: BP 113/69
[2019-05-13 01:01] VITALS: BP 113/69
[2019-05-13] MEDS: LIDODERM REMOVE PATCH NOTE XX SCH (05:00)
[2019-05-13 05:46] LABS: ANION GAP 3 mmol/L (5-15); CALCIUM 7.7 mg/dL (8.5-10.1); CHLORIDE 108 mmol/L (98-107)
[2019-05-13 05:47] LABS: CREATININE 0.48 mg/dL (0.7-1.3)
[2019-05-13 05:48] LABS: MEAN CORPUSCULAR HEMOGLOBIN 30.3 pg (27.5-34.5); MEAN CORPUSCULAR HGB CONC 34.1 g/dL (33.2-36.2); MEAN PLATELET VOLUME 7.9 fL (7.4-10.4); PLATELET COUNT 103 x10^3/uL (130-400); RED BLOOD COUNT 3.46 x10^6/uL (4.38-5.82); RED CELL DISTRIBUTION WIDTH 19.8 % (9.4-14.8)
[2019-05-13] MEDS: CARVEDILOL 3.125 MG TABLET PO SCH ×2 (06:00→18:00)
[2019-05-13 06:18] LABS: BASOPHILS # (AUTO) 0.03 x10^3/uL (0-0.1); BASOPHILS % (AUTO) 1 % (0-1); EOSINOPHILS # (AUTO) 0.14 x10^3/uL (0-0.4); EOSINOPHILS % (AUTO) 5 % (1-7); LYMPHOCYTES # (AUTO) 0.72 x10^3/uL (1-3.4); LYMPHOCYTES % (AUTO) 28 % (22-44); MD MORPH REVIEW ONLY; MONOCYTES # (AUTO) 0.26 x10^3/uL (0.2-0.8); MONOCYTES % (AUTO) 10 % (2-9); NEUTROPHILS # (AUTO) 1.46 x10^3/uL (1.8-6.8); NEUTROPHILS % (AUTO) 56 % (42-75)
[2019-05-13 06:21] LABS: ANISOCYTOSIS 1+; OVALOCYTES 1+
[2019-05-13 06:22] LABS: ECHINOCYTES 1+
[2019-05-13 06:23] LABS: <PLATELET ESTIMATE> DECREASED; <PLT MORPHOLOGY> NORMAL PLT MORPH; TEAR DROPS 1+
[2019-05-13] MEDS: FERROUS SULFATE 325 MG TABLET PO SCH (07:30)
[2019-05-13] MEDS: LACTULOSE 20 GM/30 ML UDC PO SCH ×3 (07:34→20:09)
[2019-05-13] MEDS: CALCIUM/VITAMIN D3 250-125 TABLET PO SCH ×2 (07:35→20:09)
[2019-05-13] MEDS: ENOXAPARIN 40 MG/0.4 ML SQ SCH (07:35)
[2019-05-13] MEDS: RIFAXIMIN 550 MG TABLET PO SCH ×2 (07:35→20:09)
[2019-05-13 07:54] VITALS: BP 116/70
[2019-05-13 15:15] VITALS: BP 112/67
[2019-05-13] MEDS: LIDODERM 5% PATCH TD SCH (16:45)
[2019-05-13 18:37] VITALS: BP 97/61
[2019-05-14 01:20] VITALS: BP 124/72
[2019-05-14] MEDS: LIDODERM REMOVE PATCH NOTE XX SCH (05:00)
[2019-05-14] MEDS: CARVEDILOL 3.125 MG TABLET PO SCH ×2 (05:59→17:07)
[2019-05-14] MEDS: ENOXAPARIN 40 MG/0.4 ML SQ SCH (06:00)
[2019-05-14 07:38] VITALS: BP 142/73
[2019-05-14] MEDS: RIFAXIMIN 550 MG TABLET PO SCH ×2 (08:46→20:50)
[2019-05-14] MEDS: LACTULOSE 20 GM/30 ML UDC PO SCH ×3 (08:46→20:50)
[2019-05-14] MEDS: CALCIUM/VITAMIN D3 250-125 TABLET PO SCH ×2 (08:46→20:50)
[2019-05-14 14:35] VITALS: BP 113/67
[2019-05-14] MEDS: LIDODERM 5% PATCH TD SCH (16:42)
[2019-05-14 20:12] VITALS: BP 111/69
[2019-05-15 02:49] VITALS: BP 100/58
[2019-05-15] MEDS: LIDODERM REMOVE PATCH NOTE XX SCH (04:06)
[2019-05-15] MEDS: CARVEDILOL 3.125 MG TABLET PO SCH ×2 (06:02→17:21)
[2019-05-15] MEDS: ENOXAPARIN 40 MG/0.4 ML SQ SCH (06:02)
[2019-05-15 06:42] VITALS: BP 108/65
[2019-05-15] MEDS: CALCIUM/VITAMIN D3 250-125 TABLET PO SCH ×2 (07:56→20:34)
[2019-05-15] MEDS: FERROUS SULFATE 325 MG TABLET PO SCH (07:57)
[2019-05-15] MEDS: RIFAXIMIN 550 MG TABLET PO SCH ×2 (07:57→20:34)
[2019-05-15] MEDS: LACTULOSE 20 GM/30 ML UDC PO SCH ×3 (07:57→20:34)
[2019-05-15 15:09] VITALS: BP 107/62
[2019-05-15] MEDS: LIDODERM 5% PATCH TD SCH (17:00)
[2019-05-15 19:32] VITALS: BP 104/62
[2019-05-16 02:10] VITALS: BP 106/63
[2019-05-16] MEDS: LIDODERM REMOVE PATCH NOTE XX SCH (04:44)
[2019-05-16] MEDS: ENOXAPARIN 40 MG/0.4 ML SQ SCH (06:10)
[2019-05-16] MEDS: CARVEDILOL 3.125 MG TABLET PO SCH ×2 (06:10→17:30)
[2019-05-16 08:36] VITALS: BP 96/60
[2019-05-16] MEDS: CALCIUM/VITAMIN D3 250-125 TABLET PO SCH ×2 (10:51→21:43)
[2019-05-16] MEDS: RIFAXIMIN 550 MG TABLET PO SCH ×2 (10:51→21:43)
[2019-05-16] MEDS: LACTULOSE 20 GM/30 ML UDC PO SCH ×3 (10:51→21:43)
[2019-05-16 15:59] VITALS: BP 113/67
[2019-05-16] MEDS: LIDODERM 5% PATCH TD SCH (17:00)
[2019-05-16 19:23] VITALS: BP 106/56
[2019-05-17 00:46] VITALS: BP 119/69
[2019-05-17] MEDS: LIDODERM REMOVE PATCH NOTE XX SCH (05:00)
[2019-05-17 05:58] VITALS: BP 122/68
[2019-05-17] MEDS: CARVEDILOL 3.125 MG TABLET PO SCH ×2 (06:00→17:53)
[2019-05-17] MEDS: ENOXAPARIN 40 MG/0.4 ML SQ SCH (06:01)
[2019-05-17 07:50] VITALS: BP 108/66
[2019-05-17] MEDS: CALCIUM/VITAMIN D3 250-125 TABLET PO SCH ×2 (10:30→20:25)
[2019-05-17] MEDS: LACTULOSE 20 GM/30 ML UDC PO SCH ×3 (10:31→20:25)
[2019-05-17] MEDS: FERROUS SULFATE 325 MG TABLET PO SCH (10:31)
[2019-05-17] MEDS: RIFAXIMIN 550 MG TABLET PO SCH ×2 (10:31→20:25)
[2019-05-17 14:15] VITALS: BP 100/63
[2019-05-17] MEDS: LIDODERM 5% PATCH TD SCH (17:00)
[2019-05-17 19:21] VITALS: BP 105/58
[2019-05-18 01:38] VITALS: BP 106/61
[2019-05-18] MEDS: LIDODERM REMOVE PATCH NOTE XX SCH (03:58)
[2019-05-18 05:18] LABS: MEAN CORPUSCULAR HEMOGLOBIN 30.8 pg (27.5-34.5); MEAN CORPUSCULAR HGB CONC 33.9 g/dL (33.2-36.2); MEAN CORPUSCULAR VOLUME 90.7 fL (81-97); MEAN PLATELET VOLUME 7.7 fL (7.4-10.4); PLATELET COUNT 91 x10^3/uL (130-400); RED BLOOD COUNT 3.53 x10^6/uL (4.38-5.82); RED CELL DISTRIBUTION WIDTH 19.3 % (9.4-14.8)
[2019-05-18 05:32] LABS: CHLORIDE 110 mmol/L (98-107)
[2019-05-18 05:40] LABS: ALANINE AMINOTRANSFERASE 24 U/L (12-78); ALBUMIN 2.1 g/dL (3.4-5.0); ALKALINE PHOSPHATASE 111 U/L (45-117); CALCIUM 7.9 mg/dL (8.5-10.1); CREATININE 0.44 mg/dL (0.7-1.3); TOTAL PROTEIN 5.8 g/dL (6.4-8.2)
[2019-05-18 05:44] VITALS: BP 106/59
[2019-05-18] MEDS: CARVEDILOL 3.125 MG TABLET PO SCH ×2 (05:49→17:18)
[2019-05-18] MEDS: ENOXAPARIN 40 MG/0.4 ML SQ SCH (05:50)
[2019-05-18 06:04] LABS: BASOPHILS # (AUTO) 0.02 x10^3/uL (0-0.1); BASOPHILS % (AUTO) 1 % (0-1); EOSINOPHILS # (AUTO) 0.11 x10^3/uL (0-0.4); EOSINOPHILS % (AUTO) 4 % (1-7); LYMPHOCYTES # (AUTO) 0.76 x10^3/uL (1-3.4); LYMPHOCYTES % (AUTO) 29 % (22-44); MD SCAN; MONOCYTES # (AUTO) 0.31 x10^3/uL (0.2-0.8); MONOCYTES % (AUTO) 12 % (2-9); NEUTROPHILS # (AUTO) 1.46 x10^3/uL (1.8-6.8); NEUTROPHILS % (AUTO) 55 % (42-75)
[2019-05-18 06:17] LABS: ANION GAP 4 mmol/L (5-15)
[2019-05-18] MEDS: RIFAXIMIN 550 MG TABLET PO SCH ×2 (07:44→20:57)
[2019-05-18] MEDS: CALCIUM/VITAMIN D3 250-125 TABLET PO SCH ×2 (07:44→20:57)
[2019-05-18] MEDS: LACTULOSE 20 GM/30 ML UDC PO SCH ×3 (07:44→20:57)
[2019-05-18 15:01] VITALS: BP 116/67
[2019-05-18] MEDS: LIDODERM 5% PATCH TD SCH (17:00)
[2019-05-18 18:59] VITALS: BP 108/60
[2019-05-19] MEDS: LIDODERM REMOVE PATCH NOTE XX SCH (00:13)
[2019-05-19 02:25] VITALS: BP 113/70
[2019-05-19] MEDS: CARVEDILOL 3.125 MG TABLET PO SCH (05:05)
[2019-05-19] MEDS: ENOXAPARIN 40 MG/0.4 ML SQ SCH (05:05)
[2019-05-19 06:41] VITALS: BP 104/66
[2019-05-19] MEDS: RIFAXIMIN 550 MG TABLET PO SCH ×2 (08:55→21:27)
[2019-05-19] MEDS: LACTULOSE 20 GM/30 ML UDC PO SCH ×3 (08:55→21:27)
[2019-05-19] MEDS: CALCIUM/VITAMIN D3 250-125 TABLET PO SCH ×2 (08:55→21:27)
[2019-05-19] MEDS: LIDODERM 5% PATCH TD SCH (10:39)
[2019-05-19 13:13] VITALS: BP 112/61
[2019-05-19] MEDS: FERROUS SULFATE 325 MG TABLET PO SCH (16:19)
[2019-05-19 20:24] VITALS: BP 106/70
[2019-05-20 00:30] VITALS: BP 119/64
[2019-05-20] MEDS: LIDODERM REMOVE PATCH NOTE XX SCH ×2 (03:49→23:29)
[2019-05-20] MEDS: ENOXAPARIN 40 MG/0.4 ML SQ SCH (05:27)
[2019-05-20 06:32] LABS: MEAN CORPUSCULAR HEMOGLOBIN 30.6 pg (27.5-34.5); MEAN CORPUSCULAR HGB CONC 33.4 g/dL (33.2-36.2); MEAN CORPUSCULAR VOLUME 91.4 fL (81-97); MEAN PLATELET VOLUME 8.1 fL (7.4-10.4); PLATELET COUNT 80 x10^3/uL (130-400); RED BLOOD COUNT 3.66 x10^6/uL (4.38-5.82)
[2019-05-20 06:34] LABS: RED CELL DISTRIBUTION WIDTH 19.8 % (9.4-14.8)
[2019-05-20 06:39] LABS: ANION GAP 3 mmol/L (5-15); CHLORIDE 108 mmol/L (98-107); CREATININE 0.56 mg/dL (0.7-1.3)
[2019-05-20 06:59] LABS: BASOPHILS # (AUTO) 0.02 x10^3/uL (0-0.1); BASOPHILS % (AUTO) 1 % (0-1); EOSINOPHILS # (AUTO) 0.12 x10^3/uL (0-0.4); EOSINOPHILS % (AUTO) 4 % (1-7); LYMPHOCYTES # (AUTO) 0.74 x10^3/uL (1-3.4); LYMPHOCYTES % (AUTO) 26 % (22-44); MD SCAN; MONOCYTES # (AUTO) 0.33 x10^3/uL (0.2-0.8); MONOCYTES % (AUTO) 11 % (2-9); NEUTROPHILS # (AUTO) 1.69 x10^3/uL (1.8-6.8); NEUTROPHILS % (AUTO) 58 % (42-75)
[2019-05-20 08:57] VITALS: BP 118/70
[2019-05-20] MEDS: LACTULOSE 20 GM/30 ML UDC PO SCH ×3 (09:33→20:48)
[2019-05-20] MEDS: CALCIUM/VITAMIN D3 250-125 TABLET PO SCH ×2 (09:33→20:48)
[2019-05-20] MEDS: RIFAXIMIN 550 MG TABLET PO SCH ×2 (09:33→20:48)
[2019-05-20 15:59] VITALS: BP 103/64
[2019-05-20] MEDS: LIDODERM 5% PATCH TD SCH (17:00)
[2019-05-20 18:36] VITALS: BP 101/59
[2019-05-21 00:56] VITALS: BP 105/64
[2019-05-21] MEDS: ENOXAPARIN 40 MG/0.4 ML SQ SCH (05:46)
[2019-05-21 05:53] LABS: BASOPHILS # (AUTO) 0.04 x10^3/uL (0-0.1); BASOPHILS % (AUTO) 2 % (0-1); EOSINOPHILS # (AUTO) 0.12 x10^3/uL (0-0.4); EOSINOPHILS % (AUTO) 5 % (1-7); LYMPHOCYTES # (AUTO) 0.67 x10^3/uL (1-3.4); LYMPHOCYTES % (AUTO) 26 % (22-44); MD SCAN; MEAN CORPUSCULAR HGB CONC 34.2 g/dL (33.2-36.2); MEAN CORPUSCULAR VOLUME 90.7 fL (81-97); MONOCYTES % (AUTO) 12 % (2-9); NEUTROPHILS # (AUTO) 1.44 x10^3/uL (1.8-6.8); NEUTROPHILS % (AUTO) 56 % (42-75); PLATELET COUNT 76 x10^3/uL (130-400); RED BLOOD COUNT 3.49 x10^6/uL (4.38-5.82); RED CELL DISTRIBUTION WIDTH 20.1 % (9.4-14.8)
[2019-05-21 06:51] VITALS: BP 107/63
[2019-05-21] MEDS: LACTULOSE 20 GM/30 ML UDC PO SCH ×3 (10:08→20:22)
[2019-05-21] MEDS: CALCIUM/VITAMIN D3 250-125 TABLET PO SCH ×2 (10:08→20:22)
[2019-05-21] MEDS: RIFAXIMIN 550 MG TABLET PO SCH ×2 (10:08→20:22)
[2019-05-21] MEDS: FERROUS SULFATE 325 MG TABLET PO SCH (10:11)
[2019-05-21 13:16] VITALS: BP 122/69
[2019-05-21] MEDS: LIDODERM 5% PATCH TD SCH (16:48)
[2019-05-21 19:01] VITALS: BP 114/68
[2019-05-21] MEDS: LIDODERM REMOVE PATCH NOTE XX SCH (19:04)
[2019-05-22 01:01] VITALS: BP 120/69
[2019-05-22] MEDS: ENOXAPARIN 40 MG/0.4 ML SQ SCH (04:57)
[2019-05-22 06:55] VITALS: BP 117/67
[2019-05-22] MEDS: LACTULOSE 20 GM/30 ML UDC PO SCH ×5 (09:33→21:34)
[2019-05-22] MEDS: RIFAXIMIN 550 MG TABLET PO SCH ×2 (09:33→21:31)
[2019-05-22] MEDS: CALCIUM/VITAMIN D3 250-125 TABLET PO SCH ×2 (09:33→21:31)
[2019-05-22] MEDS: ACETAMINOPHEN 500 MG TABLET PO PRN ×2 (12:15→21:31)
[2019-05-22 12:42] VITALS: BP 114/61
[2019-05-22] MEDS: LIDODERM 5% PATCH TD SCH (17:00)
[2019-05-22 19:31] VITALS: BP 106/66
[2019-05-23 01:51] VITALS: BP 114/76
[2019-05-23] MEDS: ACETAMINOPHEN 500 MG TABLET PO PRN ×2 (03:32→09:19)
[2019-05-23] MEDS: LIDODERM REMOVE PATCH NOTE XX SCH (05:00)
[2019-05-23] MEDS: ENOXAPARIN 40 MG/0.4 ML SQ SCH (05:14)
[2019-05-23] MEDS ORDERED: LACTULOSE 20 GM/30 ML UDC PO PRN (08:00)
[2019-05-23 08:33] VITALS: BP 117/65
[2019-05-23] MEDS: CALCIUM/VITAMIN D3 250-125 TABLET PO SCH ×2 (09:13→20:38)
[2019-05-23] MEDS: FERROUS SULFATE 325 MG TABLET PO SCH (09:13)
[2019-05-23] MEDS: RIFAXIMIN 550 MG TABLET PO SCH ×2 (09:13→20:38)
[2019-05-23 14:59] VITALS: BP 108/59
[2019-05-23] MEDS: LIDODERM 5% PATCH TD SCH (16:34)
[2019-05-23 19:53] VITALS: BP 113/67
[2019-05-24 01:21] VITALS: BP 122/73
[2019-05-24] MEDS: ACETAMINOPHEN 500 MG TABLET PO PRN ×2 (02:14→21:46)
[2019-05-24] MEDS: LIDODERM REMOVE PATCH NOTE XX SCH (05:00)
[2019-05-24] MEDS: ENOXAPARIN 40 MG/0.4 ML SQ SCH (05:13)
[2019-05-24 07:44] VITALS: BP 120/69
[2019-05-24] MEDS: CALCIUM/VITAMIN D3 250-125 TABLET PO SCH ×2 (10:19→20:56)
[2019-05-24] MEDS: RIFAXIMIN 550 MG TABLET PO SCH ×2 (10:19→20:56)
[2019-05-24] MEDS: LIDODERM 5% PATCH TD SCH (17:00)
[2019-05-24 20:51] VITALS: BP 110/67
[2019-05-25 01:50] VITALS: BP 103/60
[2019-05-25] MEDS: ACETAMINOPHEN 500 MG TABLET PO PRN ×2 (04:02→15:21)
[2019-05-25] MEDS: LIDODERM REMOVE PATCH NOTE XX SCH (05:00)
[2019-05-25] MEDS: ENOXAPARIN 40 MG/0.4 ML SQ SCH (05:47)
[2019-05-25 07:04] VITALS: BP 115/65
[2019-05-25] MEDS: RIFAXIMIN 550 MG TABLET PO SCH ×2 (09:06→20:47)
[2019-05-25] MEDS: FERROUS SULFATE 325 MG TABLET PO SCH (09:06)
[2019-05-25] MEDS: CALCIUM/VITAMIN D3 250-125 TABLET PO SCH ×2 (09:06→20:48)
[2019-05-25 13:50] VITALS: BP 128/62
[2019-05-25] MEDS: LIDODERM 5% PATCH TD SCH (17:00)
[2019-05-25 19:49] VITALS: BP 124/68
[2019-05-26 01:48] VITALS: BP 127/71
[2019-05-26] MEDS: ACETAMINOPHEN 500 MG TABLET PO PRN ×2 (02:52→14:17)
[2019-05-26] MEDS: LIDODERM REMOVE PATCH NOTE XX SCH (03:19)
[2019-05-26] MEDS: ENOXAPARIN 40 MG/0.4 ML SQ SCH (06:17)
[2019-05-26 07:59] VITALS: BP 121/68
[2019-05-26] MEDS: RIFAXIMIN 550 MG TABLET PO SCH ×2 (10:56→21:22)
[2019-05-26] MEDS: CALCIUM/VITAMIN D3 250-125 TABLET PO SCH ×2 (10:56→21:22)
[2019-05-26] MEDS: LIDODERM 5% PATCH TD SCH (14:18)
[2019-05-26 14:19] VITALS: BP 106/60
[2019-05-26 19:49] VITALS: BP 127/70
[2019-05-27 00:43] VITALS: BP 127/68
[2019-05-27] MEDS: LIDODERM REMOVE PATCH NOTE XX SCH (00:44)
[2019-05-27] MEDS: ENOXAPARIN 40 MG/0.4 ML SQ SCH (06:32)
[2019-05-27 06:41] VITALS: BP 112/67
[2019-05-27] MEDS: FERROUS SULFATE 325 MG TABLET PO SCH (08:25)
[2019-05-27] MEDS: RIFAXIMIN 550 MG TABLET PO SCH ×2 (08:25→20:04)
[2019-05-27] MEDS: CALCIUM/VITAMIN D3 250-125 TABLET PO SCH ×2 (08:25→20:04)
[2019-05-27 14:55] VITALS: BP 108/72
[2019-05-27] MEDS: LIDODERM 5% PATCH TD SCH (17:00)
[2019-05-27] MEDS: ACETAMINOPHEN 500 MG TABLET PO PRN (17:46)
[2019-05-27 20:01] VITALS: BP 100/62
[2019-05-28 02:45] VITALS: BP 104/65
[2019-05-28] MEDS: LIDODERM REMOVE PATCH NOTE XX SCH (04:13)
[2019-05-28] MEDS: ENOXAPARIN 40 MG/0.4 ML SQ SCH (05:23)
[2019-05-28 05:35] LABS: CREATININE 0.54 mg/dL (0.7-1.3)
[2019-05-28 09:25] VITALS: BP 118/67
[2019-05-28] MEDS: CALCIUM/VITAMIN D3 250-125 TABLET PO SCH ×2 (09:37→19:33)
[2019-05-28] MEDS: RIFAXIMIN 550 MG TABLET PO SCH ×2 (09:37→19:33)
[2019-05-28] MEDS: ACETAMINOPHEN 500 MG TABLET PO PRN (12:48)
[2019-05-28 14:40] VITALS: BP 106/70
[2019-05-28] MEDS: LIDODERM 5% PATCH TD SCH (17:00)
[2019-05-28 19:35] VITALS: BP 126/74
[2019-05-29 03:01] VITALS: BP 110/65
[2019-05-29] MEDS: LIDODERM REMOVE PATCH NOTE XX SCH (03:56)
[2019-05-29] MEDS: ENOXAPARIN 40 MG/0.4 ML SQ SCH (05:07)
[2019-05-29 05:23] LABS: ALBUMIN 2.4 g/dL (3.4-5.0); ANION GAP 6 mmol/L (5-15); CALCIUM 8.1 mg/dL (8.5-10.1); CHLORIDE 111 mmol/L (98-107); MEAN CORPUSCULAR HEMOGLOBIN 31.6 pg (27.5-34.5); MEAN CORPUSCULAR HGB CONC 34.5 g/dL (33.2-36.2); MEAN CORPUSCULAR VOLUME 91.8 fL (81-97); RED BLOOD COUNT 3.43 x10^6/uL (4.38-5.82); RED CELL DISTRIBUTION WIDTH 19.6 % (9.4-14.8)
[2019-05-29 05:27] LABS: ALANINE AMINOTRANSFERASE 36 U/L (12-78); ALKALINE PHOSPHATASE 109 U/L (45-117); BILIRUBIN,TOTAL 1.3 mg/dL (0.2-1.0); CREATININE 0.54 mg/dL (0.7-1.3); TOTAL PROTEIN 6.2 g/dL (6.4-8.2)
[2019-05-29 05:55] LABS: BASOPHILS # (AUTO) 0.02 x10^3/uL (0-0.1); BASOPHILS % (AUTO) 1 % (0-1); EOSINOPHILS # (AUTO) 0.16 x10^3/uL (0-0.4); EOSINOPHILS % (AUTO) 6 % (1-7); LYMPHOCYTES % (AUTO) 23 % (22-44); MD SCAN; MEAN PLATELET VOLUME 8.9 fL (7.4-10.4); MONOCYTES # (AUTO) 0.22 x10^3/uL (0.2-0.8); MONOCYTES % (AUTO) 8 % (2-9); NEUTROPHILS # (AUTO) 1.64 x10^3/uL (1.8-6.8); NEUTROPHILS % (AUTO) 62 % (42-75); PLATELET COUNT 63 x10^3/uL (130-400)
[2019-05-29 07:33] VITALS: BP 134/74
[2019-05-29] MEDS: RIFAXIMIN 550 MG TABLET PO SCH ×2 (08:30→19:39)
[2019-05-29] MEDS: CALCIUM/VITAMIN D3 250-125 TABLET PO SCH ×2 (08:30→19:38)
[2019-05-29] MEDS: FERROUS SULFATE 325 MG TABLET PO SCH (08:30)
[2019-05-29] MEDS: ACETAMINOPHEN 500 MG TABLET PO PRN (11:40)
[2019-05-29 12:35] VITALS: BP 126/66
[2019-05-29] MEDS: LIDODERM 5% PATCH TD SCH (16:45)
[2019-05-29 18:53] VITALS: BP 114/68
[2019-05-30 00:33] VITALS: BP 112/71
[2019-05-30] MEDS: LIDODERM REMOVE PATCH NOTE XX SCH (05:00)
[2019-05-30] MEDS: LIDODERM 5% PATCH TD SCH (07:44)
[2019-05-30 08:06] VITALS: BP 155/79
[2019-05-30] MEDS: CALCIUM/VITAMIN D3 250-125 TABLET PO SCH ×2 (09:17→20:03)
[2019-05-30] MEDS: RIFAXIMIN 550 MG TABLET PO SCH ×2 (09:17→20:03)
[2019-05-30] MEDS: ACETAMINOPHEN 500 MG TABLET PO PRN (11:38)
[2019-05-30 14:24] VITALS: BP 114/71
[2019-05-30 20:16] VITALS: BP 114/70
[2019-05-31] MEDS: ACETAMINOPHEN 500 MG TABLET PO PRN ×2 (00:56→06:41)
[2019-05-31] MEDS: LIDODERM REMOVE PATCH NOTE XX SCH (01:22)
[2019-05-31 01:47] VITALS: BP 119/74
[2019-05-31 07:50] VITALS: BP 128/69
[2019-05-31] MEDS: FERROUS SULFATE 325 MG TABLET PO SCH (09:07)
[2019-05-31] MEDS: RIFAXIMIN 550 MG TABLET PO SCH ×2 (09:07→20:26)
[2019-05-31] MEDS: CALCIUM/VITAMIN D3 250-125 TABLET PO SCH ×2 (09:07→20:26)
[2019-05-31 12:35] LABS: CLOSTRIDIUM DIFFICILE ANTIGEN NEGATIVE; CLOSTRIDIUM DIFFICILE TOXIN NEGATIVE (Negative)
[2019-05-31] MEDS: LIDODERM 5% PATCH TD SCH (15:06)
[2019-05-31 16:01] VITALS: BP 124/67
[2019-05-31 20:44] VITALS: BP 92/52
[2019-06-01 01:45] VITALS: BP 90/68
[2019-06-01] MEDS: LIDODERM REMOVE PATCH NOTE XX SCH (04:15)
[2019-06-01 08:02] VITALS: BP 129/75
[2019-06-01] MEDS: RIFAXIMIN 550 MG TABLET PO SCH ×2 (08:50→20:24)
[2019-06-01] MEDS: CALCIUM/VITAMIN D3 250-125 TABLET PO SCH ×2 (08:50→20:24)
[2019-06-01 14:22] VITALS: BP 126/69
[2019-06-01] MEDS: LIDODERM 5% PATCH TD SCH (15:58)
[2019-06-01] MEDS: ACETAMINOPHEN 500 MG TABLET PO PRN (17:55)
[2019-06-01 19:28] VITALS: BP 127/74
[2019-06-02 01:20] VITALS: BP 125/75
[2019-06-02] MEDS: ACETAMINOPHEN 500 MG TABLET PO PRN ×2 (03:34→09:27)
[2019-06-02 07:05] VITALS: BP 124/73
[2019-06-02] MEDS: RIFAXIMIN 550 MG TABLET PO SCH (09:27)
[2019-06-02] MEDS: CALCIUM/VITAMIN D3 250-125 TABLET PO SCH (09:27)
[2019-06-02] MEDS: FERROUS SULFATE 325 MG TABLET PO SCH (09:27)
[2019-06-02] MEDS ORDERED: RIFA550T4 PO (09:59)
[2019-06-02] MEDS ORDERED: FERR-51 PO (09:59)
[2019-06-02] MEDS ORDERED: ACET500T64 PO (09:59)
== END 2019-06-02 14:54 | disposition home or self-care (01) | DRG 279 ==
LOC: ED 23:16 → EDIP 05-08 00:54 → 3N 05-08 00:59
PROVIDERS: ADMIT Internal Medicine; ATTEND Family Medicine
DX: K72.90 Hepatic failure, unspecified without coma (principal); D69.6 Thrombocytopenia, unspecified; I85.10 Secondary esophageal varices without bleeding; E83.51 Hypocalcemia; D50.9 Iron deficiency anemia, unspecified; F10.10 Alcohol abuse, uncomplicated; B18.1 Chronic viral hepatitis B without delta-agent; K76.6 Portal hypertension; I73.9 Peripheral vascular disease, unspecified; B19.20 Unspecified viral hepatitis C without hepatic coma; K70.30 Alcoholic cirrhosis of liver without ascites; M19.90 Unspecified osteoarthritis, unspecified site; I87.2 Venous insufficiency (chronic) (peripheral); R29.6 Repeated falls; R26.89 Other abnormalities of gait and mobility; R53.81 Other malaise; R60.0 Localized edema; Z59.0 Homelessness; Z91.19 Patient's noncompliance with other medical treatment and regimen
CPT/HCPCS: 36415; 70450; 80048; 80053; 80061; 80307; 81003; 82140; 82330; 82565; 83036; 83540; 83550; 83735; 84439; 84443; 85025; 85610; 87324; 99285; G0378; J1650

== ENCOUNTER → 2019-06-04 | Outpatient (CLI) | payer MEDICAID ==
[~2019-06-04] MED LIST changes: +ACET500T64 PO; +FERR-51 PO
== END | disposition home or self-care (01) ==
LOC: WOUND 09:54
PROVIDERS: ATTEND Internal Medicine
DX: L97.822 Non-pressure chronic ulcer of other part of left lower leg with fat layer exposed (principal); L97.812 Non-pressure chronic ulcer of other part of right lower leg with fat layer exposed; I50.9 Heart failure, unspecified; F17.210 Nicotine dependence, cigarettes, uncomplicated; I73.9 Peripheral vascular disease, unspecified; I87.2 Venous insufficiency (chronic) (peripheral); B19.20 Unspecified viral hepatitis C without hepatic coma; M19.90 Unspecified osteoarthritis, unspecified site
CPT/HCPCS: 11042; 11045

== ENCOUNTER 2019-06-09 14:08 | Inpatient (IN) | payer MEDICAID ==
[~2019-06-09] VITALS: Ht 172.7 cm; Wt 74.5 kg
--- NOTE | 2019-06-09 16:21 | NUR ---
Pt to room 15 from lobby
[2019-06-09 16:24] LABS: ALBUMIN 2.5 g/dL (3.4-5.0); ANION GAP 5 mmol/L (5-15); CALCIUM 7.5 mg/dL (8.5-10.1); CHLORIDE 106 mmol/L (98-107)
[2019-06-09 16:30] LABS: CREATININE 0.56 mg/dL (0.7-1.3)
[2019-06-09 16:46] LABS: MEAN CORPUSCULAR HEMOGLOBIN 31.8 pg (27.5-34.5); MEAN CORPUSCULAR HGB CONC 33.5 g/dL (33.2-36.2); MEAN CORPUSCULAR VOLUME 94.8 fL (81-97); MEAN PLATELET VOLUME 7.7 fL (7.4-10.4); PLATELET COUNT 82 x10^3/uL (130-400); RED BLOOD COUNT 3.57 x10^6/uL (4.38-5.82); RED CELL DISTRIBUTION WIDTH 16.6 % (9.4-14.8)
[2019-06-09 16:50] LABS: BASOPHILS # (AUTO) 0.02 x10^3/uL (0-0.1); BASOPHILS % (AUTO) 0 % (0-1); EOSINOPHILS % (AUTO) 3 % (1-7); LYMPHOCYTES # (AUTO) 0.68 x10^3/uL (1-3.4); LYMPHOCYTES % (AUTO) 11 % (22-44); MD MORPH REVIEW ONLY; MONOCYTES # (AUTO) 0.53 x10^3/uL (0.2-0.8); MONOCYTES % (AUTO) 9 % (2-9); NEUTROPHILS # (AUTO) 4.55 x10^3/uL (1.8-6.8); NEUTROPHILS % (AUTO) 76 % (42-75)
[2019-06-09 16:52] LABS: ANISOCYTOSIS 1+; OVALOCYTES 1+
--- NOTE | 2019-06-09 16:52 | NUR ---
PT HAS CO RIGHT HAND PAIN. PT HAD BILAT LOWER EXTREMITY 3 + EDEMA W OPEN WEEPING WOUNDS. PT IS POOR HISTORIAN. PT NOT IN DISTRESS
[2019-06-09 16:53] LABS: POLYCHROMASIA 1+; TEAR DROPS 1+
[2019-06-09 16:54] LABS: <PLATELET ESTIMATE> DECREASED; <PLT MORPHOLOGY> NORMAL PLT MORPH
--- NOTE | 2019-06-09 17:50 | NUR ---
IMAGING COMPLETE. VSS
[2019-06-09] MEDS ORDERED: PIPERACILLIN/TAZO/PMX 3.375GM 50 ML IV ONE (18:00)
--- NOTE | 2019-06-09 18:28 | NUR ---
IV ESTABLISHED. PLAN FOR ADMIT. MEAL TRAY ORDERED. NO NEEDS AT THIS TIME
[2019-06-09] MEDS ORDERED: SODIUM CHLORIDE FLUSH 10ML SYR IVF PRN (18:30)
[2019-06-09] MEDS ORDERED: PIPERACILLIN/TAZO/PMX 3.375GM 50 ML ONE (18:40)
--- NOTE | 2019-06-09 18:55 | NUR ---
GIVEN MEAL TRAY. H AT BEDSIDE.
[2019-06-09] MEDS ORDERED: PROMETHAZINE 25 MG/ML, 1ML IM PRN (19:00)
[2019-06-09] MEDS ORDERED: ONDANSETRON 2MG/ML, 2ML IVPush PRN (19:00)
[2019-06-09] MEDS ORDERED: VANCOMYCIN PER PHARMACY MC PRN (19:00)
[2019-06-09] MEDS ORDERED: VANCOMYCIN PMX 1GM/200ML 200 ML IV ONE (19:00)
--- NOTE | 2019-06-09 19:50 | NUR ---
REPORT TO ENEDELIA
--- NOTE | 2019-06-09 19:50 | NUR ---
Yoseph granados in ED - 06/09/19 at 1950 by SHELLY Patient/Caregiver given discharge instructions and they have confirmed that they understand the instructions. Patient ambulatory with steady gait.
[2019-06-09] MEDS ORDERED: PHARMACOKINETIC CONSULTATION MC ONE (20:30)
[2019-06-09] MEDS ORDERED: PHARMACOKINETIC MONITORING MC PRN (20:30)
[2019-06-09] MEDS ORDERED: VANCOMYCIN 1,800 MG in SODIUM CHLORIDE 0.9% 250 ML IV ONE (21:00)
[2019-06-09 21:49] VITALS: BP 90/50
[2019-06-09 22:59] VITALS: BP 117/60
[2019-06-09] MEDS: ENOXAPARIN 40 MG/0.4 ML SQ SCH (23:00)
[2019-06-09] MEDS: RIFAXIMIN 550 MG TABLET PO SCH (23:07)
[2019-06-09] MEDS: FERROUS SULFATE 325 MG TABLET PO SCH (23:07)
[2019-06-09] MEDS: OXYcodone IR 5MG TABLET PO PRN (23:07)
[2019-06-10 02:35] VITALS: BP 112/77
[2019-06-10 05:09] LABS: MEAN CORPUSCULAR HEMOGLOBIN 31.7 pg (27.5-34.5); MEAN CORPUSCULAR HGB CONC 34.2 g/dL (33.2-36.2); MEAN CORPUSCULAR VOLUME 92.8 fL (81-97); MEAN PLATELET VOLUME 7.5 fL (7.4-10.4); PLATELET COUNT 72 x10^3/uL (130-400); RED BLOOD COUNT 3.11 x10^6/uL (4.38-5.82); RED CELL DISTRIBUTION WIDTH 16.4 % (9.4-14.8)
[2019-06-10 05:21] LABS: ALANINE AMINOTRANSFERASE 41 U/L (12-78); ANION GAP 6 mmol/L (5-15); CHLORIDE 109 mmol/L (98-107); CREATININE 0.58 mg/dL (0.7-1.3)
[2019-06-10 05:22] LABS: ALKALINE PHOSPHATASE 68 U/L (45-117); BILIRUBIN,TOTAL 2.7 mg/dL (0.2-1.0)
[2019-06-10 06:09] LABS: BASOPHILS # (AUTO) 0.01 x10^3/uL (0-0.1); BASOPHILS % (AUTO) 0 % (0-1); EOSINOPHILS # (AUTO) 0.23 x10^3/uL (0-0.4); EOSINOPHILS % (AUTO) 6 % (1-7); LYMPHOCYTES # (AUTO) 0.65 x10^3/uL (1-3.4); LYMPHOCYTES % (AUTO) 18 % (22-44); MD SCAN; MONOCYTES # (AUTO) 0.35 x10^3/uL (0.2-0.8); MONOCYTES % (AUTO) 10 % (2-9); NEUTROPHILS % (AUTO) 66 % (42-75)
[2019-06-10] MEDS: AMPICILLIN/SULBACTAM 3 GM in SODIUM CHLORIDE 0.9% 100 ML IV SCH ×4 (07:08→17:28)
[2019-06-10] MEDS ORDERED: POTASSIUM PHOSPHATE 44 MEQ in SODIUM CHLORIDE 0.9% 500 ML IV ONE (07:30)
[2019-06-10] MEDS ORDERED: MAGNESIUM SULFATE PMX 2GM/50ML 50 ML IV ONE (07:30)
[2019-06-10] MEDS: RIFAXIMIN 550 MG TABLET PO SCH ×2 (08:09→21:57)
[2019-06-10] MEDS: LACTULOSE 10 GM/15 ML UDC PO SCH ×2 (08:10→21:57)
[2019-06-10] MEDS: OXYcodone IR 5MG TABLET PO PRN ×2 (08:30→17:28)
[2019-06-10 08:59] VITALS: BP 103/61
[2019-06-10] MEDS ORDERED: LACTULOSE 10 GM/15 ML UDC PO SCH (09:00)
[2019-06-10] MEDS: VANCOMYCIN 1,500 MG in SODIUM CHLORIDE 0.9% 250 ML IV SCH ×2 (09:46→21:58)
[2019-06-10 12:32] VITALS: BP 126/66
[2019-06-10 19:58] VITALS: BP 116/62
[2019-06-10] MEDS: ENOXAPARIN 40 MG/0.4 ML SQ SCH (21:57)
[2019-06-11] MEDS: AMPICILLIN/SULBACTAM 3 GM in SODIUM CHLORIDE 0.9% 100 ML IV SCH ×4 (00:16→18:08)
[2019-06-11 02:17] VITALS: BP 115/71
[2019-06-11] MEDS: OXYcodone IR 5MG TABLET PO PRN ×3 (02:58→16:34)
[2019-06-11 06:56] VITALS: BP 117/71
[2019-06-11] MEDS: LACTULOSE 10 GM/15 ML UDC PO SCH ×4 (08:00→20:09)
[2019-06-11] MEDS: RIFAXIMIN 550 MG TABLET PO SCH ×2 (08:00→20:09)
[2019-06-11 09:18] LABS: ANION GAP 6 mmol/L (5-15); CALCIUM 7.3 mg/dL (8.5-10.1); CHLORIDE 110 mmol/L (98-107); CREATININE 0.62 mg/dL (0.7-1.3)
[2019-06-11] MEDS: VANCOMYCIN 1,500 MG in SODIUM CHLORIDE 0.9% 250 ML IV SCH (09:24)
[2019-06-11 09:28] LABS: MEAN CORPUSCULAR HEMOGLOBIN 31.5 pg (27.5-34.5); MEAN CORPUSCULAR HGB CONC 33.8 g/dL (33.2-36.2); MEAN CORPUSCULAR VOLUME 93.3 fL (81-97); MEAN PLATELET VOLUME 7.2 fL (7.4-10.4); PLATELET COUNT 74 x10^3/uL (130-400); RED BLOOD COUNT 3.28 x10^6/uL (4.38-5.82); RED CELL DISTRIBUTION WIDTH 15.8 % (9.4-14.8)
[2019-06-11 09:59] LABS: BASOPHILS # (AUTO) 0.01 x10^3/uL (0-0.1); BASOPHILS % (AUTO) 1 % (0-1); EOSINOPHILS # (AUTO) 0.22 x10^3/uL (0-0.4); EOSINOPHILS % (AUTO) 10 % (1-7); LYMPHOCYTES # (AUTO) 0.46 x10^3/uL (1-3.4); LYMPHOCYTES % (AUTO) 20 % (22-44); MD SCAN; MONOCYTES # (AUTO) 0.25 x10^3/uL (0.2-0.8); MONOCYTES % (AUTO) 11 % (2-9); NEUTROPHILS # (AUTO) 1.34 x10^3/uL (1.8-6.8); NEUTROPHILS % (AUTO) 59 % (42-75)
[2019-06-11 10:04] LABS: VANCOMYCIN,TROUGH 7.2 mcg/mL (5.0-10.0)
[2019-06-11 12:12] VITALS: BP 120/76
[2019-06-11 18:53] VITALS: BP 129/73
[2019-06-11] MEDS: VANCOMYCIN 1,300 MG in SODIUM CHLORIDE 0.9% 250 ML IV SCH (20:04)
[2019-06-11] MEDS: FERROUS SULFATE 325 MG TABLET PO SCH (20:09)
[2019-06-11] MEDS: ENOXAPARIN 40 MG/0.4 ML SQ SCH (20:09)
[2019-06-12] MEDS: AMPICILLIN/SULBACTAM 3 GM in SODIUM CHLORIDE 0.9% 100 ML IV SCH ×3 (01:01→13:54)
[2019-06-12 03:23] VITALS: BP 125/70
[2019-06-12] MEDS: VANCOMYCIN 1,300 MG in SODIUM CHLORIDE 0.9% 250 ML IV SCH ×3 (04:07→19:42)
[2019-06-12] MEDS: ACETAMINOPHEN 325 MG TABLET PO PRN (04:08)
[2019-06-12] MEDS: OXYcodone IR 5MG TABLET PO PRN ×4 (04:08→18:14)
[2019-06-12] MEDS: LACTULOSE 10 GM/15 ML UDC PO SCH ×4 (06:00→20:26)
[2019-06-12 08:00] VITALS: BP 102/62
[2019-06-12] MEDS: RIFAXIMIN 550 MG TABLET PO SCH ×2 (08:20→20:26)
[2019-06-12 09:45] LABS: MEAN CORPUSCULAR HEMOGLOBIN 32.1 pg (27.5-34.5); MEAN CORPUSCULAR VOLUME 91.7 fL (81-97); MEAN PLATELET VOLUME 7.3 fL (7.4-10.4); PLATELET COUNT 72 x10^3/uL (130-400); RED BLOOD COUNT 3.31 x10^6/uL (4.38-5.82); RED CELL DISTRIBUTION WIDTH 15.6 % (9.4-14.8)
[2019-06-12 10:16] LABS: MD SCAN
[2019-06-12 10:17] LABS: BASOPHILS # (AUTO) 0.02 x10^3/uL (0-0.1); BASOPHILS % (AUTO) 2 % (0-1); EOSINOPHILS # (AUTO) 0.17 x10^3/uL (0-0.4); EOSINOPHILS % (AUTO) 11 % (1-7); LYMPHOCYTES # (AUTO) 0.48 x10^3/uL (1-3.4); LYMPHOCYTES % (AUTO) 31 % (22-44); MONOCYTES # (AUTO) 0.24 x10^3/uL (0.2-0.8); MONOCYTES % (AUTO) 16 % (2-9); NEUTROPHILS # (AUTO) 0.65 x10^3/uL (1.8-6.8); NEUTROPHILS % (AUTO) 42 % (42-75)
[2019-06-12 13:40] VITALS: BP 126/73
[2019-06-12] MEDS: GABAPENTIN 100 MG CAPSULE PO SCH ×2 (18:11→22:39)
[2019-06-12 19:34] VITALS: BP 130/76
[2019-06-12] MEDS: ENOXAPARIN 40 MG/0.4 ML SQ SCH (20:25)
[2019-06-13 01:21] VITALS: BP 116/64
[2019-06-13] MEDS: VANCOMYCIN 1,300 MG in SODIUM CHLORIDE 0.9% 250 ML IV SCH ×3 (03:34→20:01)
[2019-06-13] MEDS: OXYcodone IR 5MG TABLET PO PRN ×5 (03:40→23:48)
[2019-06-13] MEDS: ACETAMINOPHEN 325 MG TABLET PO PRN (05:01)
[2019-06-13] MEDS: LACTULOSE 10 GM/15 ML UDC PO SCH ×4 (06:20→20:01)
[2019-06-13 07:57] VITALS: BP 139/76
[2019-06-13] MEDS: GABAPENTIN 100 MG CAPSULE PO SCH ×3 (08:08→20:02)
[2019-06-13] MEDS: RIFAXIMIN 550 MG TABLET PO SCH ×2 (08:08→20:02)
[2019-06-13 15:13] VITALS: BP 131/79
[2019-06-13] MEDS ORDERED: PINK LADY ENEMA 490 ML BOTTLE PR ONE (15:30)
[2019-06-13 19:21] VITALS: BP 127/75
[2019-06-13] MEDS: FERROUS SULFATE 325 MG TABLET PO SCH (20:02)
[2019-06-13] MEDS: ENOXAPARIN 40 MG/0.4 ML SQ SCH (20:03)
[2019-06-14 00:11] VITALS: BP 117/66
[2019-06-14] MEDS: VANCOMYCIN 1,300 MG in SODIUM CHLORIDE 0.9% 250 ML IV SCH ×3 (03:38→19:50)
[2019-06-14] MEDS: LACTULOSE 10 GM/15 ML UDC PO SCH ×5 (06:25→19:50)
[2019-06-14] MEDS: OXYcodone IR 5MG TABLET PO PRN ×3 (06:26→16:29)
[2019-06-14 08:06] VITALS: BP 121/71
[2019-06-14] MEDS: GABAPENTIN 100 MG CAPSULE PO SCH ×3 (08:23→19:50)
[2019-06-14] MEDS: RIFAXIMIN 550 MG TABLET PO SCH ×2 (08:23→19:50)
[2019-06-14 08:49] LABS: CALCIUM 7.7 mg/dL (8.5-10.1); CHLORIDE 113 mmol/L (98-107)
[2019-06-14 08:51] LABS: CREATININE 0.53 mg/dL (0.7-1.3)
[2019-06-14 08:58] LABS: ANION GAP 4 mmol/L (5-15)
[2019-06-14 08:59] LABS: MEAN CORPUSCULAR HEMOGLOBIN 31.7 pg (27.5-34.5); MEAN CORPUSCULAR HGB CONC 34.3 g/dL (33.2-36.2); MEAN CORPUSCULAR VOLUME 92.5 fL (81-97); RED BLOOD COUNT 3.55 x10^6/uL (4.38-5.82); RED CELL DISTRIBUTION WIDTH 15.4 % (9.4-14.8)
[2019-06-14 09:19] LABS: MEAN PLATELET VOLUME 7.2 fL (7.4-10.4); PLATELET COUNT 88 x10^3/uL (130-400)
[2019-06-14 09:21] LABS: BASOPHILS # (AUTO) 0.02 x10^3/uL (0-0.1); BASOPHILS % (AUTO) 1 % (0-1); EOSINOPHILS # (AUTO) 0.17 x10^3/uL (0-0.4); EOSINOPHILS % (AUTO) 8 % (1-7); LYMPHOCYTES # (AUTO) 0.64 x10^3/uL (1-3.4); LYMPHOCYTES % (AUTO) 30 % (22-44); MD SCAN; MONOCYTES # (AUTO) 0.24 x10^3/uL (0.2-0.8); MONOCYTES % (AUTO) 11 % (2-9); NEUTROPHILS # (AUTO) 1.05 x10^3/uL (1.8-6.8); NEUTROPHILS % (AUTO) 50 % (42-75)
[2019-06-14 13:30] VITALS: BP 108/64
[2019-06-14 19:14] VITALS: BP 120/75
[2019-06-14] MEDS: ENOXAPARIN 40 MG/0.4 ML SQ SCH (19:50)
[2019-06-15 00:27] VITALS: BP 112/76
[2019-06-15] MEDS: OXYcodone IR 5MG TABLET PO PRN ×5 (01:14→23:42)
[2019-06-15] MEDS: VANCOMYCIN 1,300 MG in SODIUM CHLORIDE 0.9% 250 ML IV SCH ×3 (03:34→19:39)
[2019-06-15] MEDS: LACTULOSE 10 GM/15 ML UDC PO SCH ×4 (05:39→19:39)
[2019-06-15 08:34] VITALS: BP 126/75
[2019-06-15] MEDS: GABAPENTIN 100 MG CAPSULE PO SCH ×3 (09:20→19:39)
[2019-06-15] MEDS: RIFAXIMIN 550 MG TABLET PO SCH ×2 (09:20→19:39)
[2019-06-15 09:46] LABS: MEAN CORPUSCULAR HEMOGLOBIN 31.4 pg (27.5-34.5); MEAN CORPUSCULAR VOLUME 92.5 fL (81-97); RED BLOOD COUNT 3.55 x10^6/uL (4.38-5.82); RED CELL DISTRIBUTION WIDTH 15.7 % (9.4-14.8)
[2019-06-15 09:53] LABS: PLATELET COUNT 93 x10^3/uL (130-400)
[2019-06-15 09:54] LABS: BASOPHILS # (AUTO) 0.03 x10^3/uL (0-0.1); BASOPHILS % (AUTO) 2 % (0-1); EOSINOPHILS # (AUTO) 0.14 x10^3/uL (0-0.4); EOSINOPHILS % (AUTO) 6 % (1-7); LYMPHOCYTES # (AUTO) 0.78 x10^3/uL (1-3.4); LYMPHOCYTES % (AUTO) 35 % (22-44); MD SCAN; MONOCYTES # (AUTO) 0.26 x10^3/uL (0.2-0.8); MONOCYTES % (AUTO) 12 % (2-9); NEUTROPHILS # (AUTO) 1.03 x10^3/uL (1.8-6.8); NEUTROPHILS % (AUTO) 46 % (42-75)
[2019-06-15 13:49] VITALS: BP 111/62
[2019-06-15] MEDS: FERROUS SULFATE 325 MG TABLET PO SCH (19:39)
[2019-06-15] MEDS: ENOXAPARIN 40 MG/0.4 ML SQ SCH (19:40)
[2019-06-15 20:49] VITALS: BP 111/69
[2019-06-16 01:49] VITALS: BP 124/66
[2019-06-16] MEDS: VANCOMYCIN 1,300 MG in SODIUM CHLORIDE 0.9% 250 ML IV SCH ×3 (03:40→21:14)
[2019-06-16] MEDS: OXYcodone IR 5MG TABLET PO PRN ×5 (03:45→22:07)
[2019-06-16] MEDS: LACTULOSE 10 GM/15 ML UDC PO SCH ×4 (06:21→21:14)
[2019-06-16 06:52] VITALS: BP 115/63
[2019-06-16] MEDS: GABAPENTIN 100 MG CAPSULE PO SCH ×3 (09:23→21:14)
[2019-06-16] MEDS: RIFAXIMIN 550 MG TABLET PO SCH ×2 (09:23→21:14)
[2019-06-16 14:00] VITALS: BP 125/68
[2019-06-16 19:52] VITALS: BP 117/63
[2019-06-16] MEDS: ENOXAPARIN 40 MG/0.4 ML SQ SCH (21:14)
[2019-06-17 01:15] VITALS: BP 125/73
[2019-06-17] MEDS: OXYcodone IR 5MG TABLET PO PRN ×3 (03:08→19:57)
[2019-06-17] MEDS: VANCOMYCIN 1,300 MG in SODIUM CHLORIDE 0.9% 250 ML IV SCH ×2 (05:10→13:31)
[2019-06-17] MEDS: LACTULOSE 10 GM/15 ML UDC PO SCH ×3 (05:53→19:56)
[2019-06-17 07:36] VITALS: BP 124/66
[2019-06-17] MEDS: GABAPENTIN 100 MG CAPSULE PO SCH ×2 (10:19→19:57)
[2019-06-17] MEDS: RIFAXIMIN 550 MG TABLET PO SCH ×2 (10:19→20:32)
[2019-06-17 13:18] VITALS: BP 115/61
[2019-06-17 18:57] VITALS: BP 121/75
[2019-06-17] MEDS ORDERED: VANCOMYCIN 1,300 MG in SODIUM CHLORIDE 0.9% 250 ML IV SCH (20:30)
[2019-06-17] MEDS: ENOXAPARIN 40 MG/0.4 ML SQ SCH (20:34)
[2019-06-17] MEDS: FERROUS SULFATE 325 MG TABLET PO SCH (20:34)
[2019-06-18 00:18] VITALS: BP 125/70
[2019-06-18] MEDS: GABAPENTIN 100 MG CAPSULE PO SCH ×3 (01:40→18:24)
[2019-06-18] MEDS: LACTULOSE 10 GM/15 ML UDC PO SCH ×4 (01:40→18:24)
[2019-06-18] MEDS: OXYcodone IR 5MG TABLET PO PRN ×4 (01:43→18:25)
[2019-06-18 05:24] LABS: MEAN CORPUSCULAR HEMOGLOBIN 31.5 pg (27.5-34.5); MEAN CORPUSCULAR HGB CONC 34.4 g/dL (33.2-36.2); MEAN CORPUSCULAR VOLUME 91.6 fL (81-97); MEAN PLATELET VOLUME 7.7 fL (7.4-10.4); PLATELET COUNT 86 x10^3/uL (130-400); RED BLOOD COUNT 3.36 x10^6/uL (4.38-5.82); RED CELL DISTRIBUTION WIDTH 15.9 % (9.4-14.8)
[2019-06-18 05:40] LABS: CREATININE 0.42 mg/dL (0.7-1.3)
[2019-06-18 06:12] LABS: BASOPHILS # (AUTO) 0.02 x10^3/uL (0-0.1); BASOPHILS % (AUTO) 1 % (0-1); EOSINOPHILS # (AUTO) 0.11 x10^3/uL (0-0.4); EOSINOPHILS % (AUTO) 5 % (1-7); LYMPHOCYTES # (AUTO) 0.65 x10^3/uL (1-3.4); LYMPHOCYTES % (AUTO) 31 % (22-44); MD SCAN; MONOCYTES # (AUTO) 0.26 x10^3/uL (0.2-0.8); MONOCYTES % (AUTO) 12 % (2-9); NEUTROPHILS # (AUTO) 1.05 x10^3/uL (1.8-6.8); NEUTROPHILS % (AUTO) 50 % (42-75)
[2019-06-18 07:16] VITALS: BP 116/67
[2019-06-18] MEDS: SULFAMETH./TRIMETHOPRIM DS 800MG/160MG TABLET PO SCH ×2 (09:03→21:08)
[2019-06-18] MEDS: RIFAXIMIN 550 MG TABLET PO SCH ×2 (09:04→21:08)
[2019-06-18 17:17] VITALS: BP 131/77
[2019-06-18 19:59] VITALS: BP 127/67
[2019-06-18] MEDS: ENOXAPARIN 40 MG/0.4 ML SQ SCH (21:08)
[2019-06-19] MEDS: LACTULOSE 10 GM/15 ML UDC PO SCH ×5 (00:22→19:42)
[2019-06-19] MEDS: GABAPENTIN 100 MG CAPSULE PO SCH ×4 (00:22→19:42)
[2019-06-19] MEDS: OXYcodone IR 5MG TABLET PO PRN ×4 (00:22→19:44)
[2019-06-19 00:23] VITALS: BP 121/71
[2019-06-19] MEDS: RIFAXIMIN 550 MG TABLET PO SCH ×2 (07:47→19:41)
[2019-06-19] MEDS: FOLIC ACID 1 MG TABLET PO SCH (07:47)
[2019-06-19] MEDS: SULFAMETH./TRIMETHOPRIM DS 800MG/160MG TABLET PO SCH ×2 (07:48→19:41)
[2019-06-19] MEDS: THIAMINE 100MG TABLET PO SCH (07:48)
[2019-06-19 07:50] VITALS: BP 118/69
[2019-06-19 13:38] VITALS: BP 127/70
[2019-06-19 19:22] VITALS: BP 107/58
[2019-06-19] MEDS: FERROUS SULFATE 325 MG TABLET PO SCH (19:42)
[2019-06-19] MEDS: ENOXAPARIN 40 MG/0.4 ML SQ SCH (19:42)
[2019-06-20 01:04] VITALS: BP 116/66
[2019-06-20] MEDS: LACTULOSE 10 GM/15 ML UDC PO SCH ×4 (07:00→22:42)
[2019-06-20 08:00] VITALS: BP 108/62
[2019-06-20] MEDS: FOLIC ACID 1 MG TABLET PO SCH (08:04)
[2019-06-20] MEDS: RIFAXIMIN 550 MG TABLET PO SCH ×2 (08:04→20:26)
[2019-06-20] MEDS: OXYcodone IR 5MG TABLET PO PRN ×2 (08:04→20:37)
[2019-06-20] MEDS: GABAPENTIN 100 MG CAPSULE PO SCH ×3 (08:04→22:42)
[2019-06-20] MEDS: THIAMINE 100MG TABLET PO SCH (08:04)
[2019-06-20] MEDS: SULFAMETH./TRIMETHOPRIM DS 800MG/160MG TABLET PO SCH ×2 (08:05→20:27)
[2019-06-20 12:40] VITALS: BP 122/68
[2019-06-20 19:50] VITALS: BP 116/65
[2019-06-20] MEDS: ENOXAPARIN 40 MG/0.4 ML SQ SCH (20:26)
[2019-06-21 02:38] VITALS: BP 115/56
[2019-06-21 06:07] LABS: CHLORIDE 110 mmol/L (98-107)
[2019-06-21 06:09] LABS: MEAN CORPUSCULAR HEMOGLOBIN 31.6 pg (27.5-34.5); MEAN CORPUSCULAR HGB CONC 34.4 g/dL (33.2-36.2); MEAN PLATELET VOLUME 7.8 fL (7.4-10.4); PLATELET COUNT 94 x10^3/uL (130-400); RED CELL DISTRIBUTION WIDTH 15.9 % (9.4-14.8)
[2019-06-21] MEDS: LACTULOSE 10 GM/15 ML UDC PO SCH ×4 (06:12→21:02)
[2019-06-21 06:15] LABS: CALCIUM 8.3 mg/dL (8.5-10.1); CREATININE 0.72 mg/dL (0.7-1.3)
[2019-06-21 06:24] LABS: BASOPHILS # (AUTO) 0.03 x10^3/uL (0-0.1); BASOPHILS % (AUTO) 1 % (0-1); EOSINOPHILS % (AUTO) 4 % (1-7); LYMPHOCYTES % (AUTO) 23 % (22-44); MD MORPH REVIEW ONLY; MONOCYTES # (AUTO) 0.24 x10^3/uL (0.2-0.8); MONOCYTES % (AUTO) 9 % (2-9); NEUTROPHILS # (AUTO) 1.64 x10^3/uL (1.8-6.8); NEUTROPHILS % (AUTO) 63 % (42-75)
[2019-06-21 06:25] LABS: ANISOCYTOSIS 1+; ECHINOCYTES 1+; OVALOCYTES 1+
[2019-06-21 06:26] LABS: <PLATELET ESTIMATE> DECREASED; <PLT MORPHOLOGY> NORMAL PLT MORPH; TEAR DROPS 1+
[2019-06-21 06:51] LABS: ANION GAP 9 mmol/L (5-15)
[2019-06-21] MEDS: SULFAMETH./TRIMETHOPRIM DS 800MG/160MG TABLET PO SCH ×2 (08:50→21:01)
[2019-06-21] MEDS: THIAMINE 100MG TABLET PO SCH (08:50)
[2019-06-21] MEDS: GABAPENTIN 100 MG CAPSULE PO SCH ×3 (08:51→21:01)
[2019-06-21] MEDS: FOLIC ACID 1 MG TABLET PO SCH (08:51)
[2019-06-21] MEDS: RIFAXIMIN 550 MG TABLET PO SCH ×2 (08:51→21:02)
[2019-06-21 09:25] VITALS: BP 111/57
[2019-06-21 14:07] VITALS: BP 125/76
[2019-06-21] MEDS: OXYcodone IR 5MG TABLET PO PRN (14:33)
[2019-06-21 19:58] VITALS: BP 116/66
[2019-06-21] MEDS: ENOXAPARIN 40 MG/0.4 ML SQ SCH (21:01)
[2019-06-21] MEDS: FERROUS SULFATE 325 MG TABLET PO SCH (21:01)
[2019-06-22 02:11] VITALS: BP 123/68
[2019-06-22] MEDS: OXYcodone IR 5MG TABLET PO PRN ×2 (02:44→11:09)
[2019-06-22] MEDS: LACTULOSE 10 GM/15 ML UDC PO SCH ×4 (05:17→20:12)
[2019-06-22 07:20] VITALS: BP 120/68
[2019-06-22] MEDS: SULFAMETH./TRIMETHOPRIM DS 800MG/160MG TABLET PO SCH ×2 (07:38→20:12)
[2019-06-22] MEDS: FOLIC ACID 1 MG TABLET PO SCH (07:38)
[2019-06-22] MEDS: THIAMINE 100MG TABLET PO SCH (07:38)
[2019-06-22] MEDS: RIFAXIMIN 550 MG TABLET PO SCH ×2 (07:38→20:12)
[2019-06-22] MEDS: GABAPENTIN 100 MG CAPSULE PO SCH ×4 (07:39→20:15)
[2019-06-22 12:58] VITALS: BP 119/71
[2019-06-22 19:06] VITALS: BP 124/74
[2019-06-22] MEDS: ENOXAPARIN 40 MG/0.4 ML SQ SCH (20:12)
[2019-06-23 01:11] VITALS: BP 122/68
[2019-06-23] MEDS: OXYcodone IR 5MG TABLET PO PRN ×2 (04:21→21:21)
[2019-06-23] MEDS: LACTULOSE 10 GM/15 ML UDC PO SCH ×4 (05:18→20:10)
[2019-06-23 07:07] VITALS: BP 121/71
[2019-06-23] MEDS: RIFAXIMIN 550 MG TABLET PO SCH ×2 (08:31→20:10)
[2019-06-23] MEDS: ACETAMINOPHEN 325 MG TABLET PO PRN (08:31)
[2019-06-23] MEDS: GABAPENTIN 100 MG CAPSULE PO SCH ×4 (08:32→20:11)
[2019-06-23] MEDS: FOLIC ACID 1 MG TABLET PO SCH (08:32)
[2019-06-23] MEDS: SULFAMETH./TRIMETHOPRIM DS 800MG/160MG TABLET PO SCH (08:32)
[2019-06-23] MEDS: THIAMINE 100MG TABLET PO SCH (08:32)
[2019-06-23 13:41] VITALS: BP 118/72
[2019-06-23] MEDS: FERROUS SULFATE 325 MG TABLET PO SCH (20:10)
[2019-06-23] MEDS: ENOXAPARIN 40 MG/0.4 ML SQ SCH (20:10)
[2019-06-23 21:39] VITALS: BP 110/67
[2019-06-24 02:02] VITALS: BP 112/67
[2019-06-24] MEDS: LACTULOSE 10 GM/15 ML UDC PO SCH ×4 (06:08→23:07)
[2019-06-24] MEDS: OXYcodone IR 5MG TABLET PO PRN ×3 (06:08→20:16)
[2019-06-24 07:13] VITALS: BP 128/71
[2019-06-24] MEDS: RIFAXIMIN 550 MG TABLET PO SCH ×2 (08:39→20:16)
[2019-06-24] MEDS: FOLIC ACID 1 MG TABLET PO SCH (08:39)
[2019-06-24] MEDS: GABAPENTIN 100 MG CAPSULE PO SCH ×3 (08:39→20:18)
[2019-06-24] MEDS: THIAMINE 100MG TABLET PO SCH (08:40)
[2019-06-24 14:35] VITALS: BP 121/68
[2019-06-24 19:44] VITALS: BP 127/69
[2019-06-24] MEDS: ENOXAPARIN 40 MG/0.4 ML SQ SCH (20:16)
[2019-06-25 01:17] VITALS: BP 118/71
[2019-06-25] MEDS: OXYcodone IR 5MG TABLET PO PRN ×3 (02:31→21:37)
[2019-06-25 05:46] LABS: MEAN CORPUSCULAR HEMOGLOBIN 31.6 pg (27.5-34.5); MEAN CORPUSCULAR HGB CONC 34.5 g/dL (33.2-36.2); MEAN CORPUSCULAR VOLUME 91.8 fL (81-97); MEAN PLATELET VOLUME 7.7 fL (7.4-10.4); PLATELET COUNT 71 x10^3/uL (130-400); RED BLOOD COUNT 3.58 x10^6/uL (4.38-5.82); RED CELL DISTRIBUTION WIDTH 15.8 % (9.4-14.8)
[2019-06-25 05:51] LABS: ANION GAP 6 mmol/L (5-15); CALCIUM 8.4 mg/dL (8.5-10.1); CHLORIDE 109 mmol/L (98-107); CREATININE 0.72 mg/dL (0.7-1.3)
[2019-06-25] MEDS: LACTULOSE 10 GM/15 ML UDC PO SCH ×4 (06:07→21:37)
[2019-06-25 06:20] LABS: BASOPHILS # (AUTO) 0.02 x10^3/uL (0-0.1); BASOPHILS % (AUTO) 1 % (0-1); EOSINOPHILS # (AUTO) 0.14 x10^3/uL (0-0.4); EOSINOPHILS % (AUTO) 5 % (1-7); LYMPHOCYTES # (AUTO) 0.53 x10^3/uL (1-3.4); LYMPHOCYTES % (AUTO) 20 % (22-44); MD SCAN; MONOCYTES # (AUTO) 0.22 x10^3/uL (0.2-0.8); MONOCYTES % (AUTO) 8 % (2-9); NEUTROPHILS # (AUTO) 1.76 x10^3/uL (1.8-6.8); NEUTROPHILS % (AUTO) 66 % (42-75)
[2019-06-25 06:56] VITALS: BP 128/68
[2019-06-25] MEDS: THIAMINE 100MG TABLET PO SCH (08:46)
[2019-06-25] MEDS: RIFAXIMIN 550 MG TABLET PO SCH ×2 (08:46→21:37)
[2019-06-25] MEDS: FOLIC ACID 1 MG TABLET PO SCH (08:46)
[2019-06-25] MEDS: GABAPENTIN 100 MG CAPSULE PO SCH ×4 (08:46→21:37)
[2019-06-25 13:29] VITALS: BP 110/62
[2019-06-25 21:27] VITALS: BP 123/73
[2019-06-25] MEDS: FERROUS SULFATE 325 MG TABLET PO SCH (21:37)
[2019-06-25] MEDS: ENOXAPARIN 40 MG/0.4 ML SQ SCH (21:37)
[2019-06-26 02:28] VITALS: BP 108/58
[2019-06-26 05:48] LABS: MEAN CORPUSCULAR HEMOGLOBIN 31.3 pg (27.5-34.5); MEAN CORPUSCULAR HGB CONC 33.6 g/dL (33.2-36.2); MEAN CORPUSCULAR VOLUME 93.3 fL (81-97); MEAN PLATELET VOLUME 8.4 fL (7.4-10.4); PLATELET COUNT 67 x10^3/uL (130-400); RED BLOOD COUNT 3.39 x10^6/uL (4.38-5.82); RED CELL DISTRIBUTION WIDTH 16.5 % (9.4-14.8)
[2019-06-26] MEDS: LACTULOSE 10 GM/15 ML UDC PO SCH ×4 (05:56→20:31)
[2019-06-26 06:07] LABS: BASOPHILS # (AUTO) 0.02 x10^3/uL (0-0.1); BASOPHILS % (AUTO) 1 % (0-1); EOSINOPHILS # (AUTO) 0.11 x10^3/uL (0-0.4); EOSINOPHILS % (AUTO) 5 % (1-7); LYMPHOCYTES # (AUTO) 0.64 x10^3/uL (1-3.4); LYMPHOCYTES % (AUTO) 30 % (22-44); MD SCAN; MONOCYTES # (AUTO) 0.21 x10^3/uL (0.2-0.8); MONOCYTES % (AUTO) 10 % (2-9); NEUTROPHILS # (AUTO) 1.15 x10^3/uL (1.8-6.8); NEUTROPHILS % (AUTO) 54 % (42-75)
[2019-06-26 06:55] VITALS: BP 115/62
[2019-06-26] MEDS: GABAPENTIN 100 MG CAPSULE PO SCH ×3 (09:00→20:31)
[2019-06-26] MEDS: THIAMINE 100MG TABLET PO SCH (09:06)
[2019-06-26] MEDS: OXYcodone IR 5MG TABLET PO PRN ×2 (09:07→20:35)
[2019-06-26] MEDS: RIFAXIMIN 550 MG TABLET PO SCH ×2 (09:07→20:31)
[2019-06-26] MEDS: FOLIC ACID 1 MG TABLET PO SCH (09:08)
[2019-06-26 14:30] VITALS: BP 117/65
[2019-06-26 19:40] VITALS: BP 135/74
[2019-06-26] MEDS: ENOXAPARIN 40 MG/0.4 ML SQ SCH (20:31)
[2019-06-27 01:05] VITALS: BP 118/62
[2019-06-27] MEDS: LACTULOSE 10 GM/15 ML UDC PO SCH ×4 (05:29→20:20)
[2019-06-27] MEDS: OXYcodone IR 5MG TABLET PO PRN (05:35)
[2019-06-27 06:50] VITALS: BP 111/66
[2019-06-27] MEDS: FOLIC ACID 1 MG TABLET PO SCH (07:59)
[2019-06-27] MEDS: RIFAXIMIN 550 MG TABLET PO SCH ×2 (07:59→20:21)
[2019-06-27] MEDS: GABAPENTIN 100 MG CAPSULE PO SCH ×4 (07:59→20:21)
[2019-06-27] MEDS: THIAMINE 100MG TABLET PO SCH (07:59)
[2019-06-27 14:00] VITALS: BP 113/64
--- NOTE | 2019-06-27 17:07 | NUR ---
REC ALF VS SNF: MILD COGNITIVE DEFICIT WITH HISTORIC FAILURE TO CARE FOR SELF AND INABILITY TO VERBALIZE SAFE PLAN AFTER DISCHARGE. Addendum: 06/27/19 at [address] Amended: Links added.
[2019-06-27 18:48] VITALS: BP 125/78
[2019-06-27] MEDS: ENOXAPARIN 40 MG/0.4 ML SQ SCH (20:21)
[2019-06-27] MEDS: FERROUS SULFATE 325 MG TABLET PO SCH (20:21)
[2019-06-28 01:21] VITALS: BP 128/77
[2019-06-28] MEDS: LACTULOSE 10 GM/15 ML UDC PO SCH ×4 (05:14→20:00)
[2019-06-28] MEDS: OXYcodone IR 5MG TABLET PO PRN ×2 (05:15→19:58)
[2019-06-28 07:13] VITALS: BP 132/72
[2019-06-28] MEDS: THIAMINE 100MG TABLET PO SCH (09:00)
[2019-06-28] MEDS: GABAPENTIN 100 MG CAPSULE PO SCH ×3 (09:00→19:59)
[2019-06-28] MEDS: RIFAXIMIN 550 MG TABLET PO SCH ×2 (09:42→20:00)
[2019-06-28] MEDS: FOLIC ACID 1 MG TABLET PO SCH (09:42)
[2019-06-28 13:40] VITALS: BP 154/82
[2019-06-28 19:48] VITALS: BP 122/72
[2019-06-28] MEDS: ENOXAPARIN 40 MG/0.4 ML SQ SCH (20:00)
[2019-06-29 02:30] VITALS: BP 120/72
[2019-06-29] MEDS: LACTULOSE 10 GM/15 ML UDC PO SCH ×4 (05:24→20:41)
[2019-06-29 07:12] VITALS: BP 125/70
[2019-06-29] MEDS: GABAPENTIN 100 MG CAPSULE PO SCH ×3 (07:30→20:44)
[2019-06-29] MEDS: RIFAXIMIN 550 MG TABLET PO SCH ×2 (07:31→20:41)
[2019-06-29] MEDS: FOLIC ACID 1 MG TABLET PO SCH (07:31)
[2019-06-29] MEDS: OXYcodone IR 5MG TABLET PO PRN ×2 (07:31→16:19)
[2019-06-29] MEDS: THIAMINE 100MG TABLET PO SCH (07:31)
[2019-06-29 14:35] VITALS: BP 125/72
[2019-06-29 18:29] VITALS: BP 122/67
[2019-06-29] MEDS: FERROUS SULFATE 325 MG TABLET PO SCH (20:41)
[2019-06-29] MEDS: ENOXAPARIN 40 MG/0.4 ML SQ SCH (20:42)
[2019-06-30 00:09] VITALS: BP 90/58
[2019-06-30] MEDS: LACTULOSE 10 GM/15 ML UDC PO SCH ×4 (05:50→20:20)
[2019-06-30 07:38] VITALS: BP 110/64
[2019-06-30] MEDS: RIFAXIMIN 550 MG TABLET PO SCH ×2 (08:31→20:21)
[2019-06-30] MEDS: FOLIC ACID 1 MG TABLET PO SCH (08:31)
[2019-06-30] MEDS: OXYcodone IR 5MG TABLET PO PRN ×2 (08:31→16:19)
[2019-06-30] MEDS: THIAMINE 100MG TABLET PO SCH (08:31)
[2019-06-30] MEDS: GABAPENTIN 100 MG CAPSULE PO SCH ×3 (08:31→20:20)
[2019-06-30 13:55] VITALS: BP 137/63
[2019-06-30 18:47] VITALS: BP 114/62
[2019-06-30] MEDS: ENOXAPARIN 40 MG/0.4 ML SQ SCH (20:21)
[2019-07-01 00:12] VITALS: BP 130/65
[2019-07-01] MEDS: LACTULOSE 10 GM/15 ML UDC PO SCH ×4 (05:41→21:05)
[2019-07-01 06:52] VITALS: BP 101/58
[2019-07-01] MEDS: RIFAXIMIN 550 MG TABLET PO SCH ×2 (07:52→21:06)
[2019-07-01] MEDS: GABAPENTIN 100 MG CAPSULE PO SCH ×3 (07:52→21:00)
[2019-07-01] MEDS: FOLIC ACID 1 MG TABLET PO SCH (07:53)
[2019-07-01] MEDS: OXYcodone IR 5MG TABLET PO PRN ×2 (07:53→16:48)
[2019-07-01] MEDS: THIAMINE 100MG TABLET PO SCH (07:53)
[2019-07-01 12:57] VITALS: BP 125/73
[2019-07-01 18:15] VITALS: BP 126/71
[2019-07-01] MEDS: ENOXAPARIN 40 MG/0.4 ML SQ SCH (21:05)
[2019-07-01] MEDS: FERROUS SULFATE 325 MG TABLET PO SCH (21:06)
[2019-07-02 02:27] VITALS: BP 112/57
[2019-07-02] MEDS: OXYcodone IR 5MG TABLET PO PRN (03:04)
[2019-07-02] MEDS: LACTULOSE 10 GM/15 ML UDC PO SCH ×4 (05:37→20:18)
[2019-07-02 07:24] VITALS: BP 135/75
[2019-07-02] MEDS: RIFAXIMIN 550 MG TABLET PO SCH ×2 (08:53→20:18)
[2019-07-02] MEDS: FOLIC ACID 1 MG TABLET PO SCH (08:53)
[2019-07-02] MEDS: THIAMINE 100MG TABLET PO SCH (08:53)
[2019-07-02] MEDS: GABAPENTIN 100 MG CAPSULE PO SCH ×3 (08:54→20:19)
[2019-07-02 14:07] VITALS: BP 129/68
[2019-07-02 18:16] VITALS: BP 128/74
[2019-07-02] MEDS: ENOXAPARIN 40 MG/0.4 ML SQ SCH (20:18)
[2019-07-03 01:12] VITALS: BP 124/67
[2019-07-03] MEDS: LACTULOSE 10 GM/15 ML UDC PO SCH ×4 (05:55→21:04)
[2019-07-03] MEDS: GABAPENTIN 100 MG CAPSULE PO SCH ×4 (09:32→21:00)
[2019-07-03] MEDS: FOLIC ACID 1 MG TABLET PO SCH (09:36)
[2019-07-03] MEDS: THIAMINE 100MG TABLET PO SCH (09:36)
[2019-07-03] MEDS: RIFAXIMIN 550 MG TABLET PO SCH ×2 (09:36→21:04)
[2019-07-03] MEDS: OXYcodone IR 5MG TABLET PO PRN ×2 (11:56→22:27)
[2019-07-03 13:06] LABS: MEAN CORPUSCULAR HEMOGLOBIN 31.4 pg (27.5-34.5); MEAN CORPUSCULAR HGB CONC 33.8 g/dL (33.2-36.2); MEAN CORPUSCULAR VOLUME 92.8 fL (81-97); RED BLOOD COUNT 3.75 x10^6/uL (4.38-5.82); RED CELL DISTRIBUTION WIDTH 16.6 % (9.4-14.8)
[2019-07-03 13:14] LABS: ANION GAP 3 mmol/L (5-15); CALCIUM 8.4 mg/dL (8.5-10.1); CHLORIDE 111 mmol/L (98-107)
[2019-07-03 13:17] LABS: MEAN PLATELET VOLUME 7.9 fL (7.4-10.4); PLATELET COUNT 60 x10^3/uL (130-400)
[2019-07-03 13:20] LABS: ANISOCYTOSIS 1+; BASOPHILS # (AUTO) 0.02 x10^3/uL (0-0.1); BASOPHILS % (AUTO) 1 % (0-1); EOSINOPHILS # (AUTO) 0.13 x10^3/uL (0-0.4); EOSINOPHILS % (AUTO) 6 % (1-7); LYMPHOCYTES # (AUTO) 0.47 x10^3/uL (1-3.4); LYMPHOCYTES % (AUTO) 21 % (22-44); MD MORPH REVIEW ONLY; MONOCYTES % (AUTO) 9 % (2-9); NEUTROPHILS # (AUTO) 1.48 x10^3/uL (1.8-6.8); NEUTROPHILS % (AUTO) 64 % (42-75); OVALOCYTES 1+
[2019-07-03 13:21] LABS: <PLATELET ESTIMATE> DECREASED; <PLT MORPHOLOGY> NORMAL PLT MORPH; TEAR DROPS 1+
[2019-07-03 16:22] VITALS: BP 153/77
[2019-07-03 20:06] VITALS: BP 138/66
[2019-07-03] MEDS: ENOXAPARIN 40 MG/0.4 ML SQ SCH (21:04)
[2019-07-03] MEDS: FERROUS SULFATE 325 MG TABLET PO SCH (21:04)
[2019-07-04 00:28] VITALS: BP 131/75
[2019-07-04] MEDS: LACTULOSE 10 GM/15 ML UDC PO SCH ×4 (05:20→20:43)
[2019-07-04] MEDS: OXYcodone IR 5MG TABLET PO PRN ×2 (05:22→12:31)
[2019-07-04 07:01] VITALS: BP 107/61
[2019-07-04] MEDS: GABAPENTIN 100 MG CAPSULE PO SCH ×4 (09:00→20:42)
[2019-07-04] MEDS: RIFAXIMIN 550 MG TABLET PO SCH ×2 (09:50→20:43)
[2019-07-04] MEDS: THIAMINE 100MG TABLET PO SCH (09:50)
[2019-07-04] MEDS: FOLIC ACID 1 MG TABLET PO SCH (09:51)
[2019-07-04 16:18] VITALS: BP 153/79
[2019-07-04 19:05] VITALS: BP 124/66
[2019-07-05 00:20] VITALS: BP 109/61
[2019-07-05] MEDS: OXYcodone IR 5MG TABLET PO PRN (02:47)
[2019-07-05] MEDS: LACTULOSE 10 GM/15 ML UDC PO SCH ×5 (05:26→20:46)
[2019-07-05] MEDS: RIFAXIMIN 550 MG TABLET PO SCH ×2 (08:34→20:42)
[2019-07-05] MEDS: THIAMINE 100MG TABLET PO SCH (08:34)
[2019-07-05] MEDS: FOLIC ACID 1 MG TABLET PO SCH (08:34)
[2019-07-05] MEDS: GABAPENTIN 100 MG CAPSULE PO SCH ×2 (08:34→08:36)
[2019-07-05 08:39] VITALS: BP 134/75
[2019-07-05 12:39] VITALS: BP 115/64
[2019-07-05 20:11] VITALS: BP 113/54
[2019-07-05] MEDS: FERROUS SULFATE 325 MG TABLET PO SCH (20:42)
[2019-07-05] MEDS: ACETAMINOPHEN 325 MG TABLET PO PRN (21:38)
[2019-07-06 02:28] VITALS: BP 124/71
[2019-07-06] MEDS: LACTULOSE 10 GM/15 ML UDC PO SCH ×3 (04:55→15:55)
[2019-07-06 06:33] VITALS: BP 123/69
[2019-07-06] MEDS: FOLIC ACID 1 MG TABLET PO SCH (09:02)
[2019-07-06] MEDS: THIAMINE 100MG TABLET PO SCH (09:02)
[2019-07-06] MEDS: RIFAXIMIN 550 MG TABLET PO SCH (09:02)
[2019-07-06] MEDS ORDERED: PREG25CA PO (10:37)
[2019-07-06] MEDS ORDERED: LACT10SO24 PO (10:37)
[2019-07-06 13:47] VITALS: BP 131/82
[2019-07-06] MEDS ORDERED: PREGABALIN 25 MG CAPSULE PO SCH (16:00)
== END 2019-07-06 16:13 | disposition home or self-care (01) | DRG 720 ==
LOC: ED 17:12 → EDIP 18:23 → SUATTDRO 18:46 → 3N 20:08
PROVIDERS: ADMIT Internal Medicine; ATTEND Internal Medicine Infectious Disease
DX: A41.9 Sepsis, unspecified organism (principal); D69.59 Other secondary thrombocytopenia; E83.51 Hypocalcemia; E88.09 Other disorders of plasma-protein metabolism, not elsewhere classified; G62.1 Alcoholic polyneuropathy; I85.10 Secondary esophageal varices without bleeding; B19.10 Unspecified viral hepatitis B without hepatic coma; D50.9 Iron deficiency anemia, unspecified; F10.20 Alcohol dependence, uncomplicated; B19.20 Unspecified viral hepatitis C without hepatic coma; B95.62 Methicillin resistant Staphylococcus aureus infection as the cause of diseases classified elsewhere; D63.8 Anemia in other chronic diseases classified elsewhere; G31.84 Mild cognitive impairment of uncertain or unknown etiology; I83.009 Varicose veins of unspecified lower extremity with ulcer of unspecified site; K70.30 Alcoholic cirrhosis of liver without ascites; K70.40 Alcoholic hepatic failure without coma; K76.6 Portal hypertension; L03.115 Cellulitis of right lower limb; L03.116 Cellulitis of left lower limb; L97.909 Non-pressure chronic ulcer of unspecified part of unspecified lower leg with unspecified severity; Z59.0 Homelessness; Z79.899 Other long term (current) drug therapy; Z91.14 Patient's other noncompliance with medication regimen; Y90.9 Presence of alcohol in blood, level not specified
CPT/HCPCS: 36415; 71045; 80048; 80053; 80202; 82040; 82140; 82565; 82728; 83540; 83550; 83735; 83880; 84100; 85025; 86480; 87040; 87070; 87077; 87186; 87205; 96361; 96374; 99285; G0378; J0295; J1650; J2405; J2543; J3370; 92523-GN; J3475; J7040; J7050

== ENCOUNTER 2019-07-11 10:39 | Outpatient (CLI) | payer MEDICAID ==
[~2019-07-11 10:39] MED LIST changes: +LACT10SO24 PO; +PREG25CA PO
== END 2019-07-11 23:59 | disposition home or self-care (01) ==
LOC: WOUND 10:39
PROVIDERS: ATTEND Internal Medicine
DX: I83.028 Varicose veins of left lower extremity with ulcer other part of lower leg (principal); L97.821 Non-pressure chronic ulcer of other part of left lower leg limited to breakdown of skin; I83.018 Varicose veins of right lower extremity with ulcer other part of lower leg; L97.811 Non-pressure chronic ulcer of other part of right lower leg limited to breakdown of skin; I11.0 Hypertensive heart disease with heart failure; I50.9 Heart failure, unspecified; I73.9 Peripheral vascular disease, unspecified; M19.90 Unspecified osteoarthritis, unspecified site; D63.8 Anemia in other chronic diseases classified elsewhere; F15.10 Other stimulant abuse, uncomplicated; F17.210 Nicotine dependence, cigarettes, uncomplicated; Z79.899 Other long term (current) drug therapy
CPT/HCPCS: 97597; 97598

== ENCOUNTER 2019-07-14 14:21 | Emergency (ER) | payer MEDICAID ==
[~2019-07-14] VITALS: Ht 172.7 cm; Wt 72.6 kg
[2019-07-14 14:24] VITALS: BP 121/84
--- NOTE | 2019-07-14 15:18 | NUR ---
FISH CHECKER: PT TO ROOM FROM LOBBY AT THIS TIME. AMBULATORY IN LOBBY WITH STEADY GAIT. TAKEN TO ROOM VIA WHEELCHAIR FOR COMFORT.
== END 2019-07-14 16:52 | disposition home or self-care (01) ==
LOC: ED 16:16
DX: Z48.00 Encounter for change or removal of nonsurgical wound dressing (principal)
CPT/HCPCS: 99281

== ENCOUNTER 2019-07-16 23:32 | Emergency (ER) | payer MEDICAID ==
[2019-07-16 23:35] VITALS: BP 124/74
[2019-07-17] MEDS ORDERED: KETOROLAC 60 MG/2 ML IM ONE
[2019-07-17] MEDS ORDERED: KETOROLAC 60 MG/2 ML ONE (00:04)
--- NOTE | 2019-07-17 00:32 | NUR ---
PT PROVIDED WITH DRESSING CHANGE MATERIALS AND PROVIDED TIME FOR WOUND CARE BEFORE DISCHARGE.
== END 2019-07-17 01:04 | disposition home or self-care (01) ==
LOC: ED 07-17 00:47
DX: M79.661 Pain in right lower leg (principal); M79.662 Pain in left lower leg; F15.10 Other stimulant abuse, uncomplicated; Z48.00 Encounter for change or removal of nonsurgical wound dressing; I10 Essential (primary) hypertension; Z86.79 Personal history of other diseases of the circulatory system
CPT/HCPCS: 96372; 99283; J1885

== ENCOUNTER 2019-07-17 18:22 | Emergency (ER) | payer MEDICAID ==
[~2019-07-17] VITALS: Ht 170.2 cm; Wt 77.3 kg
[2019-07-17 18:24] VITALS: BP 122/66
--- NOTE | 2019-07-17 19:37 | NUR ---
PT TO ROOM FROM LOBBY.
--- NOTE | 2019-07-17 19:45 | NUR ---
THIS IS A 53 YO M W/ C/O BLE EDEMA AND PAIN. PT WAS EVALUATED THIS MORNING FOR SAME CC. PT REPORTS ONLY CHANGE SINCE THIS MORNING IS INCREASED PAIN. PT IS RESTING ON GURNEY W/ CALL LIGHT IN REACH. RESP EVEN AND UNLABORED. NADN. AWAITING ED PROVIDER BRYANT.
--- NOTE | 2019-07-17 20:35 | NUR ---
Patient given discharge instructions and they have confirmed that they understand the instructions. Patient ambulatory with steady gait. Provided taxi voucher.
== END 2019-07-17 20:36 | disposition home or self-care (01) ==
LOC: ED 19:56
DX: M79.662 Pain in left lower leg (principal); R21 Rash and other nonspecific skin eruption; F17.210 Nicotine dependence, cigarettes, uncomplicated; F15.10 Other stimulant abuse, uncomplicated; Z72.9 Problem related to lifestyle, unspecified
CPT/HCPCS: 99282; 99406

== ENCOUNTER 2019-07-18 11:16 | Outpatient (CLI) | payer MEDICAID | END 2019-07-18 23:59 | disposition home or self-care (01) | LOC: WOUND 11:16 | PROVIDERS: ATTEND Internal Medicine | DX: S81.802D Unspecified open wound, left lower leg, subsequent encounter (principal); S81.801D Unspecified open wound, right lower leg, subsequent encounter; F17.210 Nicotine dependence, cigarettes, uncomplicated; L03.116 Cellulitis of left lower limb; L03.115 Cellulitis of right lower limb; I11.0 Hypertensive heart disease with heart failure; I50.9 Heart failure, unspecified; I73.9 Peripheral vascular disease, unspecified; M19.90 Unspecified osteoarthritis, unspecified site; B19.20 Unspecified viral hepatitis C without hepatic coma; I87.2 Venous insufficiency (chronic) (peripheral); Z72.89 Other problems related to lifestyle; X58.XXXD Exposure to other specified factors, subsequent encounter | CPT/HCPCS: 97597; 97598 ==

== ENCOUNTER 2019-07-21 19:57 | Emergency (ER) | payer MEDICAID ==
[~2019-07-21] VITALS: Ht 172.7 cm; Wt 74.2 kg
[2019-07-21 20:00] VITALS: BP 134/60
--- NOTE | 2019-07-21 21:05 | NUR ---
PT STATES HIS BAG WAS STOLLEN WITH HIS MEDS AND WOUND CARE SUPPLIES. PT HAS BILAT LOWER LEG ULCERS. WOUND BEDS CLEAN, NO SLOUGH OR DRAINAGE. PT STATES HE HAS WOUND CLINIC APPOINTMENT ON TUESDAY AND WANT CLEAN DRESSING APPLIED UNTIL THEN. PT RESTING ON [facility]. MANDEEP. AWAITING ORDERS AT THIS TIME.
--- NOTE | 2019-07-21 21:46 | NUR ---
WOUND CARE PROVIDED TO LOWER LEGS. WOUNDS CLEANED, XEROFORM APPLIED, AND WRAPPED IN KERLEX.
== END 2019-07-21 22:03 | disposition home or self-care (01) ==
LOC: ED 21:20
DX: I83.222 Varicose veins of left lower extremity with both ulcer of calf and inflammation (principal); L97.229 Non-pressure chronic ulcer of left calf with unspecified severity; I83.228 Varicose veins of left lower extremity with both ulcer of other part of lower extremity and inflammation; L97.829 Non-pressure chronic ulcer of other part of left lower leg with unspecified severity; Z72.9 Problem related to lifestyle, unspecified; I10 Essential (primary) hypertension; F17.210 Nicotine dependence, cigarettes, uncomplicated
CPT/HCPCS: 99282; 99406

== ENCOUNTER 2019-07-22 04:48 | Emergency (ER) | payer MEDICAID ==
[~2019-07-22] VITALS: Ht 172.7 cm; Wt 74.3 kg
[2019-07-22 04:51] VITALS: BP 125/56
== END 2019-07-22 05:36 | disposition home or self-care (01) ==
LOC: ED 05:18
DX: I87.8 Other specified disorders of veins (principal); Z48.01 Encounter for change or removal of surgical wound dressing; F17.210 Nicotine dependence, cigarettes, uncomplicated
CPT/HCPCS: 99281

== ENCOUNTER 2019-08-28 21:54 | Emergency (ER) | payer MEDICAID ==
[~2019-08-28] VITALS: Ht 172.7 cm; Wt 69.4 kg
[2019-08-28] MEDS ORDERED: NEOSPORIN OINT. PKT 1 PACKET ONE (22:18)
--- NOTE | 2019-08-28 22:20 | NUR ---
Tech at bedside for wound dressing.
[2019-08-28 22:52] VITALS: BP 139/99
== END 2019-08-28 23:05 | disposition home or self-care (01) ==
LOC: ED 23:01
DX: R21 Rash and other nonspecific skin eruption (principal); I10 Essential (primary) hypertension; F17.200 Nicotine dependence, unspecified, uncomplicated; Z48.01 Encounter for change or removal of surgical wound dressing; Z72.9 Problem related to lifestyle, unspecified
CPT/HCPCS: 99282